=== PATIENT | male | born 1960 | race Caucasian/White ===

== ENCOUNTER 2019-06-17 11:02 | Emergency (ER) | payer SELFPAY ==
[2019-06-17 11:06] VITALS: BP 122/84; PULSE 84; RESP 18; TEMP 36.7; O2SAT 97; BMI 28.7
--- NOTE | 2019-06-17 11:25 | PC.PHAR ---
PT STATES HE STOP TAKING ALL HIS MEDICATIONS. AMLODIPINE 5MG 1 TAB ONCE A DAY WAS WRITTEN ON 02/11/19 FOR A 90D/S. PT ALSO HAD WARFARIN 5MG ONE TAB ONCE A DAY FILLED ON 11/10/18, PT STATES HE STOP TAKING BECAUSE HE CANT FIND A DR TO STAY WITH HIM.
--- NOTE | 2019-06-17 11:28 | ED_ITS ---
HPI - Extremity Problem General: Chief complaint: Extremity Problem,Nontraumatic Stated complaint: Right Foot Pain Time Seen by Provider: 06/17/19 11:28 Source: patient Mode of arrival: ambulatory Limitations: no limitations History of Present Illness: HPI Narrative: Patient is a 58-year-old male who presents to ED today with complaints of gangrene in his right foot; he appar ently has had this issue for several several months now and states he has seen several different providers all of which to keep referring me to someone else ; he states he needs another prescription for Bactrim but nobody will write him one; patient states he seen Dr. Dick previously but states he was told there was nothing to do MD Complaint: extremity pain Onset (ago): month(s) Location: right Relieving factors: nothing Exacerbating factors: nothing Associated symptoms: Reports no associated symptoms; Deny chest pain or fever(s) Review of Systems Const: Denies: fever or chills Card: Denies: chest pain Resp: Denies: shortness of breath Skin/Breast: Reports: other (discoloration to R foot) [facility] ED PFSH: Statuses (acute, chronic, etc) shown below reflect problem list status as previously entered and may not be historically accurate Social History Smoking and tobacco status: never smoked Physical Exam Const: COMMON NORMALS: no apparent distress, average body habitus, oriented x3, alert and well nourished Extremity: NARRATIVE EXTREMITY EXAM: pt has venous stasis changes to the medial aspect of his R foot; there is no redness/swelling to leg/foot; he has equal bilateral DP/PT pulses Neuro: COMMON NORMALS: oriented x3 SENSORIUM/ORIENTATION: Yes alert Skin: NARRATIVE SKIN EXAM: see extremity assessment Course Vital Signs: Vital signs: Vital Signs Temperature 98.0 F 06/17/19 11:06 Pulse Rate 84 06/17/19 11:06 Respiratory Rate 18 06/17/19 11:06 Blood Pressure 122/84 06/17/19 11:06 Pulse Oximetry 97 06/17/19 11:06 MDM - Extremity (Nontraumatic) MDM Narrative: Medical decision making narrative: Patient keeps telling me that he has gangrene in his foot and he is demanding that I treat him with antibiotics. I told him there is no evidence of active infection at this point and that the discoloration is most likely consistent with venous stasis changes. Patient becomes furious, angry, verbally abusive (telling me that the hospital should fire me and that I am worthless) and then stormed out of the room leaving AMA. Upon review of patient's visits he has had multiple work-ups of the foot and has seen Dr. Dick previously who agreed with venous stasis changes. He has had a DVT in that leg previously. Last arterial ultrasound in March was normal. He had an MRI of the foot in March as well which showed no osteomyelitis. Discharge Plan Discharge Patient Disposition: Left Against Medical Advice Clinical Impression: Venous stasis dermatitis Condition: Stable Prescriptions: No Action No Known Home Medications RF: 0 Referrals: Renita Mccabe FNP [Primary Care Provider] - Coding Level of Care Code ED See Supervisor for Dustin Ku
--- NOTE | 2019-06-17 11:46 | PC.NURSE ---
During patient assessment, patient with telling me that he was treated here for an infection with Bactrim DS by Dr Malcolm, went to follow up with a primary and that his foot wound had not fully healed but was improving with the bactrim. Randomly stated he does not like or trust anyone with the last name Jenny as they are too powerful around here. He stated Nandini Alvarado had put him on Eliquis last time which caused him to leak shit out of his ass. That it was messed up that she prescribed him that. Stated he needed an opioid pain medication for the pain in his foot. BRIDGETTE Jensen then entered room to assess and diagnose patient. He stated it was gangrene in his foot. Dl Alvarado stated it does not resemble gangrene in anyway. He then became angry and stated fine if you dont want to treat me, I will just leave and come back when you're not here. Dl Alvarado then said she could have another physician see him but if they too believed it was not gangrene they would not treat it as gangrene. He then got upset, put his shoes on, stated he just wanted a Rx for pain medication and antibiotics, that he was leaving and left out the front door.
== END 2019-06-17 11:49 | disposition left against medical advice (07) ==
PROVIDERS: Emergency Provider Physician Assistant; Family Provider Nurse Practitioner; PCP Nurse Practitioner
DX: I87.2 Venous insufficiency (chronic) (peripheral) (principal)
CPT/HCPCS: 99281

== ENCOUNTER 2019-07-08 14:44 | Emergency (ER) | payer SELFPAY ==
[2019-07-08 16:18] VITALS: BP 184/99; PULSE 80; RESP 18; TEMP 36.6; O2SAT 97; BMI 28.7
[2019-07-08 16:56] VITALS: BP 152/94; PULSE 80; RESP 12; TEMP 37.2
--- NOTE | 2019-07-08 17:09 | ED_ITS ---
Entered by Marietta Sosa, acting as scribe for Clay Malcolm DO Jul 08, 2019 14:44 HPI - General Adult General: Chief complaint: General Medical Stated complaint: LEFT FOOT PAIN Time Seen by Provider: 07/08/19 16:54 History of Present Illness: HPI narrative: 58 yo male presents with right foot pain. Pt states that he had antibiotics called in but he never picked them up. Pt states that he noticed his foot is more blue today. Pt believes that he has an infection in his foot. Pts right foot presents with chronic venous stasis. Pts foot doesn't presents with infections at this time. MD complaint: right foot pain. Onset (ago): month(s) Location: left (foot) Radiation: non-radiation Severity: moderate Quality: aching Pain Consistency: constant Relieving factors: none Exacerbating factors: none Associated symptoms: Reports no associated symptoms; Deny chest pain, dyspnea, malaise, nausea, rash or vomiting Review of Systems Const: Denies: fever, chills, body aches, change in appetite, fatigue or malaise ENMT: Denies: throat pain, ear pain, nasal discharge or nasal congestion Card: Denies: chest pain, edema, shortness of breath on exertion or shortness of breath when lying down Resp: Denies: shortness of breath, productive cough or non-productive cough GI: Denies: abdominal pain, nausea, vomiting, vomiting blood, coffee grounds in vomit, diarrhea, constipation, bloating, blood in stool or black tarry stool : Denies: flank pain, painful urination, urinary frequency or urinary urgency Skin/Breast: Denies: rash or itching PFSH ED PFSH: Statuses (acute, chronic, etc) shown below reflect problem list status as previously entered and may not be historically accurate Social History Smoking and tobacco status: never smoked Physical Exam Const: COMMON NORMALS: no apparent distress GENERAL APPEARANCE: cooperative and comfortable ORIENTATION/CONSCIOUSNESS: Yes awake, Yes oriented to person, Yes oriented to place and Yes oriented to time HENMT: COMMON NORMALS: normocephalic, head/scalp atraumatic, hearing grossly normal bilaterally, external ears normal, EAC's normal, TM's normal bilaterally, nasal mucous membranes and turbinates normal, moist oral mucous membranes and oropharynx normal HEAD & SCALP: normocephalic and atraumatic NOSE: nasal mucous membranes and turbinates normal EXTERNAL EAR: Yes external ears normal EXTERNAL AUDITORY CANAL: EAC's normal TYMPANIC MEMBRANE: TM's normal bilaterally Eye: COMMON NORMALS: PERRL, EOMs intact bilaterally, conjunctivae normal and no scleral icterus CONJUNCTIVA: Yes conjunctivae normal PUPIL: Yes PERRL Neck/C-Spine: COMMON NORMALS: full ROM, no lymphadenopathy, supple and no JVD Lymph: LYMPHATIC: no lymphadenopathy noted and no lymphedema noted Resp: COMMON NORMALS: normal respiratory effort, no retractions, no use of accessory muscles and clear to auscultation bilaterally AUSCULTATION: clear to auscultation bilaterally Cardio: COMMON NORMALS: no JVD, regular rate, regular rhythm and no murmurs RATE: regular rate RHYTHM: regular rhythm GI: COMMON NORMALS: soft to palpation and no hepatosplenomegaly AUSCU LTATION: Yes normoactive bowel sounds PALPATION: Yes soft, No tender, No guarding and Yes no hepatosplenomegaly Extremity: COMMON NORMALS: normal to inspection, normal capillary refill, no clubbing, cyanosis or edema, no calf tenderness and no pedal edema Neuro: SENSORIUM/ORIENTATION: Yes oriented to person, Yes oriented to place and Yes oriented to time Skin: COMMON NORMALS: no rashes or lesions noted GENERAL SKIN EXAM: no rashes or lesions noted Course ED course: Has been emergency room multiple times he has changes of chronic venous stasis edema and varicosities in the leg he is extremely angry when I pointed out to him there is no actual signs of infection no redness no drainage no swelling no erythema no sign of add abscess. He became begin to Elise mulligan at myself and other staff demanded to leave immediately advised him to follow-up with primary care podiatry as needed. Vital Signs: Vital signs: Vital Signs Temperature 98.9 F 07/08/19 16:56 Pulse Rate 80 07/08/19 16:56 Respiratory Rate 12 07/08/19 16:56 Blood Pressure 152/94 07/08/19 16:56 Pulse Oximetry 97 07/08/19 16:18 Discharge Plan Discharge Patient Disposition: Home, Self-Care Clinical Impression: Varicosities of leg Condition: Stable Prescriptions: No Action No Known Home Medications RF: 0 Referrals: Renita Mccabe FNP [Primary Care Provider] - Discharge Diet: Usual diet Discharge Activity: Resume usual activity Activity Restrictions/Additional Instructions: Case management will call with a referral to podiatry Discharge Date/Time: 07/08/19 17:28 Coding Level of Care Code ED Racing Mechanic for Chg Fwd Exam Problem Focused The documentation recorded by the Ian mercer Kialy, accurately reflects the service I personally performed and the decisions made by , Clay Malcolm, Jul 08, 2019 14:44
--- NOTE | 2019-07-09 09:54 | DCPLANNER ---
Addendum entered by Delma Miranda 07/31/19 10:21: Pat from ortho called informing casework manager that patient would need to see a foot and ankle specialist for his foot. Clinic attempted to contact patient and was unable to reach patient, casework manager tried to call patient, and was unable to reach patient to discuss with patient what clinic that he would like to use. Original Note: pst manager had a message to schedule a follow up appointment for patient with ortho. pst manager called the ortho clinic, spoke with Pat, gave clinic patients information. pst manager was told that patients information would be printed and reviewed. Clinic will call casework manager and patient with appointment information.
== END 2019-07-08 17:28 | disposition home or self-care (01) ==
PROVIDERS: Emergency Provider Family Medicine; Family Provider Nurse Practitioner; PCP Nurse Practitioner
DX: I83.92 Asymptomatic varicose veins of left lower extremity (principal)
CPT/HCPCS: 99281

== ENCOUNTER 2019-12-08 09:33 | Emergency (ER) | payer SELFPAY ==
[2019-12-08 09:49] VITALS: BP 168/88; PULSE 55; RESP 16; TEMP 36.8; O2SAT 95; BMI 31.5
--- NOTE | 2019-12-08 10:10 | W.ED.EXTPRO ---
HPI - Extremity Problem General: Chief complaint: Extremity Injury, Lower Stated complaint: RIGHT FOOT PAIN Time Seen by Provider: 12/08/19 10:01 History of Present Illness: HPI Narrative: Patient is a 59-year-old male who comes to the ED with acute on chronic right foot pain. Patient states he has had pain in his right foot for couple years. States pain has gotten worse. Patient says he has had multiple skin infections on right foot over the past couple years. Pain is located on the medial aspect of the right foot. He currently rates the pain a 5 out of 10. Pain gets worse when he is standing up and walking on it a lot. Patient stated he does not want any pain medications while here in the ED. He has some erythema and warmth of the skin on right medial aspect of his heel. He says he has had cellulitis there in the past and he usually gets it treated with Bactrim. Patient says when he takes Bactrim tends to break out and get cold sores around his mouth so given Valtrex in the past along with Bactrim. Associated symptoms: Deny chest pain, fever(s) or rash Review of Systems Const: Denies: fever(s), chills or fatigue Eyes: Denies: change in vision or eye discomfort ENMT: Denies: throat pain, odynophagia, nasal discharge or nasal congestion Card: Denies: chest pain, palpitations, edema, swelling of feet/ankles, dyspnea on exertion or orthopnea Resp: Denies: dyspnea, productive cough or non-productive cough GI: Denies: abdominal pain, nausea, vomiting, diarrhea, constipation or hematochezia : Denies: flank pain, difficulty urinating, dysuria or hematuria Musc: Reports: extremity pain (Right foot pain on medial side of heel.); Denies: neck pain, back pain or extremity swelling Skin/Breast: Reports: skin tenderness (Right foot) and new lesions (Erythema and warmth on right foot.); Denies: rash Neuro: Denies: headache(s), numbness in extremities or weakness in extremities PFS ED PFSH: Medical History DVT (deep venous thrombosis) Hypertension Venous stasis of lower extremity Social History Smoking and tobacco status: never smoked Alcohol intake: never History of recent travel: No Physical Exam Const: COMMON NORMALS: patient oriented x3 HENMT: COMMON NORMALS: normocephalic HEAD & SCALP: normocephalic MOUTH: Normal oral and palatal mucosa present THROAT: posterior oropharynx normal and uvula midline Neck/C-Spine: COMMON NORMALS: supple GENERAL: Yes normal visual inspection Resp: COMMON NORMALS: normal respiratory effort, No retractions, No use of accessory muscles and clear to auscultation bilaterally AUSCULTATION: clear to auscultation bilaterally Cardio: COMMON NORMALS: regular rate, regular rhythm, S1 normal heart sound present, S2 normal heart sound present, No gallops present (Cardio), No clicks present (Cardio), No murmurs present (Cardio) and Peripheral pulses 2+ throughout RATE: regular rate RHYTHM: regular rhythm HEART SOUNDS: S1 normal heart sound present and S2 normal heart sound present PERIPHERAL PULSES: Peripheral pulses 2+ throughout GI: COMMON NORMALS: Normal to inspection, nondistended, normoactive bowel sounds present, Soft to palpation, non-tender and no masses PALPATION: Yes Soft to palpation : COMMON NORMALS: Yes no CVA tenderness BLADDER/KIDNEY EXAM: Yes no CVA tenderness Back/Pelvis: COMMON NORMALS: no CVA tenderness Extremity: COMMON NORMALS: no pedal edema RIGHT LOWER EXTREMITY: Yes foot & digits Right foot and digits: Yes inspection (Patient has erythema and warmth of the skin over the medial side of the right foot and heel.), Yes palpation (Skin is tender to the touch where the erythema and warmth is.), Yes ROM (Full) and Yes neurovascular exam (Intact) Neuro: COMMON NORMALS: patient oriented x3 and moves all extremities Skin: LESIONS: lesion noted right foot Lesion size (cm): 8 Lesion location: medial aspect of right foot and heel Lesion distribution: Yes asymmetrical Lesion color: Yes erythematous and Yes red Lesion surface: Yes dry, Yes shiny and Yes warm Lesion border: Yes indistinct Lesion tenderness: Yes moderate Lesion finding consistent with: Yes cellulitis Course Vital Signs: Vital signs: Vital Signs Temperature 98.2 F 12/08/19 09:49 Pulse Rate 55 L 12/08/19 09:49 Respiratory Rate 16 12/08/19 09:49 Blood Pressure 168/88 12/08/19 09:49 Pulse Oximetry 95 12/08/19 09:49 MDM - Extremity (Nontraumatic) MDM Narrative: Medical decision making narrative: Patient is a 59-year-old male who comes to the ED with right foot pain. Upon examination patient has erythema, warmth and tenderness of skin on medial aspect of right foot. Patient diagnosed with cellulitis and given a dose of Bactrim here in the ED and sent home with a prescription for Bactrim. Patient also states that when he takes Bactrim he starts developing cold sores and in the past doctors have also prescribed him Valtrex along with Bactrim to help with cold sore symptoms. Patient was given a prescription for Valtrex to take as needed for developing cold sores as result of taking the Bactrim. He was told to follow-up with his PCP in 7 to 10 days and to take full course of antibiotics as prescribed. Take Tylenol or ibuprofen for pain or fevers. He can return to the ED if symptoms worsen. Patient understood and agreed with plan. Discharge Plan Discharge Patient Disposition: Home, Self-Care Clinical Impression: Cellulitis Qualifiers: Site of cellulitis: extremity Site of cellulitis of extremity: lower extremity Laterality: right Qualified Code(s): L03.115 - Cellulitis of right lower limb Condition: Stable Prescriptions: New Bactrim DS 800-160 mg tablet 1 tab PO BID 14 Days Qty: 28 RF: 0 Valtrex 1 gram tablet 1,000 mg PO BID PRN (Reason: cold sores) Qty: 10 RF: 0 No Action Norvasc 2.5 mg Tablet 2.5 mg PO DAILY RF: 0 Discharge Orders: Discharge Order (Routine); Ordered 12/08/19 Ordered By: Phill Park Referrals: Renita Mccabe FNP [Primary Care Provider] - Discharge Diet: Regular Discharge Activity: Resume usual activity Patient Instructions: Cellulitis (ED) Activity Restrictions/Additional Instructions: Call your PCP to schedule a follow-up appointment for reevaluation in the next 7 to 10 days. Take full course of antibiotic as prescribed. Also prescribing you Valtrex to help with cold sore symptoms caused by taking Bactrim. Take Tylenol or ibuprofen for fever or pain. Continue taking all home meds. Follow discharge plans as discussed. You can return to the ED if symptoms worsen. Coding Level of Care Code ED Live Truck Operator for Dustin Fwd Exam Comprehensive
[2019-12-08] MEDS: sulfamethoxazole-trimeth DS 160-800 mg Tablet 1 TAB PO (10:23)
[2019-12-08 10:41] VITALS: BP 146/68; PULSE 74; RESP 16; O2SAT 97
== END 2019-12-08 10:42 | disposition home or self-care (01) ==
PROVIDERS: Emergency Provider Physician Assistant; PCP Nurse Practitioner
DX: L03.115 Cellulitis of right lower limb (principal); I10 Essential (primary) hypertension
CPT/HCPCS: 12345; 99282

== ENCOUNTER 2019-12-22 11:13 | Emergency (ER) | payer SELFPAY ==
[2019-12-22 11:54] VITALS: BP 150/73; PULSE 71; RESP 16; TEMP 36.9; O2SAT 97; BMI 31.5
== END 2019-12-22 12:20 | disposition left against medical advice (07) ==
LOC: ER 13:21
PROVIDERS: Emergency Provider Physician Assistant; PCP Nurse Practitioner
DX: Z53.21 Procedure and treatment not carried out due to patient leaving prior to being seen by health care provider (principal)
CPT/HCPCS: 99281

== ENCOUNTER 2020-01-22 13:49 | Emergency (ER) | payer SELFPAY ==
[2020-01-22 13:54] VITALS: BP 186/79; PULSE 78; RESP 16; TEMP 37; O2SAT 97; BMI 31.5
[2020-01-22 14:21] VITALS: BP 163/97; PULSE 80; PULSE 83; RESP 18; O2SAT 95
[2020-01-22 14:26] VITALS: BP 163/97; PULSE 79; RESP 18; TEMP 36.4; O2SAT 96
--- NOTE | 2020-01-22 14:54 | W.ED.EXTPRO ---
HPI - Extremity Problem General: Chief complaint: Extremity Problem,Nontraumatic Stated complaint: right foot pain Time Seen by Provider: 01/22/20 14:02 History of Present Illness: HPI Narrative: Patient complains about right foot cellulitis says he needs antibiotics and then he also needs Valtrex when he takes antibiotics he gets cold sores around his mouth. MD Complaint: extremity pain Onset (ago): year(s) Pain Consistency: intermittent Location: right and lower extremity Severity scale (1-10): 2 Quality: aching Associated symptoms: Reports no associated symptoms; Deny chest pain, fever(s) or rash Review of Systems Narrative: Patient has a history of circulatory problems with his lower extremities and now he says that his right foot has a sore and he needs some antibiotics the only thing that helps take care of this and he is very adamant about this Const: Denies: fever(s), chills or body aches Eyes: Denies: change in vision or blurry vision ENMT: Denies: throat pain or nasal congestion Card: Denies: chest pain or dyspnea on exertion Resp: Denies: dyspnea, productive cough or non-productive cough GI: Denies: abdominal pain, nausea or vomiting : Denies: difficulty urinating Musc: Denies: extremity pain Skin/Breast: Reports: other (Patient has small sore right medial aspect below the ankle.); Denies: rash Neuro: Denies: headache(s) Psych: Denies: anxiety or depression Bubba/Lymph: Denies: easy bruising PFS ED PFSH: Medical History (Updated 01/22/20 @ 14:13 by JONI Otto) DVT (deep venous thrombosis) Hypertension Venous stasis of lower extremity Social History Smoking and tobacco status: never smoked Alcohol intake: never History of recent travel: No Physical Exam Const: COMMON NORMALS: no acute distress, average body habitus and patient oriented x3 HENMT: COMMON NORMALS: normocephalic HEAD & SCALP: normal to inspection and normocephalic FACE & SINUS: normal facial exam Eye: COMMON NORMALS: conjunctivae normal GENERAL EYE: appearance normal, both eyes and all related structures CONJUNCTIVA: Yes conjunctivae normal Neck/C-Spine: COMMON NORMALS: no JVD Chest: COMMONS NORMALS: normal inspection of the chest Resp: COMMON NORMALS: normal respiratory effort and clear to auscultation bilaterally AUSCULTATION: clear to auscultation bilaterally Cardio: COMMON NORMALS: no JVD, regular rate and regular rhythm RATE: regular rate RHYTHM: regular rhythm GI: COMMON NORMALS: Normal to inspection, nondistended, normoactive bowel sounds present Extremity: COMMON NORMALS: normal to inspection and full ROM RIGHT LOWER EXTREMITY: Yes foot & digits (Patient has small sore that and appear to be draining right now does not have erythema but he does have some venous stasis and blotchy discoloration of the lower extremity consistent with circulatory problems no erythema noted is tender to the touch) Neuro: COMMON NORMALS: patient oriented x3 Course Vital Signs: Vital signs: Vital Signs Temperature 97.6 F 01/22/20 14:26 Pulse Rate 79 01/22/20 14:26 Respiratory Rate 18 01/22/20 14:26 Blood Pressure 163/97 01/22/20 14:26 Pulse Oximetry 96 01/22/20 14:26 Discharge Plan Discharge Patient Disposition: Home Clinical Impression: Venous stasis of lower extremity Condition: Stable Prescriptions: New Bactrim 400-80 mg tablet 1 tab PO Q12H 28 Days Qty: 56 RF: 0 Valtrex 500 mg tablet 500 mg PO BID 5 Days Qty: 10 RF: 0 No Action tolnaftate [Lamisil AF] 1 % aerosol powder 1 spray TOPICAL DAILY 7 Days Qty: 133 RF: 0 Norvasc 2.5 mg Tablet 2.5 mg PO DAILY RF: 0 Valtrex 1 gram tablet 1,000 mg PO BID PRN (Reason: cold sores) Qty: 10 RF: 0 Discharge Orders: Discharge Order (Routine); Ordered 01/22/20 Ordered By: Chad Jacobo Referrals: Renita Mccabe FNP [Primary Care Provider] - Discharge Diet: As Directed Discharge Activity: Increase activity as tolerated Patient Instructions: Cellulitis (ED) Activity Restrictions/Additional Instructions: Follow-up with medical provider as directed. Take medications as prescribed. Return to the ER or your medical provider if condition worsens. Please read and understand discharge instructions. If any questions ask please. Follow-up Renita Mccabe as needed. Discharge Date/Time: 01/22/20 14:32 Coding Level of Care Code ED Parks And Recreation Worker for Dustin Ku
== END 2020-01-22 14:32 | disposition home or self-care (01) ==
PROVIDERS: Emergency Provider Nurse Practitioner Family; PCP Nurse Practitioner
DX: I87.8 Other specified disorders of veins (principal); I10 Essential (primary) hypertension
CPT/HCPCS: 12345; 99281

== ENCOUNTER 2020-06-25 05:47 | Emergency (ER) | payer SELFPAY ==
[2020-06-25 05:50] VITALS: BP 193/76; PULSE 66; RESP 15; TEMP 36.8; O2SAT 97; BMI 32.3
[2020-06-25 06:02] VITALS: BP 168/71; PULSE 59; RESP 16; O2SAT 96
--- NOTE | 2020-06-25 06:16 | ED_ITS ---
HPI - Skin/Abscess/Foreign Bdy General: Chief complaint: Skin/Abscess/Foreign Body Stated complaint: tick bite on groin Time Seen by Provider: 06/25/20 05:59 History of Present Illness: HPI narrative: 59 yo male present to the ER with a c omplaint of rash in the R groin crease. He relates he can feel a nodule in his scrotum on the right side inferiorly. He was concerned that there might be the head of the tick embedded there. He thinks it is from about 2 years ago. He is a rash in the groin creases mildly reddened he is try different topicals and even prescription medications and yet it persists. Has not had any difficulty with urination. Patient denies being diabetic. MD complaint: rash Onset (ago): year(s) Location: genitals (Right groin crease) Severity: mild Relieving factors: none Exacerbating factors: none Context: witnessed insect bite (Per patient this was a result of a tick bite 2 years ago) Associated symptoms: Deny chills or fever(s) Treatments prior to arrival: other (Prescription antifungals systemic) Review of Systems Const: Denies: fever(s), chills, body aches, change in appetite, fatigue or malaise : Denies: flank pain, dysuria, urinary frequency or urinary urgency PFSH ED PFSH: Medical History Acute eczema of hand Chronic wound of extremity DVT (deep venous thrombosis) Hypertension Obesity (BMI 30.0-34.9) Venous stasis of lower extremity Social History Smoking and tobacco status: never smoked Alcohol intake: never History of recent travel: No Physical Exam Const: COMMON NORMALS: no acute distress GENERAL APPEARANCE: cooperative and comfortable ORIENTATION/CONSCIOUSNESS: Yes awake, Yes oriented to person, Yes oriented to place and Yes oriented to time HENMT: COMMON NORMALS: normocephalic, atraumatic and hearing grossly normal bilaterally HEAD & SCALP: normocephalic and atraumatic Neck/C-Spine: COMMON NORMALS: no JVD Resp: COMMON NORMALS: normal respiratory effort, No retractions, No use of accessory muscles and clear to auscultation bilaterally AUSCULTATION: clear to auscultation bilaterally Cardio: COMMON NORMALS: no JVD, regular rate, regular rhythm and No murmurs present (Cardio) RATE: regular rate RHYTHM: regular rhythm GI: COMMON NORMALS: Soft to palpation and No hepatosplenomegaly present AUSCULTATION: Yes normoactive bowel sounds PALPATION: Yes Soft to palpation, No Tenderness to palpation present (GI), No Guarding due to palpation present (GI) and Yes No hepatosplenomegaly present Neuro: SENSORIUM/ORIENTATION: Yes oriented to person, Yes oriented to place and Yes oriented to time Skin: NARRATIVE SKIN EXAM: Mildly erythematous rash in the right groin crease no drainage. No skin ulceration no vesicles consistent with candidal rash Course Vital Signs: Vital signs: Vital Signs Temperature 98.2 F 06/25/20 05:50 Pulse Rate 61 06/25/20 06:24 Respiratory Rate 16 06/25/20 06:24 Blood Pressure 149/89 06/25/20 06:24 Pulse Oximetry 95 06/25/20 06:24 MDM - Skin/Abscess/Foreign Bdy MDM Narrative: Medical decision making narrative: Topical ketoconazole daily for a week follow-up with dermatology if not improve Discharge Plan Discharge Patient Disposition: Home Clinical Impression: [place] infection of genital region Condition: Stable Prescriptions: New ketoconazole 2 % cream 1 applic topical DAILY 14 Days Qty: 60 RF: 0 No Action Norvasc 2.5 mg tablet 2.5 mg PO DAILY Qty: 30 RF: 5 doxycycline hyclate 100 mg capsule 100 mg PO BID Qty: 60 RF: 2 Discharge Orders: Discharge ED (Routine); Ordered 06/25/20 Ordered By: Clay Malcolm Referrals: Yvan Cervantes MD [Primary Care Provider] - Activity Restrictions/Additional Instructions: Case management will call with an appointment to dermatology, Coding Level of Care Code ED Heart Specialist for Dustin Ku
[2020-06-25 06:24] VITALS: BP 149/89; PULSE 61; RESP 16; O2SAT 95
== END 2020-06-25 06:26 | disposition home or self-care (01) ==
PROVIDERS: Emergency Provider Family Medicine; PCP Family Medicine Adult Medicine
DX: B37.49 Other urogenital candidiasis (principal); I10 Essential (primary) hypertension
CPT/HCPCS: 12345; 99281

== ENCOUNTER 2020-07-28 22:28 | Emergency (ER) | payer SELFPAY ==
[2020-07-28 22:33] VITALS: BP 150/70; PULSE 85; RESP 16; TEMP 36.6; O2SAT 97; BMI 31.5
--- NOTE | 2020-07-29 01:36 | W.ED.EXTPRO ---
HPI - Extremity Problem General: Chief complaint: Extremity Problem,Nontraumatic Stated complaint: lacerations that won't heal on both hands Time Seen by Provider: 07/29/20 01:33 History of Present Illness: HPI Narrative: Patient comes in complain about dry cracking hands for the last few weeks. Complaint: other (Dry hands) Onset (ago): week(s) Pain Consistency: constant Location: left, right and upper extremity Severity scale (1-10): 1 Relieving factors: nothing Exacerbating factors: nothing Associated symptoms: Reports no associated symptoms; Deny fever(s) Review of Systems Const: Denies: fever(s) or chills Skin/Breast: Reports: other (Hands been dry and cracking the last few weeks) Psych: Denies: anxiety PFSH ED PFSH: Medical History (Updated 07/29/20 @ 01:36 by JONI Otto) Acute eczema of hand Chronic cellulitis Chronic wound of extremity DVT (deep venous thrombosis) Hypertension Obesity (BMI 30.0-34.9) Venous stasis of lower extremity Social History Smoking and tobacco status: never smoked Alcohol intake: never History of recent travel: No Physical Exam Const: COMMON NORMALS: no acute distress Resp: COMMON NORMALS: normal respiratory effort Cardio: COMMON NORMALS: regular rate RATE: regular rate Psych: COMMON NORMALS: mental status grossly normal Skin: OTHER: He has skin that is dry and cracking on his hands no erythema noted no swelling noted Course Vital Signs: Vital signs: Vital Signs Temperature 97.9 F 07/28/20 22:33 Pulse Rate 85 07/28/20 22:33 Respiratory Rate 16 07/28/20 22:33 Blood Pressure 150/70 07/28/20 22:33 Pulse Oximetry 97 07/28/20 22:33 Discharge Plan Discharge Patient Disposition: Home Clinical Impression: Dry skin Condition: Stable Prescriptions: No Action Norvasc 2.5 mg tablet 2.5 mg PO DAILY Qty: 30 RF: 5 doxycycline hyclate 100 mg capsule 100 mg PO BID Qty: 60 RF: 1 ketoconazole 2 % cream 1 applic topical BID Qty: 60 RF: 2 Discharge Orders: Discharge ED (Routine); Ordered 07/29/20 Ordered By: Chad Jacobo Referrals: Yvan Cervantes MD [Primary Care Provider] - Discharge Diet: Usual diet Discharge Activity: Resume usual activity Patient Instructions: Lanolin (On the skin) Activity Restrictions/Additional Instructions: You can buy [place] working hand cream to apply to your hands twice a day. Are you can take petroleum jelly or Vaseline applied to her hands nightly put a glove on and wear that all during the night and do this every night for next 2 to 3 months. Follow-up with press department manager if no significant provement. Coding Level of Care Code ED Operating Room Aide for Dustin Ku
[2020-07-29 02:00] VITALS: PULSE 73; O2SAT 97
== END 2020-07-29 02:00 | disposition home or self-care (01) ==
PROVIDERS: Emergency Provider Nurse Practitioner Family; PCP Family Medicine Adult Medicine
DX: R23.4 Changes in skin texture (principal); I10 Essential (primary) hypertension
CPT/HCPCS: 99281

== ENCOUNTER → 2020-09-30 10:37 | Outpatient (BNVA) | payer SELFPAY | PROVIDERS: PCP Family Medicine Adult Medicine; Visit Provider Family Medicine Adult Medicine | DX: I10 Essential (primary) hypertension (principal); R94.4 Abnormal results of kidney function studies; L03.90 Cellulitis, unspecified; E66.9 Obesity, unspecified | CPT/HCPCS: 80053 ==

== ENCOUNTER 2021-04-10 09:35 | Outpatient (CLI) | payer SELFPAY | END 2021-04-10 09:36 | disposition home or self-care (01) | LOC: WOUND 09:35 | PROVIDERS: PCP Family Medicine Adult Medicine; Visit Provider Emergency Medicine | DX: I87.2 Venous insufficiency (chronic) (peripheral) (principal); L97.311 Non-pressure chronic ulcer of right ankle limited to breakdown of skin | CPT/HCPCS: 97597; 99203; A6212; G0463 ==

== ENCOUNTER 2021-04-17 09:25 | Outpatient (CLI) | payer SELFPAY | END 2021-04-17 09:26 | disposition home or self-care (01) | LOC: WOUND 09:26 | PROVIDERS: PCP Family Medicine Adult Medicine; Visit Provider Nurse Practitioner Family | DX: L97.311 Non-pressure chronic ulcer of right ankle limited to breakdown of skin (principal) | CPT/HCPCS: G0463 ==

== ENCOUNTER 2021-04-24 09:24 | Outpatient (CLI) | payer SELFPAY | END 2021-04-24 09:25 | disposition home or self-care (01) | LOC: WOUND 09:25 | PROVIDERS: PCP Family Medicine Adult Medicine; Visit Provider Emergency Medicine | DX: Z09 Encounter for follow-up examination after completed treatment for conditions other than malignant neoplasm (principal) | CPT/HCPCS: 99212 ==

== ENCOUNTER 2021-05-29 15:02 | Outpatient (CLI) | payer MEDICAID, SELFPAY ==
--- NOTE | 2021-05-29 15:06 | USCV_ITS ---
EugenioGregorio Age: 60 Gender: M : 1960 Exam Date: 05/29/2021 15:17 Ordering Phys: Sis Hickey DO Technologist: Exam Location: [facility] [place]: HISTORY: PROCEDURES: Right duplex Venous Insufficiency study of the Deep and Superficial systems was carried out according to normal protocol with the patient in supine positon for deep system and dependent position for the superficial system. FINDINGS: THERE IS NON OCCLUDING DVT IN RT FEMORAL VEIN AND POPLETEAL VEIN. THERE IS SIGNIFICANT REFLUX IN THE DEEP SYSTEM IN THE RT DISTAL FEMORAL AND RT POP VEIN. THERE IS NO REFLUX IN THE GREAT SAPH Echogenic material was noted in the femoral and popliteal vein on the right side fits Doppler flow signals CONCLUSIONS 1. Features of DVT causing partial occlusion of the right femoral and popliteal vein. 2. Significant venous reflux was noted at the femoral vein. 3. No significant venous reflux was noted in the greater saphenous or small saphenous veins on the right 3. The superficial veins were found to be of normal caliber on the right side. Dr Grabiel Tejada MD [facility] (Electronically Signed) Final Date: 03 June 2021 16:09 S
== END 2021-05-29 15:03 | disposition home or self-care (01) ==
LOC: RAD 15:05
PROVIDERS: PCP Family Medicine Adult Medicine; Visit Provider Emergency Medicine
DX: I87.2 Venous insufficiency (chronic) (peripheral) (principal); L97.819 Non-pressure chronic ulcer of other part of right lower leg with unspecified severity
CPT/HCPCS: 93971

== ENCOUNTER 2021-06-01 12:46 | Emergency (ER) | payer MEDICAID, SELFPAY ==
[2021-06-01] VITALS (7 sets, daily range): BP systolic 131–159; BP diastolic 67–74; PULSE 53–104; RESP 16–18; TEMP 36.6; O2SAT 94–98
--- NOTE | 2021-06-01 14:35 | ED_ITS ---
HPI - Wound/Laceration General: Chief Complaint: Wound/Laceration Stated Complaint: R FOOT PAIN/NOT HEALING Time Seen by Provider: 06/01/21 14:35 History of Present Illness: HPI narrative: Ms. Becker is a 60-year-old gentleman without history of diabetes who presents to the emergency department due to worsening foot wound. He reports approximately 8 years ago he had an injury in the medial midfoot which took a long time to heal. He subsequently has developed recurrence which has intermittently occurred. He has a longstanding history of intermittent antibiotic use and has been on doxycycline for approximately 1 year. He follows with PCP and was started on Keflex on the seventh. He continues to have worsening including increased pain, drainage, and ecchymosis. He denies recurrent injury. Denies signs of systemic illness. Overall the course has been worsening. Intensity of pain is moderate. No other specific changes in health, exacerbating, relieving factors identified. Review of Systems General: Reports: 10 or more systems reviewed and unremarkable except in HPI and below PFSH ED PFSH: Medical History (Updated 06/09/21 @ 00:00 by ) Acute eczema of hand Callus of foot Chronic wound of extremity Rt ankle/foot DVT (deep venous thrombosis) Right lower leg 06/01/2021 Fistula dermatitis Hypertension Ingrown toenail of both feet Lice infested hair Obesity (BMI 30.0-34.9) Onychomycosis Psoriasis and similar disorder Social History Alcohol intake: never History of recent travel: No Physical Exam Narrative: EXAM NARRATIVE: GENERAL/CONSTITUTIONAL - well-appearing. Not toxic Eyes - PERRL, no conjunctival injection ENMT - Atraumatic external nose and ears. Moist mucous membranes NECK - supple. trachea midline CARDIOVASCULAR - regular rate and rhythm. Right foot DP and PT only very subtly palpable. RESPIRATORY -clear to auscultation bilaterally. ABDOMEN/GI - Nontender/Nondistended. MSK - Extremities without obvious deformity or tenderness to palpation. Medial aspect of right foot has area of bruising with central wound, no deep tracking appreciated. SKIN - Warm, Dry NEURO - alert and appropriately oriented. Moves all extremities equally. Course ED course: - Patient was seen and evaluated by me at bedside - Patient placed on cardiac monitors, IV access obtained - Initial evaluation notable for exam as above - Labs notable for no leukocytosis. Negative inflammatory markers. - Imaging notable for no acute fracture or evidence of significant bony erosion. Given exam findings and barely palpable pulses as well as nonhealing wound arterial ultrasound ordered. - Upon serial reexamination after treatment the patient was improved with analgesia - Based on patient history, evaluation, labs, and imaging as interpreted the most likely cause of the patient's condition is chronic wounds with concern for vascular insufficiency - The results of ED evaluation were discussed with the patient. I strongly see/recommended admission for further medical evaluation as I am concerned that there is a area of subtly necrotic tissue without evidence of superimposed infection. This may be secondary to the combination of vascular insufficiency and DVTs though no region of classic cerulea dolens was noted. The patient d eclined recommendation adamantly, he plans to follow-up with wound care and perhaps go to a animal doctor . I explained that this was a bad idea, unfortunately I cannot force this patient to make reasonable medical decisions. He has capacity to make medical decisions at this time. He can understand and explain risks and benefits as explained to him. I discussed prescriptions and/or symptomatic cares (if applicable) including appropriate and responsible use, followup plan, and return precautions. The patient verbalized understanding and felt safe for discharge. - Patient discharged in satisfactory condition. Vital Signs: Vital signs: Vital Signs Temperature 97.8 F 06/01/21 13:26 Pulse Rate 59 L 06/01/21 21:24 Respiratory Rate 18 06/01/21 21:24 Blood Pressure 159/68 06/01/21 21:24 Pulse Oximetry 95 06/01/21 21:24 MDM - Wound/Laceration Medical Records: Attestation: I reviewed the patient's medical records. Lab Data: Attestation: I reviewed the patient's lab results. Labs: Lab Results 06/01/21 06/01/21 06/01/21 15:23 15:23 15:23 WBC 5.1 10^3/uL 10^3/ uL (4.0-10.0) RBC 4.31 10^6/uL 10^6 /uL (4.1-5.3) Hgb 13.5 g/dL g/dL (11.7-16.6) Hct 41.2 % L % (42.0-52.0) MCV 95.6 fl H fl (80-94) MCH 31.3 pg pg (28.0-34.0) MCHC 32.8 g/dL g/dL (30.0-36.0) RDW 12.6 % % (12.1-15.1) Plt Count 118 10^3/cmm L 10 ^3/cmm (130-400) MPV 11.3 fL H fL (7.4-10.4) Neut % (Auto) 69.1 % % Lymph % (Auto) 20.0 % % [place] % (Auto) 8.0 % % Eos % (Auto) 2.3 % % Baso % (Auto) 0.4 % % Neut # (Auto) 3.53 10^3/uL 10^3 /uL (1.8-7.7) Lymph # (Auto) 1.0 10^3/uL 10^3/ uL (0.8-4.8) [place] # (Auto) 0.4 10^3/uL 10^3/ uL (0.2-0.9) Eos # (Auto) 0.1 10^3/uL 10^3/ uL (0.0-0.8) Baso # (Auto) 0.0 10^3/uL 10^3/ uL (0.0-0.1) Nucleated RBC % (a uto) 0 % % Nucleated RBCs # 0.0 /100WBC /100W BC ESR < 1 mm/hr mm/hr (0-10) Sodium 140 mmol/L mmol/L (136-145) Potassium 4.1 mmol/L mmol/L (3.5-5.1) Chloride 104 mmol/L mmol/L (98-107) Carbon Dioxide 25 mmol/L mmol/L (22-29) Anion Gap 15.1 (5-19) BUN 31 mg/dL H mg/dL (8-23) Creatinine 1.0 mg/dL mg/dL (0.7-1.2) GFR Calculation 76.0 mL/min L mL/ min (90-130) Glucose 77 mg/dL mg/dL (65-115) Calculated Osmolal ity 295 mOsm/kg mOsm/ kg (285-295) Calcium 8.7 mg/dL mg/dL (8.5-10.5) C-Reactive Protein 0.7 mg/L mg/L (0.0-4.9) Discharge Plan Discharge Patient Disposition: Home Clinical Impression: Chronic wound of extremity, DVT (deep venous thrombosis), Arterial insufficiency Condition: Stable Prescriptions: No Action Eliquis DVT-PE Treat 30D Start 5 mg (74 tabs) tablets,dose pack See Rx Instructions .ROUTE .COMPLEX Qty: 74 RF: 0 tramadol 50 mg tablet 50 mg PO Q12H PRN (Reason: foot pain) 30 Days Qty: 60 RF: 0 gabapentin 100 mg capsule 100 mg PO TID Qty: 90 RF: 3 cephalexin 750 mg capsule 750 mg PO BID Qty: 60 RF: 0 doxycycline hyclate 100 mg tablet 100 mg PO BID Qty: 60 RF: 2 naproxen 500 mg tablet 500 mg PO BID Qty: 60 RF: 1 clotrimazole-betamethasone 1-0.05 % cream 1 applic topical BID Qty: 45 RF: 1 amlodipine 5 mg tablet 5 mg PO DAILY Qty: 30 RF: 5 Discharge Orders: Discharge ED (Routine); Ordered 06/01/21 Ordered By: Jeremy Johnson Referrals: Yvan Cervantes MD [Primary Care Provider] - Discharge Diet: Usual diet Discharge Activity: Resume usual activity Patient Instructions: Deep Vein Thrombosis (ED), Peripheral Vascular Disease (ED), Chronic Wounds (ED), Opioid Safety Activity Restrictions/Additional Instructions: Thank you for visiting the emergency department. You were seen and evaluated for worsening of chronic wound. The exact cause your wound is unclear however you were found to have DVTs as well as peripheral arterial disease. I recommend staying in the hospital for further evaluation and intervention which you are declining at this time. You will be started on a medication called Eliquis, this can cause bleeding, watch out for signs of bleeding and be sure to return to the emergency department for any signs of bleeding or traumatic injury. Please follow-up with wound care and your primary care provider. Return to the emergency department for anything else that you are concerned about and feel needs emergency department evaluation. Coding Level of Care Code ED Flocculator Operator for Dustin Ku
--- NOTE | 2021-06-01 14:52 | XRR_ITS ---
PROCEDURE INFORMATION: Exam: XR Right Foot Exam date and time: 06/01/2021 2:52 PM Age: 60 years old Clinical indication: Swelling, leg or foot; Patient HX: --injured ankle 8 years prior. Has had residual pain since. The injury was a roll of the ankle internally. Currently has pain and bruising/swelling on the anterio part of ankle and foot (right). , ; Additional info: Wound, swelling TECHNIQUE: Imaging protocol: XR Right foot. Views: 3 or more views. COMPARISON: MRI Foot w/o RIGHT* [id number] 03/23/2019 7:43 AM FINDINGS: Bones/joints: Visualized osseous structures are intact. Negative for fracture. Joint spaces are preserved. Mild dorsal spurring along the mid foot. Soft tissues: Normal. XR/XR foot RT min 3V* [id number] IMPRESSION: No acute findings.
--- NOTE | 2021-06-01 14:52 | XRR_ITS ---
PROCEDURE INFORMATION: Exam: XR Right Ankle Exam date and time: 06/01/2021 2:52 PM Age: 60 years old Clinical indication: Swelling, leg or foot; Patient HX: --injured ankle 8 years prior. Has had residual pain since. The injury was a roll of the ankle internally. Currently has pain and bruising/swelling on the anterio part of ankle and foot (right). , ; Additional info: Wound, swelling TECHNIQUE: Imaging protocol: XR Right ankle. Views: 3 or more views. COMPARISON: CR Ankle 3 views, RIGHT* [id number] 09/19/2018 11:43 AM FINDINGS: Bones/joints: Visualized osseous structures are intact. Negative for fracture. Joint spaces are preserved. Soft tissues: Soft tissue swelling around the ankle. XR/XR ankle RT min 3V* [id number] IMPRESSION: No acute osseous abnormalities of the ankle.
[2021-06-01 15:40] LABS: Basophils % 0.4 %; Eosinophils # 0.1 10^3/uL (0.0-0.8); Eosinophils % 2.3 %; Hematocrit 41.2 % (42.0-52.0); Hemoglobin 13.5 g/dL (11.7-16.6); Mean Corpuscular HGB Conc 32.8 g/dL (30.0-36.0); Mean Corpuscular Hemoglobin 31.3 pg (28.0-34.0); Mean Corpuscular Volume 95.6 fl (80-94); Mean Platelet Volume 11.3 fL (7.4-10.4); Monocytes # 0.4 10^3/uL (0.2-0.9); Neutrophils # 3.53 10^3/uL (1.8-7.7); Neutrophils % 69.1 %; Nucleated Red Blood Cells % 0 %; Platelet Count 118 10^3/cmm (130-400); Red Blood Count 4.31 10^6/uL (4.1-5.3); Red Cell Distribution Width 12.6 % (12.1-15.1); White Blood Count 5.1 10^3/uL (4.0-10.0)
--- NOTE | 2021-06-01 15:46 | USR_ITS ---
PROCEDURE INFORMATION: Exam: US Duplex Right Lower Extremity Arteries Or Arterial Bypass Grafts Exam date and time: 06/01/2021 3:46 PM Age: 60 years old Clinical indication: Pain; Edema, localized; Lower extremity, right; Foot; Patient HX: Non-healing ulceration with erythema and edema of the right ankle and distal right calf; Additional info: Worsening wound, deminished pulses TECHNIQUE: Imaging protocol: Right Real-time duplex scan of the arteries or arterial bypass grafts of the right lower extremity with 2-D davis scale, color Doppler flow and spectral waveform analysis. Images documented and saved. COMPARISON: CTA AbdAorta Runoff Leg [id number] 10/22/2018 2:02 PM FINDINGS: Right common femoral artery: No occlusion or significant stenosis. Normal waveform. No pseudoaneurysm in the inguinal region. Right superficial femoral artery: No occlusion or significant stenosis. Normal waveform. Right popliteal artery: No occlusion or significant stenosis. Normal waveform. Right calf/foot arteries: No occlusion or significant stenosis in the visualized arteries. Monophasic waveforms of the tibioperoneal trunk, posterior tibial artery, and dorsalis pedis artery. Dorsalis pedis artery is patent. Soft tissues: No hematoma or [place]. US/[place] [id number] IMPRESSION: Abnormal monophasic waveforms of the calf arteries including the tibioperoneal trunk, posterior tibial artery, and dorsalis pedis artery, without stenosis or occlusion.
[2021-06-01 16:02] LABS: Anion Gap 15.1 (5-19); Blood Urea Nitrogen 31 mg/dL (8-23); C Reactive Protein 0.7 mg/L (0.0-4.9); Calcium 8.7 mg/dL (8.5-10.5); Carbon Dioxide 25 mmol/L (22-29); Chloride 104 mmol/L (98-107); Glucose 77 mg/dL (65-115); Osmolality Calculated 295 mOsm/kg (285-295); Potassium 4.1 mmol/L (3.5-5.1); Sodium 140 mmol/L (136-145)
[2021-06-01 16:23] LABS: Slide Review Slide Review Perform
[2021-06-01 16:28] LABS: Erythrocyte Sedimentation Rate < 1 mm/hr (0-10)
--- NOTE | 2021-06-01 16:56 | USR_ITS ---
PROCEDURE INFORMATION: Exam: US Duplex Right Lower Extremity Veins, Limited Exam date and time: 06/01/2021 4:56 PM Age: 60 years old Clinical indication: Edema, localized and other: Non-healing ulceration with erythema and edema of the right ankle and distal right calf; Lower extremity, right; Additional info: Eval dvt TECHNIQUE: Imaging protocol: Real-time Duplex ultrasound of the Right Lower Extremity with 2-D davis scale, color Doppler flow and spectral waveform analysis with image documentation. Limited exam was focused on the right lower extremity veins. COMPARISON: [place] [id number] 06/01/2021 4:09 PM FINDINGS: Right deep veins: Minimal compressibility with the appearance of nonocclusive chronic appearing thrombus throughout the superficial femoral vein, popliteal vein, and posterior tibial veins. Augmentation and color Doppler flow is still appreciated in these regions. The peroneal veins are not visualized on exam. Common femoral vein is patent with compressibility, augmentation, color Doppler flow, no evidence of thrombus in this region. Right superficial veins: Unremarkable. Saphenofemoral junction is patent without thrombus. Soft tissues: Unremarkable. US/[place] [id number] IMPRESSION: Chronic appearing nonocclusive DVT noted throughout the superficial femoral vein, popliteal vein, and posterior tibial calf veins. Peroneal calf veins are not visualized on exam.
--- NOTE | 2021-06-01 17:49 | PC.NURSE ---
PATIENT FOUND IN TABLE TOP TILE SETTER OFFICE. PATIENT TRYING TO LEAVE DUE TO BEING IN PAIN. PATIENT STATES THAT IF HE ISN'T GOING TO GET PAIN MEDS HERE, HE CAN JUST GO OUT TO HIS CAR AND GET SOME. PATIENT REMINDED THAT HE HAS AN IV AND CANNOT LEAVE THE HOSPITAL TO RETRIEVE THINGS OUT OF HIS VEHICLE. PATIENT BACK IN ROOM. PROVIDER NOTIFIED.
[2021-06-01] MEDS: morphine 4 mg/mL SDV 1 mL IVP (17:56)
== END 2021-06-01 21:00 | disposition home or self-care (01) ==
PROVIDERS: Emergency Provider Emergency Medicine; PCP Family Medicine Adult Medicine
DX: S91.301A Unspecified open wound, right foot, initial encounter (principal); X58.XXXA Exposure to other specified factors, initial encounter; I82.511 Chronic embolism and thrombosis of right femoral vein; I82.531 Chronic embolism and thrombosis of right popliteal vein; I82.541 Chronic embolism and thrombosis of right tibial vein; I77.1 Stricture of artery; I10 Essential (primary) hypertension; Z86.718 Personal history of other venous thrombosis and embolism
CPT/HCPCS: 73610; 73630; 80048; 85025; 85651; 86140; 93926; 93971; 96374; 99284; J2270

== ENCOUNTER 2021-06-10 12:12 | Emergency (ER) | payer MEDICAID, SELFPAY ==
[2021-06-10 12:33] VITALS: BP 168/69; PULSE 74; RESP 16; TEMP 37; O2SAT 98
--- NOTE | 2021-06-10 14:57 | XRR_ITS ---
PROCEDURE INFORMATION: Exam: XR Right Foot Exam date and time: 06/10/2021 2:57 PM Age: 60 years old Clinical indication: Other: Chronic ulcer; Additional info: Chronic draining ulcer to RT foot TECHNIQUE: Imaging protocol: XR Right foot. Views: 3 or more views. COMPARISON: CR XR foot RT min 3V* [id number] 06/01/2021 3:01 PM FINDINGS: Bones/joints: Normal. Soft tissues: Unremarkable. Negative for soft tissue foreign body XR/XR foot RT min 3V* [id number] IMPRESSION: No acute findings.
--- NOTE | 2021-06-10 14:57 | W.ED.WOUNDLC ---
HPI - Wound/Laceration General: Chief Complaint: Wound/Laceration Stated Complaint: R FOOT PAIN Time Seen by Provider: 06/10/21 14:54 History of Present Illness: HPI narrative: 60-year-old male has a chronic ulcer on the inner aspect of his right heel is been there for several months he seen podiatry and he has seen wound care clinic he states it is persisting he is currently on some antibiotics he is also on apixaban. has not been bleeding, has not been having any purulent drainage. Onset (ago): month(s) Place: home Associated symptoms: Denies chills, fever(s), foreign body sensation, inability to move, nausea, numbness, pain, syncope or vomiting Treatments prior to arrival: bandage Review of Systems Const: Denies: fever(s) or chills ENMT: Denies: throat pain, ear or mastoid pain, nasal discharge or nasal congestion Card: Denies: syncope Resp: Denies: dyspnea, productive cough or non-productive cough GI: Denies: nausea or vomiting : Denies: flank pain, dysuria, urinary frequency or urinary urgency Skin/Breast: Denies: rash or pruritus PFSH ED PFSH: Medical History Acute eczema of hand Callus of foot Chronic wound of extremity Rt ankle/foot DVT (deep venous thrombosis) Right lower leg 06/01/2021 Fistula dermatitis Hypertension Ingrown toenail of both feet Lice infested hair Obesity (BMI 30.0-34.9) Onychomycosis Psoriasis and similar disorder Social History Alcohol intake: never History of recent travel: No Physical Exam Const: COMMON NORMALS: no acute distress GENERAL APPEARANCE: cooperative and comfortable ORIENTATION/CONSCIOUSNESS: Yes awake, Yes oriented to person, Yes oriented to place and Yes oriented to time HENMT: COMMON NORMALS: normocephalic, atraumatic and hearing grossly normal bilaterally HEAD & SCALP: normocephalic and atraumatic Neck/C-Spine: COMMON NORMALS: no JVD Resp: COMMON NORMALS: normal respiratory effort, No retractions, No use of accessory muscles and clear to auscultation bilaterally AUSCULTATION: clear to auscultation bilaterally Cardio: COMMON NORMALS: no JVD, regular rate, regular rhythm and No murmurs present (Cardio) RATE: regular rate RHYTHM: regular rhythm GI: COMMON NORMALS: Soft to palpation and No hepatosplenomegaly present AUSCULTATION: Yes normoactive bowel sounds PALPATION: Yes Soft to palpation, No Tenderness to palpation present (GI), No Guarding due to palpation present (GI) and Yes No hepatosplenomegaly present Extremity: OTHER: Chronic wound to the inner aspect of the right foot inferior and posterior to the medial malleolus. There are some chronic erosion through the skin. There is no active bleeding the wound base is slightly moist but there is no sign of infection no purulent drainage. Trace nonpitting edema of the lower extremities. Neuro: SENSORIUM/ORIENTATION: Yes oriented to person, Yes oriented to place and Yes oriented to time Skin: COMMON NORMALS: no rashes or lesions noted GENERAL SKIN EXAM: no rashes or lesions noted Course Vital Signs: Vital signs: Vital Signs Temperature 98.6 F 06/10/21 12:33 Pulse Rate 74 06/10/21 12:33 Respiratory Rate 16 06/10/21 12:33 Blood Pressure 168/69 06/10/21 12:33 Pulse Oximetry 98 06/10/21 12:33 MDM - Wound/Laceration MDM Narrative: Medical decision making narrative: Chronic wound of the right foot. Initial evaluation begun patient decided he did not want to be seen advised him he could return at any time left AMA Discharge Plan Discharge Patient Disposition: Left Against Medical Advice Clinical Impression: Wound of foot Prescriptions: No Action Uri DVT-PE Treat 30D Start 5 mg (74 tabs) tablets,dose pack See Rx Instructions .ROUTE .COMPLEX Qty: 74 RF: 0 gabapentin 100 mg capsule 100 mg PO TID Qty: 90 RF: 3 cephalexin 750 mg capsule 750 mg PO BID Qty: 60 RF: 0 doxycycline hyclate 100 mg tablet 100 mg PO BID Qty: 60 RF: 2 clotrimazole-betamethasone 1-0.05 % cream 1 applic topical BID Qty: 45 RF: 1 amlodipine 5 mg tablet 5 mg PO DAILY Qty: 30 RF: 5 tramadol 50 mg tablet 50 mg PO BID 30 Days Qty: 60 RF: 3 naproxen 500 mg tablet See Rx Instructions .ROUTE .COMPLEX Qty: 60 RF: 1 Referrals: Yvan Cervantes MD [Primary Care Provider] - Coding Level of Care Code ED Project Management Advisor for Dustin Ku
--- NOTE | 2021-06-10 16:54 | PC.NURSE ---
Patient was seen leaving room, was unable to speak to patient prior to leaving. Dr Malcolm notified at time.
== END 2021-06-10 16:55 | disposition left against medical advice (07) ==
PROVIDERS: Emergency Provider Family Medicine; PCP Family Medicine Adult Medicine
DX: S91.301A Unspecified open wound, right foot, initial encounter (principal); X58.XXXA Exposure to other specified factors, initial encounter; Z79.01 Long term (current) use of anticoagulants; I10 Essential (primary) hypertension
CPT/HCPCS: 73630; 99281

== ENCOUNTER 2021-07-05 08:37 | Outpatient (CLI) | payer MEDICAID, SELFPAY | END 2021-07-05 08:38 | disposition home or self-care (01) | LOC: WOUND 08:38 | PROVIDERS: PCP Family Medicine Adult Medicine; Visit Provider Thoracic Surgery (Cardiothoracic Vascular Surgery) | DX: I96 Gangrene, not elsewhere classified (principal); I77.6 Arteritis, unspecified; L97.312 Non-pressure chronic ulcer of right ankle with fat layer exposed | CPT/HCPCS: 11042; 99213 ==

== ENCOUNTER 2021-07-12 09:18 | Outpatient (CLI) | payer MEDICAID, SELFPAY | END 2021-07-12 09:19 | disposition home or self-care (01) | LOC: WOUND 09:19 | PROVIDERS: PCP Family Medicine Adult Medicine; Visit Provider Thoracic Surgery (Cardiothoracic Vascular Surgery) | DX: I96 Gangrene, not elsewhere classified (principal); I87.2 Venous insufficiency (chronic) (peripheral); L97.312 Non-pressure chronic ulcer of right ankle with fat layer exposed | CPT/HCPCS: 11042 ==

== ENCOUNTER 2021-07-14 13:26 | Emergency (ER) | payer MEDICAID, SELFPAY ==
[2021-07-14 14:00] VITALS: BP 165/73; PULSE 59; RESP 18; TEMP 36.6; O2SAT 97; BMI 31.5
--- NOTE | 2021-07-14 14:47 | ED_ITS ---
HPI - Extremity Problem General: Chief complaint: Extremity Injury, Lower Stated complaint: R leg pain Time Seen by Provider: 07/14/21 14:45 History of Present Illness: Patient states he needs a refill on his naproxen. Patient says he went to the pharmacy and prescription was not there. He says her primary care is closed. Has leg pain chronic. 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 Rt ankle/foot DVT (deep venous thrombosis) Right lower leg 06/01/2021 Fistula dermatitis Hypertension Ingrown toenail of both feet Lice infested hair Obesity (BMI 30.0-34.9) Onychomycosis Psoriasis and similar disorder PVD (peripheral vascular disease) Social History Smoking and tobacco status: never smoked Alcohol intake: never History of recent travel: No Physical Exam Const: COMMON NORMALS: no acute distress Resp: COMMON NORMALS: normal respiratory effort Psych: COMMON NORMALS: mental status grossly normal Course Vital Signs: Vital signs: Vital Signs Temperature 98 F 07/14/21 14:00 Pulse Rate 59 L 07/14/21 14:00 Respiratory Rate 18 07/14/21 14:00 Blood Pressure 165/73 07/14/21 14:00 Pulse Oximetry 97 07/14/21 14:00 MDM - Extremity (Nontraumatic) Medical Decision Making Patient presents for naproxen refill because his primary care is closed and there was not the medicine to pharmacy pickup. Discharge Plan Discharge Patient Disposition: Home Clinical Impression: Medication refill Condition: Stable Prescriptions: New naproxen 500 mg tablet 250 mg PO TID PRN (Reason: pain) Qty: 20 0RF No Action gabapentin 300 mg capsule 300 mg PO TID Qty: 90 5RF Rx Instructions: 340B meds cephalexin 750 mg capsule 750 mg PO BID Qty: 60 1RF Rx Instructions: He has taken in the past without problems. 340 B Medication Xarelto 20 mg tablet 20 mg PO DAILY Qty: 30 5RF Rx Instructions: must administer with evening meal 340B medication doxycycline hyclate 100 mg tablet 100 mg PO BID Qty: 60 2RF Rx Instructions: 340 B Medication clotrimazole-betamethasone 1-0.05 % cream 1 applic topical BID Qty: 45 1RF Rx Instructions: 340 B Medication amlodipine 5 mg tablet 5 mg PO DAILY Qty: 30 5RF Rx Instructions: 340 B Medication indomethacin 25 mg capsule See Rx Instructions PO QID 30 Days Qty: 120 1RF Rx Instructions: 1 or 2 cap q6 hour As needed for pain PO four times daily; administer with food or milk. 340 b hydrocodone-acetaminophen 5-325 mg tablet 1 tab PO .q 6 hr PRN (Reason: pain) 30 Days Qty: 60 0RF Discharge Orders: Discharge ED (Routine); Ordered 07/14/21 Ordered By: Chad Jacobo Referrals: Yvan Cervantes MD [Primary Care Provider] - Discharge Diet: Usual diet Discharge Activity: Increase activity as tolerated Activity Restrictions/Additional Instructions: Get prescription filled and follow-up your primary care provider. Coding Level of Care Code ED Canvas Goods Maker for Chg Fwd Exam Expanded Problem Focused
== END 2021-07-14 15:09 | disposition home or self-care (01) ==
PROVIDERS: Emergency Provider Nurse Practitioner Family; PCP Family Medicine Adult Medicine
DX: Z76.0 Encounter for issue of repeat prescription (principal); I10 Essential (primary) hypertension
CPT/HCPCS: 99281

== ENCOUNTER 2021-07-15 12:34 | Emergency (ER) | payer MEDICAID, SELFPAY ==
[2021-07-15 13:01] VITALS: BP 148/62; PULSE 63; RESP 16; TEMP 36.7; O2SAT 98
--- NOTE | 2021-07-15 13:07 | ED_ITS ---
HPI - Wound/Laceration General: Chief Complaint: Wound/Laceration Stated Complaint: R foot injury/swelling/redness Time Seen by Provider: 07/15/21 13:00 History of Present Illness: chronic wound on the right medial aspect of foot, seeing wound care, increased drainage Review of Systems General: Reports: 10 or more systems reviewed and unremarkable except in HPI and below Skin/Breast: Reports: other (right foot chronic wound, medial aspect right malleolus ) PFSH ED PFSH: Medical History Acute eczema of hand Callus of foot Chronic ulcer of ankle Chronic wound of extremity Rt ankle/foot DVT (deep venous thrombosis) Right lower leg 06/01/2021 Fistula dermatitis Hypertension Ingrown toenail of both feet Lice infested hair Obesity (BMI 30.0-34.9) Onychomycosis Psoriasis and similar disorder PVD (peripheral vascular disease) Social History Smoking and tobacco status: never smoked Alcohol intake: never History of recent travel: No Physical Exam Skin: WOUNDS: Yes wounds noted (right medial malleolus- necrotic tissue present as well as exudate ) without odor Course Vital Signs: Vital signs: Vital Signs Temperature 98.1 F 07/15/21 13:01 Pulse Rate 63 07/15/21 13:01 Respiratory Rate 16 07/15/21 13:01 Blood Pressure 148/62 07/15/21 13:01 Pulse Oximetry 98 07/15/21 13:01 MDM - Wound/Laceration Medical Decision Making pt needs to keep his WC appt; begin antibx Discharge Plan Discharge Patient Disposition: Home Clinical Impression: Venous insufficiency of right lower extremity, Wound drainage Condition: Stable Prescriptions: New Zyvox 600 mg tablet 600 mg PO BID Qty: 6 0RF No Action gabapentin 300 mg capsule 300 mg PO TID Qty: 90 5RF Rx Instructions: 340B meds cephalexin 750 mg capsule 750 mg PO BID Qty: 60 1RF Rx Instructions: He has taken in the past without problems. 340 B Medication Xarelto 20 mg tablet 20 mg PO DAILY Qty: 30 5RF Rx Instructions: must administer with evening meal 340B medication doxycycline hyclate 100 mg tablet 100 mg PO BID Qty: 60 2RF Rx Instructions: 340 B Medication clotrimazole-betamethasone 1-0.05 % cream 1 applic topical BID Qty: 45 1RF Rx Instructions: 340 B Medication amlodipine 5 mg tablet 5 mg PO DAILY Qty: 30 5RF Rx Instructions: 340 B Medication hydrocodone-acetaminophen 5-325 mg tablet 1 tab PO .q 6 hr PRN (Reason: pain) 30 Days Qty: 60 0RF naproxen 500 mg tablet 250 mg PO TID PRN (Reason: pain) Qty: 20 0RF Discharge Orders: Discharge ED (Routine); Ordered 07/15/21 Ordered By: Carla Carvajal Referrals: Yvan Cervantes MD [Primary Care Provider] - Discharge Diet: Usual diet Discharge Activity: Resume usual activity Patient Instructions: Opioid Safety Activity Restrictions/Additional Instructions: Call Wound Clinic Saturday to let them know you have had increased drainage and swelling. Additional antibx were ordered in the ER to be started Continue medihoney dressings daily and compression wrap. It is important you keep foot up and elevated as much as possible until we are able to get the excess swelling down and the results to your US are reviewed. Consider that amlodipine can increase swelling in lower extremities. Discuss with Dr Sandoval at next visit. Coding Level of Care Code ED Regional Sales Trainer for Dustin Ku
== END 2021-07-15 14:27 | disposition home or self-care (01) ==
PROVIDERS: Emergency Provider Nurse Practitioner Family; PCP Family Medicine Adult Medicine
DX: I87.2 Venous insufficiency (chronic) (peripheral) (principal); I10 Essential (primary) hypertension
CPT/HCPCS: 99282

== ENCOUNTER 2021-07-19 09:25 | Outpatient (CLI) | payer MEDICAID, SELFPAY | END 2021-07-19 09:26 | disposition home or self-care (01) | LOC: WOUND 09:26 | PROVIDERS: PCP Family Medicine Adult Medicine; Visit Provider Thoracic Surgery (Cardiothoracic Vascular Surgery) | DX: I96 Gangrene, not elsewhere classified (principal); I87.2 Venous insufficiency (chronic) (peripheral); L97.312 Non-pressure chronic ulcer of right ankle with fat layer exposed | CPT/HCPCS: 11042 ==

== ENCOUNTER 2021-11-25 21:58 | Emergency (ER) | payer MEDICAID, SELFPAY ==
[2021-11-25 22:07] VITALS: BP 190/112; PULSE 93; RESP 18; TEMP 36.5; O2SAT 97
--- NOTE | 2021-11-25 22:40 | W.ED.PSYCHS ---
Documented by User: Good Fernandez MD 11/25/21 23:03 HPI - Psych General: Chief Complaint: Psychiatric Symptoms Stated Complaint: MHE Time Seen by Provider: 11/25/21 22:13 History of Present Illness: Patient comes in with concerns for hearing voices. States he is hearing voices under the floor of his house telling him that I want to hear him talk. States he also have a device that controls lights on him. States that they also have a device at the place in your rectum to connect people together. Patient then states he has an infection on his right ankle. He states has been there for 9 years. Associated symptoms: Reports auditory hallucinations and delusions Review of Systems Const: Denies: fever(s) or body aches Eyes: Denies: change in vision or blurry vision ENMT: Denies: throat pain or odynophagia Card: Denies: chest pain or palpitations Resp: Denies: dyspnea or productive cough GI: Denies: abdominal pain, nausea or vomiting : Denies: flank pain or dysuria Musc: Denies: neck pain or back pain Skin/Breast: Denies: rash or pruritus Neuro: Denies: headache(s) or numbness in extremities Psych: Reports: auditory hallucinations; Denies: anxiety or change in appetite Endo: Denies: polyuria or excessive sweating PFSH ED PFSH: Medical History Acute eczema of hand Anxiety about health Callus of foot Chronic pain of right lower extremity Chronic ulcer of ankle Chronic wound of extremity Rt ankle/foot DVT (deep venous thrombosis) Right lower leg 06/01/2021 Fistula dermatitis Hypertension Ingrown toenail of both feet Lice infested hair Obesity (BMI 30.0-34.9) Onychomycosis Psoriasis and similar disorder PVD (peripheral vascular disease) Social History Smoking and tobacco status: never smoked Alcohol intake: never History of recent travel: No Physical Exam Const: COMMON NORMALS: no acute distress, healthy appearing and alert HENMT: COMMON NORMALS: normocephalic and atraumatic HEAD & SCALP: normocephalic and atraumatic Eye: COMMON NORMALS: Equal, round and reactive pupils present and EOMs intact bilaterally PUPIL: Yes Equal, round and reactive pupils present Neck/C-Spine: COMMON NORMALS: full ROM and supple Resp: COMMON NORMALS: normal respiratory effort, No retractions and No use of accessory muscles Cardio: COMMON NORMALS: regular rate and regular rhythm RATE: regular rate RHYTHM: regular rhythm GI: COMMON NORMALS: Normal to inspection, nondistended, normoactive bowel sounds present, Soft to palpation and non-tender PALPATION: Yes Soft to palpation Back/Pelvis: COMMON NORMALS: thoracic and lumbar spine normal to inspection and no thoracic nor lumbar tenderness Extremity: COMMON NORMALS: full ROM OTHER: Ulcerating lesion to the medial aspect of the right ankle Neuro: SENSORIUM/ORIENTATION: Yes alert Psych: COMMON NORMALS: cooperative THOUGHT CONTENT: Yes delusions Skin: COMMON NORMALS: no rashes or lesions noted and no wounds GENERAL SKIN EXAM: no rashes or lesions noted Course Vital Signs: Vital signs: Vital Signs Temperature 97.7 F 11/25/21 22:07 Pulse Rate 93 11/25/21 22:07 Respiratory Rate 18 11/25/21 22:07 Blood Pressure 190/112 11/25/21 22:07 Pulse Oximetry 97 11/25/21 22:07 [facility] - Psych Medical Decision Making Patient comes in with concerns for hearing voices. States he is hearing voices under the floor of his house telling him that I want to hear him talk. States he also have a device that controls lights on him. States that they also have a device at the place in your rectum to connect people together. Patient then states he has an infection on his right ankle. He states has been there for 9 years. We will check labs, give IV Haldol, and reassess. On review of the patient's chart his right ankle wound is chronic. We will hold on antibiotics at this point. While awaiting test results we will sign out to the oncoming physician. Lab Data : 11/25/21 22:51 11/25/21 22:51 Laboratory Results WBC 5.7 10^3/uL (4.0-10.0) 11/25/21 22:51 RBC 5.01 10^6/uL (4.1-5.3) 11/25/21 22:51 Hgb 15.1 g/dL (11.7-16.6) 11/25/21 22:51 Hct 44.6 % (42.0-52.0) 11/25/21 22:51 MCV 89.0 fl (80-94) 11/25/21 22:51 MCH 30.1 pg (28.0-34.0) 11/25/21 22:51 MCHC 33.9 g/dL (30.0-36.0) 11/25/21 22:51 RDW 12.6 % (12.1-15.1) 11/25/21 22:51 Plt Count 155 10^3/cmm (130-400) 11/25/21 22:51 MPV 10.3 fL (7.4-10.4) 11/25/21 22:51 Neut % (Auto) 79.9 % 11/25/21 22:51 Lymph % (Auto) 9.5 % 11/25/21 22:51 [place] % (Auto) 8.2 % 11/25/21 22:51 Eos % (Auto) 1.8 % 11/25/21 22:51 Baso % (Auto) 0.4 % 11/25/21 22:51 Neut # (Auto) 4.57 10^3/uL (1.8-7.7) 11/25/21 22:51 Lymph # (Auto) 0.5 10^3/uL (0.8-4.8) L 11/25/21 22:51 [place] # (Auto) 0.5 10^3/uL (0.2-0.9) 11/25/21 22:51 Eos # (Auto) 0.1 10^3/uL (0.0-0.8) 11/25/21 22:51 Baso # (Auto) 0.0 10^3/uL (0.0-0.1) 11/25/21 22:51 Nucleated RBC % (auto) 0 % 11/25/21 22:51 Nucleated RBCs # 0.0 /100WBC 11/25/21 22:51 Sodium 136 mmol/L (136-145) 11/25/21 22:51 Potassium 3.3 mmol/L (3.5-5.1) L 11/25/21 22:51 Chloride 100 mmol/L (98-107) 11/25/21 22:51 Carbon Dioxide 23 mmol/L (22-29) 11/25/21 22:51 Anion Gap 16.3 (5-19) 11/25/21 22:51 BUN 24 mg/dL (8-23) H 11/25/21 22:51 Creatinine 1.2 mg/dL (0.7-1.2) 11/25/21 22:51 GFR Calculation 61.3 mL/min (90-130) L 11/25/21 22:51 Glucose 107 mg/dL (65-115) 11/25/21 22:51 Calculated Osmolality 287 mOsm/kg (285-295) 11/25/21 22:51 Calcium 8.8 mg/dL (8.5-10.5) 11/25/21 22:51 Total Bilirubin 0.5 mg/dL (0.15-1.2) 11/25/21 22:51 AST 18 U/L (0-40) 11/25/21 22:51 ALT 13 U/L (0-41) 11/25/21 22:51 Alkaline Phosphatase 66 IU/L (40-130) 11/25/21 22:51 Total Protein 7.5 g/dL (6.6-8.7) 11/25/21 22:51 Albumin 4.3 g/dL (3.5-5.2) 11/25/21 22:51 Globulin 3.2 g/dL (1.3-4.6) 11/25/21 22:51 Salicylates < 0.3 mg/dL (3-10) L 11/25/21 22:51 Acetaminophen < 5.0 ug/mL (10-30) L 11/25/21 22:51 Ethyl Alcohol < 10 mg/dL (0-10) 11/25/21 22:51 Discharge Plan Discharge Patient Disposition: Left Against Medical Advice Clinical Impression: Chronic ulcer of ankle, Acute psychosis Condition: Stable Prescriptions: No Action clotrimazole-betamethasone 1-0.05 % cream 1 applic topical BID Qty: 45 1RF Rx Instructions: 340 B Medication clonazepam 0.5 mg tablet 0.5 mg PO BID Qty: 60 2RF naproxen 500 mg tablet 500 mg PO BID PRN (Reason: pain) 30 Days Qty: 60 3RF doxycycline hyclate 100 mg tablet 100 mg PO BID Qty: 60 2RF Rx Instructions: 340 B Medication tramadol 50 mg tablet 50 mg PO TID PRN (Reason: pain) 30 Days Qty: 90 2RF Xarelto 20 mg tablet 20 mg PO DAILY Qty: 30 5RF Rx Instructions: must administer with evening meal 340B medication gabapentin 600 mg tablet 600 mg PO TID Qty: 90 1RF amlodipine 5 mg tablet 5 mg PO DAILY Qty: 30 5RF Rx Instructions: 340 B Medication Referrals: Yvan Cervantes MD [Primary Care Provider] - Coding Level of Care Code ED Cold Reduction Roller for Chg Fwd Exam Comprehensive Documented by User: Jurgen Pemberton DO 11/26/21 02:46 HPI - Psych General: Chief Complaint: Psychiatric Symptoms Stated Complaint: MHE Time Seen by Provider: 11/25/21 22:13 PFSH ED PFSH: Medical History Acute eczema of hand Anxiety about health Callus of foot Chronic pain of right lower extremity Chronic ulcer of ankle Chronic wound of extremity Rt ankle/foot DVT (deep venous thrombosis) Right lower leg 06/01/2021 Fistula dermatitis Hypertension Ingrown toenail of both feet Lice infested hair Obesity (BMI 30.0-34.9) Onychomycosis Psoriasis and similar disorder PVD (peripheral vascular disease) Social History Smoking and tobacco status: never smoked Alcohol intake: never History of recent travel: No Course Vital Signs: Vital signs: Vital Signs Temperature 97.7 F 11/25/21 22:07 Pulse Rate 93 11/25/21 22:07 Respiratory Rate 18 11/25/21 22:07 Blood Pressure 190/112 11/25/21 22:07 Pulse Oximetry 97 11/25/21 22:07 MDM - Psych Medical Decision Making Patient comes in with concerns for hearing voices. States he is hearing voices under the floor of his house telling him that I want to hear him talk. States he also have a device that controls lights on him. States that they also have a device at the place in your rectum to connect people together. Patient then states he has an infection on his right ankle. He states has been there for 9 years. We will check labs, give IV Haldol, and reassess. On review of the patient's chart his right ankle wound is chronic. We will hold on antibiotics at this point. While awaiting test results we will sign out to the oncoming physician. 61-year-old male checked out to me by the previous physician at shift change. This patient has been given IV Haldol due to some hallucinations he was having. IV Haldol seem to improve his hallucinations to some degree. He admits that he is still hearing voices. he wishes to leave. He does not appear overly intoxicated. He was able to answer month, location, year, and his name. He knows his situation. He is not suicidal or homicidal. He does have a place to stay and feels safe there. He was told he would have to sign out AGAINST MEDICAL ADVICE. He understands the risks. He left AMA Lab Data : 11/25/21 22:51 11/25/21 22:51 Laboratory Results WBC 5.7 10^3/uL (4.0-10.0) 11/25/21 22:51 RBC 5.01 10^6/uL (4.1-5.3) 11/25/21 22:51 Hgb 15.1 g/dL (11.7-16.6) 11/25/21 22:51 Hct 44.6 % (42.0-52.0) 11/25/21 22:51 MCV 89.0 fl (80-94) 11/25/21 22:51 MCH 30.1 pg (28.0-34.0) 11/25/21 22:51 MCHC 33.9 g/dL (30.0-36.0) 11/25/21 22:51 RDW 12.6 % (12.1-15.1) 11/25/21 22:51 Plt Count 155 10^3/cmm (130-400) 11/25/21 22:51 MPV 10.3 fL (7.4-10.4) 11/25/21 22:51 Neut % (Auto) 79.9 % 11/25/21 22:51 Lymph % (Auto) 9.5 % 11/25/21 22:51 [place] % (Auto) 8.2 % 11/25/21 22:51 Eos % (Auto) 1.8 % 11/25/21 22:51 Baso % (Auto) 0.4 % 11/25/21 22:51 Neut # (Auto) 4.57 10^3/uL (1.8-7.7) 11/25/21 22:51 Lymph # (Auto) 0.5 10^3/uL (0.8-4.8) L 11/25/21 22:51 [place] # (Auto) 0.5 10^3/uL (0.2-0.9) 11/25/21 22:51 Eos # (Auto) 0.1 10^3/uL (0.0-0.8) 11/25/21 22:51 Baso # (Auto) 0.0 10^3/uL (0.0-0.1) 11/25/21 22:51 Nucleated RBC % (auto) 0 % 11/25/21 22:51 Nucleated RBCs # 0.0 /100WBC 11/25/21 22:51 Sodium 136 mmol/L (136-145) 11/25/21 22:51 Potassium 3.3 mmol/L (3.5-5.1) L 11/25/21 22:51 Chloride 100 mmol/L (98-107) 11/25/21 22:51 Carbon Dioxide 23 mmol/L (22-29) 11/25/21 22:51 Anion Gap 16.3 (5-19) 11/25/21 22:51 BUN 24 mg/dL (8-23) H 11/25/21 22:51 Creatinine 1.2 mg/dL (0.7-1.2) 11/25/21 22:51 GFR Calculation 61.3 mL/min (90-130) L 11/25/21 22:51 Glucose 107 mg/dL (65-115) 11/25/21 22:51 Calculated Osmolality 287 mOsm/kg (285-295) 11/25/21 22:51 Calcium 8.8 mg/dL (8.5-10.5) 11/25/21 22:51 Total Bilirubin 0.5 mg/dL (0.15-1.2) 11/25/21 22:51 AST 18 U/L (0-40) 11/25/21 22:51 ALT 13 U/L (0-41) 11/25/21 22:51 Alkaline Phosphatase 66 IU/L (40-130) 11/25/21 22:51 Total Protein 7.5 g/dL (6.6-8.7) 11/25/21 22:51 Albumin 4.3 g/dL (3.5-5.2) 11/25/21 22:51 Globulin 3.2 g/dL (1.3-4.6) 11/25/21 22:51 Salicylates < 0.3 mg/dL (3-10) L 11/25/21 22:51 Acetaminophen < 5.0 ug/mL (10-30) L 11/25/21 22:51 Ethyl Alcohol < 10 mg/dL (0-10) 11/25/21 22:51 Discharge Plan Discharge Patient Disposition: Left Against Medical Advice Clinical Impression: Chronic ulcer of ankle, Acute psychosis Condition: Stable Prescriptions: No Action clotrimazole-betamethasone 1-0.05 % cream 1 applic topical BID Qty: 45 1RF Rx Instructions: 340 B Medication clonazepam 0.5 mg tablet 0.5 mg PO BID Qty: 60 2RF naproxen 500 mg tablet 500 mg PO BID PRN (Reason: pain) 30 Days Qty: 60 3RF doxycycline hyclate 100 mg tablet 100 mg PO BID Qty: 60 2RF Rx Instructions: 340 B Medication tramadol 50 mg tablet 50 mg PO TID PRN (Reason: pain) 30 Days Qty: 90 2RF Xarelto 20 mg tablet 20 mg PO DAILY Qty: 30 5RF Rx Instructions: must administer with evening meal 340B medication gabapentin 600 mg tablet 600 mg PO TID Qty: 90 1RF amlodipine 5 mg tablet 5 mg PO DAILY Qty: 30 5RF Rx Instructions: 340 B Medication Referrals: Yvan Cervantes MD [Primary Care Provider] - Coding Level of Care Code ED Cold Reduction Roller for Chg Fwd Exam Comprehensive
--- NOTE | 2021-11-25 22:50 | PC.NURSE ---
Pt. states that he takes the clean meth to help keep his wound clean and hit helps heal the wound.
[2021-11-25 22:57] LABS: Basophils % 0.4 %; Eosinophils # 0.1 10^3/uL (0.0-0.8); Eosinophils % 1.8 %; Hematocrit 44.6 % (42.0-52.0); Hemoglobin 15.1 g/dL (11.7-16.6); Lymphocytes # 0.5 10^3/uL (0.8-4.8); Lymphocytes % 9.5 %; Mean Corpuscular HGB Conc 33.9 g/dL (30.0-36.0); Mean Corpuscular Hemoglobin 30.1 pg (28.0-34.0); Mean Platelet Volume 10.3 fL (7.4-10.4); Monocytes # 0.5 10^3/uL (0.2-0.9); Monocytes % 8.2 %; Neutrophils # 4.57 10^3/uL (1.8-7.7); Neutrophils % 79.9 %; Nucleated Red Blood Cells % 0 %; Platelet Count 155 10^3/cmm (130-400); Red Blood Count 5.01 10^6/uL (4.1-5.3); Red Cell Distribution Width 12.6 % (12.1-15.1); White Blood Count 5.7 10^3/uL (4.0-10.0)
[2021-11-25] MEDS: haloperidol inj 5 mg/mL INJ 1 mL IVP (23:09)
[2021-11-25 23:14] LABS: Acetaminophen < 5.0 ug/mL (10-30); Alanine Aminotransferase 13 U/L (0-41); Albumin Level 4.3 g/dL (3.5-5.2); Alcohol Level < 10 mg/dL (0-10); Alkaline Phosphatase 66 IU/L (40-130); Anion Gap 16.3 (5-19); Aspartate Amino Transferase 18 U/L (0-40); Blood Urea Nitrogen 24 mg/dL (8-23); Calcium 8.8 mg/dL (8.5-10.5); Carbon Dioxide 23 mmol/L (22-29); Chloride 100 mmol/L (98-107); Globulin 3.2 g/dL (1.3-4.6); Glomerular Filtration Rate 61.3 mL/min (90-130); Glucose 107 mg/dL (65-115); Osmolality Calculated 287 mOsm/kg (285-295); Potassium 3.3 mmol/L (3.5-5.1); Salicylate < 0.3 mg/dL (3-10); Sodium 136 mmol/L (136-145); Total Bilirubin 0.5 mg/dL (0.15-1.2); Total Protein 7.5 g/dL (6.6-8.7)
--- NOTE | 2021-11-26 01:45 | PC.NURSE ---
Pt. states that he wants to leave. patient states that he is more than capable of getting home and that he brought himself here. Pt. continues to deny SI or HI ideation and states that sometimes someone turns the radio up too high in his head . Pt. is signing out of the ER AMA. Pt.'s son was called but did not answer.
== END 2021-11-26 01:59 | disposition left against medical advice (07) ==
PROVIDERS: Emergency Medicine; Emergency Provider Emergency Medicine; PCP Family Medicine Adult Medicine
DX: F23 Brief psychotic disorder (principal); L97.319 Non-pressure chronic ulcer of right ankle with unspecified severity
CPT/HCPCS: 80053; 80307; 85025; 96374; 99284; J1630

== ENCOUNTER → 2022-03-28 11:33 | Outpatient (BNVA) | payer MEDICAID, SELFPAY | PROVIDERS: PCP Family Medicine Adult Medicine; Visit Provider Family Medicine Adult Medicine | DX: R94.4 Abnormal results of kidney function studies (principal); I10 Essential (primary) hypertension; M79.604 Pain in right leg; G89.29 Other chronic pain; I73.9 Peripheral vascular disease, unspecified; I82.409 Acute embolism and thrombosis of unspecified deep veins of unspecified lower extremity; F41.8 Other specified anxiety disorders; L97.309 Non-pressure chronic ulcer of unspecified ankle with unspecified severity; E66.9 Obesity, unspecified | CPT/HCPCS: 80053; 84443 ==

== ENCOUNTER 2022-06-15 10:58 | Emergency (ER) | payer MEDICAID, SELFPAY ==
[2022-06-15 11:38] VITALS: BP 156/98; PULSE 71; RESP 16; TEMP 37.1; O2SAT 97; BMI 28.8
[2022-06-15 14:47] LABS: Basophils % 0.6 %; Eosinophils # 0.1 10^3/uL (0.0-0.8); Eosinophils % 2.2 %; Hematocrit 48.5 % (42.0-52.0); Hemoglobin 15.9 g/dL (11.7-16.6); Lymphocytes # 0.6 10^3/uL (0.8-4.8); Lymphocytes % 9.1 %; Mean Corpuscular HGB Conc 32.8 g/dL (30.0-36.0); Mean Corpuscular Hemoglobin 30.9 pg (28.0-34.0); Mean Corpuscular Volume 94.2 fl (80-94); Mean Platelet Volume 10.1 fL (7.4-10.4); Monocytes # 0.5 10^3/uL (0.2-0.9); Neutrophils # 5.19 10^3/uL (1.8-7.7); Neutrophils % 79.8 %; Nucleated Red Blood Cells % 0 %; Platelet Count 180 10^3/cmm (130-400); Red Blood Count 5.15 10^6/uL (4.1-5.3); Red Cell Distribution Width 12.3 % (12.1-15.1); White Blood Count 6.5 10^3/uL (4.0-10.0)
[2022-06-15 15:01] LABS: Alanine Aminotransferase 28 U/L (0-41); Albumin Level 4.5 g/dL (3.5-5.2); Alkaline Phosphatase 79 U/L (40-130); Anion Gap 14.3 (5-19); Aspartate Amino Transferase 24 U/L (0-40); Blood Urea Nitrogen 21 mg/dL (8-23); Calcium 9.3 mg/dL (8.5-10.5); Carbon Dioxide 26 mmol/L (22-29); Chloride 101 mmol/L (98-107); Globulin 3.5 g/dL (1.3-4.6); Glomerular Filtration Rate 85.5 mL/min (90-130); Glucose 113 mg/dL (65-115); Osmolality Calculated 288 mOsm/kg (285-295); Potassium 4.3 mmol/L (3.5-5.1); Sodium 137 mmol/L (136-145); Total Bilirubin 0.6 mg/dL (0.15-1.2)
[2022-06-15 16:01] VITALS: BP 163/96; PULSE 93; RESP 19; O2SAT 97
[2022-06-19 15:55] LABS: Erythrocyte Sedimentation Rate 2 mm/hr (0-10)
--- NOTE | 2022-07-24 07:08 | W.ED.SKABFB ---
Documented by User: JONI Alvarez-C 07/24/22 07:15 HPI - Skin/Abscess/Foreign Bdy General: Chief complaint: Skin/Abscess/Foreign Body Stated complaint: congestion, allergies Time Seen by Provider: 06/15/22 15:04 History of Present Illness: The patient is in reporting that he has chronic sores on bilateral lower extremities and he has had to take fish antibiotics for 17 years. He reports that he takes fish amoxicillin but that became too expensive so he went to a doctor and establish with a primary care. He reports that that doctor put him on penicillin and he has been on that for approximately 1 month but has developed an itching rash. He reports that he thinks he is allergic to the penicillin medication and would like to be prescribed a different antibiotic, specifically a little blue pill. He denies rash anywhere besides his lower extremities. He denies swelling of his throat, lips, tongue. He denies difficulty breathing. Associated symptoms: Deny chills, fever(s), nausea or vomiting Review of Systems Const: Denies: fever(s), chills or body aches Eyes: Denies: change in vision or blurry vision ENMT: Denies: throat pain Card: Denies: chest pain, palpitations, irregular heart rhythm, lightheadedness or syncope Resp: Denies: dyspnea, productive cough or non-productive cough GI: Denies: abdominal pain, nausea or vomiting : Denies: flank pain, dysuria, urinary frequency, urinary urgency or urinary hesitancy Musc: Denies: neck pain or back pain Skin/Breast: Reports: rash and pruritus Neuro: Denies: headache(s), numbness in extremities or weakness in extremities PFS ED PFSH: Medical History Acute eczema of hand Anxiety about health Callus of foot Chronic pain of right lower extremity Chronic ulcer of ankle Chronic wound of extremity Rt ankle/foot Decreased calculated GFR DVT (deep venous thrombosis) Right lower leg 06/01/2021 Fistula dermatitis Hypertension Ingrown toenail of both feet Lice infested hair Obesity (BMI 30.0-34.9) Onychomycosis Psoriasis and similar disorder PVD (peripheral vascular disease) Skin pruritus TSH elevation 04/07/2022 TSH 4.7 Social History (Reviewed 07/24/22 @ 07:10 by KATHRIN Alvarez Smoking and tobacco status: current every day smoker Smoking risk assessment/counseling performed?: No Alcohol intake: never Desire information about alcohol rehabilitation?: No Counseling given: No Desire information about substance/drug rehabilitation?: No Counseling given: No Current occupational status: disabled History of recent travel: No Current gender identity: Male Physical Exam Const: COMMON NORMALS: no acute distress, patient oriented x3 and alert GENERAL APPEARANCE: cooperative ORIENTATION/CONSCIOUSNESS: Yes awake, Yes oriented to person, Yes oriented to place and Yes oriented to time HENMT: MOUTH: Normal oral and palatal mucosa present THROAT: posterior oropharynx normal Eye: COMMON NORMALS: Equal, round and reactive pupils present, EOMs intact bilaterally and conjunctivae normal GENERAL EYE: appearance normal, both eyes and all related structures ALIGNMENT: Yes alignment normal CONJUNCTIVA: Yes conjunctivae normal SCLERA: sclerae normal PUPIL: Yes Equal, round and reactive pupils present Neck/C-Spine: COMMON NORMALS: full ROM Resp: COMMON NORMALS: normal respiratory effort, No retractions, No use of accessory muscles and clear to auscultation bilaterally EFFORT & INSPECTION: Yes symmetric chest movement AUSCULTATION: clear to auscultation bilaterally Cardio: COMMON NORMALS: regular rate, regular rhythm, S1 normal heart sound present and S2 normal heart sound present RATE: regular rate RHYTHM: regular rhythm HEART SOUNDS: S1 normal heart sound present and S2 normal heart sound present GI: COMMON NORMALS: Normal to inspection, nondistended, normoactive bowel sounds present, Soft to palpation, non-tender, No hepatosplenomegaly present, no masses and no bruits INSPECTION: Yes normal to inspection PALPATION: Yes Soft to palpation and Yes No hepatosplenomegaly present : COMMON NORMALS: Yes no CVA tenderness BLADDER/KIDNEY EXAM: Yes no CVA tenderness Back/Pelvis: COMMON NORMALS: no CVA tenderness Neuro: COMMON NORMALS: patient oriented x3 SENSORIUM/ORIENTATION: Yes alert, Yes oriented to person, Yes oriented to place and Yes oriented to time Skin: NARRATIVE SKIN EXAM: Ready skin discoloration bilateral lower extremities. No open lesions at this time. Pedal pulses intact bilateral. Course Vital Signs: Vital signs: Vital Signs Temperature 98.7 F 06/15/22 11:38 Pulse Rate 93 06/15/22 16:01 Respiratory Rate 19 H 06/15/22 16:01 Blood Pressure 163/96 06/15/22 16:01 Pulse Oximetry 97 06/15/22 16:01 Oxygen Delivery Me thod 06/15/22 11:38 MDM - Skin/Abscess/Foreign Bdy Medicial Decision Making Differentials include pruritus, DVT, allergic reaction, venous stasis dermatitis Patient refused work-up and demanded that he be given a blue pill antibiotic or just steroids to keep the itching at bay while he continues to take the penicillin that he believes he is allergic to. I advised patient that I would be willing to stop the penicillin and switch him to a short cycle of doxycycline for venous stasis dermatitis. I am not willing to continue penicillin and continue treating him with steroids if he is allergic to penicillin medication. Patient becomes very angry and began saying inappropriate things to this provider such as I know what you are. You were a fucking man until your deck fell off . I discussed this patient with Dr. Malcolm and he agrees with my plan of care. I advised patient that I am willing to prescribe doxycycline and stop the penicillin and that he should follow-up with his primary care provider. Return to the ER for new or worsening symptoms. I did explain to him the risk of continuing to take the medication which she believes he has an allergy to. I explained the risk of anaphylaxis and worsening allergic reaction with continued exposure to the allergen. Patient was angry and left the ER Lab Data 06/15/22 14:23 06/15/22 14:23 Laboratory Results WBC 6.5 10^3/uL (4.0-10.0) 06/15/22 14:23 RBC 5.15 10^6/uL (4.1-5.3) 06/15/22 14:23 Hgb 15.9 g/dL (11.7-16.6) 06/15/22 14:23 Hct 48.5 % (42.0-52.0) 06/15/22 14:23 MCV 94.2 fl (80-94) H 06/15/22 14:23 MCH 30.9 pg (28.0-34.0) 06/15/22 14:23 MCHC 32.8 g/dL (30.0-36.0) 06/15/22 14:23 RDW 12.3 % (12.1-15.1) 06/15/22 14:23 Plt Count 180 10^3/cmm (130-400) 06/15/22 14:23 MPV 10.1 fL (7.4-10.4) 06/15/22 14:23 Neut % (Auto) 79.8 % 06/15/22 14:23 Lymph % (Auto) 9.1 % 06/15/22 14:23 [place] % (Auto) 8.0 % 06/15/22 14:23 Eos % (Auto) 2.2 % 06/15/22 14:23 Baso % (Auto) 0.6 % 06/15/22 14:23 Neut # (Auto) 5.19 10^3/uL (1.8-7.7) 06/15/22 14:23 Lymph # (Auto) 0.6 10^3/uL (0.8-4.8) L 06/15/22 14:23 [place] # (Auto) 0.5 10^3/uL (0.2-0.9) 06/15/22 14:23 Eos # (Auto) 0.1 10^3/uL (0.0-0.8) 06/15/22 14:23 Baso # (Auto) 0.0 10^3/uL (0.0-0.1) 06/15/22 14:23 Nucleated RBC % (auto) 0 % 06/15/22 14: Nucleated RBCs # 0.0 /100WBC 06/15/22 14:23 ESR 2 mm/hr (0-10) 06/15/22 14:23 Sodium 137 mmol/L (136-145) 06/15/22 14:23 Potassium 4.3 mmol/L (3.5-5.1) 06/15/22 14:23 Chloride 101 mmol/L (98-107) 06/15/22 14:23 Carbon Dioxide 26 mmol/L (22-29) 06/15/22 14:23 Anion Gap 14.3 (5-19) 06/15/22 14:23 BUN 21 mg/dL (8-23) 06/15/22 14:23 Creatinine 0.9 mg/dL (0.7-1.2) 06/15/22 14:23 GFR Calculation 85.5 mL/min (90-130) L 06/15/22 14:23 Glucose 113 mg/dL (65-115) 06/15/22 14:23 Calculated Osmolality 288 mOsm/kg (285-295) 06/15/22 14:23 Calcium 9.3 mg/dL (8.5-10.5) 06/15/22 14:23 Total Bilirubin 0.6 mg/dL (0.15-1.2) 06/15/22 14:23 AST 24 U/L (0-40) 06/15/22 14:23 ALT 28 U/L (0-41) 06/15/22 14:23 Alkaline Phosphatase 79 U/L (40-130) 06/15/22 14:23 C-Reactive Protein 3.0 mg/L (0.0-4.9) 06/15/22 14:23 Total Protein 8.0 g/dL (6.6-8.7) 06/15/22 14: Albumin 4.5 g/dL (3.5-5.2) 06/15/22 14: Globulin 3.5 g/dL (1.3-4.6) 06/15/22 14:23 Misc Test Reference Cancelled 06/15/22 14:32 Discharge Plan Discharge Patient Disposition: Home Clinical Impression: Stasis dermatitis of both legs Condition: Stable Prescriptions: No Action penicillin V potassium 500 mg tablet 1,000 mg PO QID Qty: 240 5RF Xarelto 20 mg tablet 20 mg PO DAILY Qty: 30 5RF Rx Instructions: must administer with evening meal 340B medication diclofenac sodium [Arthritis Pain (diclofenac)] 1 % gel 2 g topical QID Qty: 100 0RF Rx Instructions: apply to single ankle or foot area. lidocaine 4 % gel 1 applic topical BID Qty: 113 0RF clotrimazole-betamethasone 1-0.05 % cream 1 applic topical BID Qty: 45 1RF Rx Instructions: 340 B Medication naproxen 500 mg tablet See Rx Instructions .ROUTE .COMPLEX Qty: 60 3RF Dose Instruction: TAKE ONE TABLET BY MOUTH TWO TIMES A DAY NEEDED FOR PAIN Rx Instructions: TAKE ONE TABLET BY MOUTH TWO TIMES A DAY NEEDED FOR PAIN clonazepam 0.5 mg tablet 0.5 mg PO BID 30 Days Qty: 60 3RF Rx Instructions: On or after 30 day intervals bupropion HCl 150 mg tablet sustained-release 12 hr 150 mg PO QAM Qty: 30 2RF gabapentin 600 mg tablet See Rx Instructions .ROUTE .COMPLEX Qty: 90 1RF Dose Instruction: TAKE ONE TABLET BY MOUTH THREE TIMES A DAY Rx Instructions: TAKE ONE TABLET BY MOUTH THREE TIMES A DAY amlodipine 10 mg tablet 10 mg PO DAILY Qty: 30 5RF hydroxyzine HCl 25 mg tablet 25 mg PO Q6H PRN (Reason: itching) Qty: 90 1RF triamterene-hydrochlorothiazid 37.5-25 mg tablet 1 tab PO QAM Qty: 30 5RF hydrocodone-acetaminophen 7.5-325 mg tablet 1 tab PO TID PRN (Reason: pain) 30 Days Qty: 90 0RF Rx Instructions: Refill on or after 30-day interval Discharge Orders: Discharge ED (Routine); Ordered 06/15/22 Ordered By: Cami Guzman Referrals: Yvan Cervantes MD [Primary Care Provider] - Discharge Diet: Usual diet Discharge Activity: Resume usual activity Patient Instructions: Stasis Dermatitis Activity Restrictions/Additional Instructions: Take antibiotic as directed. Be sure do not lay down for at least 30 minutes after taking the doxycycline medication as it can cause discomfort in your esophagus. You should be upright for at least 30 minutes after taking the medication. Follow-up with primary care provider as needed. Return to the ER for new or worsening symptoms Coding Level of Care Code ED Orthopedic Podiatrist for Chg Fwd Documented by User: Clay Malcolm DO 07/24/22 07:31 HPI - Skin/Abscess/Foreign Bdy General: Chief complaint: Skin/Abscess/Foreign Body Stated complaint: congestion, allergies Time Seen by Provider: 06/15/22 15:04 PFS ED PFSH: Medical History Acute eczema of hand Anxiety about health Callus of foot Chronic pain of right lower extremity Chronic ulcer of ankle Chronic wound of extremity Rt ankle/foot Decreased calculated GFR DVT (deep venous thrombosis) Right lower leg 06/01/2021 Fistula dermatitis Hypertension Ingrown toenail of both feet Lice infested hair Obesity (BMI 30.0-34.9) Onychomycosis Psoriasis and similar disorder PVD (peripheral vascular disease) Skin pruritus TSH elevation 04/07/2022 TSH 4.7 Social History Smoking and tobacco status: current every day smoker Smoking risk assessment/counseling performed?: No Alcohol intake: never Desire information about alcohol rehabilitation?: No Counseling given: No Desire information about substance/drug rehabilitation?: No Counseling given: No Current occupational status: disabled History of recent travel: No Current gender identity: Male Course Vital Signs: Vital signs: Vital Signs Temperature 98.7 F 06/15/22 11:38 Pulse Rate 93 06/15/22 16:01 Respiratory Rate 19 H 06/15/22 16:01 Blood Pressure 163/96 06/15/22 16:01 Pulse Oximetry 97 06/15/22 16:01 Oxygen Delivery Me thod 06/15/22 11:38 MDM - Skin/Abscess/Foreign Bdy Medicial Decision Making Differentials include pruritus, DVT, allergic reaction, venous stasis dermatitis Patient refused work-up and demanded that he be given a blue pill antibiotic or just steroids to keep the itching at bay while he continues to take the penicillin that he believes he is allergic to. I advised patient that I would be willing to stop the penicillin and switch him to a short cycle of doxycycline for venous stasis dermatitis. I am not willing to continue penicillin and continue treating him with steroids if he is allergic to penicillin medication. Patient becomes very angry and began saying inappropriate things to this provider such as I know what you are. You were a fucking man until your deck fell off . I discussed this patient with Dr. Malcolm and he agrees with my plan of care. I advised patient that I am willing to prescribe doxycycline and stop the penicillin and that he should follow-up with his primary care provider. Return to the ER for new or worsening symptoms. I did explain to him the risk of continuing to take the medication which she believes he has an allergy to. I explained the risk of anaphylaxis and worsening allergic reaction with continued exposure to the allergen. Patient was angry and left the ER Chart reviewed and patient discussed with midlevel. Agree with assessment and plan. Lab Data 06/15/22 14:23 06/15/22 14:23 Laboratory Results WBC 6.5 10^3/uL (4.0-10.0) 06/15/22 14:23 RBC 5.15 10^6/uL (4.1-5.3) 06/15/22 14:23 Hgb 15.9 g/dL (11.7-16.6) 06/15/22 14:23 Hct 48.5 % (42.0-52.0) 06/15/22 14:23 MCV 94.2 fl (80-94) H 06/15/22 14:23 MCH 30.9 pg (28.0-34.0) 06/15/22 14:23 MCHC 32.8 g/dL (30.0-36.0) 06/15/22 14:23 RDW 12.3 % (12.1-15.1) 06/15/22 14:23 Plt Count 180 10^3/cmm (130-400) 06/15/22 14:23 MPV 10.1 fL (7.4-10.4) 06/15/22 14:23 Neut % (Auto) 79.8 % 06/15/22 14:23 Lymph % (Auto) 9.1 % 06/15/22 14:23 [place] % (Auto) 8.0 % 06/15/22 14:23 Eos % (Auto) 2.2 % 06/15/22 14:23 Baso % (Auto) 0.6 % 06/15/22 14:23 Neut # (Auto) 5.19 10^3/uL (1.8-7.7) 06/15/22 14:23 Lymph # (Auto) 0.6 10^3/uL (0.8-4.8) L 06/15/22 14:23 [place] # (Auto) 0.5 10^3/uL (0.2-0.9) 06/15/22 14:23 Eos # (Auto) 0.1 10^3/uL (0.0-0.8) 06/15/22 14:23 Baso # (Auto) 0.0 10^3/uL (0.0-0.1) 06/15/22 14:23 Nucleated RBC % (auto) 0 % 06/15/22 14:23 Nucleated RBCs # 0.0 /100WBC 06/15/22 14:23 ESR 2 mm/hr (0-10) 06/15/22 14:23 Sodium 137 mmol/L (136-145) 06/15/22 14:23 Potassium 4.3 mmol/L (3.5-5.1) 06/15/22 14:23 Chloride 101 mmol/L (98-107) 06/15/22 14:23 Carbon Dioxide 26 mmol/L (22-29) 06/15/22 14:23 Anion Gap 14.3 (5-19) 06/15/22 14:23 BUN 21 mg/dL (8-23) 06/15/22 14:23 Creatinine 0.9 mg/dL (0.7-1.2) 06/15/22 14:23 GFR Calculation 85.5 mL/min (90-130) L 06/15/22 14:23 Glucose 113 mg/dL (65-115) 06/15/22 14:23 Calculated Osmolality 288 mOsm/kg (285-295) 06/15/22 14:23 Calcium 9.3 mg/dL (8.5-10.5) 06/15/22 14:23 Total Bilirubin 0.6 mg/dL (0.15-1.2) 06/15/22 14:23 AST 24 U/L (0-40) 06/15/22 14:23 ALT 28 U/L (0-41) 06/15/22 14:23 Alkaline Phosphatase 79 U/L (40-130) 06/15/22 14:23 C-Reactive Protein 3.0 mg/L (0.0-4.9) 06/15/22 14:23 Total Protein 8.0 g/dL (6.6-8.7) 06/15/22 14:23 Albumin 4.5 g/dL (3.5-5.2) 06/15/22 14:23 Globulin 3.5 g/dL (1.3-4.6) 06/15/22 14:23 Misc Test Reference Cancelled 06/15/22 14:32 Discharge Plan Discharge Patient Disposition: Home Clinical Impression: Stasis dermatitis of both legs Condition: Stable Prescriptions: No Action penicillin V potassium 500 mg tablet 1,000 mg PO QID Qty: 240 5RF Xarelto 20 mg tablet 20 mg PO DAILY Qty: 30 5RF Rx Instructions: must administer with evening meal 340B medication diclofenac sodium [Arthritis Pain (diclofenac)] 1 % gel 2 g topical QID Qty: 100 0RF Rx Instructions: apply to single ankle or foot area. lidocaine 4 % gel 1 applic topical BID Qty: 113 0RF clotrimazole-betamethasone 1-0.05 % cream 1 applic topical BID Qty: 45 1RF Rx Instructions: 340 B Medication naproxen 500 mg tablet See Rx Instructions .ROUTE .COMPLEX Qty: 60 3RF Dose Instruction: TAKE ONE TABLET BY MOUTH TWO TIMES A DAY NEEDED FOR PAIN Rx Instructions: TAKE ONE TABLET BY MOUTH TWO TIMES A DAY NEEDED FOR PAIN clonazepam 0.5 mg tablet 0.5 mg PO BID 30 Days Qty: 60 3RF Rx Instructions: On or after 30 day intervals bupropion HCl 150 mg tablet sustained-release 12 hr 150 mg PO QAM Qty: 30 2RF gabapentin 600 mg tablet See Rx Instructions .ROUTE .COMPLEX Qty: 90 1RF Dose Instruction: TAKE ONE TABLET BY MOUTH THREE TIMES A DAY Rx Instructions: TAKE ONE TABLET BY MOUTH THREE TIMES A DAY amlodipine 10 mg tablet 10 mg PO DAILY Qty: 30 5RF hydroxyzine HCl 25 mg tablet 25 mg PO Q6H PRN (Reason: itching) Qty: 90 1RF triamterene-hydrochlorothiazid 37.5-25 mg tablet 1 tab PO QAM Qty: 30 5RF hydrocodone-acetaminophen 7.5-325 mg tablet 1 tab PO TID PRN (Reason: pain) 30 Days Qty: 90 0RF Rx Instructions: Refill on or after 30-day interval Discharge Orders: Discharge ED (Routine); Ordered 06/15/22 Ordered By: Cami Guzman Referrals: Yvan Cervantes MD [Primary Care Provider] - Discharge Diet: Usual diet Discharge Activity: Resume usual activity Patient Instructions: Stasis Dermatitis Activity Restrictions/Additional Instructions: Take antibiotic as directed. Be sure do not lay down for at least 30 minutes after taking the doxycycline medication as it can cause discomfort in your esophagus. You should be upright for at least 30 minutes after taking the medication. Follow-up with primary care provider as needed. Return to the ER for new or worsening symptoms Coding Level of Care Code ED Orthopedic Podiatrist for Dustin Ku
== END 2022-06-15 16:02 | disposition home or self-care (01) ==
PROVIDERS: Emergency Provider Nurse Practitioner Family; PCP Family Medicine Adult Medicine
DX: I87.2 Venous insufficiency (chronic) (peripheral) (principal); F17.210 Nicotine dependence, cigarettes, uncomplicated; I10 Essential (primary) hypertension
CPT/HCPCS: 36415; 80053; 85025; 85651; 86140; 99283

== ENCOUNTER 2022-11-02 09:53 | Emergency (ER) | payer MEDICAID, SELFPAY ==
[2022-11-02] VITALS (7 sets, daily range): BP systolic 132–160; BP diastolic 66–85; PULSE 58–76; RESP 16–18; TEMP 36.4; O2SAT 91–95; BMI 27.2
[2022-11-02 12:45] LABS: Basophils % 0.5 %; Eosinophils # 0.1 10^3/uL (0.0-0.8); Eosinophils % 1.9 %; Hematocrit 40.9 % (42.0-52.0); Hemoglobin 13.7 g/dL (11.7-16.6); Lymphocytes # 0.5 10^3/uL (0.8-4.8); Lymphocytes % 8.4 %; Mean Corpuscular HGB Conc 33.5 g/dL (30.0-36.0); Mean Corpuscular Volume 89.5 fl (80-94); Mean Platelet Volume 10.3 fL (7.4-10.4); Monocytes # 0.4 10^3/uL (0.2-0.9); Monocytes % 7.2 %; Neutrophils # 4.67 10^3/uL (1.8-7.7); Neutrophils % 81.5 %; Nucleated Red Blood Cells % 0 %; Platelet Count 150 10^3/cmm (130-400); Red Blood Count 4.57 10^6/uL (4.1-5.3); Red Cell Distribution Width 12.1 % (12.1-15.1); White Blood Count 5.7 10^3/uL (4.0-10.0)
--- NOTE | 2022-11-02 12:45 | ECG_ITS ---
[facility] Test Date: 2022-11-02 Pat Name: Gregorio Becker Department: Room: Gender: Male Improvement Director: : 1960 Requested By: Liz Zuluaga Order Number: [id number] Paredes MD: Narciso Sinha M.D. Measurements Intervals [place] Rate: 64 P: 64 MA: 165 QRS: 7 QRSD: 104 T: 39 QT: 385 QTc: 399 Interpretive Statements SINUS RHYTHM NONSPECIFIC ST & T-WAVE ABNORMALITY No previous ECG available for comparison Electronically Signed On 11-03-2022 6:57:23 CDT by Narciso Sinha M.D. [id number]
--- NOTE | 2022-11-02 12:59 | XR_ITS ---
WS: [id number] Portable AP semiupright chest, 11/02/2022 Clinical Data: Generalized weakness Comparison: None. Findings: No nodules or masses are seen. The heart is normal. The pulmonary vascularity is not increa sed. No pneumonia or pneumothorax is seen. The right diaphragm is elevated. There may be a small left effusion. There is an electronic device in the left axilla. There are items overlying the right axil la which may be external to the body. XR/XR chest 1V portable [id number] Impression: Possible small left pleural effusion.
--- NOTE | 2022-11-02 12:59 | CT_ITS ---
WS: [id number] CT HEAD TECHNIQUE: Noncontrast CT of the head obtained from the skullbase to the vertex. CLINICAL INFORMATION: Generalized weakness COMPARISON: None. DLP: 1137.[address] scans at [facility] use at least one of these dose optimization techniques: automated e xposure control; mA and/or kV adjustment per patient size (includes targeted exams where dose is matc hed to clinical indication); or iterative reconstruction. FINDINGS: No evidence of intracranial hemorrhage or mass effect. Ventricular system and basal cisterns are boyle nt. Mild small vessel changes with mild parenchymal volume loss. No extra-axial fluid collections. No evidence of mass or mass effect. Intracranial vascular calcification. Paranasal sinuses and mastoid air cells are well aerated. .Normal visualized soft tissues. CT/CT head wo con* [id number] IMPRESSION: 1. No evidence of intracranial hemorrhage or mass effect. 2. Mild small vessel changes. Mild parenchymal volume loss worse in the fronta l lobes. 3. Intracranial vascular calcification. 4. No acute intracranial findings.
--- NOTE | 2022-11-02 13:03 | W.ED.WEAKNES ---
HPI - Weakness General: Chief complaint: Weakness Stated complaint: weakness Time Seen by Provider: 11/02/22 12:45 Source: patient and family (son) Limitations: no limitations History of Present Illness: This 61-year-old male with a history of hypertension, peripheral vascular disease, and anxiety was brought in for evaluation of progressively worsening weakness to the point that he has not been able to get out of bed for the last 3 days. Weakness has been going on for about 3 to 6 months now. He complains of intermittent pain in different muscles of the body. There is no reported fever, nausea or vomiting. Son stated that at the onset, patient was able to get out of bed and use a rolling stool to get around the house or use the bathroom. However, his weakness has progressed to the point that he is needing help to get around the house. Over the last 3 days, patient has been unable to get out of bed. This morning, son had to literally carry him out of the house into his truck. Patient is alert but appears weak. Associated symptoms: Denies chest pain, chills, dysuria, easy bruising or headache(s) Review of Systems General: Reports: Other Const: Denies: chills, body aches or change in appetite Eyes: Denies: change in vision or eye discharge ENMT: Denies: throat pain, dental pain or nasal discharge Card: Denies: chest pain or lightheadedness : Denies: dysuria Musc: Denies: neck pain or back pain Neuro: Reports: weakness in extremities and difficulty walking; Denies: headache(s) Psych: Denies: depression Bubba/Lymph: Denies: easy bruising All/Imm: Denies: urticaria, tongue swelling or facial swelling PFSH ED PFSH: Medical History (Updated 11/02/22 @ 16:15 by Sunita Castro MD) Abnormal weight loss Anxiety about health Chronic pain of right lower extremity Chronic ulcer of ankle Decreased calculated GFR DVT (deep venous thrombosis) Right lower leg 06/01/2021 Hypertension PVD (peripheral vascular disease) TSH elevation 04/07/2022 TSH 4.7 Weakness of both lower extremities Social History Smoking and tobacco status: current every day smoker Smoking risk assessment/counseling performed?: No Alcohol intake: never Desire information about alcohol rehabilitation?: No Counseling given: No Substance/Drug Use: never Desire information about substance/drug rehabilitation?: No Counseling given: No Current occupational status: disabled Current gender identity: Male Physical Exam Const: COMMON NORMALS: no acute distress, patient oriented x3, no limitations and alert HENMT: COMMON NORMALS: normocephalic HEAD & SCALP: normocephalic Eye: COMMON NORMALS: EOMs intact bilaterally Neck/C-Spine: COMMON NORMALS: full ROM and supple Chest: COMMONS NORMALS: normal inspection of the chest Resp: COMMON NORMALS: normal respiratory effort, No retractions, No use of accessory muscles and clear to auscultation bilaterally AUSCULTATION: clear to auscultation bilaterally Cardio: COMMON NORMALS: regular rate, regular rhythm and No murmurs present (Cardio) RATE: regular rate RHYTHM: regular rhythm GI: COMMON NORMALS: Normal to inspection, nondistended, normoactive bowel sounds present and non-tender : COMMON NORMALS: Yes no CVA tenderness BLADDER/KIDNEY EXAM: Yes no CVA tenderness Back/Pelvis: COMMON NORMALS: no CVA tenderness and no thoracic nor lumbar tenderness Extremity: GENERAL: Yes normal exam except as noted Neuro: COMMON NORMALS: patient oriented x3 SENSORIUM/ORIENTATION: Yes alert SENSORY EXAM: Yes extremities (Normal) MOTOR EXAM: Abnormal motor strength present, Abnormal muscle tone present and Other motor observations present (Strength is 1/5 in the LLE and 2/5 in the RLE) OTHER: Strength is 5/5 in both upper extremities. Psych: COMMON NORMALS: mental status grossly normal and cooperative Course Vital Signs: Vital signs: Vital Signs Temperature 97.6 F 11/02/22 10:20 Pulse Rate 70 11/02/22 16:00 Respiratory Rate 18 11/02/22 16:00 Blood Pressure 149/74 11/02/22 16:00 Pulse Oximetry 93 11/02/22 16:00 Oxygen Delivery Me thod Room Air 11/02/22 10:20 MDM - Weakness Medical Decision Making Medical decision making: History as above. Weakness has been progressive over the last couple of months and has worsened to the point that patient is unable to get out of bed or mobilize independently. CT brain is negative for any acute intracranial process and clinical exam reveals strength of 1/5 in the left lower extremity and 2/5 in the right lower extremity. He has hypokalemia. Potassium replacement given. Given that we have no neurology coverage today or for the rest of the weekend, neurology team at [facility] was consulted. Case discussed with Dr. Joleen Caicedo who accepted patient on behalf of Dr. Corry Linton. Lab Data 11/02/22 12:20 11/02/22 12:20 Radiology Impressions Chest X-Ray 11/02/22 12:59 Impression: Possible small left pleural effusion. Head CT 11/02/22 12:59 IMPRESSION: 1. No evidence of intracranial hemorrhage or mass effect. 2. Mild small vessel changes. Mild parenchymal volume loss worse in the frontal lobes. 3. Intracranial vascular calcification. 4. No acute intracranial findings. Laboratory Results WBC 5.7 10^3/uL (4.0-10.0) 11/02/22 12:20 RBC 4.57 10^6/uL (4.1-5.3) 11/02/22 12:20 Hgb 13.7 g/dL (11.7-16.6) 11/02/22 12:20 Hct 40.9 % (42.0-52.0) L 11/02/22 12:20 MCV 89.5 fl (80-94) 11/02/22 12:20 MCH 30.0 pg (28.0-34.0) 11/02/22 12:20 MCHC 33.5 g/dL (30.0-36.0) 11/02/22 12:20 RDW 12.1 % (12.1-15.1) 11/02/22 12:20 Plt Count 150 10^3/cmm (130-400) 11/02/22 12:20 MPV 10.3 fL (7.4-10.4) 11/02/22 12:20 Neut % (Auto) 81.5 % 11/02/22 12:20 Lymph % (Auto) 8.4 % 11/02/22 12:20 Carbon % (Auto) 7.2 % 11/02/22 12:20 Eos % (Auto) 1.9 % 11/02/22 12:20 Baso % (Auto) 0.5 % 11/02/22 12:20 Neut # (Auto) 4.67 10^3/uL (1.8-7.7) 11/02/22 12:20 Lymph # (Auto) 0.5 10^3/uL (0.8-4.8) L 11/02/22 12:20 Carbon # (Auto) 0.4 10^3/uL (0.2-0.9) 11/02/22 12:20 Eos # (Auto) 0.1 10^3/uL (0.0-0.8) 11/02/22 12:20 Baso # (Auto) 0.0 10^3/uL (0.0-0.1) 11/02/22 12:20 Nucleated RBC % (auto) 0 % 11/02/22 12:20 Nucleated RBCs # 0.0 /100WBC 11/02/22 12:20 Sodium 136 mmol/L (136-145) 11/02/22 12:20 Potassium 2.8 mmol/L (3.5-5.1) L* 11/02/22 12:20 Chloride 94 mmol/L (98-107) L 11/02/22 12:20 Carbon Dioxide 31 mmol/L (22-29) H 11/02/22 12:20 Anion Gap 13.8 (5-19) 11/02/22 12:20 BUN 25 mg/dL (8-23) H 11/02/22 12:20 Creatinine 0.8 mg/dL (0.7-1.2) 11/02/22 12:20 GFR Calculation 98.0 mL/min (90-130) 11/02/22 12:20 Glucose 122 mg/dL (65-115) H 11/02/22 12:20 Calculated Osmolality 288 mOsm/kg (285-295) 11/02/22 12:20 Lactic Acid 1.6 mmol/L (0.5-2.2) 11/02/22 12:20 Calcium 9.0 mg/dL (8.5-10.5) 11/02/22 12:20 Total Bilirubin 0.2 mg/dL (0.15-1.2) 11/02/22 12:20 AST 19 U/L (0-40) 11/02/22 12:20 ALT 18 U/L (0-41) 11/02/22 12:20 Alkaline Phosphatase 60 U/L (40-130) 11/02/22 12:20 Creatine Kinase 110 U/L (39-308) 11/02/22 12:20 Total Protein 7.0 g/dL (6.6-8.7) 11/02/22 12:20 Albumin 4.2 g/dL (3.5-5.2) 11/02/22 12:20 Globulin 2.8 g/dL (1.3-4.6) 11/02/22 12:20 Urine Color Yellow (Yellow) 11/02/22 16:15 Urine Appearance Clear (CLEAR) 11/02/22 16:15 Urine pH 5 (5-7) 11/02/22 16:15 Ur Specific [place] 1.020 (1.005-1.030) 11/02/22 16:15 Urine Protein Neg (Negative) 11/02/22 16:15 Urine Glucose (UA) Norm (Normal) 11/02/22 16:15 Urine Ketones Negative (Negative) 11/02/22 16:15 Urine Blood Neg (Negative) 11/02/22 16:15 Urine Nitrate Negative (Negative) 11/02/22 16:15 Urine Bilirubin Neg (Negative) 11/02/22 16:15 Urine Urobilinogen Norm mg/dL (Negative) 11/02/22 16:15 Ur Leukocyte Esterase Negative (Negative) 11/02/22 16:15 EKG Data EKG 1: Computer generated interpretation: 1246 hrs.: Normal sinus rhythm, rate of 64, normal axis, normal intervals, normal QRS, no STEMI. 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
[2022-11-02 13:06] LABS: Lactic Sepsis W/Reflex 1.6 mmol/L (0.5-2.2)
[2022-11-02 13:07] LABS: Alanine Aminotransferase 18 U/L (0-41); Albumin Level 4.2 g/dL (3.5-5.2); Alkaline Phosphatase 60 U/L (40-130); Anion Gap 13.8 (5-19); Aspartate Amino Transferase 19 U/L (0-40); Blood Urea Nitrogen 25 mg/dL (8-23); Carbon Dioxide 31 mmol/L (22-29); Chloride 94 mmol/L (98-107); Globulin 2.8 g/dL (1.3-4.6); Glucose 122 mg/dL (65-115); Osmolality Calculated 288 mOsm/kg (285-295); Sodium 136 mmol/L (136-145); Total Bilirubin 0.2 mg/dL (0.15-1.2)
[2022-11-02 13:20] LABS: Potassium 2.8 mmol/L (3.5-5.1)
[2022-11-02] MEDS: potassium chloride premix 100 ML 50 MEQ IV (14:22)
[2022-11-02] MEDS: sodium chloride 0.9% 250 ML IV (14:23)
[2022-11-02] MEDS: potassium chloride oral liq 20 mEq/15 mL UDC 40 MEQ PO (14:23)
--- NOTE | 2022-11-02 14:40 | PC.PHAR ---
pt states he takes care of his own medications-pt states he doesnt take any medications for blood clots ozh main filled xarelto 20 mg daily filled 08/23/22 30d/s states the rx has 5 refills-garnica cutter filled norco 7.5-325mg tid prn on 10/10/22 30d/s and 10/24/22 30d/s 1 tab po daily prn--pt states he takes clonazepam 0.5mg q12h prn filled 10/12/22 rx written 10/24/22 0.5mg po daily prn-notes are made in the pharmacy comments
[2022-11-02 16:13] LABS: Creatine Phosphokinase 110 U/L (39-308)
[2022-11-02 16:30] LABS: Add Urine Microscopic? NO; Charge for UA Resulting for Rev
[2022-11-02 16:52] LABS: Bilirubin Urine Neg (Negative); Blood Urine Neg (Negative); Glucose Urine UA Norm (Normal); Ketones Urine Negative (Negative); Leukocyte Esterase Urine Negative (Negative); Nitrate Urine Negative (Negative); Protein Urine Neg (Negative); Urine Appearance Clear (CLEAR); Urine Color Yellow (Yellow); Urobilinogen Urine Norm (Negative); pH Urine 5 (5-7)
== END 2022-11-02 17:00 | disposition short-term general hospital (02) ==
PROVIDERS: Physician Assistant; Emergency Provider Family Medicine; PCP Family Medicine Adult Medicine
DX: M62.81 Muscle weakness (generalized) (principal); E87.6 Hypokalemia; F17.210 Nicotine dependence, cigarettes, uncomplicated; I10 Essential (primary) hypertension
CPT/HCPCS: 36415; 70450; 71045; 80053; 81003; 82085; 82550; 83605; 85025; 93005; 96365; 96366; 99285; J3480; J7050

== ENCOUNTER 2022-11-18 15:04 | Inpatient (IN) | payer MEDICAID, SELFPAY ==
[2022-11-18] VITALS (35 sets, daily range): BP systolic 93–172; BP diastolic 61–113; PULSE 62–77; RESP 14–19; TEMP 36.4; O2SAT 88–100; BMI 21.5
--- NOTE | 2022-11-18 15:08 | ECG_ITS ---
[facility] Test Date: 2022-11-18 Pat Name: Gregorio Becker Department: Room: Gender: Male Junior Recruiter: : 1960 Requested By: Papo Lee Order Number: [id number] Paredes MD: Merry Blackwell M.D. Measurements Intervals [place] Rate: 85 P: 152 MA: 145 QRS: 62 QRSD: 131 T: 90 QT: 464 QTc: 552 Interpretive Statements SINUS RHYTHM INTRAVENTRICULAR CONDUCTION DELAY [130+ ms QRS DURATION] ST ELEVATION, CONSIDER INFERIOR INJURY Compared to ECG 11/02/2022 12:45:34 Intraventricular conduction delay now present ST (T wave) deviation now present Myocardial infarct finding now present T-wave abnormality no longer present Electronically Signed On 11-19-2022 11:09:19 CDT by Merry Blackwell M.D. [email or web address] 1%[id number] f
--- NOTE | 2022-11-18 15:15 | XRR_ITS ---
PROCEDURE INFORMATION: Exam: XR Chest Exam date and time: 11/18/2022 3:36 PM Age: 62 years old Clinical indication: Other: Resp failure TECHNIQUE: Imaging protocol: Radiologic exam of the chest. Views: 1 view. COMPARISON: CR XR chest 1V portable [id number] 11/02/2022 1:13 PM FINDINGS: Tubes, catheters and devices: Endotracheal tube terminates 8 cm above the joseph. Enteric tube noted within the stomach. Lungs: Unremarkable. No consolidation. Pleural spaces: Unremarkable. No pleural effusion. No pneumothorax. Heart/Mediastinum: Unremarkable. No cardiomegaly. Bones/joints: Unremarkable. XR/XR chest 1V portable [id number] IMPRESSION: 1. Proper positioning of support apparatus. 2. No acute cardiopulmonary findings.
--- NOTE | 2022-11-18 15:21 | W.ED.SOB ---
HPI - SOB/Dyspnea General: Chief Complaint: Shortness of Breath/Dyspnea Stated Complaint: RESP DISTRESS Time Seen by Provider: 11/18/22 15:15 Source: EMS Mode of arrival: EMS Limitations: altered mental status History of Present Illness: HPI Narrative: This patient was transported to our emergency department by EMS. The history from today's event was that he had progressive worsening difficulty breathing and was in route to the emergency department via private vehicle when he began having increasing difficulty breathing and EMS was notified. They found the patient in the vehicle with poor respiratory effort. They discussed status and whether the family wanted to proceed with aggressive care and they answered in the affirmative. The patient received the benefit of intubation in the field and was transported to the emergency department receiving assisted ventilation. Apparently recently he has been diagnosed at [facility] with having ALS. He had a progressive history of weakness over approximately 6 months prior to culminating in that recent diagnosis. Review of Systems General: Reports: ROS unobtainable due to endotracheal tube and ROS unobtainable due to medical condition PFS ED PFSH: Medical History Abnormal weight loss ALS (amyotrophic lateral sclerosis) Anxiety about health Chronic pain of right lower extremity Chronic ulcer of ankle Decreased calculated GFR DVT (deep venous thrombosis) Right lower leg 06/01/2021 Hypertension PVD (peripheral vascular disease) TSH elevation 04/07/2022 TSH 4.7 Weakness of both lower extremities Social History Smoking and tobacco status: current every day smoker Smoking risk assessment/counseling performed?: No Alcohol intake: never Desire information about alcohol rehabilitation?: No Counseling given: No Substance/Drug Use: never Desire information about substance/drug rehabilitation?: No Counseling given: No Current occupational status: disabled Current gender identity: Male Physical Exam Narrative: EXAM NARRATIVE: The patient's currently intubated and nonresponsive Const: COMMON NORMALS: average body habitus HENMT: COMMON NORMALS: normocephalic, Normal nasal mucous membranes and turbinates present and oropharynx normal (ET tube in situ) HEAD & SCALP: normocephalic FACE & SINUS: face symmetric NOSE: Normal nasal mucous membranes and turbinates present Eye: COMMON NORMALS: conjunctivae normal and no scleral icterus CONJUNCTIVA: Yes conjunctivae normal Neck/C-Spine: COMMON NORMALS: no JVD and No carotid bruits Chest: COMMONS NORMALS: normal inspection of the chest Resp: OTHER: Patient is receiving assisted ventilation. Initially breath sounds were noted to be more audible in the right chest. ET tube was withdrawn approximately 1 and half centimeters with more equalization of breath sounds Cardio: COMMON NORMALS: no JVD, regular rate, regular rhythm and Peripheral pulses 2+ throughout RATE: regular rate RHYTHM: regular rhythm PERIPHERAL PULSES: Peripheral pulses 2+ throughout GI: COMMON NORMALS: Normal to inspection, nondistended, normoactive bowel sounds present, Soft to palpation and no masses PALPATION: Yes Soft to palpation : PENIS: normal penis and circumcised Extremity: COMMON NORMALS: normal to inspection, capillary refill normal, no calf tenderness and no pedal edema Neuro: TAMARA COMA SCALE: document GCS findings (Patient currently intubated) Patterson coma scale eye opening: None Tamara coma scale verbal response: None Tamara coma scale motor response: None Patterson coma scale total score: 3 Skin: COMMON NORMALS: no rashes or lesions noted and turgor normal GENERAL SKIN EXAM: no rashes or lesions noted and turgor normal Course Reevaluation(s): Reevaluation #1: Arterial blood gas was noted. He is oxygenating quite well therefore will reduce his FiO2 back to approximately 40% and reassess. Appears to be ventilating appropriately. Time: 15:49 Reevaluation #2: Remains sedated on a minimal amount of propofol. We will go ahead and get a CTA to for PE etc. Time: 16:42 Reevaluation #3: Patient remains stable. Repeat ABG reveals very adequate oxygenation. Doubt that he has a VQ mismatch such as would be attributable to a PE etc. Discussed with hospitalist who will accept the patient for admission. Still no family members available to discuss his prognosis and long-term plan of care. Time: 17:33 Vital Signs: Vital signs: Vital Signs Pulse Rate 67 11/18/22 17:00 Respiratory Rate 17 11/18/22 17:00 Blood Pressure 103/75 11/18/22 17:00 Pulse Oximetry 92 11/18/22 17:00 Oxygen Delivery Me thod Mechanical Ventil ation 11/18/22 15:04 Fraction of Inspir ed Oxygen 40 11/18/22 15:37 MDM - SOB/Dyspnea Medical Decision Making Patient with a history of recent diagnosis of ALS after progressive weakness that is occurred over many months. This information is via EMS and the family. The patient had an episode of alleged respiratory failure in the field requiring intubation and presented to the emergency department and that condition. Additional measures were undertaken in the emergency department to work the patient up for any reversible causes. Unlikely to have ACS at this time. No evidence of pneumonia or pneumothorax. No evidence of other potential worrisome causes and most likely due to his primary diagnosis of ametropic lateral sclerosis. The patient's CODE STATUS is full resuscitation at this time and we need to engage the family regarding their long-term wishes. Short-term the patient will be admitted to the intensive care unit on mechanical ventilation under the hospitalist service. Clear they will try to wean him off the ventilator and see how he responds. No evidence of other interventions required at this time. CTA of chest is pending at the time of this dictation. Lab Data I reviewed the patient's lab results. 11/18/22 15:24 11/18/22 15:24 Labs/Radiology: Radiology Impressions Chest X-Ray 11/18/22 15:15 IMPRESSION: 1. Proper positioning of support apparatus. 2. No acute cardiopulmonary findings. Laboratory Results WBC 8.8 10^3/uL (4.0-10.0) 11/18/22 15:24 RBC 5.21 10^6/uL (4.1-5.3) 11/18/22 15:24 Hgb 15.7 g/dL (11.7-16.6) 11/18/22 15:24 Hct 46.0 % (42.0-52.0) 11/18/22 15:24 MCV 88.3 fl (80-94) 11/18/22 15:24 MCH 30.1 pg (28.0-34.0) 11/18/22 15:24 MCHC 34.1 g/dL (30.0-36.0) 11/18/22 15:24 RDW 12.2 % (12.1-15.1) 11/18/22 15:24 Plt Count 150 10^3/cmm (130-400) 11/18/22 15:24 MPV 10.8 fL (7.4-10.4) H 11/18/22 15:24 Neut % (Auto) 87.1 % 11/18/22 15:24 Lymph % (Auto) 5.8 % 11/18/22 15:24 [place] % (Auto) 6.2 % 11/18/22 15:24 Eos % (Auto) 0.0 % 11/18/22 15:24 Baso % (Auto) 0.1 % 11/18/22 15:24 Neut # (Auto) 7.65 10^3/uL (1.8-7.7) 11/18/22 15:24 Lymph # (Auto) 0.5 10^3/uL (0.8-4.8) L 11/18/22 15:24 [place] # (Auto) 0.5 10^3/uL (0.2-0.9) 11/18/22 15:24 Eos # (Auto) 0.0 10^3/uL (0.0-0.8) 11/18/22 15:24 Baso # (Auto) 0.0 10^3/uL (0.0-0.1) 11/18/22 15: Nucleated RBC % (auto) 0 % 11/18/22 15: Nucleated RBCs # 0.0 /100WBC 11/18/22 15:24 PT 14.20 SECONDS (12.1-14.9) 11/18/22 15:24 INR 1.07 (0.8-1.2) 11/18/22 15:24 APTT 22.0 SECONDS (23.9-36.7) L 11/18/22 15:24 Specimen Type Arterial 11/18/22 15:10 Sample Site Radial, right 11/18/22 15:10 ABG pH 7.38 (7.35-7.45) 11/18/22 15:10 ABG pCO2 50.2 mmHg (35-45) H 11/18/22 15:10 ABG pO2 537.0 mmHg (80.0-100.0) H 11/18/22 15:10 ABG HCO3 29.8 mmol/L (22-26) H 11/18/22 15:10 ABG O2 Saturation > 100.0 11/18/22 15:10 ABG Base Excess 3.5 mmol/L (-2.0-2.0) H 11/18/22 15:10 Vinod Test Pos 11/18/22 15:10 A-a O2 Gradient 12.3 mmHg (5-10) H 11/18/22 15:10 Hematocrit 47.2 % (42-52) 11/18/22 15:10 Hgb O2 Saturation 97.1 % (95-100) 11/18/22 15:10 Carboxyhemoglobin 2.9 %THgb (0.4-20.1) 11/18/22 15:10 Methemoglobin 0.7 % (0.4-1.5) 11/18/22 15:10 Total Hemoglobin 15.4 g/dL (14-18) 11/18/22 15:10 Sodium 140.0 mmol/L (131-143) 11/18/22 15:10 Potassium 3.2 mmol/L (3.5-5.0) L 11/18/22 15:10 Glucose 224.0 mg/dL (70-115) H 11/18/22 15:10 Ionized Calcium 1.2 mmol/L (1.1-1.4) 11/18/22 15:10 O2 Delivery Device Vent 11/18/22 15:10 FiO2 100.0 % 11/18/22 15:10 Tidal Volume 0.45 11/18/22 15:10 PEEP 5.0 cmH20 11/18/22 15:10 Metal Building Assembler ID Gd 11/18/22 15:10 Sodium 139 mmol/L (136-145) 11/18/22 15:24 Potassium 3.7 mmol/L (3.5-5.1) 11/18/22 15:24 Chloride 95 mmol/L (98-107) L 11/18/22 15:24 Carbon Dioxide 29 mmol/L (22-29) 11/18/22 15:24 Anion Gap 18.7 (5-19) 11/18/22 15:24 BUN 43 mg/dL (8-23) H 11/18/22 15:24 Creatinine 0.7 mg/dL (0.7-1.2) 11/18/22 15:24 GFR Calculation 113.9 mL/min (90-130) 11/18/22 15:24 Glucose 206 mg/dL (65-115) H 11/18/22 15:24 POC Glucose 150 mg/dL (70-110) H 11/18/22 15:42 Calculated Osmolality 305 mOsm/kg (285-295) H 11/18/22 15:24 Calcium 9.3 mg/dL (8.5-10.5) 11/18/22 15:24 Total Bilirubin 1.2 mg/dL (0.15-1.2) 11/18/22 15:24 AST 31 U/L (0-40) 11/18/22 15:24 ALT 50 U/L (0-41) H 11/18/22 15:24 Alkaline Phosphatase 83 U/L (40-130) 11/18/22 15:24 Troponin T Baseline 27 ng/L (0-15) H 11/18/22 15:24 NT-Pro-B Natriuret Pep 305 pg/mL (0-125) H 11/18/22 15:24 Total Protein 7.1 g/dL (6.6-8.7) 11/18/22 15:24 Albumin 4.4 g/dL (3.5-5.2) 11/18/22 15:24 Globulin 2.7 g/dL (1.3-4.6) 11/18/22 15:24 EKG Data EKG 1: I personally reviewed and interpreted this EKG as follows: Interpretation: Resting EKG reveals ventricular rate of 85 bpm. Normal OH interval, QRS duration, corrected QT interval. Normal axis. No acute changes compared with prior tracing within the system Critical Care Time Critical Care Time: Critical Care Time: Yes Total Critical Care Time: 30 Attestation: Critical care time based upon assessment of the patient, assessment of her ancillary studies, mechanical ventilation, talking to consultants. Discharge Plan Discharge Clinical Impression: Respiratory failure, ALS (amyotrophic lateral sclerosis) Condition: Stable Prescriptions: No Action clonazepam 0.5 mg tablet 0.25 mg PO Q12H PRN (Reason: Anxiety) Rx Instructions: On or after 30 day intervals triamterene-hydrochlorothiazid 37.5-25 mg tablet 1 tab PO QAM Qty: 30 5RF Xarelto 20 mg tablet 20 mg PO DAILY Qty: 30 5RF Rx Instructions: 340B medication (rx last filled 08/23/22 30d/s has 5 refills) hydrocodone-acetaminophen 7.5-325 mg tablet 1 tab PO DAILY PRN (Reason: pain) 30 Days Qty: 90 0RF Rx Instructions: Refill on or after 30-day interval (DME) bedside See Rx Instructions .Route .MEDSUPPLY Qty: 1 0RF Rx Instructions: As directed amlodipine 10 mg tablet 10 mg PO QAM clotrimazole-betamethasone 1-0.05 % cream 1 applic topical BID PRN (Reason: psoriasis) Rx Instructions: 340 B Medication naproxen 500 mg tablet 500 mg PO BID PRN (Reason: Pain) Emetrol Solution 15 - 30 ml PO Q15M PRN (Reason: stomach muscle contractions) hydrocodone-acetaminophen [[place]] 7.5-325 mg Tablet 1 tab PO TID PRN (Reason: Pain) Tylenol 325 mg Tablet 325 - 650 mg PO Q6H PRN (Reason: Pain) carvedilol 6.25 mg Tablet 6.25 mg PO BID Rx Instructions: must administer with a meal/food Vitamin B-1 100 mg Tablet 100 mg PO DAILY bisacodyl 5 mg Tablet 10 mg PO DAILY PRN (Reason: Constipation) Rx Instructions: use if miralax doesnt work after 24 hours Referrals: Yvan Cervantes MD [Primary Care Provider] - Coding Level of Care Code 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
[2022-11-18 15:26] LABS: ABG PCO2 50.2 mmHg (35-45); ABG PH Result 7.38 (7.35-7.45); Alveolar-Arterial Oxygen Gradi 12.3 mmHg (5-10); Arterial Blood Gas Hematocrit 47.2 % (42-52); Base Excess ABG 3.5 mmol/L (-2.0-2.0); Blood Gas Allen Test Pos; Blood Gas Operator Identificat GD; Blood Gas Sample Site Radial, right; Blood Gas Sample Type Arterial; Blood Gas Tidal Volume 0.45; Carboxyhemoglobin 2.9 %THgb (0.4-20.1); HCO3 ABG 29.8 mmol/L (22-26); HGB O2 Sat 97.1 % (95-100); Ionized Calcium Level - ABG 1.2 mmol/L (1.1-1.4); Methemoglobin 0.7 % (0.4-1.5); Oxygen Device VENT; Oxygen Saturation ABG > 100.0; Potassium Level - ABG 3.2 mmol/L (3.5-5.0); Total Hemoglobin 15.4 g/dL (14-18)
--- NOTE | 2022-11-18 15:26 | PC.NURSE ---
PT PLACED ON CONTINUOUS SPO2, NIBP, AND CM.
[2022-11-18] MEDS: sodium chloride 0.9% 1,000 ML 999 ML IV (15:31)
[2022-11-18] MEDS: propofol 1,000 MG/100 ML INJ 2.04 MG IV (15:31)
[2022-11-18 15:45] LABS: Glucose Point of Care 150 mg/dL (70-110)
[2022-11-18 15:45] LABS: Glucose Point of Care 198 mg/dL (70-110)
[2022-11-18] MEDS: enoxaparin 80 mg/0.8 mL Syringe 70 MG SUBCUT (15:49)
[2022-11-18 16:01] LABS: Basophils % 0.1 %; Hemoglobin 15.7 g/dL (11.7-16.6); Lymphocytes # 0.5 10^3/uL (0.8-4.8); Lymphocytes % 5.8 %; Mean Corpuscular HGB Conc 34.1 g/dL (30.0-36.0); Mean Corpuscular Hemoglobin 30.1 pg (28.0-34.0); Mean Corpuscular Volume 88.3 fl (80-94); Mean Platelet Volume 10.8 fL (7.4-10.4); Monocytes # 0.5 10^3/uL (0.2-0.9); Monocytes % 6.2 %; Neutrophils # 7.65 10^3/uL (1.8-7.7); Neutrophils % 87.1 %; Nucleated Red Blood Cells % 0 %; Platelet Count 150 10^3/cmm (130-400); Red Blood Count 5.21 10^6/uL (4.1-5.3); Red Cell Distribution Width 12.2 % (12.1-15.1); White Blood Count 8.8 10^3/uL (4.0-10.0)
--- NOTE | 2022-11-18 16:08 | PC.PHAR ---
pt intubated and unable to verify medications-med bottles were brought in with the pt-medications entered are meds that were brought in ,what was entered when pt was seen on 11/02/22 and what ext med history shows-[facility] not open on sundays to verify if more meds had been filled or picked up-notes are made in the pharmacy comments-penicillin v potassium 500mg take 1000mg po qid for chronic cellulitis was taken out rx written on 08/23/22 and no rx bottle was brought in
[2022-11-18 16:12] LABS: INR 1.07 (0.8-1.2)
[2022-11-18 16:30] LABS: Troponin(5th) Baseline 27 ng/L (0-15)
[2022-11-18 16:36] LABS: Alanine Aminotransferase 50 U/L (0-41); Albumin Level 4.4 g/dL (3.5-5.2); Alkaline Phosphatase 83 U/L (40-130); Aspartate Amino Transferase 31 U/L (0-40); Blood Urea Nitrogen 43 mg/dL (8-23); Calcium 9.3 mg/dL (8.5-10.5); Carbon Dioxide 29 mmol/L (22-29); Chloride 95 mmol/L (98-107); Creatinine Clr Calc Pharmacy 108.4961; Globulin 2.7 g/dL (1.3-4.6); Glomerular Filtration Rate 113.9 mL/min (90-130); Glucose 206 mg/dL (65-115); NT Pro B Type Natriuretic Pept 305 pg/mL (0-125); Osmolality Calculated 305 mOsm/kg (285-295); Sodium 139 mmol/L (136-145); Total Bilirubin 1.2 mg/dL (0.15-1.2); Total Protein 7.1 g/dL (6.6-8.7)
[2022-11-18 16:41] LABS: Anion Gap 18.7 (5-19); Potassium 3.7 mmol/L (3.5-5.1)
--- NOTE | 2022-11-18 16:42 | CTR_ITS ---
PROCEDURE INFORMATION: Exam: CTA Chest With Contrast Exam date and time: 11/18/2022 5:47 PM Age: 62 years old Clinical indication: Shortness of breath; Patient HX: On vent; Additional info: Respiratory failure and history of dvt TECHNIQUE: Imaging protocol: Computed tomographic angiography of the chest with contrast. Exam focused on the arteries. 3D rendering (Not supervised by radiologist): MIP and/or 3D reconstructed images were created by the technologist. Radiation optimization: All CT scans at this facility use at least one of these dose optimization techniques: automated exposure control; mA and/or kV adjustment per patient size (includes targeted exams where dose is matched to clinical indication); or iterative reconstruction. Contrast material: OMNI 350; Contrast volume: 91 ml; Contrast route: INTRAVENOUS (IV); REPORTING DATA: Count of CT and Cardiac NM exams in prior 12 months: This patient has received [address] and 0 known cardiac nuclear medicine studies in the 12 months prior to the current study. COMPARISON: CR (CHEST, ) 11/18/2022 3:36 PM RADIATION DOSE METRICS: Total DLP (mGy-cm): 379.61 FINDINGS: Tubes, catheters and devices: Enteric tube terminates in the stomach. Endotracheal tube in proper position above the joseph. Pulmonary arteries: Normal. No pulmonary emboli. Aorta: No aortic aneurysm. No aortic dissection. Lungs: Calcified granulomas noted in the left upper and right middle lobes. No consolidation. No masses. Pleural spaces: Unremarkable. No pneumothorax. No pleural effusion. Heart: Unremarkable. No cardiomegaly. No pericardial effusion. Lymph nodes: Unremarkable. No enlarged lymph nodes. Bones/joints: No acute fracture. Soft tissues: Unremarkable. CT/CT angio chest PE protcl [id number] IMPRESSION: No acute findings.
--- NOTE | 2022-11-18 17:21 | ECG_ITS ---
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 Measurements Intervals [place] Rate: 64 P: -29 MS: 138 QRS: 37 QRSD: 93 T: 101 QT: 425 QTc: 439 Interpretive Statements SINUS RHYTHM NONSPECIFIC T-WAVE ABNORMALITY Compared to ECG 11/18/2022 15:08:32 T-wave abnormality now present Intraventricular conduction delay no longer present ST (T wave) deviation no longer present Myocardial infarct finding no longer present Electronically Signed On 11-19-2022 11:10:57 CDT by Merry Blackwell M.D. [id number]
[2022-11-18] MEDS: iohexol 350 mg/mL 500 mL Btl (per mL) IV (17:55)
[2022-11-18 18:08] LABS: Troponin 5 2HR 22.74 ng/L (0-15)
[2022-11-18 18:13] LABS: Troponin 5 2HR Delta -4.26 ABS# (0-10)
--- NOTE | 2022-11-18 18:21 | PC.NURSE ---
Admit Note Patient admitted to ICU from ER via stretcher no family noted at bedside. Patient presented to ED with worsening breathing on route to ED in POV. Mr. Becker was noted to have recently been diagnosed with ALS with complains of increasing weakness over the last 6 months. Patient arrived to ICU on the ventilator, settings listed below. See arrival vital signs as documented. Patient receiving propofol on arrival at 25mcg/kg/min. Dr. Duffy noted to be at beside at time of patient arrival to ICU. Dr. Duffy gave verbal orders for a chest x-ray stat and orders to stop current propofol infusion. No family noted at bedside at this time. This nurse is unable to complete admission assessment due to patient being intubation and no family at bedside. Orders reviewed & will continue to monitor. 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 Ventilator Settings: Mode: VC-AC Tidal Volume: 450 RR: 16 PEEP: 5 FI02: 40%
--- NOTE | 2022-11-18 18:22 | XRR_ITS ---
PROCEDURE INFORMATION: Exam: XR Chest Exam date and time: 11/18/2022 7:06 PM Age: 62 years old Clinical indication: Device placement; Ett placement (vent status); Additional info: Tube placement TECHNIQUE: Imaging protocol: Radiologic exam of the chest. Views: 1 view. COMPARISON: CR (CHEST, ) 11/18/2022 3:36 PM FINDINGS: Tubes, catheters and devices: Endotracheal tube terminates 4.5 cm above the joseph. Enteric tube noted in the stomach. Delete the Lungs: Unremarkable. No consolidation. Pleural spaces: Unremarkable. No pleural effusion. No pneumothorax. Heart/Mediastinum: Unremarkable. No cardiomegaly. Bones/joints: Unremarkable. XR/XR chest 1V portable [id number] IMPRESSION: 1. Proper positioning of support apparatus. 2. No acute cardiopulmonary findings.
--- NOTE | 2022-11-18 18:41 | PM.HP ---
Providers/Chief Complaint Admitting Physician: Howie Duffy MD Primary Care Provider: Yvan Cervantes MD Chief Complaint: RESP DISTRESS History of Present Illness Gregorio Becker is a 62 year old male with past medical history of right lower extremity DVT on Xarelto at home, recently diagnosed ALS at [facility], was brought in with chief complaint of progressively worsening shortness of breath, he was in route to the ER by private vehicle, when his shortness of breath became severely bad, for which EMS was called, and he had to be intubated in route.History has been taken mainly by ER chart review, as the patient is currently intubated sedated on mechanical ventilation. CTA chest done: Has shown no pulmonary embolism, no infiltrates no effusion no pneumothorax. Pertinent Labs: WBC 8.8, H&H:15/46 , PLT : 150 , serum sodium 139, serum potassium 3.7, BUN 43, serum creatinine 0.7 Patient was given 1 dose of therapeutic Lovenox in ER. Review of Systems General: Reports: ROS unobtainable due to endotracheal tube Medications/Allergies Home Medications Medication Instructions Recorded Confirmed Last Taken Type rivaroxaban 20 mg tablet (Xarelto) 20 mg PO DAILY ankle blood clot 08/23/22 11/18/22 Unknown Rx #30 tabs triamterene 37.5 1 tab PO QAM blood pressure and 08/23/22 11/18/22 11/02/22 07:00 Rx mg-hydrochlorothiazide 25 mg tablet edema #30 tabs hydrocodone 7.5 mg-acetaminophen 1 tab PO DAILY PRN pain 30 days 10/24/22 11/18/22 Unknown Rx 325 mg tablet #90 tabs amlodipine 10 mg tablet 10 mg PO QAM high blood pressure 11/02/22 11/18/22 11/02/22 07:00 History clotrimazole-betamethasone 1 1 applic topical BID PRN psoriasis 11/02/22 11/18/22 Unknown History %-0.05 % topical cream hydrocodone 7.5 mg-acetaminophen 1 tab PO TID PRN Pain 11/02/22 11/18/22 Unknown History 325 mg tablet naproxen 500 mg tablet 500 mg PO BID PRN Pain 11/02/22 11/18/22 Unknown History phosphorated carbohydrate oral 15 - 30 ml PO Q15M PRN stomach 11/02/22 11/18/22 11/01/22 History solution (Emetrol oral solution) muscle contractions bedside #1 ea 11/08/22 11/18/22 Unknown Rx clonazepam 0.5 mg tablet 0.25 mg PO Q12H PRN Anxiety 11/14/22 11/18/22 Unknown History acetaminophen 325 mg tablet 325 - 650 mg PO Q6H PRN Pain 11/18/22 11/18/22 Unknown History (Tylenol) bisacodyl 5 mg tablet 10 mg PO DAILY PRN Constipation 11/18/22 11/18/22 Unknown History carvedilol 6.25 mg tablet 6.25 mg PO BID 11/18/22 11/18/22 Unknown History thiamine HCl (vitamin B1) 100 mg 100 mg PO DAILY 11/18/22 11/18/22 Unknown History tablet (Vitamin B-1) Allergies Allergy/AdvReac Type Severity Reaction Status Date / Time sulfamethoxazole Allergy Severe ALGY-Swell Verified 11/18/22 15:08 [From Bactrim] Lip/Tongue/Throat trimethoprim [From Bactrim] Allergy Severe ALGY-Swell Verified 11/18/22 15:08 Lip/Tongue/Throat gabapentin Allergy Unknown Verified 11/18/22 15:08 PFSH Acute PFSH: Medical History Abnormal weight loss ALS (amyotrophic lateral sclerosis) Anxiety about health Chronic pain of right lower extremity Chronic ulcer of ankle Decreased calculated GFR DVT (deep venous thrombosis) Right lower leg 06/01/2021 Hypertension PVD (peripheral vascular disease) TSH elevation 04/07/2022 TSH 4.7 Weakness of both lower extremities Social History Smoking and tobacco status: current every day smoker Smoking risk assessment/counseling performed?: No Alcohol intake: never Desire information about alcohol rehabilitation?: No Counseling given: No Substance/Drug Use: never Desire information about substance/drug rehabilitation?: No Counseling given: No Current occupational status: disabled Current gender identity: Male Vitals/I&O/Wt Last Vital Signs Pulse 64 11/18/22 17:30 Resp 16 11/18/22 18:21 BP 109/75 11/18/22 17:45 Pulse Ox 99 11/18/22 18:21 O2 Del Method Mechanical Ventilation 11/18/22 17:55 FiO2 40 11/18/22 18:21 11/18/22 11/18/22 11/18/22 06:59 14:59 22:59 Intake Total 1013.498 / 1013.498 Balance 1013.498 / 1013.498 Weight last 48 hrs Weight 68.039 kg Physical Exam HENMT: COMMON NORMALS: normocephalic and atraumatic HEAD & SCALP: normocephalic and atraumatic Resp: COMMON NORMALS: clear to auscultation bilaterally AUSCULTATION: clear to auscultation bilaterally Cardio: COMMON NORMALS: regular rate, regular rhythm, S1 normal heart sound present, S2 normal heart sound present, No gallops present (Cardio), No murmurs present (Cardio), No rub (Cardio) and Peripheral pulses 2+ throughout RATE: regular rate RHYTHM: regular rhythm HEART SOUNDS: S1 normal heart sound present and S2 normal heart sound present PERIPHERAL PULSES: Peripheral pulses 2+ throughout GI: COMMON NORMALS: Normal to inspection, nondistended, normoactive bowel sounds present, Soft to palpation, non-tender, No hepatosplenomegaly present and no masses AUSCULTATION: Yes normoactive bowel sounds PALPATION: Yes Soft to palpation and Yes No hepatosplenomegaly present RECTAL EXAM: Yes deferred Extremity: COMMON NORMALS: no clubbing, cyanosis or edema and no pedal edema Urinary Catheter Management: Grier: Cath Placed During This Visit: yes Reason for Continuing Indwelling Catheter: Accurate Measurement of Urinary Output in Critically Ill Patients Urinary Catheter Date of Insertion: 11/18/22 Urinary Catheter Time of Insertion: 15:25 Data 11/18/22 15:24 11/18/22 15:24 A&P Assessment and plan (1) Respiratory failure: (2) ALS (amyotrophic lateral sclerosis): (3) DVT (deep venous thrombosis): Plan 62 year old male with past medical history of right lower extremity DVT on Xarelto at home, recently diagnosed ALS at [facility], was brought in with chief complaint of progressively worsening shortness of breath. Currently he is being managed for. Assessment: Acute hypoxic respiratory failure : likely progressive worsening of respiratory status slowly progressing towards respiratory failure: In the setting of ALS CTA chest done: Has shown no pulmonary embolism, no infiltrates no effusion no pneumothorax. Follow blood culture Sputum Gram stain and culture Monitor NIF once appropriate to be done For now continue mechanical ventilation, vent settings have been reviewed, ABG has been reviewed, adequate changes to vent setting has been made. Currently has been empirically covered with Zosyn For now we will try to keep the sedation off, and check the patient mentation. Blood pressure is slightly soft, will continue with IV hydration History of DVT: Continue Xarelto CODE STATUS full code DVT prophylaxis: Xarelto is good enough. Attestations Medical Necessity Statement*: In hospital for management of respiratory failure. Anticipated length of stay greater than 2 midnights Coding Level of Care Code Acute Code for Chg Fwd Diagnoses Respiratory failure J96.90 ALS (amyotrophic lateral sclerosis) G12.21 DVT (deep venous thrombosis) I82.409
[2022-11-18] MEDS: piperacillin-tazobactam 3.375 GM in sodium chloride 0.9% (plus) 50 ML IV (19:28)
[2022-11-18] MEDS: sodium chlor 0.9% + KCl 20 mEq 20 MEQ/1,000 ML BAG 75 MEQ IV (19:28)
--- NOTE | 2022-11-18 19:54 | CTR_ITS ---
PROCEDURE INFORMATION: Exam: CT Head Without Contrast Exam date and time: 11/18/2022 8:26 PM Age: 62 years old Clinical indication: Weakness, extremity; Left; Additional info: One sided weakness TECHNIQUE: Imaging protocol: Computed tomography of the head without contrast. Radiation optimization: All CT scans at this facility use at least one of these dose optimization techniques: automated exposure control; mA and/or kV adjustment per patient size (includes targeted exams where dose is matched to clinical indication); or iterative reconstruction. REPORTING DATA: Count of CT and Cardiac NM exams in prior 12 months: This patient has received [address] and 0 known cardiac nuclear medicine studies in the 12 months prior to the current study. COMPARISON: CT head wo con* [id number] 11/02/2022 1:06 PM RADIATION DOSE METRICS: Total DLP (mGy-cm): 1321.65 FINDINGS: Brain: No hemorrhage. No edema. Mild diffuse cerebral atrophy. No significant white matter disease. No mass effect. Cerebral ventricles: No ventriculomegaly. Paranasal sinuses: Visualized sinuses are unremarkable. No fluid levels. Mastoid air cells: Visualized mastoid air cells are well aerated. Bones/joints: Unremarkable. No acute fracture. Soft tissues: Unremarkable. CT/CT head wo con* [id number] IMPRESSION: No acute intracranial abnormality.
--- NOTE | 2022-11-18 20:00 | PC.NURSE ---
Physician Communication Upon patient assessment, patient alert, opening eyes spontaneously, and following commands. When patient squeezed his hands and moved legs, weakness noted unilaterally on the left. Additionally, patient's blood pressures maintaining soft with a MAP around the 60s. Dr. Petersen contacted; order received for a head CT without contrast, as well as a levophed titratable drip.
[2022-11-18 20:12] LABS: ABG PCO2 41.6 mmHg (35-45); Arterial Blood Gas Hematocrit 45.7 % (42-52); Base Excess ABG 8.1 mmol/L (-2.0-2.0); Blood Gas Allen Test Pos; Blood Gas Sample Site Radial, right; Blood Gas Sample Type Arterial; Blood Gas Tidal Volume 0.45; HCO3 ABG 32.2 mmol/L (22-26); Oxygen Device VENT; PO2 ABG 44.4 mmHg (80.0-100.0)
[2022-11-18 20:59] LABS: Bilirubin Urine Neg (Negative); Blood Urine 2+ (Negative); Glucose Urine UA Norm (Normal); Ketones Urine Negative (Negative); Leukocyte Esterase Urine Negative (Negative); Nitrate Urine Negative (Negative); Protein Urine Trace (Negative); Specific Gravity, Urine 1.005 (1.005-1.030); Urine Appearance Clear (CLEAR); Urine Color Yellow (Yellow); Urobilinogen Urine Norm (Negative); pH Urine 7 (5-7)
[2022-11-18 21:00] LABS: Add Urine Microscopic? YES
[2022-11-18 21:04] LABS: Bacteria Urine TRACE /hpf; RBC Urine 0-4 /hpf (0-2); Squamous Epithelial Cell Urine 0-4 /hpf (0-5); WBC Urine 0-4 /hpf (0-5)
--- NOTE | 2022-11-18 21:21 | ECG_ITS ---
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 Measurements Intervals [place] Rate: 61 P: 65 [place]: 141 QRS: 15 QRSD: 101 T: 104 QT: 442 QTc: 446 Interpretive Statements SINUS RHYTHM MODERATE T-WAVE ABNORMALITY, CONSIDER LATERAL ISCHEMIA [-0.1+ mV T-WAVE IN I/aVL/V5/V6] Compared to ECG 11/18/2022 17:26:09 Possible ischemia now present T-wave abnormality still present Electronically Signed On 11-19-2022 11:10:33 CDT by Merry Blackwell M.D. [id number]
--- NOTE | 2022-11-18 22:00 | XRR_ITS ---
PROCEDURE INFORMATION: Exam: XR Chest Exam date and time: 11/18/2022 10:11 PM Age: 62 years old Clinical indication: Other: Increased o2 demand TECHNIQUE: Imaging protocol: Radiologic exam of the chest. Views: 1 view. COMPARISON: CR (CHEST, ) 11/18/2022 7:06 PM FINDINGS: Tubes, catheters and devices: Stable positioning of support apparatus. Lungs: Unremarkable. No consolidation. Pleural spaces: Unremarkable. No pleural effusion. No pneumothorax. Heart/Mediastinum: Unremarkable. No cardiomegaly. Bones/joints: Unremarkable. XR/XR chest 1V portable [id number] IMPRESSION: No significant interval change.
[2022-11-18 22:05] LABS: Troponin 5 6HR 26.61 ng/L (0-15)
--- NOTE | 2022-11-18 22:05 | PC.NURSE ---
Addendum entered by Linda Avila RN 11/19/22 06:51: Increased oxygen demand, decreasing oxygen saturation Original Note: Increased oxygen saturation Patient's oxygen saturation decreased into the mid to high 80s, left lung sounds remain diminished compared to the right side. Respiratory therapist at bedside; FIO2 increased from 40 to 55%while peep increased from 5-8. With increased settings, oxygen saturation still periodically decreasing into the 80s. Dr. Petersen contacted; order received for a stat chest xray and for respiratory therapist to check a NIF. RT notified of desired NIF.
[2022-11-18 22:06] LABS: Troponin 5 6HR Delta -0.39 ng/L (0-12)
[2022-11-19] VITALS (82 sets, daily range): BP systolic 93–147; BP diastolic 57–84; PULSE 54–75; RESP 18–19; TEMP 36.6–37.2; O2SAT 87–100; BMI 22.6
--- NOTE | 2022-11-19 01:22 | CTR_ITS ---
PROCEDURE INFORMATION: Exam: CTA Chest With Contrast Exam date and time: 11/19/2022 2:02 AM Age: 62 years old Clinical indication: Shortness of breath; Additional info: Increased oxygen demand, contrast and noncontrast images TECHNIQUE: Imaging protocol: Computed tomographic angiography of the chest with contrast. Exam focused on the arteries. 3D rendering (Not supervised by radiologist): MIP and/or 3D reconstructed images were created by the technologist. Radiation optimization: All CT scans at this facility use at least one of these dose optimization techniques: automated exposure control; mA and/or kV adjustment per patient size (includes targeted exams where dose is matched to clinical indication); or iterative reconstruction. Contrast material: OMNI 350; Contrast volume: 70 ml; Contrast route: INTRAVENOUS (IV); REPORTING DATA: Count of CT and Cardiac NM exams in prior 12 months: This patient has received 3 known CTs and 0 known cardiac nuclear medicine studies in the 12 months prior to the current study. COMPARISON: CT angio chest PE protcl [id number] 11/18/2022 5:47 PM RADIATION DOSE METRICS: Total DLP (mGy-cm): 391.71 FINDINGS: Tubes, catheters and devices: An endotracheal tube is placed with its tip approximately 2.5 cm from the joseph. Nasogastric tube is placed with its tip in the proximal stomach. Pulmonary arteries: See Lungs finding. Aorta: Unremarkable. No aortic aneurysm. No aortic dissection. Lungs: There is a mildly irregular mucosal surface of the primary bronchi bilaterally and within secondary bronchi of the upper and lower lobe on the left. There is attenuation of the left upper and lower lobar bronchi. Low-attenuation material is seen intraluminally within left lower lobe bronchi compatible with inspissated bronchi. Pleural spaces: Unremarkable. No pneumothorax. No pleural effusion. Heart: Unremarkable. No cardiomegaly. No pericardial effusion. Coronary arteries: Mild coronary artery calcifications are seen. Lymph nodes: Unremarkable. No enlarged lymph nodes. Bones/joints: Unremarkable. No acute fracture. Soft tissues: Unremarkable. CT/CT angio chest PE protcl [id number] IMPRESSION: 1. There is no evidence for pulmonary emboli. 2. Mucosal irregularities are seen in the right and left primary bronchi with irregular narrowing of the left upper and lower lobar bronchi and inspissation of left lower lobe bronchi, findings that may represent bronchitis.
--- NOTE | 2022-11-19 01:24 | PC.NURSE ---
Increasing Oxygen Demand Patient's oxygen saturation maintaining in the mid to high 80s. Respiratory at bedside; FIO2 increased from 70 to 100%. Dr. Petersen contacted and order received to do an ABG in 30 minutes as well as obtain a chest CTA with and without contrast. Chest CTA completed yesterday, confirmation received to repeat test.
--- NOTE | 2022-11-19 01:27 | USCV_ITS ---
Gregorio Becker Age: 62 Gender: M : 1960 Exam Date: 11/19/2022 09:21 Ordering Phys: Amy Petersen MD Technologist: Carlos Giles [place] [facility] [place]: ? shunt BP: / HR: 58 Rhythm: Sinus Technical Quality: Suboptimal MEASUREMENTS (Male / Female) Normal Values 2D ECHO LV Diastolic Diameter PLAX 4.1 cm 4.2 - 5.9 / 3.9 - 5.3 cm LV Systolic Diameter PLAX 2.8 cm IVS Diastolic Thickness 1.2 cm 0.6 - 1.0 / 0.6 - 0.9 cm IVS Systolic Thickness 1.6 cm LVPW Diastolic Thickness 1.2 cm 0.6 - 1.0 / 0.6 - 0.9 cm LVPW Systolic Thickness 1.5 cm LVOT Diameter 2.1 cm LV Ejection Fraction 2D Teich 61.2 % LV Ejection Fraction MOD 2C 65.2 % LV Ejection Fraction 2C AL 65.2 % LA Diameter 3.8 cm M-MODE Aortic Annulus Diameter 3.9 cm LA Ao Ratio MM 1.1 MV E Point Septal Separation 1.0 cm DOPPLER AV Peak Velocity 156.0 cm/s LVOT Peak Velocity 95.0 cm/s AV Area Cont Eq vti 2.7 cm squared AV Area Cont Eq pk 2.0 cm squared MV Area PHT 2.5 cm squared Mitral E to A Ratio 1.0 MV E' Velocity 41.0 cm/s Mitral E to MV E' Ratio 12.9 Mitral E to LV E' Lateral Ratio 12.6 Mitral E to LV E' Septal Ratio 13.1 TR Peak Velocity 173.0 cm/s TR Peak Gradient 12.0 mmHg TV Peak E Velocity 69.0 cm/s Right Atrial Pressure 3.0 mmHg Pulmonary Artery Systolic Pressu 15.0 mmHg RV Acceleration Time 0.1 s FINDINGS Left Ventricle Normal left ventricular size, systolic function and wall thickness, with no regional wall motion abnormalities. Grade I/IV diastolic dysfunction (abnormal relaxation filling pattern), normal to mildly elevated filling pressures. Left ventricular ejection fraction is estimated at 55 %. Right Ventricle Moderately increased right ventricular size. Normal right ventricular systolic function. Normal right ventricular systolic pressure. Right Atrium Mildly increased right atrial size. Left Atrium Mildly increased left atrial size. Mitral Valve Structurally normal mitral valve without significant stenosis or prolapse. There is no mitral regurgitation. Aortic Valve Structurally normal aortic valve without significant sclerosis or stenosis. There is no aortic regurgitation. Tricuspid Valve Structurally normal tricuspid valve. Trace tricuspid valve regurgitation. Pulmonic Valve Pulmonic valve not well visualized. [id number] pulmonary valve regurgitation. Pericardium Normal pericardium without effusion. Aorta Normal ascending aorta dimension. IVC The inferior vena cava appears normal. CONCLUSIONS Normal left ventricular size, systolic function and wall thickness, with no regional wall motion abnormalities. Grade I/IV diastolic dysfunction (abnormal relaxation filling pattern), normal to mildly elevated filling pressures. Left ventricular ejection fraction is estimated at 55 %. Moderately increased right ventricular size. Normal right ventricular systolic function. Normal right ventricular systolic pressure. Mildly increased right atrial size. Mildly increased left atrial size. Negative bubble study There are no prior echocardiogram studies to compare. Dr. Julio Cesar Manning MD (Electronically Signed) Final Date: 19 November 2022 15:10 S
--- NOTE | 2022-11-19 01:31 | CTR_ITS ---
PROCEDURE INFORMATION: Exam: CT Chest Without Contrast; Diagnostic Exam date and time: 11/19/2022 1:59 AM Age: 62 years old Clinical indication: Shortness of breath; Additional info: Increasing o2 demand TECHNIQUE: Imaging protocol: Diagnostic computed tomography of the chest without contrast. Radiation optimization: All CT scans at this facility use at least one of these dose optimization techniques: automated exposure control; mA and/or kV adjustment per patient size (includes targeted exams where dose is matched to clinical indication); or iterative reconstruction. REPORTING DATA: Count of CT and Cardiac NM exams in prior 12 months: This patient has received 3 known CTs and 0 known cardiac nuclear medicine studies in the 12 months prior to the current study. COMPARISON: CT angio chest PE protcl [id number] 11/18/2022 5:47 PM RADIATION DOSE METRICS: Total DLP (mGy-cm): 432.02 FINDINGS: Tubes, catheters and devices: An endotracheal tube is placed with its tip approximately 2.5 cm from the joseph. A nasogastric tube is present with its tip in the proximal stomach. Lungs: There is a calcified granuloma seen in the left lung base. There is an irregular contour the left mainstem bronchus and upper and lower lobar bronchi with bronchial wall thickening seen. There are inspissated bronchi within the left lower lobe. These findings are compatible with acute left bronchitis. Strandy opacities and some consolidation seen in the left posterior costophrenic recess likely representing atelectasis. Pleural spaces: See Lungs finding. Heart: Unremarkable. No cardiomegaly. No pericardial effusion. Coronary arteries: There are mild coronary artery calcifications. Lymph nodes: Partially calcified precarinal lymph node is seen compatible with prior granulomatous exposure. Vasculature: See Lungs finding. Bones/joints: Unremarkable. No acute fracture. Soft tissues: Unremarkable. CT/CT chest wo con [id number] IMPRESSION: 1. Findings compatible with acute left bronchitis with bronchial wall thickening seen within the left mainstem and s lobar bronchi and inspissation of the segmental bronchi of the left lower lobe. 2. Strandy and patchy opacities in the left posterior costophrenic recess likely represents atelectasis.
[2022-11-19 02:11] LABS: Blood Urea Nitrogen 38 mg/dL (8-23); Calcium 9.1 mg/dL (8.5-10.5); Carbon Dioxide 28 mmol/L (22-29); Chloride 99 mmol/L (98-107); Creatinine Clr Calc Pharmacy 108.4961; Glomerular Filtration Rate 113.9 mL/min (90-130); Glucose 75 mg/dL (65-115); Osmolality Calculated 298 mOsm/kg (285-295); Phosphorus 1.7 mg/dL (2.5-4.5); Sodium 140 mmol/L (136-145)
[2022-11-19 02:13] LABS: Anion Gap 16.1 (5-19); Potassium 3.1 mmol/L (3.5-5.1)
[2022-11-19 02:17] LABS: Procalcitonin 0.17 ng/mL (0-0.5)
[2022-11-19] MEDS: ipratropium-albuterol 3 mL Neb INHALATION ×4 (02:30→19:36)
--- NOTE | 2022-11-19 02:30 | P.PNCC_ITS ---
Critical Care Event Note Paged by RN around 8 PM the patient's FiO2 requirement has gone from 45 to 55%. He does tend to desaturate here and there to 88% but then saturation comes back up right after. Ventilator settings were reviewed with RT. Imaging studies from the day were checked. Decision made to monitor for now. Between 8 PM to 1 AM FiO2 requirement went up to 100% and patient started desaturating on the ventilator. Suspicion of Xarelto failure and question of PE. There was a CTA done earlier today around 4 PM which ruled out PE at that time. However with the acute change in status I ordered a repeat CTA to rule out PE at this time due to persistent hypoxia. Procalcitonin was ordered. Antibiotic coverage broadened to add vancomycin. Respiratory viral panel was ordered. Lungs did sound clear to auscultation. Patient's PEEP was 10 at the time. Patient was discussed with on the ventilator and bagged. Upon bagging saturation came up to 99%. Vent circuit was checked and it was clear. Ventilator was also checked by RT which was functioning okay. Plateau pressure was checked, peak pressures were checked. All within normal limits. Solu-Medrol 60 IV x1 was ordered for suspicion of bronchospasm. DuoNeb x1 was ordered. Phosphorus level was checked, BMP was checked. Phosphorus is low at 1.7. Potassium 3.1. Potassium phosphate 40 IV x1 has been ordered. We have also noticed that every time patient is delivered to higher PEEP he tends to worsen and gets hypoxic. There could be a possibility of intracardiac shunt. PEEP lowered down to 4 and patient is doing a lot better. We have been able to wean down FiO2 to 70% and respiratory therapy is working to wean off further. I have ordered an echo with bubble study to rule out intracardiac shunt at this time. All of the above was discussed with Respiratory, RN in a lot of detail. Multiple phone calls were made to speak to RT for troubleshooting. I also ended up calling the director of extension work at [facility] to discuss all of the above to see if there were any other ideas and she agreed with the plan. She did suggest however that we keep the patient sedated at this time. We will check a repeat ABG and reassess patient again. Lastly I have placed patient on therapeutic Lovenox twice daily at this time and discontinued the Xarelto through OG tube. Patient is currently not on tube feeds and I worry about absorption of Xarelto if taken without food. I have also requested records from [facility]. The high probability of a clinically significant, sudden or life threatening deterioration of the patient's [resp] system(s) required my full and direct attention, intervention and personal management. The critical care time is as s hown. This time is in addition to time spent performing any reported procedures but includes the following: [x] Data and vital sign review and interpretation [x] Patient assessment, examination and intervention [x] Documentation [x] Medication orders and management Critical Care Time Code activated: No Critical Care Time (min): 60 Coding Level of Care Code Acute Code for Chg Fwd
[2022-11-19] MEDS: sodium chloride 0.9% 1,000 ML 125 ML IV ×2 (02:58→10:14)
[2022-11-19 02:59] LABS: ABG PCO2 43.3 mmHg (35-45); ABG PH Result 7.45 (7.35-7.45); Alveolar-Arterial Oxygen Gradi 54.2 mmHg (5-10); Arterial Blood Gas Hematocrit 42.1 % (42-52); Base Excess ABG 5.1 mmol/L (-2.0-2.0); Blood Gas Allen Test Pos; Blood Gas Sample Site Radial, right; Blood Gas Sample Type Arterial; Blood Gas Tidal Volume 0.42; Carboxyhemoglobin 1.1 %THgb (0.4-20.1); HCO3 ABG 29.8 mmol/L (22-26); HGB O2 Sat 92.4 % (95-100); Ionized Calcium Level - ABG 1.2 mmol/L (1.1-1.4); Methemoglobin 0.7 % (0.4-1.5); Oxygen Device VENT; Oxygen Saturation ABG 94.2; PO2 ABG 62.3 mmHg (80.0-100.0); Total Hemoglobin 13.7 g/dL (14-18)
[2022-11-19] MEDS: vancomycin 1,250 MG/250 ML PIGGYBACK 250 MG IV ×2 (03:00→14:13)
[2022-11-19] MEDS: enoxaparin 100 mg/mL Syringe 70 MG SUBCUT ×2 (03:06→14:13)
[2022-11-19] MEDS: potassium phosphate (mEq K) 40 MEQ in sodium chloride 0.9% (100 ml) 100 ML 27.25 MEQ IV (03:28)
[2022-11-19] MEDS: piperacillin-tazobactam 3.375 GM in sodium chloride 0.9% (plus) 50 ML IV ×3 (03:28→18:34)
[2022-11-19 03:46] LABS: Basophils % 0.2 %; Eosinophils % 0.1 %; Hematocrit 37.2 % (42.0-52.0); Hemoglobin 12.4 g/dL (11.7-16.6); Lymphocytes % 8.4 %; Mean Corpuscular HGB Conc 33.3 g/dL (30.0-36.0); Mean Corpuscular Hemoglobin 30.1 pg (28.0-34.0); Mean Corpuscular Volume 90.3 fl (80-94); Mean Platelet Volume 11.1 fL (7.4-10.4); Monocytes % 8.3 %; Neutrophils # 9.91 10^3/uL (1.8-7.7); Neutrophils % 82.6 %; Nucleated Red Blood Cells % 0 %; Platelet Count 148 10^3/cmm (130-400); Red Blood Count 4.12 10^6/uL (4.1-5.3); Red Cell Distribution Width 12.7 % (12.1-15.1)
[2022-11-19 04:05] LABS: Alanine Aminotransferase 34 U/L (0-41); Albumin Level 3.2 g/dL (3.5-5.2); Alkaline Phosphatase 58 U/L (40-130); Aspartate Amino Transferase 20 U/L (0-40); Blood Urea Nitrogen 35 mg/dL (8-23); Calcium 8.2 mg/dL (8.5-10.5); Carbon Dioxide 26 mmol/L (22-29); Chloride 102 mmol/L (98-107); Creatinine Clr Calc Pharmacy 108.4961; Globulin 2.2 g/dL (1.3-4.6); Glomerular Filtration Rate 113.9 mL/min (90-130); Glucose 74 mg/dL (65-115); Magnesium 1.9 mg/dL (1.7-2.3); Osmolality Calculated 299 mOsm/kg (285-295); Sodium 141 mmol/L (136-145); Total Bilirubin 1.1 mg/dL (0.15-1.2); Total Protein 5.4 g/dL (6.6-8.7)
[2022-11-19 04:09] LABS: Procalcitonin 0.16 ng/mL (0-0.5)
[2022-11-19] MEDS: propofol 1,000 MG/100 ML INJ 24.49 MG IV (04:28)
[2022-11-19] MEDS: propofol 1,000 MG/100 ML INJ 22.45 MG IV (07:38)
[2022-11-19] MEDS: dexamethasone 10 mg/mL INJ 6 MG IVP (07:38)
[2022-11-19 07:49] LABS: Adenovirus Not Detected (NOT DETECT); Chlamydia Pneumoniae Not Detected (NOT DETECT); Coronavirus 229E,HKU1,NL63,OC4 Not Detected (NOT DETECT); Human Metapneumovirus Not Detected (NOT DETECT); Human Rhinovirus/Enterovirus Not Detected (NOT DETECT); Influenza A Not Detected (NOT DETECT); Influenza A H1 Not Detected (NOT DETECT); Influenza A H1-2009 Not Detected (NOT DETECT); Influenza A H3 Not Detected (NOT DETECT); Influenza B Not Detected (NOT DETECT); Mycoplasma Pneumoniae Not Detected (NOT DETECT); Parainfluenza Virus Type 1 Not Detected (NOT DETECT); Parainfluenza Virus Type 2 Not Detected (NOT DETECT); Parainfluenza Virus Type 3 Not Detected (NOT DETECT); Parainfluenza Virus Type 4 Not Detected (NOT DETECT); Respiratory Syncytial Virus A Not Detected (NOT DETECT); Respiratory Syncytial Virus B Not Detected (NOT DETECT); SARS-COV-2 Not Detected (NOT DETECT)
--- NOTE | 2022-11-19 09:43 | XR_ITS ---
WS: [id number] XR chest 1V portable [id number] REASON FOR EXAM: ETT Placement FINDINGS: Endotracheal tube at the T4 level approximately 2.5 cm above the joseph. Nasogastric tube remains in place with the tip folded in the region of the fundus of the stomach. Coarse reticular interstitial lung opacities in the left lung. There is a more focal opacity in the left lower chest which may represent lung parenchymal consolidat ion and or pleural fluid. There may be decreased volume of the left hemithorax compared to 11/18/2022. XR/XR chest 1V portable [id number] IMPRESSION: ET tube placement as above. Abnormal left hemithorax as above.
--- NOTE | 2022-11-19 09:59 | P.PN_ITS ---
Subjective Subjective: Hospital course, labs appreciated. On examination patient lying comfortably in bed on mechanical ventilation. Current ventilator settings with FiO2 75%, PEEP of 8, tidal volume of 420 saturating around 92%. Patient is waking up to command. During examination patient's PEEP was decreased to 6 and multiple recruitment maneuvers were done after which saturations maintained at over 90%?FiO2 during the day was turned down to 30%. Patient was put on complete sedation with propofol and fentanyl. Was on Levophed for a short while but now has been discontinued. Blood work done today shows an leukocytosis of 12,000, hemoglobin of 12.4, ABG appreciated for patient having ARDS, potassium of 3, creatinine 0.7, phosphorus of 1.7, TSH 7.6. Documented urine output in last 24 hours of around 700 cc. Vitals appreciated. Vitals/I&O/Wt Last Vital Signs Temp 97.8 F 11/19/22 08:00 Pulse 59 L 11/19/22 08:11 Resp 18 11/19/22 09:41 BP 119/68 11/19/22 08:00 Pulse Ox 96 11/19/22 09:41 O2 Del Method Mechanical Ventilation 11/19/22 08:00 O2 Flow Rate 70 11/18/22 22:30 FiO2 75 11/19/22 09:41 11/18/22 11/19/22 11/19/22 22:59 06:59 14:59 Intake Total 1034.072 / 9037.981 9592.635 / 2064.160 135.9824 / 192.0179 Output Total 700 / 710 Balance 1024.072 / 1024.072 330.635 / 1354.617 738.1304 / 192.0179 Weight last 48 hrs Weight 71.668 kg Weight 68.039 kg Physical Exam Narrative: General: Intubated, sedated, waking up to verbal command HEENT: PERRLA, pupils bilaterally equal and reactive Chest: Normal vesicular breath sounds, decreased air entry in left lower zone, no added sounds CVS: S1-S2 regular, no murmurs, no tachycardia, no gallops, no rubs Abdomen: Soft, nontender, no organomegaly, bowel sounds present Neuro: Intubated, sedated Urinary Catheter Management: Grier: Cath Placed During This Visit: yes Reason for Continuing Indwelling Catheter: Accurate Measurement of Urinary Output in Critically Ill Patients Urinary Catheter Date of Insertion: 11/18/22 Urinary Catheter Time of Insertion: 15:25 Data 11/19/22 03:25 11/19/22 03:25 Micro: Microbiology 11/18/22 15:15 Gram Stain - Final Sputum - Endotracheal Tube Aspirate 11/18/22 19:54 Blood Culture - Preliminary Blood SPECIMEN COLLECTED 11/18/22 19:51 Blood Culture - Preliminary Blood SPECIMEN COLLECTED A&P Assessment and plan (1) Respiratory failure: (2) DVT (deep venous thrombosis): (3) Amyotrophic lateral sclerosis: (4) Hypokalemia: (5) Hypertension: Plan 62 year old male with past medical history of right lower extremity DVT on Xarelto at home, recently diagnosed ALS at [facility], was brought in with chief complaint of progressively worsening shortness of breath. Currently he is being managed for. Assessment: Acute hypoxic respiratory failure : ARDS: Likely progressive worsening of respiratory status slowly progressing towards respiratory failure: In the setting of ALS CT chest results appreciated for mild bronchitis. Blood culture, sputum cultures so far negative. Check MRSA swab. Check respiratory viral panel. Continue sedation with propofol. Add fentanyl. Plan for sedation vacation in a.m. Change ventilator settings keeping saturation over 90%. Continue with multiple recruitment maneuvers. Keep PEEP at around 6. Appreciate documents from [facility]. For now empirically cover with vancomycin and Zosyn. If MRSA negative will discontinue vancomycin. Daily ABGs, chest x-ray. Change ET tube placement as per chest x-ray. Decrease fluids to 75 cc/h. For concerns of exacerbation of ALS will start on high-dose steroids of 1 mg/kg body weight daily. Solu-Medrol not available in hospital. Increase dexamethasone to equal of 15 mg daily. Insulin sliding scale. Watch for thrush. We will consult neurology for further recommendations. Replete potassium and phosphate. Repeat BMP in evening. Given possibility of exacerbation of ALS will treat hypokalemia aggressively. History of DVT: CTA negative for PE on admission but given failure of respiratory failure worsening overnight switched over to full dose Lovenox. For now we will continue. Hypertension: Goal blood pressure less than 140/90 mmHg with mean over 65. Hold off on Coreg and amlodipine for now. Keep NPO. Protonix for PUD prophylaxis. Full dose Lovenox will suffice as DVT prophylaxis. Daily ABGs and chest x-ray given ambulatory status. Attestations Medical Necessity Statement*: Requires further hospitalization for management of ARDS in setting of respiratory failure possibly secondary to ALS exacerbation Coding Level of Care Code Critical Care >/= 30 minutes Critical care time (in minutes): 80 The high probability of a clinically significant, sudden or life threatening deterioration, as referenced in this documentation, required my full and direct attention, intervention and personal management. The critical care time shown is in addition to time spent performing any reported separately billable procedures and includes the following: [x] Data and vital sign review and interpretation [x ] Patient assessment, examination and intervention [x] Medication orders and management [x] Patient/Family updates as able [x] Care Coordination and Documentation. Diagnoses Respiratory failure J96.90 DVT (deep venous thrombosis) I82.409 Amyotrophic lateral sclerosis G12.21 Hypokalemia E87.6 Hypertension I10
[2022-11-19] MEDS: pantoprazole 40 mg SDV IVP (10:16)
[2022-11-19] MEDS: dexamethasone 10 mg/mL INJ 15 MG IVP (10:16)
[2022-11-19 10:20] LABS: Iron 79 ug/dL (59-158); Percent Saturation 44.6 % (20-50); Total Iron Binding Capacity 177 mcg/dl; Unsaturated Iron Binding 98 ug/dL (112-347)
[2022-11-19 10:29] LABS: Free T4 Free Thyroxine 1.24 ng/dL (0.82-1.77); T3 Free 1.7 PG/ML (2.0-4.4)
[2022-11-19 10:36] LABS: Vitamin B12 639 pg/mL (232-1245)
[2022-11-19 11:11] LABS: Glucose Point of Care 155 mg/dL (70-110)
--- NOTE | 2022-11-19 11:49 | PC.NUTR ---
Recommend consideration of tube feeding as Pt has lost 42 lbs since June of this year. If medically appropriate, begin Jevity 1.2 @ 10 mls/hr, increasing 10 mls Q8H as tolerated until goal rate of 60 mls/hr is reached; with fresh water flushes of 120 mls Q4H or per MD discretion. Details in RD assessment.
[2022-11-19] MEDS: insulin lispro 100 unit/1 mL SUBCUT ×2 (12:32→21:02)
[2022-11-19] MEDS: propofol 1,000 MG/100 ML INJ 20.41 MG IV ×2 (12:32→18:33)
--- NOTE | 2022-11-19 16:30 | P.CONIM_ITS ---
Providers/Reason For Consult Consulting Physician/Specialty*: Jesse Rios MD neurology and epilepsy Reason for Consult*: 62-year-old male with amyotrophic lateral sclerosis with respiratory failure Attending Physician: Allen Schwab MD Primary Care Provider: Yvan Cervantes MD History of Present Illness History of Present Illness Gregorio Becker is a 62 year old male with a history of amyotrophic lateral sclerosis. The patient was admitted to [facility] and was discharged approximately 2 days prior to admission to [facility]. The patient was reported to leave the hospital and stop by the pharmacy to picker/puller his prescriptions. According to the nurse caring for the patient the patient went home and was reported to experience acute respiratory failure requiring intubation. The patient was admitted and started on broad-spectrum antibiotics after cultures were obtained to treat for possible infection. Currently the patient is experiencing difficulty weaning from the ventilator and therefore a neurology consult was obtained to assist in the patient's care to evaluate for possible worsening of the patient's amyotrophic lateral sclerosis. According to the nurse who is caring for the patient prior to the patient being starting on propofol and fentanyl IV, he was following commands but has chronic weakness on the left side. Currently the patient is sedated on IV propofol and fentanyl and is intubated. Neurological examination at this time reveals pupils 3 mm and reactive. There is no obvious spasticity and I do not observe any muscle fasciculations. Plantar response is flexor bilaterally with no clonus. Head CT scan performed on 11/18/2022 revealed no acute findings. CT scan of the chest performed on 11/19/2022 revealed some left lung atelectasis. Drug allergies: Bactrim which resulted in lip and tongue and throat swelling Gabapentin type of reaction unknown Current inpatient medications: IV propofol for sedation IV fentanyl for sedation IV vancomycin IV Zosyn Home medications: Klonopin 0.5 mg p.o. daily Norvasc 10 mg p.o. daily Triamterene/hydrochlorothiazide 37.5/25 mg p.o. daily Stool softener Coreg 6.25 mg p.o. twice daily Naproxen 500 mg p.o. twice daily Tylenol 325 mg tablet Habits: Unknown Family history: Unknown Review of Systems General: Reports: ROS unobtainable due to endotracheal tube Medications/Allergies Home Medications Medication Instructions Recorded Confirmed Last Taken Type rivaroxaban 20 mg tablet (Xarelto) 20 mg PO DAILY ankle blood clot 08/23/22 11/18/22 Unknown Rx #30 tabs triamterene 37.5 1 tab PO QAM blood pressure and 08/23/22 11/18/22 11/02/22 07:00 Rx mg-hydrochlorothiazide 25 mg tablet edema #30 tabs hydrocodone 7.5 mg-acetaminophen 1 tab PO DAILY PRN pain 30 days 10/24/22 11/18/22 Unknown Rx 325 mg tablet #90 tabs amlodipine 10 mg tablet 10 mg PO QAM high blood pressure 11/02/22 11/18/22 11/02/22 07:00 History clotrimazole-betamethasone 1 1 applic topical BID PRN psoriasis 11/02/22 11/18/22 Unknown History %-0.05 % topical cream hydrocodone 7.5 mg-acetaminophen 1 tab PO TID PRN Pain 11/02/22 11/18/22 Unknown History 325 mg tablet naproxen 500 mg tablet 500 mg PO BID PRN Pain 11/02/22 11/18/22 Unknown History phosphorated carbohydrate oral 15 - 30 ml PO Q15M PRN stomach 11/02/22 11/18/22 11/01/22 History solution (Emetrol oral solution) muscle contractions bedside #1 ea 11/08/22 11/18/22 Unknown Rx clonazepam 0.5 mg tablet 0.25 mg PO Q12H PRN Anxiety 11/14/22 11/18/22 Unknown History acetaminophen 325 mg tablet 325 - 650 mg PO Q6H PRN Pain 11/18/22 11/18/22 Unknown History (Tylenol) bisacodyl 5 mg tablet 10 mg PO DAILY PRN Constipation 11/18/22 11/18/22 Unknown History carvedilol 6.25 mg tablet 6.25 mg PO BID 11/18/22 11/18/22 Unknown History thiamine HCl (vitamin B1) 100 mg 100 mg PO DAILY 11/18/22 11/18/22 Unknown Hi story tablet (Vitamin B-1) Allergies Allergy/AdvReac Type Severity Reaction Status Date / Time sulfamethoxazole Allergy Severe ALGY-Swell Verified 11/18/22 15:08 [From Bactrim] Lip/Tongue/Throat trimethoprim [From Bactrim] Allergy Severe ALGY-Swell Verified 11/18/22 15:08 Lip/Tongue/Throat gabapentin Allergy Unknown Verified 11/18/22 15:08 Current Medications Generic Name Dose Route Start Last Admin Trade Name Tim PRN Reason Stop Dose Admin Albuterol/Ipratropium 3 ml 11/19/22 08:00 11/19/22 14:17 Ipratropium-Albuterol 3 Ml Neb INHALATION 3 ml Q6H.RESP WAYNE Administration Dexamethasone 15 mg 11/19/22 09:45 11/19/22 10:16 Dexamethasone 10 Mg/Ml Inj IVP 15 mg Q24H WAYNE Administration Enoxaparin Sodium 70 mg 11/19/22 03:30 11/19/22 14:13 Enoxaparin 100 Mg/Ml Syringe 1 mg/kg (70 mg) 70 mg SUBCUT Administration Q12H WAYNE Propofol 1,000 mg in 100 mls @ 0 mls/hr 11/18/22 15:15 11/19/22 12:32 Diprivan IV 50 mcg/kg/min .Q0M WAYNE 20.41 mls/hr Administration Protocol Per Protocol Piperacillin Sod/Tazobactam 50 mls @ 12.5 mls/hr 11/18/22 18:45 11/19/22 14:25 Sod 3.375 gm/ Sodium Chloride IV Infused Q8H WAYNE Infusion Protocol Norepinephrine Bitartrate 4 mg 254 mls @ 0 mls/hr 11/18/22 20:00 11/18/22 22:47 / Dextrose IV 0 mcg/min .Q0M WAYNE 0 mls/hr Titration Protocol Per Protocol Vancomycin/PEG/NADA/Lysine/Water 1,250 mg in 250 mls @ 250 mls/hr 11/19/22 02:00 11/19/22 15:41 Vancocin IV Infused Q12H WAYNE Infusion Sodium Chloride 1,000 mls @ 125 mls/hr 11/19/22 02:15 11/19/22 10:14 Sodium Chloride 0.9% IV 125 mls/hr .Q8H WAYNE Administration Fentanyl 1,000 mcg/ Sodium 100 mls @ 0 mls/hr 11/19/22 10:00 11/19/22 10:28 Chloride IV 25 mcg/hr .Q0M WAYNE 2.5 mls/hr Administration Protocol Per Protocol Insulin Human Lispro 0 unit 11/19/22 12:00 11/19/22 12:32 Insulin Lispro 100 Unit/1 Ml SUBCUT 2 unit WM&BEDTIME WAYNE Administration Protocol Pantoprazole Sodium 40 mg 11/19/22 09:40 11/19/22 10:16 Pantoprazole 40 Mg Sdv IVP 40 mg DAILY WAYNE Administration PFSH Acute PFSH: Medical History Abnormal weight loss ALS (amyotrophic lateral sclerosis) Anxiety about health Chronic pain of right lower extremity Chronic ulcer of ankle Decreased calculated GFR DVT (deep venous thrombosis) Right lower leg 06/01/2021 Hypertension PVD (peripheral vascular disease) TSH elevation 04/07/2022 TSH 4.7 Weakness of both lower extremities Social History Smoking and tobacco status: current every day smoker Smoking risk assessment/counseling performed?: No Alcohol intake: never Desire information about alcohol rehabilitation?: No Counseling given: No Substance/Drug Use: never Desire information about substance/drug rehabilitation?: No Counseling given: No Current occupational status: disabled Current gender identity: Male Vitals/I&O/Wt Last Vital Signs Temp 98.5 F 11/19/22 14:30 Pulse 58 L 11/19/22 14:30 Resp 18 11/19/22 15:18 BP 127/65 11/19/22 14:30 Pulse Ox 91 11/19/22 15:18 O2 Del Method Mechanical Ventilation 11/19/22 14:30 O2 Flow Rate 70 11/18/22 22:30 FiO2 30 11/19/22 15:18 11/19/22 11/19/22 11/19/22 06:59 14:59 22:59 Intake Total 1030.635 / 2064.707 1250.3509 / 1250.3509 250 / 1500.3509 Output Total 700 / 710 Balance 330.635 / 9493.320 1837.3509 / 1250.3509 250 / 1500.3509 Weight last 48 hrs Weight 158 lb Weight 150 lb Physical Exam Narrative: The patient is currently sedated on IV propofol and fentanyl and is intubated. Patient is lying in a supine position there is no response to tactile stimuli or to painful stimuli. Pupils 3 mm and reactive to light and accommodation. I do not observe any obvious facial weakness. Cranial nerves II through XII grossly intact although throat cannot be assessed secondary to intubation. Motor testing difficult to assess secondary to sedation. Deep tendon reflexes 1-2+ bilaterally. Plantar responses flexor bilaterally. There is no clonus. Sensory examination revealed no movement to painful stimuli secondary to sedation. Throat could not be assessed secondary to intubation. Lungs were reported to reveal decreased breath sounds on the left. Heart regular rhythm and rate abdomen soft bowel sounds positive. Extremities were negative for clubbing, cyanosis or spasticity Urinary Catheter Management: Grier: Cath Placed During This Visit: yes Reason for Continuing Indwelling Catheter: Accurate Measurement of Urinary Output in Critically Ill Patients Urinary Catheter Date of Insertion: 11/18/22 Urinary Catheter Time of Insertion: 15:25 Data 11/19/22 03:25 11/19/22 03:25 Micro: Microbiology 11/18/22 15:15 Gram Stain - Final Sputum - Endotracheal Tube Aspirate Sputum Culture - Preliminary 11/19/22 02:49 MRSA Culture - Final Nose 11/18/22 19:54 Blood Culture - Preliminary Blood SPECIMEN COLLECTED 11/18/22 19:51 Blood Culture - Preliminary Blood SPECIMEN COLLECTED A&P Assessment and plan (1) Amyotrophic lateral sclerosis: (2) Respiratory failure: Plan Assessment: 1. 62-year-old male with history of Amyotrophic lateral sclerosis (ALS) admitted after being discharged from [facility] secondary to acute respiratory failure shortly after discharge Plan: 1. Agree with current treatment 2. We will have the nurse decrease sedation and reassess patient in a.m. Consult Attestations Medical Necessity Statement: The patient was evaluated by neurology for history of ALS and respiratory failu re Coding Level of Care Code 66885 Diagnoses Amyotrophic lateral sclerosis G12.21 Respiratory failure J96.90 Time Spent (min) 30
[2022-11-19 17:39] LABS: Glucose Point of Care 134 mg/dL (70-110)
[2022-11-19] MEDS: sodium chloride 0.9% 1,000 ML 75 ML IV (18:34)
[2022-11-19] MEDS: budesonide 0.5 mg/2 mL Neb INHALATION (19:36)
[2022-11-19 20:21] LABS: Anion Gap 16.2 (5-19); Blood Urea Nitrogen 29 mg/dL (8-23); Calcium 8.2 mg/dL (8.5-10.5); Carbon Dioxide 21 mmol/L (22-29); Chloride 107 mmol/L (98-107); Glomerular Filtration Rate 113.9 mL/min (90-130); Glucose 137 mg/dL (65-115); Osmolality Calculated 300 mOsm/kg (285-295); Potassium 3.2 mmol/L (3.5-5.1); Sodium 141 mmol/L (136-145)
[2022-11-19 20:57] LABS: Glucose Point of Care 145 mg/dL (70-110)
[2022-11-20] VITALS (94 sets, daily range): BP systolic 85–179; BP diastolic 60–109; PULSE 47–118; RESP 18–33; TEMP 36.5–36.8; O2SAT 86–100; BMI 23.4
[2022-11-20] MEDS: propofol 1,000 MG/100 ML INJ 24.49 MG IV (00:02)
[2022-11-20] MEDS: chlorhexidine gluconate 4% Btl 118 mL 1 APPLIC TOPICAL (00:04)
[2022-11-20] MEDS: ipratropium-albuterol 3 mL Neb INHALATION ×4 (01:07→19:34)
[2022-11-20] MEDS: piperacillin-tazobactam 3.375 GM in sodium chloride 0.9% (plus) 50 ML IV ×3 (03:08→17:49)
[2022-11-20] MEDS: vancomycin 1,250 MG/250 ML PIGGYBACK 250 MG IV ×2 (03:09→14:26)
[2022-11-20] MEDS: enoxaparin 100 mg/mL Syringe 70 MG SUBCUT ×2 (03:10→14:26)
[2022-11-20 04:06] LABS: Basophils % 0.1 %; Hematocrit 35.9 % (42.0-52.0); Hemoglobin 12.1 g/dL (11.7-16.6); Lymphocytes # 0.6 10^3/uL (0.8-4.8); Lymphocytes % 6.7 %; Mean Corpuscular HGB Conc 33.7 g/dL (30.0-36.0); Mean Corpuscular Hemoglobin 30.9 pg (28.0-34.0); Mean Corpuscular Volume 91.6 fl (80-94); Mean Platelet Volume 11.7 fL (7.4-10.4); Monocytes # 0.7 10^3/uL (0.2-0.9); Monocytes % 8.1 %; Neutrophils # 7.66 10^3/uL (1.8-7.7); Neutrophils % 84.8 %; Nucleated Red Blood Cells % 0 %; Platelet Count 116 10^3/cmm (130-400); Red Blood Count 3.92 10^6/uL (4.1-5.3); Red Cell Distribution Width 13.4 % (12.1-15.1)
[2022-11-20 04:29] LABS: Estmated Average Glucose 117; Hemoglobin A1C 5.7 % (4.0-6.0)
[2022-11-20 04:41] LABS: Alanine Aminotransferase 28 U/L (0-41); Albumin Level 3.3 g/dL (3.5-5.2); Alkaline Phosphatase 49 U/L (40-130); Anion Gap 14.8 (5-19); Aspartate Amino Transferase 15 U/L (0-40); Blood Urea Nitrogen 28 mg/dL (8-23); Carbon Dioxide 24 mmol/L (22-29); Chloride 107 mmol/L (98-107); Glomerular Filtration Rate 97.6 mL/min (90-130); Glucose 123 mg/dL (65-115); Osmolality Calculated 303 mOsm/kg (285-295); Total Bilirubin 0.6 mg/dL (0.15-1.2); Total Protein 5.3 g/dL (6.6-8.7)
[2022-11-20 04:43] LABS: Sodium 143 mmol/L (136-145)
[2022-11-20 04:45] LABS: Potassium 2.8 mmol/L (3.5-5.1)
[2022-11-20 04:59] LABS: Folate Level 4.1 ng/mL (4.5-32.2)
[2022-11-20] MEDS: lidocaine 1% 5 ML in potassium chloride premix 100 ML 26.25 ML IV (05:14)
[2022-11-20 05:41] LABS: ABG PCO2 39.8 mmHg (35-45); ABG PH Result 7.44 (7.35-7.45); Alveolar-Arterial Oxygen Gradi 12.1 mmHg (5-10); Arterial Blood Gas Hematocrit 35.8 % (42-52); Blood Gas Allen Test Pos; Blood Gas Sample Site Radial, right; Blood Gas Sample Type Arterial; HCO3 ABG 27.3 mmol/L (22-26); HGB O2 Sat 94.4 % (95-100); Ionized Calcium Level - ABG 1.2 mmol/L (1.1-1.4); Methemoglobin 0.8 % (0.4-1.5); Oxygen Device VENT; Oxygen Saturation ABG 96.2; PO2 ABG 70.6 mmHg (80.0-100.0); Potassium Level - ABG 2.8 mmol/L (3.5-5.0); Total Hemoglobin 11.7 g/dL (14-18)
--- NOTE | 2022-11-20 06:00 | XR_ITS ---
WS: [id number] XR chest 1V portable [id number] REASON FOR EXAM: intubated FINDINGS: Compared to previous examination of 11/19/2022, no change in the endotracheal tube and nasogastric tub e positions which appear appropriate. Decreasing opacification in the left lower chest with increasing expanded left lung volume. XR/XR chest 1V portable [id number] IMPRESSION: Improving abnormal chest.
[2022-11-20] MEDS: propofol 1,000 MG/100 ML INJ 16.33 MG IV (06:14)
[2022-11-20] MEDS: budesonide 0.5 mg/2 mL Neb INHALATION ×3 (07:12→19:34)
[2022-11-20 07:15] LABS: Glucose Point of Care 117 mg/dL (70-110)
[2022-11-20] MEDS: sodium chloride 0.9% 1,000 ML 75 ML IV (07:30)
--- NOTE | 2022-11-20 07:40 | P.PN_ITS ---
Subjective Subjective: History of Present Illness Gregorio Becker is a 62 year old male with a history of amyotrophic lateral sclerosis.? The patient was admitted to [facility] and was disch arged approximately 2 days prior to admission to [facility].? The patient was reported to leave the hospital and stop by the pharmacy to pickle solution maker his prescriptions.? According to the nurse caring for the patient the patient went home and was reported to experience acute respiratory failure requiring intubation.? The patient was admitted and started on broad-spectrum antibiotics after cultures were obtained to treat for possible infection. Currently the patient is experiencing difficulty weaning from the ventilator and therefore a neurology consult was obtained to assist in the patient's care to evaluate for possible worsening of the patient's amyotrophic lateral sclerosis.? According to the nurse who is caring for the patient prior to the patient being starting on propofol and fentanyl IV, he was following commands but has chronic weakness on the left side. Head CT scan performed on 11/18/2022 revealed no acute findings.? CT scan of the chest performed on 11/19/2022 revealed some left lung atelectasis. This morning the patient is weaned off sedation of IV propofol and fentanyl for neurological assessment. The patient is still intubated.? Neurological examination at this time the patient is alert and is following commands. Pupils 3 mm and reactive to light.? There is no obvious spasticity and I do not observe any muscle fasciculations.? Plantar response is flexor bilaterally with no clonus.? Motor testing revealed patient able to use his upper extremities with some residual weakness on the left which is chronic and patient able to lift the right leg off the bed against gravity. He has weakness in the left leg with little or no movement which is chronic. Drug allergies: Bactrim which resulted in lip and tongue and throat swelling Gabapentin type of reaction unknown Current inpatient medications: IV propofol for sedation IV fentanyl for sedation IV vancomycin IV Zosyn Home medications: Klonopin 0.5 mg p.o. daily Norvasc 10 mg p.o. daily Triamterene/hydrochlorothiazide 37.5/25 mg p.o. daily Stool softener Coreg 6.25 mg p.o. twice daily Naproxen 500 mg p.o. twice daily Tylenol 325 mg tablet Habits: Unknown Family history: Unknown Review of systems: Patient indicates chronic left-sided weakness by pointing his fingers and nodding regarding the left side. He shakes his head no when asked if he is experiencing any headaches, chest pain, abdominal pain or extreme pain. Other review of systems difficult to obtain secondary to patient's intubation. Vitals/I&O/Wt Last Vital Signs Temp 98.2 F 11/20/22 04:00 Pulse 62 11/20/22 07:12 Resp 18 11/20/22 07:29 BP 126/68 11/20/22 06:30 Pulse Ox 96 11/20/22 07:29 O2 Del Method Mechanical Ventilation 11/20/22 07:12 O2 Flow Rate 30 11/19/22 19:37 FiO2 30 11/20/22 07:29 11/19/22 11/20/22 11/20/22 22:59 06:59 14:59 Intake Total 1476.333 / 2726.6839 462.875 / 3189.5589 1039.052 / 1039.052 Output Total 850 / 850 700 / 1550 Balance 626.333 / 1876.6839 -237.125 / 1639.5589 1039.052 / 1039.052 Weight last 48 hrs Weight 163 lb 9.6 oz Weight 158 lb Weight 150 lb Physical Exam Narrative: The patient is intubated. Vital signs stable. He is alert. Patient follows commands. Head atraumatic. Cranial nerves II through XII revealed no obvious facial asymmetry. Cranial nerves IX, X and XII difficult to assess secondary to intubation. Extraocular movements intact motor testing patient appears to have good strength in the right arm and right leg and chronic left-sided weakness patient is able to squeeze with the left hand his arms are in soft restraints. Patient has difficulty moving the left leg which is chronic. Deep tendon reflexes approximately 1-2+ plantar responses flexor bilaterally there is no clonus. I did not observe any obvious fasciculations this morning. Sensory exam intact to touch. Throat intubated. I do not observe any obvious signs of infection. Lungs reveal no obvious wheezes. Heart regular rhythm and rate abdomen soft bowel sounds positive. Extremities were negative for clubbing or cyanosis Urinary Catheter Management: Grier: Cath Placed During This Visit: yes Reason for Continuing Indwelling Catheter: Accurate Measurement of Urinary Output in Critically Ill Patients Urinary Catheter Date of Insertion: 11/18/22 Urinary Catheter Time of Insertion: 15:25 Data 11/20/22 02:32 11/20/22 02:32 Micro: Microbiology 11/18/22 19:54 Blood Culture - Preliminary Blood NEGATIVE TO DATE 11/18/22 19:51 Blood Culture - Preliminary Blood NEGATIVE TO DATE 11/18/22 15:15 Gram Stain - Final Sputum - Endotracheal Tube Aspirate Sputum Culture - Preliminary 11/19/22 02:49 MRSA Culture - Final Nose A&P Assessment and plan (1) Amyotrophic lateral sclerosis: (2) Respiratory failure: Plan Assessment: 1.? 62-year-old male with history of Amyotrophic lateral sclerosis (ALS) admitted after being discharged from [facility] secondary to acute respiratory failure shortly after discharge, markedly improved Plan: 1.? Agree with current treatment 2. Agree with attempting extubation Attestations Medical Necessity Statement*: Patient seen by neurology for amyotrophic lateral sclerosis history and difficulty extubating patient from the ventilator Coding Level of Care Code 73663 Diagnoses Amyotrophic lateral sclerosis G12.21 Respiratory failure J96.90
[2022-11-20] MEDS: pantoprazole 40 mg SDV IVP (07:55)
[2022-11-20] MEDS: dexamethasone 10 mg/mL INJ 15 MG IVP (07:55)
[2022-11-20] MEDS: dexmedetomidine 400 MCG in sodium chloride 0.9% (100 ml) 100 ML IV (09:35)
[2022-11-20] MEDS: potassium chloride ER 20 mEq Tablet 80 MEQ PO (09:46)
[2022-11-20] MEDS: HYDROcodone-acetaminophen 7.5-325 mg Tablet 1 TAB PO (09:46)
[2022-11-20] MEDS: CLONazepam 0.5 mg Tablet PO (10:14)
[2022-11-20 12:21] LABS: Glucose Point of Care 148 mg/dL (70-110)
[2022-11-20] MEDS: insulin lispro 100 unit/1 mL SUBCUT ×2 (12:27→21:35)
--- NOTE | 2022-11-20 12:34 | XRR_ITS ---
PROCEDURE INFORMATION: Exam: XR Chest Exam date and time: 11/20/2022 11:40 AM Age: 62 years old Clinical indication: Shortness of breath; Additional info: Right side diminished lunch sounds TECHNIQUE: Imaging protocol: Radiologic exam of the chest. Views: 1 view. COMPARISON: CR XR chest 1V portable [id number] 11/20/2022 2:30 AM FINDINGS: Tubes, catheters and devices: The endotracheal tube and feeding tubes have been removed. Lungs: No focal lung infiltrates. Pleural spaces: Chronic blunting of the left costophrenic angle. Heart/Mediastinum: Unremarkable. No cardiomegaly. Diaphragm: Mid inspiration film with an elevated right hemidiaphragm. Bones/joints: Unremarkable. XR/XR chest 1V portable [id number] IMPRESSION: No acute findings.
[2022-11-20] MEDS: vecuronium 10 mg SDV IVP (12:56)
[2022-11-20] MEDS: etomidate 2 mg/mL INJ SDV 10 mL 30 MG IVP (12:57)
--- NOTE | 2022-11-20 13:05 | XRR_ITS ---
PROCEDURE INFORMATION: Exam: XR Chest Exam date and time: 11/20/2022 12:59 PM Age: 62 years old Clinical indication: Device placement; Other: Et og; Additional info: Et and og placement TECHNIQUE: Imaging protocol: Radiologic exam of the chest. Views: 1 view. COMPARISON: CR XR chest 1V portable [id number] 11/20/2022 11:40 AM FINDINGS: Tubes, catheters and devices: There is a new endotracheal tube 46 mm above the joseph. There is a feeding tube noted with its tip questionably the GE junction. Lungs: Unremarkable. No consolidation. Pleural spaces: Unremarkable. No pleural effusion. No pneumothorax. Heart/Mediastinum: Unremarkable. No cardiomegaly. Bones/joints: Unremarkable. XR/XR chest 1V portable [id number] IMPRESSION: 1. New feeding tube and endotracheal tube is above. 2. The lungs are clear.
--- NOTE | 2022-11-20 13:24 | PC.NURSE ---
Patient extubated 1228 and progressively went into respiratory distress (patient initially placed on nasal canula, then up to NRB, and ultimately Bipap before being re-intubated) that required re-intubation at [address] Schwab at bedside. Patient agreeable to reintubation. No complications.
[2022-11-20 13:46] LABS: Vancomycin Trough 16.6 ug/mL (10-15)
[2022-11-20 14:47] LABS: ABG PCO2 41.8 mmHg (35-45); Alveolar-Arterial Oxygen Gradi 42.8 mmHg (5-10); Base Excess ABG 0.8 mmol/L (-2.0-2.0); Blood Gas Allen Test Pos; Blood Gas Operator Identificat MONRO; Blood Gas Sample Site Radial, left; Blood Gas Sample Type Arterial; Carboxyhemoglobin 0.9 %THgb (0.4-20.1); HCO3 ABG 25.8 mmol/L (22-26); HGB O2 Sat 98.1 % (95-100); Ionized Calcium Level - ABG 1.2 mmol/L (1.1-1.4); Methemoglobin 0.9 % (0.4-1.5); Oxygen Device VENT; Potassium Level - ABG 3.7 mmol/L (3.5-5.0); Total Hemoglobin 12.4 g/dL (14-18)
--- NOTE | 2022-11-20 15:50 | PC.NURSE ---
Handoff patient care to PREM Goodwin.
--- NOTE | 2022-11-20 16:08 | PM.PN ---
Subjective Subjective: Patient seen multiple times during the day today. Today morning patient was on sedation vacation. Patient was doing fine. He was turned down to pressure support of 8 with PEEP of 5 and maintain saturations well for 45 minutes with R SBI ranging from 60-80. Patient was awake and alert saturations maintained above 94%. He was extubated. 20 minutes postextubation he started having desaturations with difficulty in breathing. On examination he had decreased airway entry bilaterally but more so in bilateral lower zone and right middle zone. Stat chest x-ray was done which was negative for any mucous plugging or acute abnormality. Patient was put on a BiPAP and given a nebulization treatment though continued to have respiratory distress with saturations ranging from low 80s to low 90s. Given significant respiratory distress in setting to prevent and protect the airway decision was made to reintubate. Patient was reintubated and postintubation was found to have multiple collections through the ET tube. Overall vitals appreciated. Has remained hemodynamically stable and afebrile. Documented urine output 24 hours of 1550 cc. Blood work appreciated for stable CBC, ABG appreciated, CMP notable for a potassium of 2.8 which was repleted, stable liver function tests. Vitals/I&O/Wt Last Vital Signs Temp 98.2 F 11/20/22 04:00 Pulse 55 L 11/20/22 15:00 Resp 18 11/20/22 15:00 BP 94/68 11/20/22 15:00 Pulse Ox 100 11/20/22 15:00 O2 Del Method Mechanical Ventilation 11/20/22 15:00 O2 Flow Rate 30 11/19/22 19:37 FiO2 50 11/20/22 15:11 11/20/22 11/20/22 11/20/22 06:59 14:59 22:59 Intake Total 462.875 / 3189.5589 1516.315 / 1516.315 250 / 1766.315 Output Total 700 / 1550 Balance -237.125 / 1639.5589 1516.315 / 1516.315 250 / 1766.315 Weight last 48 hrs Weight 74.208 kg Weight 71.668 kg Physical Exam Narrative: General: Intubated, sedated, waking up to verbal command HEENT: PERRLA, pupils bilaterally equal and reactive Chest: Normal vesicular breath sounds, decreased air entry in left lower zone, no added sounds CVS: S1-S2 regular, no murmurs, no tachycardia, no gallops, no rubs Abdomen: Soft, nontender, no organomegaly, bowel sounds present Neuro: Intubated, sedated Urinary Catheter Management: Grier: Cath Placed During This Visit: yes Reason for Continuing Indwelling Catheter: Accurate Measurement of Urinary Output in Critically Ill Patients Urinary Catheter Date of Insertion: 11/18/22 Urinary Catheter Time of Insertion: 15:25 Data 11/20/22 02:32 11/20/22 02:32 Micro: Microbiology 11/18/22 15:15 Gram Stain - Final Sputum - Endotracheal Tube Aspirate Sputum Culture - Final 11/18/22 20:00 Urine Culture - Final Urine Catheterized 11/18/22 19:54 Blood Culture - Preliminary Blood NEGATIVE TO DATE 11/18/22 19:51 Blood Culture - Preliminary Blood NEGATIVE TO DATE 11/19/22 02:49 MRSA Culture - Final Nose A&P Assessment and plan (1) Respiratory failure: (2) DVT (deep venous thrombosis): (3) Amyotrophic lateral sclerosis: (4) Hypokalemia: (5) Hypertension: Plan 62 year old male with past medical history of right lower extremity DVT on Xarelto at home, recently diagnosed ALS at [facility], was brought in with chief complaint of progressively worsening shortness of breath. Currently he is being managed for. Assessment: Acute hypoxic respiratory failure : ARDS: Likely progressive worsening of respiratory status slowly progressing towards respiratory failure: In the setting of ALS Failed extubation 11/20. CT chest results appreciated for mild bronchitis. Blood culture, sputum cultures so far negative. Respiratory viral panel, MRSA swab negative. Repeat sputum culture post reintubation. Continue sedation with propofol and fentanyl. We will plan on sedation vacation every a.m. Change ventilator settings keeping saturation over 90%. Continue with multiple recruitment maneuvers. Keep PEEP at around 6. Appreciate documents from [facility]. For now empirically cover with Zosyn for overall 5 days. MRSA negative so will discontinue vancomycin. Daily ABGs, chest x-ray. Change ET tube placement as per chest x-ray. Stop IV fluids. Starting on tube feeds. For concerns of exacerbation of ALS will start on high-dose steroids of 1 mg/kg body weight daily. Solu-Medrol not available in hospital. Continue with dexamethasone to equal of 15 mg daily. Insulin sliding scale. Watch for thrush. Appreciate neurology recommendations. Replete potassium and phosphate. Repeat BMP in evening. Given possibility of exacerbation of ALS will treat hypokalemia aggressively. History of DVT: CTA negative for PE on admission but given failure of respiratory failure worsening overnight switched over to full dose Lovenox. For now we will continue. Hypertension: Goal blood pressure less than 140/90 mmHg with mean over 65. Hold off on Coreg and amlodipine for now. Start tube feeds. Appreciate dietitian recommendations. Start Jevity at 10 cc/h, increasing every 4 hours with a goal of 60 cc/h. Free water flush at 120 cc every 4 hours. Protonix for PUD prophylaxis. Full dose Lovenox will suffice as DVT prophylaxis. Tried contacting patient's son Mr. Perkins over the phone. Unable to contact as he did not orange picking supervisor. Unable to leave a voicemail as has not been set up. We will continue to try again. We will discuss about possible transfer to [facility] where his primary neurology team is for more aggressive treatment of possible like plasmapheresis. Attestations Medical Necessity Statement*: Requires further hospitalization for management of acute respiratory failure in setting of ALS exacerbation requiring mechanical intubation Coding Level of Care Code Critical Care >/= 30 minutes Critical care time (in minutes): 90 The high probability of a clinically significant, sudden or life threatening deterioration, as referenced in this documentation, required my full and direct attention, intervention and personal management. The critical care time shown is in addition to time spent performing any reported separately billable procedures and includes the following: [x] Data and vital sign review and interpretation [x] Patient assessment, examination and intervention [x] Medication orders and management [x] Patient/Family updates as able [x] Care Coordination and Documentation. Diagnoses Respiratory failure J96.90 DVT (deep venous thrombosis) I82.409 Amyotrophic lateral sclerosis G12.21 Hypokalemia E87.6 Hypertension I10
[2022-11-20] MEDS: folic acid 1 mg Tablet PO (17:49)
[2022-11-20] MEDS: lidocaine 1% 5 ML in potassium chloride premix 100 ML 25 ML IV (17:50)
[2022-11-20 21:10] LABS: Glucose Point of Care 152 mg/dL (70-110)
--- NOTE | 2022-11-20 21:12 | PC.NUTR ---
MD consult received for TF recommmendations. Recommendations per nutrition assessment: initiate Jevity 1.2 @ 10 mls/hr, increasing 10 mls Q8H as tolerated until goal rate of 60 mls/hr is reached; with fresh water flushes of 120 mls Q4H or per MD discretion.
--- NOTE | 2022-11-20 21:43 | PC.NURSE ---
Propofol running @30mcg/kg/min at start of shift. Titrated accordingly in the AUG. Patient was extubated and intubated during dayshift.
[2022-11-20] MEDS: propofol 1,000 MG/100 ML INJ 14.29 MG IV (23:35)
[2022-11-21] VITALS (71 sets, daily range): BP systolic 86–157; BP diastolic 58–92; PULSE 43–100; RESP 14–23; TEMP 36.4–37.1; O2SAT 91–100
[2022-11-21] MEDS: chlorhexidine gluconate 4% Btl 118 mL 1 APPLIC TOPICAL (00:04)
--- NOTE | 2022-11-21 00:59 | PC.NURSE ---
Addendum entered by Amanda Bess RN 11/21/22 05:27: Verified klonopin count (42) with Bruce AMARO. Original Note: Patient meds counted and tamper proof tape applied. 42 Klonopin counted with Elbert AMARO,
[2022-11-21] MEDS: ipratropium-albuterol 3 mL Neb INHALATION ×4 (01:50→19:52)
[2022-11-21] MEDS: enoxaparin 100 mg/mL Syringe 70 MG SUBCUT ×2 (03:07→16:07)
[2022-11-21] MEDS: piperacillin-tazobactam 3.375 GM in sodium chloride 0.9% (plus) 50 ML IV ×3 (03:07→18:29)
[2022-11-21 03:34] LABS: Basophils % 0.1 %; Hematocrit 36.1 % (42.0-52.0); Hemoglobin 11.8 g/dL (11.7-16.6); Lymphocytes # 0.7 10^3/uL (0.8-4.8); Lymphocytes % 7.6 %; Mean Corpuscular HGB Conc 32.7 g/dL (30.0-36.0); Mean Corpuscular Hemoglobin 30.4 pg (28.0-34.0); Mean Platelet Volume 11.9 fL (7.4-10.4); Monocytes # 0.7 10^3/uL (0.2-0.9); Monocytes % 7.7 %; Neutrophils # 7.32 10^3/uL (1.8-7.7); Neutrophils % 83.8 %; Nucleated Red Blood Cells % 0 %; Platelet Count 111 10^3/cmm (130-400); Red Blood Count 3.88 10^6/uL (4.1-5.3); Red Cell Distribution Width 14.1 % (12.1-15.1); White Blood Count 8.7 10^3/uL (4.0-10.0)
[2022-11-21 03:51] LABS: Alanine Aminotransferase 73 U/L (0-41); Albumin Level 3.2 g/dL (3.5-5.2); Alkaline Phosphatase 50 U/L (40-130); Aspartate Amino Transferase 46 U/L (0-40); Blood Urea Nitrogen 33 mg/dL (8-23); Calcium 8.8 mg/dL (8.5-10.5); Carbon Dioxide 25 mmol/L (22-29); Chloride 114 mmol/L (98-107); Globulin 2.3 g/dL (1.3-4.6); Glomerular Filtration Rate 113.9 mL/min (90-130); Glucose 129 mg/dL (65-115); Osmolality Calculated 313 mOsm/kg (285-295); Sodium 147 mmol/L (136-145); Total Bilirubin 0.9 mg/dL (0.15-1.2); Total Protein 5.5 g/dL (6.6-8.7)
--- NOTE | 2022-11-21 05:05 | PC.NURSE ---
Patient rested comfortably throughout shift. Propofol titrated up accordingly to maintain RASS goal. Patient able to follow commands. Vitals remained within normal limits. Frequent care and comfort rounds provided.
[2022-11-21 05:55] LABS: ABG PCO2 45.2 mmHg (35-45); ABG PH Result 7.39 (7.35-7.45); Alveolar-Arterial Oxygen Gradi 10.8 mmHg (5-10); Arterial Blood Gas Hematocrit 37.9 % (42-52); Base Excess ABG 2.1 mmol/L (-2.0-2.0); Blood Gas Allen Test Pos; Blood Gas Operator Identificat JB; Blood Gas Sample Site Radial, right; Blood Gas Sample Type Arterial; Carboxyhemoglobin 0.9 %THgb (0.4-20.1); HCO3 ABG 27.5 mmol/L (22-26); HGB O2 Sat 97.2 % (95-100); Ionized Calcium Level - ABG 1.2 mmol/L (1.1-1.4); Oxygen Device VENT; Oxygen Saturation ABG 99.1; Potassium Level - ABG 3.9 mmol/L (3.5-5.0); Total Hemoglobin 12.4 g/dL (14-18)
--- NOTE | 2022-11-21 06:00 | XRR_ITS ---
PROCEDURE INFORMATION: Exam: XR Chest Exam date and time: 11/21/2022 4:01 AM Age: 62 years old Clinical indication: Condition or disease; Lung condition and disease; Respiratory failure; Status not specified; Additional info: Intubated TECHNIQUE: Imaging protocol: Radiologic exam of the chest. Views: 1 view. Total images: 381 COMPARISON: CR XR chest 1V portable [id number] 11/20/2022 12:59 PM FINDINGS: Tubes, catheters and devices: Endotracheal tube overlies the trachea with the tip 4.0 cm above the joseph in satisfactory position. Nasogastric tube has its proximal port in the lower esophagus, recommend advancement by 7-10 cm. Lungs: Benign granulomatous disease of the lung is noted. Pleural spaces: Unremarkable. No pleural effusion. No pneumothorax. Heart/Mediastinum: Unremarkable. No cardiomegaly. Bones/joints: Unremarkable. XR/XR chest 1V portable [id number] IMPRESSION: 1. Endotracheal tube overlies the trachea with the tip 4.0 cm above the joseph in satisfactory position. 2. Nasogastric tube has its proximal port in the lower esophagus, recommend advancement by 7-10 cm. 3. No acute cardiopulmonary process.
[2022-11-21 07:22] LABS: Glucose Point of Care 161 mg/dL (70-110)
[2022-11-21] MEDS: budesonide 0.5 mg/2 mL Neb INHALATION ×2 (08:21→19:52)
[2022-11-21] MEDS: folic acid 1 mg Tablet PO ×2 (08:23→18:29)
[2022-11-21] MEDS: pantoprazole 40 mg SDV IVP (08:23)
[2022-11-21] MEDS: insulin lispro 100 unit/1 mL SUBCUT ×4 (08:23→20:00)
[2022-11-21] MEDS: dexamethasone 10 mg/mL INJ 15 MG IVP (08:52)
--- NOTE | 2022-11-21 09:35 | PM.CCN ---
Critical Care Event Note Dr. Schwab is attending for this patient in ICU for. He had been intubated he had favorable response to pressure support and was extubated shortly after being extubated began to deteriorate. Dr. Schwab asked me to intubate the patient in ICU. Critical Care Time Code activated: No Critical Care Time (min): 0 Procedures Intubation Time out performed: Yes Sedative: etomidate Mg given: 20 Paralytic: vecuronium Mg given: 10 Laryngoscope: Ramez Assist device used: fiber optic device ET tube size: 8 ET tube uncuffed: No Tube secured depth (cm): 24 Tube secured location: teeth Tube placement confirmation: visualized tube passing through cords, equal breath sounds bilaterally, no breath sounds over epigastrium, confirmation by capnometry and color change noted Patient tolerated procedure: well Intubation complications: none Coding Level of Care Code Acute Code for Chg Fwmagnolia
[2022-11-21] MEDS: propofol 1,000 MG/100 ML INJ 20.41 MG IV (09:41)
[2022-11-21 11:44] LABS: Glucose Point of Care 205 mg/dL (70-110)
[2022-11-21] MEDS: dexmedetomidine 400 MCG in sodium chloride 0.9% (100 ml) 100 ML 11.58 MCG IV (13:41)
--- NOTE | 2022-11-21 16:14 | PM.PN ---
Subjective Subjective: No acute events overnight. Today morning patient is awake and alert, propofol has been stopped with minimal fentanyl of 25. Patient is following commands. Able to have complete conversation to nodding of his head. During examination NIF study is done which is ranging from -9 to -10. Patient complaining of dryness of the mouth. Otherwise has remained hemodynamically stable and afebrile. Ventilator settings appreciated to be FiO2 35%, tidal volume of 400 with PEEP of 8. Blood work appreciated for a white count of 8.7, hemoglobin of 11.8, sodium 147, creatinine 0.7. Documented urine output of 1300 cc in last 24 hours. Vitals/I&O/Wt Last Vital Signs Temp 98.7 F 11/21/22 02:15 Pulse 66 11/21/22 16:00 Resp 14 11/21/22 13:29 BP 119/70 11/21/22 16:00 Pulse Ox 99 11/21/22 16:00 O2 Del Method Mechanical Ventilation 11/21/22 13:27 O2 Flow Rate 30 11/19/22 19:37 FiO2 30 11/21/22 13:29 11/21/22 11/21/22 11/21/22 06:59 14:59 22:59 Intake Total 582.702 / 2600.584 141.875 / 141.875 Output Total 950 / 1350 400 / 400 Balance -367.298 / 1250.584 -258.125 / -258.125 Weight last 48 hrs Weight 72.575 kg Weight 74.208 kg Physical Exam Narrative: General: Intubated, awake on minimal sedation, able to have complete conversation to nodding of his head. Following commands. HEENT: PERRLA, pupils bilaterally equal and reactive Chest: Normal vesicular breath sounds, decreased air entry in left lower zone, no added sounds CVS: S1-S2 regular, no murmurs, no tachycardia, no gallops, no rubs Abdomen: Soft, nontender, no organomegaly, bowel sounds present Neuro: Intubated, moving all limbs Urinary Catheter Management: Grier: Cath Placed During This Visit: yes Reason for Continuing Indwelling Catheter: Accurate Measurement of Urinary Output in Critically Ill Patients Urinary Catheter Date of Insertion: 11/18/22 Urinary Catheter Time of Insertion: 15:25 Data 11/21/22 03:07 11/21/22 03:07 Micro: Microbiology 11/20/22 14:45 Gram Stain - Final Sputum - Endotracheal Tube Aspirate A&P Assessment and plan (1) Respiratory failure: (2) DVT (deep venous thrombosis): (3) Amyotrophic lateral sclerosis: (4) Hypokalemia: (5) Hypertension: (6) Hypernatremia: Plan 62 year old male with past medical history of right lower extremity DVT on Xarelto at home, recently diagnosed ALS at [facility], was brought in with chief complaint of progressively worsening shortness of breath. Currently he is being managed for. Assessment: Acute hypoxic respiratory failure : ARDS: Likely progressive worsening of respiratory status slowly progressing towards respiratory failure: In the setting of ALS Failed extubation 11/20. CT chest results appreciated for mild bronchitis. Blood culture, sputum cultures so far negative. Respiratory viral panel, MRSA swab negative. Repeat sputum culture post reintubation. Continue with fentanyl. We will try to switch from propofol to Versed. Sedation vacation again in AM. We will try to keep patient on pressure support for as long as possible during the day and switch over early evening and rest overnight. Continue to repeat NIF study. Change ventilator settings keeping saturation over 90%. Continue with multiple recruitment maneuvers. Keep PEEP at around 6. Appreciate documents from [facility]. For now empirically cover with Zosyn for overall 5 days till 10/23. Daily ABGs, chest x-ray. For concerns of exacerbation of ALS will start on high-dose steroids of 1 mg/kg body weight daily. Solu-Medrol not available in hospital. Continue with dexamethasone to equal of 15 mg daily. Insulin sliding scale. Watch for thrush. Appreciate neurology recommendations. Discussed in detail for possible need of plasmapheresis versus IVIG. Unfortunately given ALS IVIG and plasmapheresis do not help the patient as per neurology recommendations. Monitor potassium and phosphate. Hypernatremia: Most likely is in setting of dehydration. Will increase free water flushes to 250 cc every 4 hour. Repeat sodium level in evening. History of DVT: CTA negative for PE on admission but given failure of respiratory failure worsening overnight switched over to full dose Lovenox. For now we will continue. Hypertension: Goal blood pressure less than 140/90 mmHg with mean over 65. Hold off on Coreg and amlodipine for now. Continue with tube feeds. Appreciate dietitian recommendations. Start Jevity at 10 cc/h, increasing every 4 hours with a goal of 60 cc/h. Free water flush at 120 cc every 4 hours. Protonix for PUD prophylaxis. Full dose Lovenox will suffice as DVT prophylaxis. Discussed the care in detail with patient over the vent. Patient is awake and alert. We discussed that unfortunately it seems that his reason for respiratory failure and failing extubation is because of ALS. Most likely because of decreased compliance of the diaphragm leading for accessory muscle use on extubation leading to increased secretions in the airway. We discussed that we will try to extubate again in next 24 to 48 hours and unfortunately if he fails he will most likely need a tracheostomy. We discussed with the tracheostomy on ventilator he would need to go to [facility] versus SNF which can take care of patients on tracheostomy and ventilator. Patient verbalized understanding and is agreeable with tracheostomy if and when needed. Discharge planning: Given multiple extubation trials and possible need of tracheostomy with ventilator patient would need prolonged slow weaning of the ventilator. Patient is agreeable for [facility] if needed. Case management alerted. Attestations Medical Necessity Statement*: Requires further hospitalization for management of acute hypoxic respiratory failure in setting of ALS exacerbation failing extubation Coding Level of Care Code Critical Care >/= 30 minutes Critical care time (in minutes): 60 The high probability of a clinically significant, sudden or life threatening deterioration, as referenced in this documentation, required my full and direct attention, intervention and personal management. The critical care time shown is in addition to time spent performing any reported separately billable procedures and includes the following: [x] Data and vital sign review and interpretation [x] Patient assessment, examination and intervention [x] Medication orders and management [x] Patient/Family updates as able [x] Care Coordination and Documentation. Diagnoses Respiratory failure J96.90 DVT (deep venous thrombosis) I82.409 Amyotrophic lateral sclerosis G12.21 Hypokalemia E87.6 Hypertension I10 Hypernatremia E87.0
--- NOTE | 2022-11-21 16:41 | PM.PN ---
Subjective Subjective: History of Present Illness Gregorio Becker is a [age] year old male wi th a history of am yotrophic lateral sclerosis.? The pa josue was admitted to [facility] and was d ischarged approxim ately 2 days prior to admission to [facility].? The patie nt was reported to leave the hospita l and stop by the pharmacy to pick u p his prescription s.? According to t he nurse caring fo r the patient the patient went home and was reported t o experience acute respiratory failu re requiring intub ation.? The patien t was admitted and started on broad- spectrum antibioti cs after cultures were obtained to t elizabeth for possible infection. Yester day I spoke with t he attending physi rashard who informing the patient was tiera draper weaned from the ventilator. There was also discussi on about what coul d be done to help the patient. I in formed the admitti physician that neither IVIG nor p lasma exchange is used as a treatmen t in patients with ALS. Head CT scan performed on 11/18 revealed no acute findings.? C T [facility] t performed on 11/08 revealed so me left lung atele ctasis. This morni ng the patient is back on IV propofo l and fentanyl for sedation.? The nisa salas is still int ubated.? Neurologi mel examination at this time the pat ient is alert and is following comma nds. Pupils 3 mm a nd reactive to lig ht.? There is no o bvious spasticity and I do not obser ve any muscle fasc iculations.? Plant ar response is fle xor bilaterally wi th no clonus.? Mot or testing reveale d patient able to use his upper extr emities with some residual weakness on the left which is chronic and pat ient able to lift the right leg off the bed against gr avity.? He has wea kness in the left leg with little or no movement which is chronic.? Supa draper allergies: Bactr im which resulted in lip and tongue and throat swellin g Gabapentin type of reaction unknow n Current inpatie nt medications: IV propofol for beto tion IV fentanyl f or sedation IV van comycin IV Zosyn Home medications: Klonopin 0.5 mg p .o. daily Norvasc 10 mg p.o. daily T riamterene/hydroch lorothiazide 37.5/ 25 mg p.o. daily S tool softener Core g 6.25 mg p.o. twi ce daily Naproxen 500 mg p.o. twice daily Tylenol 325 mg tablet Habits: Unknown Family h istory: Unknown R eview of systems: Patient indicates chronic left-sided weakness by point ing his fingers an d nodding regardin g the left side.? He shakes his head no when asked if he is experiencing any headaches, ch est pain, abdomina l pain or extreme pain.? Other revie w of systems diffi cult to obtain sec ondary to patient' s intubation. Vitals/I&O/Wt Last Vital Signs Temp 98.7 F 11/21/22 02:15 Pulse 66 11/21/22 16:00 Resp 23 H 11/21/22 16:23 BP 119/70 11/21/22 16:00 Pulse Ox 99 11/21/22 16:23 O2 Del Method Mechanical Ventilation 11/21/22 13:27 O2 Flow Rate 30 11/19/22 19:37 FiO2 30 11/21/22 16:23 11/21/22 11/21/22 11/21/22 06:59 14:59 22:59 Intake Total 582.702 / 2600.584 141.875 / 141.875 Output Total 950 / 1350 400 / 400 Balance -367.298 / 1250.584 -258.125 / -258.125 Weight last 48 hrs Weight 160 lb Weight 163 lb 9.6 oz Physical Exam Narrative: The patient is intubated.? Vital signs stable.? He is alert.? Patient follows commands.? Head atraumatic.? Cranial nerves II through XII revealed no obvious facial asymmetry.? Cranial nerves IX, X and XII difficult to assess secondary to intubation.? Extraocular movements intact motor testing patient appears to have good strength in the right arm and right leg and chronic left-sided weakness patient is able to squeeze with the left hand his arms are in soft restraints.? Patient has difficulty moving the left leg which is chronic.? Deep tendon reflexes approximately 1-2+ plantar responses flexor bilaterally there is no clonus.? I did not observe any obvious fasciculations this morning.? Sensory exam intact to touch.? Throat intubated.? I do not observe any obvious signs of infection.? Lungs reveal no obvious wheezes.? Heart regular rhythm and rate abdomen soft bowel sounds positive.? Extremities were negative for clubbing or cyanosis Urinary Catheter Management: Grier: Cath Placed During This Visit: yes Reason for Continuing Indwelling Catheter: Accurate Measurement of Urinary Output in Critically Ill Patients Urinary Catheter Date of Insertion: 11/18/22 Urinary Catheter Time of Insertion: 15:25 Data 11/21/22 03:07 11/21/22 03:07 Micro: Microbiology 11/20/22 14:45 Gram Stain - Final Sputum - Endotracheal Tube Aspirate A&P Assessment and plan (1) Amyotrophic lateral sclerosis: Assessment: 1.? 62-year-old male with history of Amyotrophic lateral sclerosis (ALS) admitted after being discharged from [facility] secondary to acute respiratory failure shortly after discharge, markedly improved Plan: 1.? Agree with current treatment 2.? Agree with reattempting extubation on 11/22/2022 3. Will Review records from [facility] 4. Consider Rilutek (Riluzole), Qalsody (Tofersen), Relyvrio ([id number]), Radicava (Edaravone) Exservan (Riluzole oral film) 5. Consider Nuedexta (dextromethorphan Hbr and quinidine sulfate) for pseudobulbar affect (PBA) if needed (2) Respiratory failure: (3) Weakness: Attestations Medical Necessity Statement*: The patient was evaluated by neurology for ALS and increasing respiratory distress secondary to respiratory muscle weakness Coding Level of Care Code 38902 Diagnoses Amyotrophic lateral sclerosis G12.21 Respiratory failure J96.90 Weakness R53.1
[2022-11-21 18:20] LABS: Glucose Point of Care 161 mg/dL (70-110)
[2022-11-21 18:44] LABS: Sodium 148 mmol/L (136-145)
[2022-11-21 19:53] LABS: Glucose Point of Care 174 mg/dL (70-110)
--- NOTE | 2022-11-21 21:18 | PC.NURSE ---
Addendum entered by Joyce Simpson RN 11/21/22 22:49: Strip placed in paper chart. Original Note: Low HR: HR dropped into the 40's. Precedex titrated off.
[2022-11-22] VITALS (44 sets, daily range): BP systolic 96–151; BP diastolic 55–100; PULSE 50–98; RESP 10–24; TEMP 36.5–37.1; O2SAT 90–100
[2022-11-22] MEDS: propofol 1,000 MG/100 ML INJ 22.45 MG IV (01:53)
[2022-11-22] MEDS: chlorhexidine gluconate 4% Btl 118 mL 1 APPLIC TOPICAL (01:58)
[2022-11-22] MEDS: ipratropium-albuterol 3 mL Neb INHALATION ×4 (02:07→20:18)
[2022-11-22] MEDS: piperacillin-tazobactam 3.375 GM in sodium chloride 0.9% (plus) 50 ML IV ×3 (03:11→17:52)
[2022-11-22] MEDS: enoxaparin 100 mg/mL Syringe 70 MG SUBCUT ×2 (03:12→15:16)
[2022-11-22 03:41] LABS: Hematocrit 36.8 % (42.0-52.0); Hemoglobin 11.4 g/dL (11.7-16.6); Lymphocytes # 0.9 10^3/uL (0.8-4.8); Lymphocytes % 14.2 %; Mean Corpuscular Hemoglobin 30.9 pg (28.0-34.0); Mean Corpuscular Volume 99.7 fl (80-94); Mean Platelet Volume 12.7 fL (7.4-10.4); Monocytes # 0.5 10^3/uL (0.2-0.9); Monocytes % 7.5 %; Neutrophils # 4.64 10^3/uL (1.8-7.7); Neutrophils % 76.8 %; Nucleated Red Blood Cells % 0 %; Platelet Count 90 10^3/cmm (130-400); Red Blood Count 3.69 10^6/uL (4.1-5.3); Red Cell Distribution Width 14.4 % (12.1-15.1)
[2022-11-22 04:02] LABS: Alanine Aminotransferase 138 U/L (0-41); Albumin Level 3.2 g/dL (3.5-5.2); Alkaline Phosphatase 55 U/L (40-130); Anion Gap 9.7 (5-19); Aspartate Amino Transferase 88 U/L (0-40); Blood Urea Nitrogen 29 mg/dL (8-23); Calcium 8.4 mg/dL (8.5-10.5); Carbon Dioxide 30 mmol/L (22-29); Chloride 115 mmol/L (98-107); Globulin 2.4 g/dL (1.3-4.6); Glomerular Filtration Rate 167.9 mL/min (90-130); Glucose 112 mg/dL (65-115); Magnesium 2.4 mg/dL (1.7-2.3); Osmolality Calculated 319 mOsm/kg (285-295); Phosphorus 1.9 mg/dL (2.5-4.5); Potassium 3.7 mmol/L (3.5-5.1); Sodium 151 mmol/L (136-145); Total Protein 5.6 g/dL (6.6-8.7)
[2022-11-22 05:53] LABS: ABG PCO2 42.8 mmHg (35-45); ABG PH Result 7.44 (7.35-7.45); Alveolar-Arterial Oxygen Gradi 13.4 mmHg (5-10); Arterial Blood Gas Hematocrit 37.7 % (42-52); Base Excess ABG 4.1 mmol/L (-2.0-2.0); Blood Gas Allen Test Pos; Blood Gas Operator Identificat JB; Blood Gas Sample Site Brachial, right; Blood Gas Sample Type Arterial; Carboxyhemoglobin 1.2 %THgb (0.4-20.1); HCO3 ABG 28.8 mmol/L (22-26); HGB O2 Sat 89.6 % (95-100); Ionized Calcium Level - ABG 1.2 mmol/L (1.1-1.4); Methemoglobin 0.8 % (0.4-1.5); Oxygen Device VENT; Oxygen Saturation ABG 91.6; PO2 ABG 55.8 mmHg (80.0-100.0); Potassium Level - ABG 3.6 mmol/L (3.5-5.0); Total Hemoglobin 12.3 g/dL (14-18)
--- NOTE | 2022-11-22 06:00 | XR_ITS ---
WS: [id number] XR chest 1V portable [id number] REASON FOR EXAM: intubated FINDINGS: Endotracheal tube and nasogastric tube are in proper position and unchanged compared to 11/21/2022. Lung michelle are relatively clear and unchanged compared to 11/21/2022. No new findings. XR/XR chest 1V portable [id number] IMPRESSION: Stable chest.
[2022-11-22] MEDS: propofol 1,000 MG/100 ML INJ 14.29 MG IV (06:06)
[2022-11-22] MEDS: dexmedetomidine 400 MCG in sodium chloride 0.9% (100 ml) 100 ML 5.79 MCG IV (07:25)
[2022-11-22] MEDS: dextrose 5%-sod chloride 0.45% 1,000 ML 75 ML IV ×2 (07:51→21:54)
[2022-11-22] MEDS: budesonide 0.5 mg/2 mL Neb INHALATION ×2 (08:06→20:18)
[2022-11-22 08:13] LABS: Glucose Point of Care 154 mg/dL (70-110)
[2022-11-22] MEDS: pantoprazole 40 mg SDV IVP (09:53)
[2022-11-22] MEDS: folic acid 1 mg Tablet PO ×2 (09:53→17:52)
[2022-11-22] MEDS: dexamethasone 10 mg/mL INJ 15 MG IVP (09:53)
[2022-11-22] MEDS: insulin lispro 100 unit/1 mL SUBCUT ×4 (09:53→20:19)
--- NOTE | 2022-11-22 10:00 | ECG_ITS ---
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 Measurements Intervals [place] Rate: 79 P: 60 AL: 160 QRS: 6 QRSD: 91 T: 193 QT: 406 QTc: 466 Interpretive Statements SINUS RHYTHM WITH OCCASIONAL VENTRICULAR PREMATURE COMPLEXES ST DEVIATION AND MODERATE T-WAVE ABNORMALITY, CONSIDER ANTEROLATERAL ISCHEMIA [-0.1+ mV T-WAVE IN V3-V6] ST DEVIATION AND MODERATE T-WAVE ABNORMALITY, CONSIDER INFERIOR ISCHEMIA [-0.1+ mV T-WAVE IN II/aVF] Compared to ECG 11/18/2022 23:04:02 Ventricular premature complex(es) now present T-wave abnormality still present Possible ischemia still present Electronically Signed On 11-22-2022 13:00:54 CDT by Merry Blackwell M.D. [email or web address]
[2022-11-22] MEDS: magnesium hydroxide 30 mL UDC PO ×2 (10:29→20:28)
[2022-11-22 12:50] LABS: Sodium 146 mmol/L (136-145)
[2022-11-22 13:01] LABS: Glucose Point of Care 176 mg/dL (70-110)
--- NOTE | 2022-11-22 14:02 | XRR_ITS ---
PROCEDURE INFORMATION: Exam: XR Chest Exam date and time: 11/22/2022 1:14 PM Age: 62 years old Clinical indication: Device placement; Ng tube; Additional info: Ng tube placement TECHNIQUE: Imaging protocol: Radiologic exam of the chest. Views: 1 view. COMPARISON: CR XR chest 1V portable [id number] 11/22/2022 4:24 AM FINDINGS: Tubes, catheters and devices: The tip of the NG tube lies 6 cm above the diaphragmatic hiatus. The endotracheal tube is appropriately positioned in the distal thoracic trachea with the tip above the joseph. Lungs: Lung volumes are low. There is subsegmental atelectasis in lung bases. There is no consolidation. Pleural spaces: There is no pleural effusion or pneumothorax. Heart/Mediastinum: Cardiomediastinal contours are unremarkable. Bones/joints: Bones are unremarkable. XR/XR chest 1V portable [id number] IMPRESSION: 1. NG tube tip is 6 cm beyond the diaphragmatic hiatus. The tube should be advanced another 5-10 cm for ideal position. 2. Satisfactory endotracheal tube position.
[2022-11-22] MEDS: propofol 1,000 MG/100 ML INJ 12.25 MG IV (14:07)
--- NOTE | 2022-11-22 15:01 | XRR_ITS ---
PROCEDURE INFORMATION: Exam: XR Chest Exam date and time: 11/22/2022 2:13 PM Age: 62 years old Clinical indication: Device placement; Ng tube; Additional info: Ng tube placement after advancement TECHNIQUE: Imaging protocol: Radiologic exam of the chest. Views: 1 view. COMPARISON: CR (CHEST, ) 11/22/2022 1:14 PM FINDINGS: Tubes, catheters and devices: The nasogastric tube is appropriately positioned with the tip in the stomach, well beyond the diaphragmatic hiatus. The endotracheal tube is appropriately positioned in the distal thoracic trachea with the tip above the joseph. Lungs: There is no consolidation. Pleural spaces: There is no pleural effusion or pneumothorax. Heart/Mediastinum: Cardiomediastinal contours are unremarkable. Bones/joints: Bones are unremarkable. XR/XR chest 1V portable [id number] IMPRESSION: Satisfactory NG tube position.
[2022-11-22 15:09] LABS: Troponin T (5th) Once 56 ng/L (0-15)
[2022-11-22] MEDS: CLONazepam 0.5 mg Tablet PO ×2 (15:28→20:28)
--- NOTE | 2022-11-22 16:41 | XRR_ITS ---
PROCEDURE INFORMATION: Exam: XR Chest Exam date and time: 11/22/2022 3:48 PM Age: 62 years old Clinical indication: Device placement; Ett placement (vent status); Additional info: Post et tube swap TECHNIQUE: Imaging protocol: Radiologic exam of the chest. Views: 1 view. COMPARISON: CR (CHEST, ) 11/22/2022 2:13 PM FINDINGS: Tubes, catheters and devices: Endotracheal catheter tip appears just above the level of the joseph by approximally 1.5 cm, with tip slightly directed to the right. Nasogastric tube remains in good position. Overlying monitor leads are seen. Lungs: No focal infiltrate or consolidation. Pleural spaces: No significant pleural effusion. No significant pneumothorax. Heart/Mediastinum: Unremarkable. No cardiomegaly. Bones/joints: Visualized osseous structures show no acute abnormality. XR/XR chest 1V portable [id number] IMPRESSION: 1. Endotracheal catheter tip appears just above the joseph by approximately 1.5 cm, with tip slightly directed to the right. 2. Nasogastric tube remains in good position. 3. No acute findings otherwise.
--- NOTE | 2022-11-22 16:42 | PM.CCN ---
Critical Care Event Note Prior ETT reported by hospitalist service to have leak. I was requested to replace ETT. Patient given adequate sedation and subsequently paralytic to facilitate exchange. ETT replaced over bougie without complication. Confirmed with lung sounds, cxr, EtCO2. Jeremy Johnson MD Emergency Medicine Critical Care Time Code activated: No Critical Care Time (min): 0 Coding Level of Care Code Acute Code for Chg Fwd
--- NOTE | 2022-11-22 16:59 | PM.PN ---
Subjective Subjective: Seen multiple times in the day. No acute events overnight. Patient has remained hemodynamically stable and afebrile. Today morning again seen during sedation vacation. Patient is awake, anxious but able to maintain saturation on pressure support of 10 with PEEP of 6. During the day patient did have episode of desaturation which was thought to be secondary to mucous plugging. There was concern for spillage of tube feeds from his mouth for which it was noticed that ET tube cuff pressures were not being maintained and ETT was finally replaced. Patient did maintain saturation on pressure support for around 3 to 4 hours. Patient continues to have poor NIF of -9 to -8. Ventilator settings found to be at FiO2 30%, tidal volume 400 with PEEP 6. Blood work showing stable CBC, CMP showing resolving hyponatremia, stable creatinine but continues to remain hyperosmolar. Hypophosphatemia. Documented urine output in last 24 hours of 1700 cc. Vitals/I&O/Wt Last Vital Signs Temp 98.8 F 11/22/22 08:00 Pulse 67 11/22/22 16:00 Resp 14 11/22/22 16:44 BP 128/72 11/22/22 16:00 Pulse Ox 99 11/22/22 16:44 O2 Del Method Mechanical Ventilation 11/22/22 16:00 O2 Flow Rate 30 11/19/22 19:37 FiO2 30 11/22/22 16:44 11/22/22 11/22/22 11/22/22 06:59 14:59 22:59 Intake Total 1423.362 / 1918.784 300.753 / 300.753 Output Total 450 / 1700 450 / 450 Balance 973.362 / 218.784 300.753 / 300.753 -450 / -149.247 Weight last 48 hrs Weight 68.538 kg Weight 72.575 kg Physical Exam Narrative: General: Intubated, awake on minimal sedation, able to have complete conversation to nodding of his head. Following commands. HEENT: PERRLA, pupils bilaterally equal and reactive Chest: Normal vesicular breath sounds, decreased air entry in left lower zone, no added sounds CVS: S1-S2 regular, no murmurs, no tachycardia, no gallops, no rubs Abdomen: Soft, nontender, no organomegaly, bowel sounds present Neuro: Intubated, moving all limbs Urinary Catheter Management: Grier: Cath Placed During This Visit: yes Reason for Continuing Indwelling Catheter: Accurate Measurement of Urinary Output in Critically Ill Patients Urinary Catheter Date of Insertion: 11/18/22 Urinary Catheter Time of Insertion: 15:25 Data 11/22/22 02:30 11/22/22 12:20 Micro: Microbiology 11/20/22 14:45 Gram Stain - Final Sputum - Endotracheal Tube Aspirate Sputum Culture - Preliminary Coag positive Staphylococcus A&P Assessment and plan (1) Respiratory failure: (2) DVT (deep venous thrombosis): (3) Amyotrophic lateral sclerosis: (4) Hypokalemia: (5) Hypertension: (6) Hypernatremia: Plan 62 year old male with past medical history of right lower extremity DVT on Xarelto at home, recently diagnosed ALS at [facility], was brought in with chief complaint of progressively worsening shortness of breath. Currently he is being managed for. Assessment: Acute hypoxic respiratory failure : ARDS: Likely progressive worsening of respiratory status slowly progressing towards respiratory failure: In the setting of ALS Failed extubation 11/20. CT chest results appreciated for mild bronchitis. Blood culture, sputum cultures so far negative. Respiratory viral panel, MRSA swab negative. Repeat sputum culture post reintubation. Continue with fentanyl. We will try to switch from propofol to Versed. Sedation vacation again in AM. We will try to keep patient on pressure support for as long as possible during the day and switch over early evening and rest overnight. Continue to repeat NIF study. Change ventilator settings keeping saturation over 90%. Continue with multiple recruitment maneuvers. Keep PEEP at around 6. Appreciate documents from [facility]. For now empirically cover with Zosyn for overall 5 days till 10/23. Daily ABGs, chest x-ray. For concerns of exacerbation of ALS will start on high-dose steroids of 1 mg/kg body weight daily. Solu-Medrol not available in hospital. Continue with dexamethasone to equal of 15 mg daily. Insulin sliding scale. Watch for thrush. Appreciate neurology recommendations. Discussed in detail for possible need of plasmapheresis versus IVIG. Unfortunately given ALS IVIG and plasmapheresis do not help the patient as per neurology recommendations. Monitor potassium and phosphate. Hypernatremia: Most likely is in setting of dehydration. Will increase free water flushes to 250 cc every 4 hour. Repeat sodium level in evening. History of DVT: CTA negative for PE on admission but given failure of respiratory failure worsening overnight switched over to full dose Lovenox. For now we will continue. Hypertension: Goal blood pressure less than 140/90 mmHg with mean over 65. Hold off on Coreg and amlodipine for now. Continue with tube feeds. Appreciate dietitian recommendations. Start Jevity at 10 cc/h, increasing every 4 hours with a goal of 60 cc/h. Free water flush at 120 cc every 4 hours. Protonix for PUD prophylaxis. Full dose Lovenox will suffice as DVT prophylaxis. Plan for the day: ET tube replaced. Patient's NIF study continues to remain poor. Continue with dexamethasone. Start on D5 half NS at 75 cc/h. Continue with insulin sliding scale. Monitor sodium levels every 6 hourly. Continue with tube feeds at current rate and free water flushes at 250 cc every 4 hourly. Follow-up sputum culture. Continue with Zosyn for now. Appreciate multiple x-rays done today morning. Continue with Klonopin 0.5 mg 3 times daily as needed especially when patient is awake. ENT consulted for tracheostomy given persistent NIF failure and extubation failure. Possible plan for tracheostomy early next week. Patient continues to remain agreeable for port tracheostomy and PEG tube feeds. Patient's son agreeable as well. Continue with daily sedation medication. Discussed the care in detail with patient over the vent. Patient is awake and alert. We discussed that unfortunately it seems that his reason for respiratory failure and failing extubation is because of ALS. Most likely because of decreased compliance of the diaphragm leading for accessory muscle use on extubation leading to increased secretions in the airway. We discussed that we will try to continue to repeat NIF study daily to see any improvement but if none plan will be to go ahead for tracheostomy and PEG tube placement. We discussed with the tracheostomy on ventilator he would need to go to [facility] versus SNF which can take care of patients on tracheostomy and ventilator. Patient verbalized understanding and is agreeable with tracheostomy if and when needed. Discharge planning: Given multiple extubation trials and possible need of tracheostomy with ventilator patient would need prolonged slow weaning of the ventilator. [facility] is [facility] for [facility] if [facility]. Case management alerted. Attestations Medical Necessity Statement*: Requires further hospitalization for management of respiratory failure in setting of ALS, possible need of tracheostomy and PEG tube placement. Coding Level of Care Code Critical Care >/= 30 minutes Critical care time (in minutes): 90 The high probability of a clinically significant, sudden or life threatening deterioration, as referenced in this documentation, required my full and direct attention, intervention and personal management. The critical care time shown is in addition to time spent performing any reported separately billable procedures and includes the following: [x] Data and vital sign review and interpretation [x] Patient assessment, examination and intervention [x] Medication orders and management [x] Patient/Family updates as able [x] Care Coordination and Documentation. Diagnoses Respiratory failure J96.90 DVT (deep venous thrombosis) I82.409 Amyotrophic lateral sclerosis G12.21 Hypokalemia E87.6 Hypertension I10 Hypernatremia E87.0
[2022-11-22] MEDS: rocuronium 10 mg/mL INJ 5mL 70 MG IVP (17:00)
[2022-11-22 17:49] LABS: Glucose Point of Care 214 mg/dL (70-110)
--- NOTE | 2022-11-22 18:05 | PC.NURSE ---
Shift Note At 1016 RT placed patient on pressure support, Dr. Schwab asked for patient to remain on this setting till 1400. At approximately 1045, Patient monitor alarmed low O2, reading in the mid 70's. Patient immediately assessed and found to be diaphoretic, thrashing head back and forth , O2 reading appearing accurate in mid 50's RR in 30-40's. 100% O2 function applied, patient suctioned, RT contacted, Increased sedation medications per protocol, see MAR, RT placed vent back to MMV mode, Dr. Schwab contacted and orders received to keep patient calm with verbal intervention. See charting for vent settings and changes throughout shift. Patient found to have tube feed in mouth, tube feed stopped, NG aspirated with 0 residual auscultated with appropriate sounds, notified and chest xray obtained. Tube advanced and second xray to confirm placement. Upon auscultation of tube, ET tube found to be deflated, RT notified and confirmed cuff was blown. ER doctor César to bedside for tube placement, patient re-intubated at approximately 1640. See MAR for medications. 26 @lip, size8 tube. uneventful intubation. Dr. Schwab verbal order to restart tube feeding at 50ml/hr with FWF at previous rate of 250ml/Q4hr. 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 Precedex off at [address] Schwab verbal order. [facility] spoke with patient about options and patient agreeable to their services at this time.
[2022-11-22 18:58] LABS: Sodium 146 mmol/L (136-145)
[2022-11-22 20:14] LABS: Glucose Point of Care 183 mg/dL (70-110)
[2022-11-22] MEDS: propofol 1,000 MG/100 ML INJ 20.41 MG IV (21:30)
[2022-11-23] VITALS (39 sets, daily range): BP systolic 107–175; BP diastolic 59–98; PULSE 57–97; RESP 12–22; TEMP 36.6–37.3; O2SAT 86–100; BMI 21.7
[2022-11-23] MEDS: chlorhexidine gluconate 4% Btl 118 mL 1 APPLIC TOPICAL (01:04)
[2022-11-23] MEDS: propofol 1,000 MG/100 ML INJ 20.41 MG IV ×2 (01:15→05:49)
[2022-11-23] MEDS: ipratropium-albuterol 3 mL Neb INHALATION ×4 (02:10→20:18)
[2022-11-23 03:25] LABS: Basophils % 0.2 %; Hematocrit 33.2 % (42.0-52.0); Hemoglobin 10.3 g/dL (11.7-16.6); Lymphocytes # 0.6 10^3/uL (0.8-4.8); Lymphocytes % 10.5 %; Mean Corpuscular Hemoglobin 30.1 pg (28.0-34.0); Mean Corpuscular Volume 97.1 fl (80-94); Mean Platelet Volume 12.7 fL (7.4-10.4); Monocytes # 0.4 10^3/uL (0.2-0.9); Monocytes % 6.6 %; Neutrophils # 4.77 10^3/uL (1.8-7.7); Neutrophils % 80.8 %; Nucleated Red Blood Cells % 0 %; Platelet Count 92 10^3/cmm (130-400); Red Blood Count 3.42 10^6/uL (4.1-5.3); Red Cell Distribution Width 14.5 % (12.1-15.1); White Blood Count 5.9 10^3/uL (4.0-10.0)
[2022-11-23] MEDS: piperacillin-tazobactam 3.375 GM in sodium chloride 0.9% (plus) 50 ML IV ×2 (03:28→10:58)
[2022-11-23] MEDS: enoxaparin 100 mg/mL Syringe 70 MG SUBCUT ×2 (03:28→16:13)
[2022-11-23 03:43] LABS: Alanine Aminotransferase 168 U/L (0-41); Albumin Level 2.7 g/dL (3.5-5.2); Alkaline Phosphatase 51 U/L (40-130); Anion Gap 10.2 (5-19); Aspartate Amino Transferase 71 U/L (0-40); Blood Urea Nitrogen 20 mg/dL (8-23); Calcium 7.9 mg/dL (8.5-10.5); Carbon Dioxide 28 mmol/L (22-29); Chloride 111 mmol/L (98-107); Globulin 2.2 g/dL (1.3-4.6); Glomerular Filtration Rate 217.3 mL/min (90-130); Glucose 136 mg/dL (65-115); Magnesium 2.2 mg/dL (1.7-2.3); Osmolality Calculated 305 mOsm/kg (285-295); Potassium 4.2 mmol/L (3.5-5.1); Sodium 145 mmol/L (136-145); Total Bilirubin 0.7 mg/dL (0.15-1.2); Total Protein 4.9 g/dL (6.6-8.7)
[2022-11-23 05:12] LABS: ABG PCO2 50.1 mmHg (35-45); ABG PH Result 7.39 (7.35-7.45); Alveolar-Arterial Oxygen Gradi 9.2 mmHg (5-10); Arterial Blood Gas Hematocrit 33.3 % (42-52); Base Excess ABG 4.5 mmol/L (-2.0-2.0); Blood Gas Sample Site Brachial, right; Blood Gas Sample Type Arterial; Carboxyhemoglobin 1.3 %THgb (0.4-20.1); HCO3 ABG 30.4 mmol/L (22-26); HGB O2 Sat 95.2 % (95-100); Ionized Calcium Level - ABG 1.1 mmol/L (1.1-1.4); Methemoglobin 0.7 % (0.4-1.5); Oxygen Device VENT; Oxygen Saturation ABG 97.2; PO2 ABG 80.1 mmHg (80.0-100.0); Potassium Level - ABG 3.9 mmol/L (3.5-5.0); Total Hemoglobin 10.9 g/dL (14-18)
--- NOTE | 2022-11-23 06:00 | XRR_ITS ---
PROCEDURE INFORMATION: Exam: XR Chest Exam date and time: 11/23/2022 4:49 AM Age: 62 years old Clinical indication: Condition or disease; Lung condition and disease; Respiratory failure; Status not specified; Additional info: Intubated TECHNIQUE: Imaging protocol: Radiologic exam of the chest. Views: 1 view. COMPARISON: CR (CHEST, ) 11/22/2022 3:48 PM FINDINGS: Tubes, catheters and devices: Endotracheal tube terminates approximately 1.7 cm above the joseph. Enteric tube passes into the stomach. Lungs: Mild bibasilar airspace opacities. Pleural spaces: Unremarkable. No pleural effusion. No pneumothorax. Heart/Mediastinum: Unremarkable. No cardiomegaly. Bones/joints: Unremarkable. XR/XR chest 1V portable [id number] IMPRESSION: 1. Mild bibasilar airspace opacities may reflect atelectasis versus aspiration or pneumonia. 2. Endotracheal tube terminates approximately 1.7 cm above the joseph.
--- NOTE | 2022-11-23 07:27 | PM.CONSULT ---
Providers/Reason For Consult Consulting Physician/Specialty*: Tree Stockton MD/otolaryngology Reason for Consult*: Need for tracheotomy Requesting Physician: Allen Davenport MD Attending Physician: Allen Schwab MD Primary Care Provider: Yvan Cervantes MD History of Present Illness History of Present Illness Gregorio Becker is a 62 year old male with ALS and respiratory failure. He is intubated and attempts to take him off the ventilator were unsuccessful. I have been requested to see the patient in regards to placing a tracheotomy tube. Review of Systems General: Reports: ROS unobtainable due to endotracheal tube Medications/Allergies Home Medications Medication Instructions Recorded Confirmed Last Taken Type rivaroxaban 20 mg tablet (Xarelto) 20 mg PO DAILY ankle blood clot 08/23/22 11/18/22 Unknown Rx #30 tabs triamterene 37.5 1 tab PO QAM blood pressure and 08/23/22 11/18/22 11/02/22 07:00 Rx mg-hydrochlorothiazide 25 mg tablet edema #30 tabs hydrocodone 7.5 mg-acetaminophen 1 tab PO DAILY PRN pain 30 days 10/24/22 11/18/22 Unknown Rx 325 mg tablet #90 tabs amlodipine 10 mg tablet 10 mg PO QAM high blood pressure 11/02/22 11/18/22 11/02/22 07:00 History clotrimazole-betamethasone 1 1 applic topical BID PRN psoriasis 11/02/22 11/18/22 Unknown History %-0.05 % topical cream hydrocodone 7.5 mg-acetaminophen 1 tab PO TID PRN Pain 11/02/22 11/18/22 Unknown History 325 mg tablet naproxen 500 mg tablet 500 mg PO BID PRN Pain 11/02/22 11/18/22 Unknown History phosphorated carbohydrate oral 15 - 30 ml PO Q15M PRN stomach 11/02/22 11/18/22 11/01/22 History solution (Emetrol oral solution) muscle contractions bedside #1 ea 11/08/22 11/18/22 Unknown Rx clonazepam 0.5 mg tablet 0.25 mg PO Q12H PRN Anxiety 11/14/22 11/18/22 Unknown History acetaminophen 325 mg tablet 325 - 650 mg PO Q6H PRN Pain 11/18/22 11/18/22 Unknown History (Tylenol) bisacodyl 5 mg tablet 10 mg PO DAILY PRN Constipation 11/18/22 11/18/22 Unknown History carvedilol 6.25 mg tablet 6.25 mg PO BID 11/18/22 11/18/22 Unknown History thiamine HCl (vitamin B1) 100 mg 100 mg PO DAILY 11/18/22 11/18/22 Unknown History tablet (Vitamin B-1) Allergies Allergy/AdvReac Type Severity Reaction Status Date / Time sulfamethoxazole Allergy Severe ALGY-Swell Verified 11/18/22 15:08 [From Bactrim] Lip/Tongue/Throat trimethoprim [From Bactrim] Allergy Severe ALGY-Swell Verified 11/18/22 15:08 Lip/Tongue/Throat gabapentin Allergy Unknown Verified 11/18/22 15:08 Current Medications Generic Name Dose Route Start Last Admin Trade Name Freq PRN Reason Stop Dose Admin Albuterol/Ipratropium 3 ml 11/19/22 08:00 11/23/22 02:10 Ipratropium-Albuterol 3 Ml Neb INHALATION 3 ml Q6H.RESP WAYNE Administration Budesonide 0.5 mg 11/19/22 18:00 11/22/22 20:18 Budesonide 0.5 Mg/2 Ml Neb INHALATION 0.5 mg BID WAYNE Administration Chlorhexidine Gluconate 1 applic 11/20/22 00:00 11/23/22 01:04 Chlorhexidine Gluconate 4% Btl 118 Ml TOPICAL 1 applic Q24H WAYNE Administration Clonazepam 0.5 mg 11/22/22 14:01 11/22/22 20:28 Clonazepam 0.5 Mg Tablet PO 0.5 mg TID PRN Administration ANXIETY Dexamethasone 15 mg 11/19/22 09:45 11/22/22 09:53 Dexamethasone 10 Mg/Ml Inj IVP 15 mg Q24H WAYNE Administration Enoxaparin Sodium 70 mg 11/19/22 03:30 11/23/22 03:28 Enoxaparin 100 Mg/Ml Syringe 1 mg/kg (70 mg) 70 mg SUBCUT Administration Q12H WAYNE Folic Acid 1 mg 11/20/22 18:00 11/22/22 17:52 Folic Acid 1 Mg Tablet PO 1 mg BID WAYNE Administration Propofol 1,000 mg in 100 mls @ 0 mls/hr 11/18/22 15:15 11/23/22 05:49 Diprivan IV 50 mcg/kg/min .Q0M WAYNE 20.41 mls/hr Administration Protocol Per Protocol Piperacillin Sod/Tazobactam 50 mls @ 12.5 mls/hr 11/18/22 18:45 11/23/22 03:28 Sod 3.375 gm/ Sodium Chloride IV 11/23/22 18:44 12.5 mls/hr Q8H WAYNE Administration Protocol Norepinephrine Bitartrate 4 mg 254 mls @ 0 mls/hr 11/18/22 20:00 11/21/22 19:00 / Dextrose IV Infused .Q0M WAYNE Titration Protocol Per Protocol Dexmedetomidine HCl 400 mcg/ 104 mls @ 0 mls/hr 11/20/22 09:30 11/22/22 17:33 Sodium Chloride IV 0 mcg/kg/hr .Q0M WAYNE 0 mls/hr Titration Protocol Per Protocol Fentanyl 2,500 mcg/ Sodium 250 mls @ 0 mls/hr 11/21/22 22:00 11/23/22 03:47 Chloride IV 125 mcg/hr .Q0M WAYNE 12.5 mls/hr Administration Protocol Per Protocol Dextrose/Sodium Chloride 1,000 mls @ 75 mls/hr 11/22/22 07:30 11/22/22 21:54 Dextrose 5%-Sod Chloride 0.45% IV 75 mls/hr .[id number] WAYNE Administration Insulin Human Lispro 0 unit 11/19/22 12:00 11/22/22 20:19 Insulin Lispro 100 Unit/1 Ml SUBCUT 4 unit WM&BEDTIME WAYNE Administration Protocol Magnesium Hydroxide 30 ml 11/22/22 21:00 11/22/22 20:28 Magnesium Hydroxide 30 Ml Udc PO 30 ml BEDTIME WAYNE Administration Pantoprazole Sodium 40 mg 11/19/22 09:40 11/22/22 09:53 Pantoprazole 40 Mg Sdv IVP 40 mg DAILY WAYNE Administration Rocuronium [place] 70 mg 11/22/22 16:27 11/22/22 17:00 Rocuronium 10 Mg/Ml Inj 5ml IVP 70 mg Q1H PRN Administration ANESTHESIA Saliva Substitute 1 spray 11/22/22 14:48 11/22/22 14:55 Saliva Stimulant [place] 44.3 Ml Btl MUCOUS MEM 1 spray PRN PRN Administration DRY MOUTH PFSH Acute PFSH: Medical History Abnormal weight loss ALS (amyotrophic lateral sclerosis) Anxiety about health Chronic pain of right lower extremity Chronic ulcer of ankle Decreased calculated GFR DVT (deep venous thrombosis) Right lower leg 06/01/2021 Hypertension PVD (peripheral vascular disease) TSH elevation 04/07/2022 TSH 4.7 Weakness of both lower extremities Social History Smoking and tobacco status: current every day smoker Smoking risk assessment/counseling performed?: No Alcohol intake: never Desire information about alcohol rehabilitation?: No Counseling given: No Substance/Drug Use: never Desire information about substance/drug rehabilitation?: No Counseling given: No Current occupational status: disabled Current gender identity: Male Vitals/I&O/Wt Last Vital Signs Temp 98.3 F 11/23/22 03:00 Pulse 71 11/23/22 06:00 Resp 14 11/23/22 04:59 BP 124/65 11/23/22 06:00 Pulse Ox 96 11/23/22 06:00 O2 Del Method Mechanical Ventilation 11/23/22 02:12 O2 Flow Rate 30 11/19/22 19:37 FiO2 30 11/23/22 04:59 11/22/22 11/23/22 11/23/22 22:59 06:59 14:59 Intake Total 3030.297 / 3331.050 882.577 / 4213.627 Output Total 975 / 975 350 / 1325 Balance 2055.297 / 2356.050 532.577 / 2888.627 Weight last 48 hrs Weight 151 lb 4.8 oz Weight 151 lb 1.6 oz Physical Exam Narrative: Patient is intubated and sedated but is slightly arousable. Does seem to understand my questions. Patient wishes to proceed with tracheotomy for consideration of long-term ventilation associated with his ALS and respiratory failure. Patient's neck gives adequate space between the sternal notch and the cricoid cartilage. No sign of swelling or erythema or infection or excessive edema. Urinary Catheter Management: Grier: Cath Placed During This Visit: yes Reason for Continuing Indwelling Catheter: Accurate Measurement of Urinary Output in Critically Ill Patients Urinary Catheter Date of Insertion: 11/18/22 Urinary Catheter Time of Insertion: 15:25 Data 11/23/22 02:34 11/23/22 02:34 Micro: Microbiology 11/20/22 14:45 Gram Stain - Final Sputum - Endotracheal Tube Aspirate Sputum Culture - Preliminary Coag positive Staphylococcus A&P Assessment and plan (1) Amyotrophic lateral sclerosis: Assessment: Amyotrophic lateral sclerosis complicating his respiratory distress and causing respiratory failure. Needs a tracheotomy for long-term ventilatory support. (2) Respiratory failure: Plan Plan: Will expect to proceed with tracheotomy on either Saturday or Saturday of next week the or 27 November. Have consent formed filled out and signed. I will let ICU know as soon as I know when the procedure will be accomplished. Coding Level of Care Code 98740 Diagnoses Amyotrophic lateral sclerosis G12.21 Respiratory failure J96.90
[2022-11-23 07:38] LABS: Glucose Point of Care 156 mg/dL (70-110)
[2022-11-23] MEDS: pantoprazole 40 mg SDV IVP (08:30)
[2022-11-23] MEDS: folic acid 1 mg Tablet PO ×2 (08:30→17:57)
[2022-11-23] MEDS: dexamethasone 10 mg/mL INJ 15 MG IVP (08:31)
[2022-11-23] MEDS: insulin lispro 100 unit/1 mL SUBCUT ×4 (08:31→20:57)
[2022-11-23] MEDS: CLONazepam 0.5 mg Tablet PO (08:31)
[2022-11-23] MEDS: budesonide 0.5 mg/2 mL Neb INHALATION ×2 (08:59→20:18)
[2022-11-23] MEDS: dextrose 5%-sod chloride 0.45% 1,000 ML 75 ML IV (10:30)
--- NOTE | 2022-11-23 10:40 | ECG_ITS ---
[facility] Test Date: 2022-11-23 Pat Name: Gregorio Becker Department: Room: ICU04 Gender: Male Director Of Clinical Services: : 1960 Requested By: Allen Schwab Order Number: [id number] Lena MD: Narciso Sinha M.D. Measurements Intervals [place] Rate: 68 P: 39 [place]: 151 QRS: 19 QRSD: 94 T: 183 QT: 414 QTc: 443 Interpretive Statements SINUS RHYTHM [address] DEVIATION AND MODERATE T-WAVE ABNORMALITY, CONSIDER ANTEROLATERAL ISCHEMIA [-0.1+ mV T-WAVE IN V3-V6] ST DEVIATION AND MODERATE T-WAVE ABNORMALITY, CONSIDER INFERIOR ISCHEMIA [-0.1+ mV T-WAVE IN II/aVF] Compared to ECG 11/22/2022 10:13:53 Ventricular premature complex(es) no longer present T-wave abnormality still present Possible ischemia still present Electronically Signed On 11-23-2022 11:19:51 CDT by Narciso Sinha M.D. [email or web address]
[2022-11-23 11:57] LABS: Glucose Point of Care 168 mg/dL (70-110)
[2022-11-23] MEDS: HYDROcodone-acetaminophen 7.5-325 mg Tablet 1 TAB PO (12:24)
[2022-11-23] MEDS: propofol 1,000 MG/100 ML INJ 8.17 MG IV (13:10)
[2022-11-23 17:28] LABS: Glucose Point of Care 227 mg/dL (70-110)
--- NOTE | 2022-11-23 18:02 | P.PN_ITS ---
Subjective Subjective: Seen multiple times in the day. No acute events overnight. Patient today morning switched over back to pressure support and has been doing well. Continues to remain mildly anxious. No acute events overnight. Has remained hemodynamically stable and afebrile. Today morning on precedex of 0.3, fentanyl of 25. Overnight remained on fentanyl 125 and propofol of 30. NIF study of -11 today. Ventilator settings appreciated of 5 to 30%, PEEP of 5 tidal volume of 400. ABG appreciated. Blood work appreciated for a stable CBC, improving sodium level of 145 with improving LFTs. Today morning seen with son at bedside as well. Document urine output in last 24 hours of around 1300 cc. Vitals/I&O/Wt Last Vital Signs Temp 97.9 F 11/23/22 13:00 Pulse 68 11/23/22 16:00 Resp 16 11/23/22 17:30 BP 134/71 11/23/22 16:00 Pulse Ox 93 11/23/22 17:30 O2 Del Method Mechanical Ventilation 11/23/22 16:00 O2 Flow Rate 30 11/19/22 19:37 FiO2 30 11/23/22 17:30 11/23/22 11/23/22 11/23/22 06:59 14:59 22:59 Intake Total 882.577 / 4213.627 1199.491 / 1199.491 50 / 1249.491 Output Total 350 / 1325 150 / 150 1200 / 1350 Balance 532.577 / 2888.627 1049.491 / 1049.491 -1150 / -100.509 Weight last 48 hrs Weight 68.629 kg Weight 68.538 kg Physical Exam Narrative: General: Intubated, awake on minimal sedation, able to have complete conversati on to nodding of his head. Following commands. HEENT: PERRLA, pupils bilaterally equal and reactive Chest: Normal vesicular breath sounds, decreased air entry in left lower zone, no added sounds CVS: S1-S2 regular, no murmurs, no tachycardia, no gallops, no rubs Abdomen: Soft, nontender, no organomegaly, bowel sounds present Neuro: Intubated, moving all limbs Urinary Catheter Management: Grier: Cath Placed During This Visit: yes Reason for Continuing Indwelling Catheter: Accurate Measurement of Urinary Output in Critically Ill Patients Urinary Catheter Date of Insertion: 11/18/22 Urinary Catheter Time of Insertion: 15:25 Data 11/23/22 02:34 11/23/22 02:34 Micro: Microbiology 11/20/22 14:45 Gram Stain - Final Sputum - Endotracheal Tube Aspirate Sputum Culture - Preliminary Coag positive Staphylococcus A&P Assessment and plan (1) Respiratory failure: (2) DVT (deep venous thrombosis): (3) Amyotrophic lateral sclerosis: (4) Hypokalemia: (5) Hypertension: (6) Hypernatremia: Plan 62 year old male with past medical history of right lower extremity DVT on Xarelto at home, recently diagnosed ALS at [facility], was brought in with chief complaint of progressively worsening shortness of breath. Currently he is being managed for. Assessment: Acute hypoxic respiratory failure : ARDS: Likely progressive worsening of respiratory status slowly progressing towards respiratory failure: In the setting of ALS Failed extubation 11/20. CT chest results appreciated for mild bronchitis. Blood culture, sputum cultures so far negative. Respiratory viral panel, MRSA swab negative. Repeat sputum culture post reintubation. Continue with fentanyl. We will try to switch from propofol to Versed. Sedation vacation again in AM. We will try to keep patient on pressure support for as long as possible during the day and switch over early evening and rest overnight. Continue to repeat NIF study. Change ventilator settings keeping saturation over 90%. Continue with multiple recruitment maneuvers. Keep PEEP at around 6. Appreciate documents from [facility]. For now empirically cover with Zosyn for overall 5 days till 10/23. Daily ABGs, chest x-ray. For concerns of exacerbation of ALS will start on high-dose steroids of 1 mg/kg body weight daily. Solu-Medrol not available in hospital. Continue with dexamethasone to equal of 15 mg daily. Insulin sliding scale. Watch for thrush. Appreciate neurology recommendations. Discussed in detail for possible need of plasmapheresis versus IVIG. Unfortunately given ALS IVIG and plasmapheresis do not help the patient as per neurology recommendations. Monitor potassium and phosphate. Hypernatremia: Most likely is in setting of dehydration. Will increase free water flushes to 250 cc every 4 hour. Repeat sodium level in evening. History of DVT: CTA negative for PE on admission but given failure of respir atory failure worsening overnight switched over to full dose Lovenox. For now we will continue. Hypertension: Goal blood pressure less than 140/90 mmHg with mean over 65. Hold off on Coreg and amlodipine for now. Continue with tube feeds. Appreciate dietitian recommendations. Start Jevity at 10 cc/h, increasing every 4 hours with a goal of 60 cc/h. Free water flush at 120 cc every 4 hours. Protonix for PUD prophylaxis. Full dose Lovenox will suffice as DVT prophylaxis. Plan for the day: Follow-up sputum culture. Continue with Zosyn for now. Continue with daily NIF studies. Repeat BMP in afternoon. For now continue with IV fluids and free water flushes. Patient doing well with tube feeds. Daily sedation vacation and pressure support for as long as possible. We will switch over from Precedex to propofol overnight to let him rest. ENT consulted for tracheostomy. We will plan for PEG tube along with the same. [facility] has been reached out to. Patient's son agreeable to the above plan. Goals of care discussed in detail with patient and patient's son again today. Patient wants to continue to go ahead with tracheostomy and PEG tube. He understands that going forward he might be ventilator dependent for the rest of his life. Discussed the care in detail with patient over the vent. Patient is awake and alert. We discussed that unfortunately it seems that his reason for respiratory failure and failing extubation is because of ALS. Most likely because of decreased compliance of the diaphragm leading for accessory muscle use on extubation leading to increased secretions in the airway. We discussed that we will try to continue to repeat NIF study daily to see any improvement but if none plan will be to go ahead for tracheostomy and PEG tube placement. We discussed with the tracheostomy on ventilator he would need to go [facility] which can take care of patients on tracheostomy and ventilator. Patient verbalized understanding and is agreeable with tracheostomy if and when needed. Discharge planning: Given multiple extubation trials and possible need of tracheostomy with ventilator patient would need prolonged slow weaning of the ventilator. Patient is agreeable for [facility] hospital[facility] if needed. Case management alerted. Attestations Medical Necessity Statement*: Requires further hospitalization for management of respiratory failure in setting of ALS as patient remains ventilator dependent Coding Level of Care Code Critical Care >/= 30 minutes Critical care time (in minutes): 60 The high probability of a clinically significant, sudden or life threatening deterioration, as referenced in this documentation, required my full and direct attention, intervention and personal management. The critical care time shown is in addition to time spent performing any reported separately billable procedures and includes the following: [x] Data and vital sign review and interpretation [x ] Patient assessment, examination and intervention [x] Medication orders and ma nagement [x] Patient/Family updates as able [x] Care Coordination and Documentation. Diagnoses Respiratory failure J96.90 DVT (deep venous thrombosis) I82.409 Amyotrophic lateral sclerosis G12.21 Hypokalemia E87.6 Hypertension I10 Hypernatremia E87.0
[2022-11-23 20:52] LABS: Glucose Point of Care 185 mg/dL (70-110)
[2022-11-23] MEDS: magnesium hydroxide 30 mL UDC PO (20:57)
[2022-11-23] MEDS: propofol 1,000 MG/100 ML INJ 28.58 MG IV (20:58)
[2022-11-23] MEDS: dexmedetomidine 400 MCG in sodium chloride 0.9% (100 ml) 100 ML 5.79 MCG IV (22:01)
[2022-11-24] VITALS (37 sets, daily range): BP systolic 102–152; BP diastolic 59–87; PULSE 48–97; RESP 13–24; TEMP 36.4–37; O2SAT 89–100; BMI 21.7
[2022-11-24] MEDS: dextrose 5%-sod chloride 0.45% 1,000 ML 75 ML IV (00:24)
[2022-11-24] MEDS: propofol 1,000 MG/100 ML INJ 20.41 MG IV ×2 (00:34→05:18)
[2022-11-24] MEDS: chlorhexidine gluconate 4% Btl 118 mL 1 APPLIC TOPICAL (01:10)
[2022-11-24] MEDS: ipratropium-albuterol 3 mL Neb INHALATION ×4 (01:48→19:04)
[2022-11-24 04:35] LABS: Basophils % 0.2 %; Eosinophils # 0.1 10^3/uL (0.0-0.8); Eosinophils % 0.8 %; Hematocrit 34.4 % (42.0-52.0); Hemoglobin 10.5 g/dL (11.7-16.6); Lymphocytes % 15.8 %; Mean Corpuscular HGB Conc 30.5 g/dL (30.0-36.0); Mean Corpuscular Hemoglobin 30.3 pg (28.0-34.0); Mean Corpuscular Volume 99.4 fl (80-94); Mean Platelet Volume 12.5 fL (7.4-10.4); Monocytes # 0.6 10^3/uL (0.2-0.9); Monocytes % 9.3 %; Neutrophils # 4.49 10^3/uL (1.8-7.7); Neutrophils % 71.5 %; Nucleated Red Blood Cells % 0 %; Platelet Count 99 10^3/cmm (130-400); Red Blood Count 3.46 10^6/uL (4.1-5.3); Red Cell Distribution Width 14.5 % (12.1-15.1); White Blood Count 6.3 10^3/uL (4.0-10.0)
[2022-11-24] MEDS: enoxaparin 100 mg/mL Syringe 70 MG SUBCUT ×2 (04:41→15:42)
[2022-11-24 05:00] LABS: Alanine Aminotransferase 210 U/L (0-41); Albumin Level 2.6 g/dL (3.5-5.2); Alkaline Phosphatase 50 U/L (40-130); Anion Gap 11.2 (5-19); Aspartate Amino Transferase 72 U/L (0-40); Blood Urea Nitrogen 16 mg/dL (8-23); Calcium 7.7 mg/dL (8.5-10.5); Carbon Dioxide 27 mmol/L (22-29); Chloride 105 mmol/L (98-107); Globulin 2.3 g/dL (1.3-4.6); Glomerular Filtration Rate 302.8 mL/min (90-130); Glucose 102 mg/dL (65-115); Osmolality Calculated 289 mOsm/kg (285-295); Potassium 4.2 mmol/L (3.5-5.1); Sodium 139 mmol/L (136-145); Total Bilirubin 0.4 mg/dL (0.15-1.2); Total Protein 4.9 g/dL (6.6-8.7)
[2022-11-24 05:01] LABS: Magnesium 2.2 mg/dL (1.7-2.3)
[2022-11-24 05:30] LABS: ABG PCO2 51.3 mmHg (35-45); ABG PH Result 7.38 (7.35-7.45); Alveolar-Arterial Oxygen Gradi 7.4 mmHg (5-10); Arterial Blood Gas Hematocrit 34.5 % (42-52); Base Excess ABG 4.6 mmol/L (-2.0-2.0); Blood Gas Sample Site Brachial, right; Blood Gas Sample Type Arterial; Carboxyhemoglobin 1.2 %THgb (0.4-20.1); HCO3 ABG 30.6 mmol/L (22-26); HGB O2 Sat 96.4 % (95-100); Ionized Calcium Level - ABG 1.1 mmol/L (1.1-1.4); Methemoglobin 0.8 % (0.4-1.5); Oxygen Device VENT; Oxygen Saturation ABG 98.3; PO2 ABG 93.2 mmHg (80.0-100.0); Potassium Level - ABG 4.1 mmol/L (3.5-5.0); Total Hemoglobin 11.2 g/dL (14-18)
[2022-11-24 07:20] LABS: Glucose Point of Care 104 mg/dL (70-110)
[2022-11-24] MEDS: CLONazepam 0.5 mg Tablet PO ×2 (08:28→15:42)
[2022-11-24] MEDS: HYDROcodone-acetaminophen 7.5-325 mg Tablet 1 TAB PO ×2 (08:28→15:42)
[2022-11-24] MEDS: folic acid 1 mg Tablet PO ×2 (08:28→17:46)
[2022-11-24] MEDS: pantoprazole 40 mg SDV IVP (08:30)
[2022-11-24] MEDS: budesonide 0.5 mg/2 mL Neb INHALATION ×2 (08:41→19:04)
[2022-11-24] MEDS: dexamethasone 10 mg/mL INJ 15 MG IVP (09:14)
[2022-11-24] MEDS: vancomycin 1,000 MG in sodium chloride 0.9% 250 ML 250 MG IV ×2 (10:41→17:45)
[2022-11-24 10:57] LABS: Glucose Point of Care 199 mg/dL (70-110)
[2022-11-24] MEDS: insulin lispro 100 unit/1 mL SUBCUT ×2 (11:17→17:46)
--- NOTE | 2022-11-24 17:17 | PM.PN ---
Subjective Subjective: No acute events overnight. Patient has remained hemodynamically stable and afebrile. Today morning again turned over to pressure support. Doing well. Has continued to remain on fentanyl and Precedex drip. At night was on fentanyl and propofol. Documented urine output of around 2100 cc. Vitals/I&O/Wt Last Vital Signs Temp 97.6 F 11/24/22 14:00 Pulse 78 11/24/22 14:00 Resp 22 H 11/24/22 16:59 BP 122/68 11/24/22 14:00 Pulse Ox 95 11/24/22 16:59 O2 Del Method Mechanical Ventilation 11/24/22 14:00 O2 Flow Rate 30 11/19/22 19:37 FiO2 24 11/24/22 16:59 11/24/22 11/24/22 11/24/22 06:59 14:59 22:59 Intake Total 1637.016 / 6355.809 1989.584 / 1989.584 Output Total 250 / 2100 1150 / 1150 Balance 1387.016 / 4255.809 839.584 / 839.584 Weight last 48 hrs Weight 68.629 kg Weight 68.629 kg Physical Exam Narrative: General: Intubated, awake on minimal sedation, able to have complete conversation to nodding of his head. Following commands. HEENT: PERRLA, pupils bilaterally equal and reactive Chest: Normal vesicular breath sounds, decreased air entry in left lower zone, no added sounds CVS: S1-S2 regular, no murmurs, no tachycardia, no gallops, no rubs Abdomen: Soft, nontender, no organomegaly, bowel sounds present Neuro: Intubated, moving all limbs Urinary Catheter Management: Grier: Cath Placed During This Visit: yes Reason for Continuing Indwelling Catheter: Accurate Measurement of Urinary Output in Critically Ill Patients Urinary Catheter Date of Insertion: 11/18/22 Urinary Catheter Time of Insertion: 15:25 Data 11/24/22 04:02 11/24/22 04:02 Micro: Microbiology 11/20/22 14:45 Gram Stain - Final Sputum - Endotracheal Tube Aspirate Sputum Culture - Final Methicillin Resis Staph Aureus 11/18/22 19:54 Blood Culture - Final Blood NO GROWTH AFTER 5 DAYS 11/18/22 19:51 Blood Culture - Final Blood NO GROWTH AFTER 5 DAYS A&P Assessment and plan (1) Respiratory failure: (2) DVT (deep venous thrombosis): (3) Amyotrophic lateral sclerosis: (4) Hypokalemia: (5) Hypertension: (6) Hypernatremia: Plan 62 year old male with past medical history of right lower extremity DVT on Xarelto at home, recently diagnosed ALS at [facility], was brought in with chief complaint of progressively worsening shortness of breath. Currently he is being managed for. Assessment: Acute hypoxic respiratory failure : ARDS: Likely progressive worsening of respiratory status slowly progressing towards respiratory failure: In the setting of ALS Failed extubation 11/20. CT chest results appreciated for mild bronchitis. Blood culture, sputum cultures so far negative. Respiratory viral panel, MRSA swab negative. Repeat sputum culture post reintubation. Continue with fentanyl. We will try to switch from propofol to Versed. Sedation vacation again in AM. We will try to keep patient on pressure support for as long as possible during the day and switch over early evening and rest overnight. Continue to repeat NIF study. Change ventilator settings keeping saturation over 90%. Continue with multiple recruitment maneuvers. Keep PEEP at around 6. Appreciate documents from [facility]. For now empirically cover with Zosyn for overall 5 days till 10/23. Daily ABGs, chest x-ray. For concerns of exacerbation of ALS will start on high-dose steroids of 1 mg/kg body weight daily. Solu-Medrol not available in hospital. Continue with dexamethasone to equal of 15 mg daily. Insulin sliding scale. Watch for thrush. Appreciate neurology recommendations. Discussed in detail for possible need of plasmapheresis versus IVIG. Unfortunately given ALS IVIG and plasmapheresis do not help the patient as per neurology recommendations. Monitor potassium and phosphate. Hypernatremia: Most likely is in setting of dehydration. Will increase free water flushes to 250 cc every 4 hour. Repeat sodium level in evening. History of DVT: CTA negative for PE on admission but given failure of respiratory failure worsening overnight switched over to full dose Lovenox. For now we will continue. Hypertension: Goal blood pressure less than 140/90 mmHg with mean over 65. Hold off on Coreg and amlodipine for now. Continue with tube feeds. Appreciate dietitian recommendations. Start Jevity at 10 cc/h, increasing every 4 hours with a goal of 60 cc/h. Free water flush at 120 cc every 4 hours. Protonix for PUD prophylaxis. Full dose Lovenox will suffice as DVT prophylaxis. Plan for the day: Sputum culture growing MRSA. Will add vancomycin to do a 5-day course. Pneumonia less likely currently. Chest rest. Continue with daily sedation vacation, NIF study. ENT consulted for tracheostomy and PEG tube. Stop IV fluids. Monitor BMP daily. Hypernatremia has resolved. Decrease dose of dexamethasone to 6 mg IV daily. Plan to taper off within next 48 to 72 hours. Patient's son agreeable to the above plan. Goals of care discussed in detail with patient and patient's son again today. Patient wants to continue to go ahead with tracheostomy and PEG tube. He understands that going forward he might be ventilator dependent for the rest of his life. Discussed the care in detail with patient over the vent. Patient is awake and alert. We discussed that unfortunately it seems that his reason for respiratory failure and failing extubation is because of ALS. Most likely because of decreased compliance of the diaphragm leading for accessory muscle use on extubation leading to increased secretions in the airway. We discussed that we will try to continue to repeat NIF study daily to see any improvement but if none plan will be to go ahead for tracheostomy and PEG tube placement. We discussed with the tracheostomy on ventilator he would need to go to [facility] SNF which can take care of patients on tracheostomy and ventilator. Patient verbalized understanding and is agreeable with tracheostomy if and when needed. Discharge planning: Given multiple extubation trials and possible need of tracheostomy with ventilator patient would need prolonged slow weaning of the ventilator. Patient is agreeable for [facility] hospital/[facility] if needed. Case management alerted. Attestations Medical Necessity Statement*: Requires further hospitalization for management of respiratory failure in setting of ALS as patient is awaiting tracheostomy and PEG tube placement. Coding Level of Care Code Critical Care >/= 30 minutes Critical care time (in minutes): 60 The high probability of a clinically significant, sudden or life threatening deterioration, as referenced in this documentation, required my full and direct attention, intervention and personal management. The critical care time shown is in addition to time spent performing any reported separately billable procedures and includes the following: [x] Data and vital sign review and interpretation [x] Patient assessment, examination and intervention [x] Medication orders and management [x] Patient/Family updates as able [x] Care Coordination and Documentation. Diagnoses Respiratory failure J96.90 DVT (deep venous thrombosis) I82.409 Amyotrophic lateral sclerosis G12.21 Hypokalemia E87.6 Hypertension I10 Hypernatremia E87.0
[2022-11-24 17:29] LABS: Glucose Point of Care 176 mg/dL (70-110)
--- NOTE | 2022-11-24 18:08 | PC.NURSE ---
Addendum entered by Azalea Vera RN 11/24/22 18:29: Patient transitioned back to propofol and fentanyl for evening per physicians verbal orders. Original Note: Patient resting in bed throughout shift with frequent turns and is calm and cooperative. Patient remains in soft restraints d/t continued intubation for patients safety. Patient has tolerated fentyl and precedex through out shift with prn NGT meds please see MAR. Patient anxious about getting trach, he is able to write on his board and pain is controlled with prn pain medications. No new wounds or abrasions. TF per physician notes and clarified with physician, running at 60ml/hr with FWF at 250 Q4 hours. No new events or needs, room clean and clutter free, no BM during shift.
[2022-11-24] MEDS: propofol 1,000 MG/100 ML INJ 8.17 MG IV (18:18)
[2022-11-24] MEDS: magnesium hydroxide 30 mL UDC PO (20:52)
[2022-11-24 20:58] LABS: Glucose Point of Care 131 mg/dL (70-110)
[2022-11-25] VITALS (40 sets, daily range): BP systolic 85–173; BP diastolic 45–94; PULSE 50–93; RESP 12–26; TEMP 36.2–37.1; O2SAT 91–96
[2022-11-25] MEDS: propofol 1,000 MG/100 ML INJ 18.37 MG IV (01:16)
[2022-11-25] MEDS: ipratropium-albuterol 3 mL Neb INHALATION ×4 (01:34→19:44)
[2022-11-25] MEDS: vancomycin 1,000 MG in sodium chloride 0.9% 250 ML 250 MG IV ×3 (01:51→17:43)
[2022-11-25] MEDS: enoxaparin 100 mg/mL Syringe 70 MG SUBCUT ×2 (03:18→15:45)
[2022-11-25 03:53] LABS: Basophils % 0.2 %; Eosinophils % 0.3 %; Hematocrit 34.7 % (42.0-52.0); Hemoglobin 10.8 g/dL (11.7-16.6); Lymphocytes # 0.8 10^3/uL (0.8-4.8); Mean Corpuscular HGB Conc 31.1 g/dL (30.0-36.0); Mean Corpuscular Volume 99.7 fl (80-94); Mean Platelet Volume 12.2 fL (7.4-10.4); Monocytes # 0.6 10^3/uL (0.2-0.9); Monocytes % 8.6 %; Neutrophils # 4.86 10^3/uL (1.8-7.7); Neutrophils % 74.7 %; Nucleated Red Blood Cells % 0 %; Platelet Count 88 10^3/cmm (130-400); Red Blood Count 3.48 10^6/uL (4.1-5.3); Red Cell Distribution Width 14.5 % (12.1-15.1); White Blood Count 6.5 10^3/uL (4.0-10.0)
[2022-11-25 04:07] LABS: Alanine Aminotransferase 199 U/L (0-41); Albumin Level 2.8 g/dL (3.5-5.2); Alkaline Phosphatase 51 U/L (40-130); Anion Gap 10.2 (5-19); Aspartate Amino Transferase 63 U/L (0-40); Blood Urea Nitrogen 16 mg/dL (8-23); Calcium 7.9 mg/dL (8.5-10.5); Carbon Dioxide 31 mmol/L (22-29); Chloride 105 mmol/L (98-107); Globulin 2.2 g/dL (1.3-4.6); Glomerular Filtration Rate 217.3 mL/min (90-130); Glucose 118 mg/dL (65-115); Osmolality Calculated 296 mOsm/kg (285-295); Potassium 4.2 mmol/L (3.5-5.1); Sodium 142 mmol/L (136-145); Total Bilirubin 0.4 mg/dL (0.15-1.2)
--- NOTE | 2022-11-25 04:10 | PC.PHAR ---
Vancomycin Trough scheduled for 11/25/22 @0900, please hold 1000 dose until drawn will continue to follow. Thank you, Bethany Yi h
--- NOTE | 2022-11-25 06:00 | XRR_ITS ---
PROCEDURE INFORMATION: Exam: XR Chest Exam date and time: 11/25/2022 4:13 AM Age: 62 years old Clinical indication: Other: Daily port for intubated PT TECHNIQUE: Imaging protocol: Radiologic exam of the chest. Views: 1 view. COMPARISON: CR XR chest 1V portable [id number] 11/23/2022 4:49 AM FINDINGS: Tubes, catheters and devices: ET tube in place in expected position within the trachea. NG or OG tube in place within the stomach. Monitor leads project over the chest. Lungs: Low lung volumes with mild bibasilar atelectasis versus pneumonia. Pleural spaces: No significant costophrenic angle blunting. No pneumothorax. Heart/Mediastinum: Heart size within normal limits given the portable AP technique. Diaphragm: Right hemidiaphragm elevation. Bones/joints: No acute osseous abnormality. XR/XR chest 1V portable [id number] IMPRESSION: Low lung volumes with mild bibasilar atelectasis versus pneumonia.
[2022-11-25 07:54] LABS: Glucose Point of Care 156 mg/dL (70-110)
[2022-11-25] MEDS: budesonide 0.5 mg/2 mL Neb INHALATION ×2 (08:10→19:44)
[2022-11-25] MEDS: pantoprazole 40 mg SDV IVP (08:20)
[2022-11-25] MEDS: CLONazepam 0.5 mg Tablet PO (08:20)
[2022-11-25] MEDS: dexamethasone 10 mg/mL INJ 6 MG IVP (08:20)
[2022-11-25] MEDS: folic acid 1 mg Tablet PO ×2 (08:20→17:43)
[2022-11-25] MEDS: insulin lispro 100 unit/1 mL SUBCUT ×3 (08:20→21:44)
--- NOTE | 2022-11-25 09:14 | PC.NUTR ---
Recommend consideration of Jevity 1.2 goal rate of 60 mls/hr, with fresh water flushes of 120 mls Q4H or per MD discretion. Details in RD assessment.
[2022-11-25] MEDS: dexmedetomidine 400 MCG in sodium chloride 0.9% (100 ml) 100 ML 5.79 MCG IV (09:36)
[2022-11-25] MEDS: citalopram 20 mg Tablet PO (10:07)
[2022-11-25 10:13] LABS: Vancomycin Trough 15.7 ug/mL (10-15)
[2022-11-25 10:17] LABS: Magnesium 2.2 mg/dL (1.7-2.3); Phosphorus 2.2 mg/dL (2.5-4.5)
[2022-11-25 12:10] LABS: Glucose Point of Care 183 mg/dL (70-110)
--- NOTE | 2022-11-25 12:26 | P.PN_ITS ---
Subjective Subjective: Seen multiple times today. Today morning patient again seen on pressure support. Early in the morning while being reported working with physical therapy patient had episode of anxiety after which he started having tachycardia, hypoxia and he was going back to full support ventilation. An hour afterwards patient was turned back to pressure support on Precedex and fentanyl. Overnight patient has remained on fentanyl and propofol. Patient having frequent VPCs and bigeminy on the monitor today. Documented urine output of around 4.2 L/yesterday. Overall patient was net euvolemic yesterday. Fluids stopped yesterday. Blood work appreciated for a stable CBC, sodium level stable at 142, stable creatinine of 0.4, bicarb slightly elevated to 31. Vitals/I&O/Wt Last Vital Signs Temp 97.8 F 11/25/22 08:00 Pulse 85 11/25/22 10:00 Resp 14 11/25/22 11:35 BP 131/89 11/25/22 10:00 Pulse Ox 94 11/25/22 11:35 O2 Del Method Mechanical Ventilation 11/25/22 10:00 O2 Flow Rate 30 11/19/22 19:37 FiO2 30 11/25/22 11:35 11/24/22 11/25/22 11/25/22 22:59 06:59 14:59 Intake Total 1036.449 / 3026.033 1925.458 / 4951.491 277.942 / 277.942 Output Total 1999 / 3150 1075 / 4225 300 / 300 Balance -963.551 / -123.967 850.458 / 726.491 -22.058 / -22.058 Weight last 48 hrs Weight 78.562 kg Weight 68.629 kg Physical Exam Narrative: General: Intubated, awake on minimal sedation, able to have complete conversation to nodding of his head. Following commands. HEENT: PERRLA, pupils bilaterally equal and reactive Chest: Normal vesicular breath sounds, decreased air entry in left lower zone, no added sounds CVS: S1-S2 regular, no murmurs, no tachycardia, no gallops, no rubs Abdomen: Soft, nontender, no organomegaly, bowel sounds present Neuro: Intubated, moving all limbs Urinary Catheter Management: Grier: Cath Placed During This Visit: yes Reason for Continuing Indwelling Catheter: Accurate Measurement of Urinary Output in Critically Ill Patients Urinary Catheter Date of Insertion: 11/18/22 Urinary Catheter Time of Insertion: 15:25 Data 11/25/22 03:18 11/25/22 03:18 Micro: Microbiology 11/20/22 14:45 Gram Stain - Final Sputum - Endotracheal Tube Aspirate Sputum Culture - Final Methicillin Resis Staph Aureus A&P Assessment and plan (1) Respiratory failure: (2) DVT (deep venous thrombosis): (3) Amyotrophic lateral sclerosis: (4) Hypokalemia: (5) Hypertension: (6) Hypernatremia: Plan 62 year old male with past medical history of right lower extremity DVT on Xarelto at home, recently diagnosed ALS at [facility], was brought in with chief complaint of progressively worsening shortness of breath. Currently he is being managed for. Assessment: Acute hypoxic respiratory failure : ARDS: Likely progressive worsening of respiratory status slowly progressing towards respiratory failure: In the setting of ALS Failed extubation 11/20. CT chest results appreciated for mild bronchitis. Blood culture, sputum cultures so far negative. Respiratory viral panel, MRSA swab negative. Repeat sputum culture post reintubation showing MRSA. Continue with fentanyl. While patient is on complete ventilator support will start on propofol otherwise while working with physical therapy and pressure support we will switch from propofol to Precedex. Continue to repeat NIF study. Change ventilator settings keeping saturation over 90%. Continue with multiple recruitment maneuvers. Keep PEEP at around 6. Appreciate documents from [facility]. Given MRSA in sputum culture even though patient does not have any pneumonic patch for now continue with vancomycin to finish a 5-day course to give patient complete support for possible extubation if possible. For concerns of exacerbation of ALS will start on high-dose steroids of 1 mg/kg body weight daily for around 5 days without much improvement. We will turn down dexamethasone to 6 mg IV daily. Insulin sliding scale. Watch for thrush. Appreciate neurology recommendations. Discussed in detail for possible need of plasmapheresis versus IVIG. Unfortunately given ALS IVIG and plasmapheresis do not help the patient as per neurology recommendations. Monitor potassium and phosphate. Hypernatremia: Resolved. Continue with free water flushes at 250 every 4 hours. Patient overall 12 L positive since admission. IV Lasix 20 mg one-time. Repeat BMP in evening. If patient develops contraction alkalosis will give a dose of Diamox. History of DVT: CTA negative for PE on admission but given failure of respiratory failure worsening overnight switched over to full dose Lovenox. For now we will continue. Hypertension: Goal blood pressure less than 140/90 mmHg with mean over 65. Hold off on Coreg and amlodipine for now. Continue with tube feeds. Tolerating tube feeds at goal. Free water flush at 120 cc every 4 hours. Protonix for PUD prophylaxis. Full dose Lovenox will suffice as DVT prophylaxis. Patient's son agreeable to the above plan. Goals of care discussed in detail with patient and patient's son again today. Patient wants to continue to go ahead with tracheostomy and PEG tube. He understands that going forward he might be ventilator dependent for the rest of his life. Discussed the care in detail with patient over the vent. Patient is awake and alert. We discussed that unfortunately it seems that his reason for respiratory failure and failing extubation is because of ALS. Most likely because of decreased compliance of the diaphragm leading for accessory muscle use on extubation leading to increased secretions in the airway. We discussed that we will try to continue to repeat NIF study daily to see any improvement but if none plan will be to go ahead for tracheostomy and PEG tube placement. We discussed with the tracheostomy on ventilator he would need to go to select versus SNF which can take care of patients on tracheostomy and ventilator. Patient verbalized understanding and is agreeable with tracheostomy if and when needed. Discharge planning: Given multiple extubation trials and possible need of tracheostomy with ventilator patient would need prolonged slow weaning of the ventilator. Patient is agreeable for select hospital/LTAC if needed. Case management alerted. Attestations Medical Necessity Statement*: Patient requires further hospitalization for management of respiratory failure in setting of ALS, while he awaits trach and PEG tube placement. Coding Level of Care Code Critical Care >/= 30 minutes Critical care time (in minutes): 60 The high probability of a clinically significant, sudden or life threatening deterioration, as referenced in this documentation, required my full and direct attention, intervention and personal management. The critical care time shown is in addition to time spent performing any reported separately billable procedures and includes the following: [x] Data and vital sign review and interpretation [x ] Patient assessment, examination and intervention [x] Medication orders and management [x] Patient/Family updates as able [x] Care Coordination and Documentation. Diagnoses Respiratory failure J96.90 DVT (deep venous thrombosis) I82.409 Amyotrophic lateral sclerosis G12.21 Hypokalemia E87.6 Hypertension I10 Hypernatremia E87.0
[2022-11-25] MEDS: FUROsemide 10 mg/mL SDV 2mL 20 MG IVP (13:00)
[2022-11-25 17:37] LABS: Glucose Point of Care 137 mg/dL (70-110)
[2022-11-25 19:09] LABS: Anion Gap 13.4 (5-19); Blood Urea Nitrogen 17 mg/dL (8-23); Carbon Dioxide 28 mmol/L (22-29); Chloride 102 mmol/L (98-107); Glomerular Filtration Rate 302.8 mL/min (90-130); Glucose 122 mg/dL (65-115); Osmolality Calculated 291 mOsm/kg (285-295); Potassium 4.4 mmol/L (3.5-5.1); Sodium 139 mmol/L (136-145)
[2022-11-25] MEDS: propofol 1,000 MG/100 ML INJ 8.17 MG IV (19:19)
[2022-11-25] MEDS: donepezil 5 MG Tablet 10 MG PO (21:13)
[2022-11-25] MEDS: magnesium hydroxide 30 mL UDC PO (21:13)
[2022-11-25 21:24] LABS: Glucose Point of Care 144 mg/dL (70-110)
[2022-11-26] VITALS (39 sets, daily range): BP systolic 87–136; BP diastolic 55–79; PULSE 52–79; RESP 14–40; TEMP 37.3–37.6; O2SAT 89–99
[2022-11-26] MEDS: vancomycin 1,000 MG in sodium chloride 0.9% 250 ML 250 MG IV ×3 (01:51→17:51)
[2022-11-26] MEDS: ipratropium-albuterol 3 mL Neb INHALATION ×4 (01:56→19:27)
[2022-11-26] MEDS: enoxaparin 100 mg/mL Syringe 70 MG SUBCUT (03:39)
[2022-11-26] MEDS: chlorhexidine gluconate 4% Btl 118 mL 1 APPLIC TOPICAL (03:40)
[2022-11-26 04:02] LABS: Basophils % 0.3 %; Eosinophils # 0.1 10^3/uL (0.0-0.8); Eosinophils % 1.1 %; Hematocrit 34.9 % (42.0-52.0); Lymphocytes # 0.8 10^3/uL (0.8-4.8); Lymphocytes % 11.8 %; Mean Corpuscular HGB Conc 31.5 g/dL (30.0-36.0); Mean Corpuscular Hemoglobin 30.8 pg (28.0-34.0); Mean Corpuscular Volume 97.8 fl (80-94); Mean Platelet Volume 12.7 fL (7.4-10.4); Monocytes # 0.6 10^3/uL (0.2-0.9); Neutrophils # 4.92 10^3/uL (1.8-7.7); Neutrophils % 76.4 %; Nucleated Red Blood Cells % 0 %; Platelet Count 104 10^3/cmm (130-400); Red Blood Count 3.57 10^6/uL (4.1-5.3); Red Cell Distribution Width 14.4 % (12.1-15.1); White Blood Count 6.4 10^3/uL (4.0-10.0)
[2022-11-26 04:29] LABS: Alanine Aminotransferase 193 U/L (0-41); Albumin Level 2.6 g/dL (3.5-5.2); Alkaline Phosphatase 56 U/L (40-130); Aspartate Amino Transferase 65 U/L (0-40); Blood Urea Nitrogen 21 mg/dL (8-23); Carbon Dioxide 27 mmol/L (22-29); Chloride 101 mmol/L (98-107); Globulin 2.4 g/dL (1.3-4.6); Glomerular Filtration Rate 217.3 mL/min (90-130); Glucose 163 mg/dL (65-115); Osmolality Calculated 291 mOsm/kg (285-295); Sodium 137 mmol/L (136-145); Total Bilirubin 0.4 mg/dL (0.15-1.2)
[2022-11-26 04:44] LABS: Anion Gap 12.9 (5-19); Potassium 3.9 mmol/L (3.5-5.1)
[2022-11-26 05:40] LABS: ABG PCO2 43.8 mmHg (35-45); ABG PH Result 7.49 (7.35-7.45); Alveolar-Arterial Oxygen Gradi 10.3 mmHg (5-10); Arterial Blood Gas Hematocrit 34.4 % (42-52); Base Excess ABG 9.2 mmol/L (-2.0-2.0); Blood Gas Allen Test Pos; Blood Gas Operator Identificat JB; Blood Gas Sample Site Radial, right; Blood Gas Sample Type Arterial; Blood Gas Tidal Volume 0.45; Carboxyhemoglobin 1.4 %THgb (0.4-20.1); HCO3 ABG 33.6 mmol/L (22-26); HGB O2 Sat 95.5 % (95-100); Ionized Calcium Level - ABG 1.1 mmol/L (1.1-1.4); Methemoglobin 0.7 % (0.4-1.5); Oxygen Device VENT; Oxygen Saturation ABG 97.6; PO2 ABG 78.2 mmHg (80.0-100.0); Potassium Level - ABG 3.9 mmol/L (3.5-5.0); Total Hemoglobin 11.2 g/dL (14-18)
[2022-11-26] MEDS: propofol 1,000 MG/100 ML INJ 12.25 MG IV (05:50)
[2022-11-26 07:08] LABS: Glucose Point of Care 115 mg/dL (70-110)
[2022-11-26] MEDS: dexmedetomidine 400 MCG in sodium chloride 0.9% (100 ml) 100 ML 5.79 MCG IV (07:39)
[2022-11-26] MEDS: budesonide 0.5 mg/2 mL Neb INHALATION ×2 (08:12→19:27)
[2022-11-26] MEDS: citalopram 20 mg Tablet PO (08:15)
[2022-11-26] MEDS: dexamethasone 10 mg/mL INJ 6 MG IVP (08:15)
[2022-11-26] MEDS: folic acid 1 mg Tablet PO ×2 (08:15→17:57)
[2022-11-26] MEDS: pantoprazole 40 mg SDV IVP (08:16)
[2022-11-26 09:12] LABS: Troponin T (5th) Once 60 ng/L (0-15)
[2022-11-26 11:11] LABS: Glucose Point of Care 181 mg/dL (70-110)
[2022-11-26] MEDS: insulin lispro 100 unit/1 mL SUBCUT (11:51)
--- NOTE | 2022-11-26 13:19 | P.PN_ITS ---
Subjective Subjective: He is awake and nods answers with his head. This morning was a bit more dyspneic, saturation was down, was found have some mucous plugging which was cleared by bedside suctioning. At that time also had some sharper left upper chest pain. About 2/10. Currently improved /. Reproduced on palpation of the left upper mid clavicular chest. Vitals/I&O/Wt Last Vital Signs Temp 99.1 F 11/26/22 11:20 Pulse 56 L 11/26/22 12:00 Resp 15 11/26/22 11:50 BP 109/65 11/26/22 12:00 Pulse Ox 95 11/26/22 12:00 O2 Del Method Mechanical Ventilation 11/26/22 11:20 O2 Flow Rate 30 11/19/22 19:37 FiO2 30 11/26/22 11:50 11/25/22 11/26/22 11/26/22 22:59 06:59 14:59 Intake Total 1759.027 / 2036.969 1213.723 / 3250.692 250 / 250 Output Total 1000 / 3450 335 / 335 Balance 1759.027 / -413.031 213.723 / -199.308 -85 / -85 Weight last 48 hrs Weight 74.843 kg Weight 78.562 kg Physical Exam Const: COMMON NORMALS: alert GENERAL APPEARANCE: cooperative and patient mechanically ventilated ORIENTATION/CONSCIOUSNESS: Yes awake HENMT: COMMON NORMALS: oropharynx normal Neck/C-Spine: COMMON NORMALS: no JVD Chest: OTHER: Min tender L upper mid-clav chest wall Resp: COMMON NORMALS: normal respiratory effort and clear to auscultation bilaterally AUSCULTATION: clear to auscultation bilaterally OTHER: Min crackle Cardio: COMMON NORMALS: no JVD, regular rhythm, S1 normal heart sound present, S2 normal heart sound present and No murmurs present (Cardio) RHYTHM: regular rhythm HEART SOUNDS: S1 normal heart sound present and S2 normal heart sound present GI: COMMON NORMALS: Normal to inspection, nondistended, normoactive bowel sounds present, Soft to palpation and non-tender PALPATION: Yes Soft to palpation Extremity: COMMON NORMALS: no joint enlargement and no pedal edema Neuro: COMMON NORMALS: moves all extremities SENSORIUM/ORIENTATION: Yes alert Skin: COMMON NORMALS: no rashes or lesions noted GENERAL SKIN EXAM: no rashes or lesions noted Urinary Catheter Management: Grier: Cath Placed During This Visit: yes Reason for Continuing Indwelling Catheter: Accurate Measurement of Urinary Output in Critically Ill Patients Urinary Catheter Date of Insertion: 11/18/22 Urinary Catheter Time of Insertion: 15:25 Data 11/26/22 03:00 11/26/22 03:00 A&P Assessment and plan (1) Respiratory failure: (2) DVT (deep venous thrombosis): (3) Amyotrophic lateral sclerosis: (4) Hypokalemia: (5) Hypertension: (6) Hypernatremia: Plan 62 year old male with past medical history of right lower extremity DVT on Xarelto at home, recently diagnosed ALS at [facility], was brought in with chief complaint of progressively worsening shortness of breath. Currently he is being managed for. Assessment: Acute hypoxic respiratory failure : ARDS: Likely progressive worsening of respiratory status slowly progressing towards respiratory failure: In the setting of ALS Failed extubation 11/20. Continue mechanical ventilatory support. Noted to on FiO2 30%. ABG noted. Tracheostomy has been discussed with him with consideration of tracheostomy here versus at LTAC. Discussed with case management, they will find out regarding status on LTAC. Discussed with ENT, potentially could have tracheostomy tomorrow, but depending on whether able to proceed to LTAC afterward. Reaching out to case management again to confirm. Chest pain: Repeat troponin noted without might change from prior. Moderate abnormality. Improved. Reproducible palpation, suspect musculoskeletal, with some mucous plugging. Discussed with him to let us know in case of changes, he will. CT chest results appreciated for mild bronchitis. Blood culture, sputum cultures so far negative. Respiratory viral panel, MRSA swab negative. Repeat sputum culture post reintubation showing MRSA. Continue vancomycin. Fentanyl as needed. Precedex has been on since 11/20 will need to be weaned slowly. Continue to repeat NIF study. Stop Decadron. Insulin sliding scale. Watch for thrush. Appreciate neurology recommendations. Monitor potassium and phosphate. Hypernatremia: Resolved. Continue with free water flushes at 250 every 4 hours. History of DVT: On therapeutic Lovenox. Assess lower extremity duplex. CTA negative for PE on admission Hypertension: Goal blood pressure less than 140/90 mmHg with mean over 65. Hold off on Coreg and amlodipine for now. Continue with tube feeds. Tolerating tube feeds at goal. Free water flush at 120 cc every 4 hours. Protonix for PUD prophylaxis. Full dose Lovenox will suffice as DVT prophylaxis. Attestations Medical Necessity Statement*: Continue admission for assessment management of recurrent respiratory failure with ALS, requiring mechanical ventilatory support, post discharge planning and arrangements for tracheostomy, PEG. Coding Level of Care Code Critical Care >/= 30 minutes Critical care time (in minutes): 35 The high probability of a clinically significant, sudden or life threatening deterioration, as referenced in this documentation, required my full and direct attention, intervention and personal management. The critical care time shown is in addition to time spent performing any reported separately billable procedures and includes the following: [x] Data and vital sign review and interpretation [x ] Patient assessment, examination and intervention [x] Medication orders and management [x] Patient/Family updates as able [x] Care Coordination and Documentation. Diagnoses Respiratory failure J96.90 DVT (deep venous thrombosis) I82.409 Amyotrophic lateral sclerosis G12.21 Hypokalemia E87.6 Hypertension I10 Hypernatremia E87.0
--- NOTE | 2022-11-26 13:56 | USCV_ITS ---
Gregorio Becker Age: 62 Gender: M : 1960 Exam Date: 11/26/2022 15:44 Ordering Phys: Nestor Reina MD Technologist: Carlos Giles [place] [facility] [place]: ? DVT PROCEDURES: The venous duplex Doppler examination of both lower extremities was performed in the standard fashion. The following venous structures were evaluated: common femoral vein, profunda vein, proximal portion of the greater saphenous vein, superficial femoral vein, and the popliteal vein. In addition, the posterior tibial and peroneal trunk were evaluated. FINDINGS: THERE IS OCCLUDING DVT IN THE RT FEMORAL VEIN AND NON OCCLUDING DVT IN RT POP. THE LT LEG IS NORMAL CONCLUSIONS Acute appearing occluding DVT Right femoral vein Non occlusive DVT Right popliteal vein. No evidence of left lower extremity DVT. Message left for Dr. Stevens at 1643, 11/26/22 Familia Whittington MD (Electronically Signed) Final Date: 26 November 2022 16:46 S
[2022-11-26] MEDS: ondansetron 2 mg/ML SDV 2 mL 4 MG IVP (15:10)
[2022-11-26] MEDS: heparin drip 25,000 UNIT/500 ML PREMIX 20.96 UNIT IV (16:54)
[2022-11-26] MEDS: dexmedetomidine 400 MCG in sodium chloride 0.9% (100 ml) 100 ML 11.58 MCG IV (17:06)
[2022-11-26 17:08] LABS: Glucose Point of Care 141 mg/dL (70-110)
--- NOTE | 2022-11-26 18:22 | PC.NURSE ---
SHift SUmmary: Uneventful shift. Patient rested in bed throughout the day. frequently turned. Sedation turned off throughout the of day. Has been on 25mcg and 0.6 of precedex. Patient has remained calm and cooperative despite being fully aware of breathing tube and awake. Presence of endotrcheal tube is a little irritating to him but tolerable and he has not attempted to remove the tube. Unable to talk due to the vent but he will communicate through writing. He is alert, oriented to person, place, time, and situation. DVT to right leg, femoral to popliteal, has been identified on ultrasound today, unsure if this is a new or old one, started on a heparin drip with no boluses. Waiting on Dr mcneil to round for possible tracheostomy, tube feeds have been turned off for over 12 hours as of now.
[2022-11-26 20:16] LABS: Glucose Point of Care 106 mg/dL (70-110)
[2022-11-26] MEDS: donepezil 5 MG Tablet 10 MG PO (20:36)
[2022-11-26] MEDS: magnesium hydroxide 30 mL UDC PO (20:36)
[2022-11-26] MEDS: propofol 1,000 MG/100 ML INJ 8.17 MG IV (20:38)
[2022-11-27] VITALS (62 sets, daily range): BP systolic 93–153; BP diastolic 52–78; PULSE 53–97; RESP 14–19; TEMP 37–37.3; O2SAT 89–100
[2022-11-27 00:42] LABS: Basophils % 0.1 %; Eosinophils # 0.1 10^3/uL (0.0-0.8); Eosinophils % 0.8 %; Lymphocytes # 0.7 10^3/uL (0.8-4.8); Lymphocytes % 9.7 %; Mean Corpuscular HGB Conc 32.4 g/dL (30.0-36.0); Mean Corpuscular Hemoglobin 31.3 pg (28.0-34.0); Mean Corpuscular Volume 96.6 fl (80-94); Mean Platelet Volume 12.2 fL (7.4-10.4); Monocytes # 0.7 10^3/uL (0.2-0.9); Monocytes % 9.1 %; Neutrophils # 5.89 10^3/uL (1.8-7.7); Nucleated Red Blood Cells % 0 %; Platelet Count 105 10^3/cmm (130-400); Red Blood Count 3.52 10^6/uL (4.1-5.3); Red Cell Distribution Width 14.5 % (12.1-15.1); White Blood Count 7.5 10^3/uL (4.0-10.0)
[2022-11-27 00:57] LABS: Partial Thromboplastin Time 40.3 SECONDS (23.9-36.7)
[2022-11-27] MEDS: ipratropium-albuterol 3 mL Neb INHALATION ×4 (01:14→20:01)
[2022-11-27 01:17] LABS: Alanine Aminotransferase 184 U/L (0-41); Albumin Level 2.7 g/dL (3.5-5.2); Alkaline Phosphatase 55 U/L (40-130); Anion Gap 13.2 (5-19); Aspartate Amino Transferase 59 U/L (0-40); Blood Urea Nitrogen 18 mg/dL (8-23); Calcium 8.2 mg/dL (8.5-10.5); Carbon Dioxide 29 mmol/L (22-29); Chloride 102 mmol/L (98-107); Globulin 2.4 g/dL (1.3-4.6); Glomerular Filtration Rate 217.3 mL/min (90-130); Glucose 75 mg/dL (65-115); Osmolality Calculated 291 mOsm/kg (285-295); Potassium 4.2 mmol/L (3.5-5.1); Sodium 140 mmol/L (136-145); Total Bilirubin 0.6 mg/dL (0.15-1.2); Total Protein 5.1 g/dL (6.6-8.7)
[2022-11-27] MEDS: vancomycin 1,000 MG in sodium chloride 0.9% 250 ML 250 MG IV ×3 (02:11→23:08)
[2022-11-27] MEDS: propofol 1,000 MG/100 ML INJ 20.41 MG IV ×2 (03:18→07:46)
--- NOTE | 2022-11-27 06:00 | XR_ITS ---
WS: [id number] EXAMINATION: XR chest 1V portable [id number] REASON FOR EXAM: Intubated COMPARISON: None available. ORDER DATE: 11/27/2022 5:05 AM TECHNIQUE: A single, portable frontal chest x-ray was obtained. X-RAY FINDINGS: ET tube in place in expected position within the trachea. NG or OG tube in place within the stomach. Monitor leads project over the chest. Lungs: Low lung volumes with increasing bibasilar atelectasis/infiltrate and possible effusion on the left. No pneumothorax. Heart/Mediastinum: Heart size within normal limits given the portable AP technique. Diaphragm: Right hemidiaphragm elevation. Bones/joints: No acute osseous abnormality. XR/XR chest 1V portable [id number] IMPRESSION: increasing basilar changes since previous study.
[2022-11-27 06:47] LABS: Partial Thromboplastin Time 48.5 SECONDS (23.9-36.7)
[2022-11-27 07:39] LABS: Glucose Point of Care 96 mg/dL (70-110)
[2022-11-27] MEDS: budesonide 0.5 mg/2 mL Neb INHALATION ×2 (08:25→20:01)
[2022-11-27 09:26] LABS: Vancomycin Trough 18.7 ug/mL (10-15)
[2022-11-27] MEDS: folic acid 1 mg Tablet PO ×2 (09:48→18:11)
[2022-11-27] MEDS: pantoprazole 40 mg SDV IVP (09:48)
[2022-11-27] MEDS: citalopram 20 mg Tablet PO (09:48)
[2022-11-27 12:14] LABS: Partial Thromboplastin Time 23.9 SECONDS (23.9-36.7)
[2022-11-27 12:37] LABS: Glucose Point of Care 129 mg/dL (70-110)
--- NOTE | 2022-11-27 13:30 | PC.NURSE ---
Delay administering Vancymoycin due to no IV access. waiting on midline placement. Vancomycin not compatible with sedative medications required for ventilation.
--- NOTE | 2022-11-27 14:10 | ANES.PREANE2 ---
Pre-Anesthetic Assessment Height/Weight: Height 1.78 m Weight 74.389 kg Temp Pulse Resp BP Pulse Ox O2 Del Method O2 Flow Rate 98.6 F 68 17 126/68 97 Mechanical Ventilation 30 11/27/22 08:00 11/27/22 13:49 11/27/22 13:47 11/27/22 10:00 11/27/22 13:47 11/27/22 13:35 11/27/22 13:35 FiO2 30 11/27/22 13:47 Operation Date: 11/27/22 14:20 Proposed Procedures p Tracheostomy(Not Applicable) - Tree Stockton MD Familial anesthetic complications: none Was Beta Sam taken within 24 hours: Yes Was Clonidine taken within 24 hours: N/A Social No alcohol and No tobacco Exam alert, oriented x 3 and regular rate & rhythm Intubated/sedated (lightly) Airway Comments: Comments: ETT Pulmonary ARF CV/HEM Deep Vein Thrombosis, Hypertension and Peripheral Vascular Disease Neuropsych ALS Anesthetic Plan ASA status: 4 Anesthesia: General Medications/Allergies Home Medications Medication Instructions Recorded Confirmed Last Taken Type rivaroxaban 20 mg tablet (Xarelto) 20 mg PO DAILY ankle blood clot 08/23/22 11/18/22 Unknown Rx #30 tabs triamterene 37.5 1 tab PO QAM blood pressure and 08/23/22 11/18/22 11/02/22 07:00 Rx mg-hydrochlorothiazide 25 mg tablet edema #30 tabs hydrocodone 7.5 mg-acetaminophen 1 tab PO DAILY PRN pain 30 days 10/24/22 11/18/22 Unknown Rx 325 mg tablet #90 tabs amlodipine 10 mg tablet 10 mg PO QAM high blood pressure 11/02/22 11/18/22 11/02/22 07:00 History clotrimazole-betamethasone 1 1 applic topical BID PRN psoriasis 11/02/22 11/18/22 Unknown History %-0.05 % topical cream hydrocodone 7.5 mg-acetaminophen 1 tab PO TID PRN Pain 11/02/22 11/18/22 Unknown History 325 mg tablet naproxen 500 mg tablet 500 mg PO BID PRN Pain 11/02/22 11/18/22 Unknown History phosphorated carbohydrate oral 15 - 30 ml PO Q15M PRN stomach 11/02/22 11/18/22 11/01/22 History solution (Emetrol oral solution) muscle contractions bedside #1 ea 11/08/22 11/18/22 Unknown Rx clonazepam 0.5 mg tablet 0.25 mg PO Q12H PRN Anxiety 11/14/22 11/18/22 Unknown History acetaminophen 325 mg tablet 325 - 650 mg PO Q6H PRN Pain 11/18/22 11/18/22 Unknown History (Tylenol) bisacodyl 5 mg tablet 10 mg PO DAILY PRN Constipation 11/18/22 11/18/22 Unknown History carvedilol 6.25 mg tablet 6.25 mg PO BID 11/18/22 11/18/22 Unknown History thiamine HCl (vitamin B1) 100 mg 100 mg PO DAILY 11/18/22 11/18/22 Unknown History tablet (Vitamin B-1) Allergies Allergy/AdvReac Type Severity Reaction Status Date / Time sulfamethoxazole Allergy Severe ALGY-Swell Verified 11/18/22 15:08 [From Bactrim] Lip/Tongue/Throat trimethoprim [From Bactrim] Allergy Severe ALGY-Swell Verified 11/18/22 15:08 Lip/Tongue/Throat gabapentin Allergy Unknown Verified 11/18/22 15:08 Current Medications Generic Name Dose Route Start Last Admin Trade Name Freq PRN Reason Stop Dose Admin Hydrocodone Bitart/Acetaminophen 1 tab 11/20/22 15:00 11/24/22 15:42 Hydrocodone-Acetaminophen 7.5-325 Mg Tablet PO 1 tab TID PRN Administration MODERATE Pain Albuterol/Ipratropium 3 ml 11/19/22 08:00 11/27/22 13:43 Ipratropium-Albuterol 3 Ml Neb INHALATION 3 ml Q6H.RESP WAYNE Administration Budesonide 0.5 mg 11/19/22 18:00 11/27/22 08:25 Budesonide 0.5 Mg/2 Ml Neb INHALATION 0.5 mg BID WAYNE Administration Chlorhexidine Gluconate 1 applic 11/20/22 00:00 11/27/22 00:41 Chlorhexidine Gluconate 4% Btl 118 Ml TOPICAL Not Given Q24H WAYNE Citalopram Hydrobromide 20 mg 11/25/22 10:00 11/27/22 09:48 Citalopram 20 Mg Tablet PO 20 mg DAILY WAYNE Administration Clonazepam 0.5 mg 11/22/22 14:01 11/25/22 08:20 Clonazepam 0.5 Mg Tablet PO 0.5 mg TID PRN Administration ANXIETY Donepezil HCl 10 mg 11/25/22 21:00 11/26/22 20:36 Donepezil 5 Mg Tablet PO 10 mg BEDTIME WAYNE Administration Enoxaparin Sodium 70 mg 11/19/22 03:30 11/26/22 15:21 Enoxaparin 100 Mg/Ml Syringe 1 mg/kg (70 mg) Not Given SUBCUT Q12H WAYNE Folic Acid 1 mg 11/20/22 18:00 11/27/22 09:48 Folic Acid 1 Mg Tablet PO 1 mg BID WAYNE Administration Propofol 1,000 mg in 100 mls @ 0 mls/hr 11/18/22 15:15 11/27/22 12:38 Diprivan IV 40 mcg/kg/min .Q0M WAYNE 16.33 mls/hr Titration Protocol Per Protocol Norepinephrine Bitartrate 4 mg 254 mls @ 0 mls/hr 11/18/22 20:00 11/21/22 19:00 / Dextrose IV Infused .Q0M WAYNE Titration Protocol Per Protocol Dexmedetomidine HCl 400 mcg/ 104 mls @ 0 mls/hr 11/20/22 09:30 11/27/22 09:35 Sodium Chloride IV 0.4 mcg/kg/hr .Q0M WAYNE 7.72 mls/hr Titration Protocol Per Protocol Fentanyl 2,500 mcg/ Sodium 250 mls @ 0 mls/hr 11/21/22 22:00 11/27/22 03:38 Chloride IV 50 mcg/hr .Q0M WAYNE 5 mls/hr Titration Protocol Per Protocol Vancomycin HCl 1,000 mg/ 250 mls @ 250 mls/hr 11/24/22 10:00 11/27/22 03:18 Sodium Chloride IV Infused Q8H WAYNE Infusion Protocol Heparin Sodium/Sodium Chloride 25,000 unit in 500 mls @ 0 mls/hr 11/26/22 16:00 11/27/22 08:35 Heparin Drip IV 0 unit/kg/hr .Q0M WAYNE 0 mls/hr Titration Protocol Per Protocol Insulin Human Lispro 0 unit 11/19/22 12:00 11/27/22 12:37 Insulin Lispro 100 Unit/1 Ml SUBCUT Not Given WM&BEDTIME WAYNE Protocol Magnesium Hydroxide 30 ml 11/22/22 21:00 11/26/22 20:36 Magnesium Hydroxide 30 Ml Udc PO 30 ml BEDTIME WAYNE Administration Ondansetron HCl 4 mg 11/18/22 18:35 11/26/22 15:10 Ondansetron 2 Mg/Ml Sdv 2 Ml IVP 4 mg Q8H PRN Administration vomiting, or N/V if npo Pantoprazole Sodium 40 mg 11/19/22 09:40 11/27/22 09:48 Pantoprazole 40 Mg Sdv IVP 40 mg DAILY WAYNE Administration Saliva Substitute 1 spray 11/22/22 14:48 11/24/22 20:52 Saliva Stimulant [place] 44.3 Ml Btl MUCOUS MEM 1 spray PRN PRN Administration DRY MOUTH PFSH Anesthesia Medical History Abnormal weight loss ALS (amyotrophic lateral sclerosis) Anxiety about health Chronic pain of right lower extremity Chronic ulcer of ankle Decreased calculated GFR DVT (deep venous thrombosis) Right lower leg 06/01/2021 Hypertension PVD (peripheral vascular disease) TSH elevation 04/07/2022 TSH 4.7 Weakness of both lower extremities Social History Smoking and tobacco status: current every day smoker Smoking risk assessment/counseling performed?: No Alcohol intake: never Desire information about alcohol rehabilitation?: No Counseling given: No Substance/Drug Use: never Desire information about substance/drug rehabilitation?: No Counseling given: No Current occupational status: disabled Current gender identity: Male Data Anesthesia 11/27/22 00:27 11/27/22 00:27 Short CBC 11/26/22 11/27/22 Range/Units 03:00 00:27 WBC 6.4 7.5 (4.0-10.0) 10^3/uL Hgb 11.0 L 11.0 L (11.7-16.6) g/dL Hct 34.9 L 34.0 L (42.0-52.0) % MCV 97.8 H 96.6 H (80-94) fl Plt Count 104 L 105 L (130-400) 10^3/cmm Neut % (Auto) 76.4 79.0 % Neut # (Auto) 4.92 5.89 (1.8-7.7) 10^3/uL BMP 11/25/22 11/26/22 11/27/22 18:27 03:00 00:27 Sodium 139 137 140 Potassium 4.4 3.9 4.2 Chloride 102 101 102 Carbon Dioxide 28 27 29 BUN 17 21 18 Creatinine 0.3 L 0.4 L 0.4 L Glucose 122 H 163 H 75 Calcium 8.0 L 8.0 L 8.2 L Cardiac Enzymes 11/26/22 Range/Units 03:00 Troponin T Gen 5 ng/L 60 H (0-15) ng/L Liver Function 11/26/22 11/27/22 Range/Units 03:00 00:27 Total Bilirubin 0.4 0.6 (0.15-1.2) mg/dL AST 65 H 59 H (0-40) U/L ALT 193 H 184 H (0-41) U/L Alkaline Phosphatase 56 55 (40-130) U/L Albumin 2.6 L 2.7 L (3.5-5.2) g/dL Coags 11/27/22 11/27/22 11/27/22 00:27 06:25 11:55 APTT 40.3 H 48.5 H 23.9 D ABG 11/26/22 03:26 Specimen Type Arterial Sample Site Radial, right ABG pH 7.49 H ABG pCO2 43.8 ABG pO2 78.2 L ABG HCO3 33.6 H ABG O2 Saturation 97.6 ABG Base Excess 9.2 H A-a O2 Gradient 10.3 H O2 Delivery Device Vent FiO2 30.0 Tidal Volume 0.45 PEEP 5.0 Cardiac Studies: Echocardiogram 11/19/22
--- NOTE | 2022-11-27 14:47 | W.PM.OPSUD ---
Surgery/Procedure H&P Update DATE OF PROCEDURE: November 27, 2022 DATE H&P PERFORMED: 11/23/22 H&P UPDATE INFORMATION: I have reviewed H&P completed within last 30 days, I have examined patient prior to procedure and No changes to prior documentation CHANGES TO PREVIOUS DOCUMENTATION: No changes PRIMARY INDICATION FOR PROCEDURE: Respiratory failure with ALS and need for long-term tracheotomy support PLANNED PROCEDURE: Operation Date: 11/27/22 14:20 Proposed Procedures p Tracheostomy(Not Applicable) - Tree Stockton MD
[2022-11-27] MEDS: lidocaine-epi 2% 1.7mL Cartridge (OR Only) 3.4 ML XX (15:00)
--- NOTE | 2022-11-27 15:29 | PM.OP ---
Operative Report Date of procedure: November 27, 2022 Pre-op diagnosis: Respiratory failure with ALS and need for long-term tracheotomy. Post-op diagnosis: Same Post-op findings: Same Procedure done: Tracheotomy with placement of 8 Shiley single cannula trach tube Implants: 8 Shiley single cannula trach tube Specimens removed/disposition: No specimen removed Pathology: Nothing for pathology Surgeon: Tree Stockton MD Anesthesia: General and Local Estimated blood loss: 5 mL Complications: No complications encountered Findings: Patient with need of long-term ventilatory support with respiratory failure and ALS. Brief History: 62-year-old male patient who has been in ICU with intubation and failure to try and wean off ventilation. As result it was requested that a tracheotomy be placed. He is being brought to the operating room at this time to undergo tracheotomy under combined general and local anesthesia. Procedure risks and complications explained and understood and informed consent granted and witnessed. Procedure: Description of procedure: The patient was placed on the operating table in the supine position. Adequate general endotracheal tube anesthesia was obtained. The patient's neck was extended to expose the supra sternal notch and trachea and larynx appropriately. The area was cleansed with alcohol. The area overlying the second and third tracheal rings were infiltrated with local utilizing a total of 3.4 mL of 2% Xylocaine with 1-100,000 epinephrine. The patient was then prepped and draped in usual fashion. A timeout was accomplished identifying the patient date of plan procedure allergies fire risk and medications given. With all in agreement the procedure continued. A marking pen was then used to outline the anatomy including the sternal notch the laryngeal notch and and the midline. Then in the line that was previously infiltrated with local the cut mode of the Bovie was used to incise through the skin down to the subcutaneous fat. This was done in a horizontal direction. Then some of the fat in that location was excised to give better access and not have redundancy of soft tissue around the trach. Approximately 1-1/2 cm? of fat was excised. Hemostasis was attained with cautery. Dissection was carried down in the midline through the trachea. The trachea was spared except for the perichondrium. The cricoid was identified palpated and then the palpation was carried down to the second and third tracheal ring. It is in this space that the incision was planned to be made. A trach hook was placed in the gap between the first and second rings. Then an 11 blade was used to incise through the trachea and the lateral aspect of the tracheal rings. No flap was created. The endotracheal tube was withdrawn the area was suctioned and the new Shiley 8 Setswana cuffed single cannula tube was inserted. The obturator was removed and the cuff was inflated with 8 mL of air. Then the faceplate of the trach tube was sutured to the neck in for positions each 2 on each side. Then the [place] was placed and tightened to the appropriate level with 1 finger breath between the neck and the [place]. There was no active bleeding. Estimated blood loss was 5 mL or less. Patient was returned to anesthesia for wake-up and transport back to ICU.
--- NOTE | 2022-11-27 16:36 | PC.NURSE ---
Patient was taken of funit by surgery staff at approximately 1445. Nurse called patient's son to advise he left for surgery.
--- NOTE | 2022-11-27 16:37 | PC.NURSE ---
Patient returned from surgery at 1541. Awake, alert, difficult to communicate due to condition but it appears as through he is oriented to situation. SHakes head and mouth no when asked if he is in pain. Nurse restarted precedex and patient is resting comfortably. Vitals within normal limits (HR: 69, Temp: 99.1, RR: 16, BP: 122/69). Dr mcneil not at bedside at this time. Patient's trach does not come with an inner cannula, patient was educated on the need for nursing staff to frequently suction to keep clear of secretions because of this. Dr mcneil not at bedside at this time. NUrse attempted to call patient's son to update him but there was no answer.
--- NOTE | 2022-11-27 16:46 | PC.NURSE ---
REstraints removed from patient. Now that endotracheal tube has been removed post tracheotomy, he is no longer requiring fentanyl, or propofol, and is is less confused and more alert. Patient is calm and cooperative on low dose precedex. Not attempting to pull at lines. Restraints not indicated at this time. Nurse will continue to monitor and reassess need for restraints or starting sedation if patient becomes anxious/agitated and is at risk of compromising airway.
[2022-11-27] MEDS: ondansetron 2 mg/ML SDV 2 mL 4 MG IVP (17:12)
[2022-11-27 17:14] LABS: Glucose Point of Care 136 mg/dL (70-110)
--- NOTE | 2022-11-27 17:15 | ANE.PACU2 ---
Inpatient post-anesthesia follow up: Airway intact: Yes Vital signs: Temperature 99.1 F Pulse Rate 65 Respiratory Rate 16 Blood Pressure 122/69 Pulse Oximetry 97 Oxygen Delivery Me thod Mechanical Ventila tion Oxygen Flow Rate 30 Fraction of Inspir ed Oxygen 30 Hydration adequate: Yes Nausea and vomiting: No Pain level: 2 Mental status: Baseline Additional Comments: Transported back to ICU with trach/sedated
--- NOTE | 2022-11-27 17:42 | P.CONIM_ITS ---
Providers/Reason For Consult Consulting Physician/Specialty*: Dr. Zheng Dunn, DO/General surgery Reason for Consult*: Request PEG tube insertion Attending Physician: Nestor Reina Primary Care Provider: Yvan Cervantes MD History of Present Illness History of Present Illness Gregorio Becker is a 62 year old male with ALS and recent DVT currently in the hospital with respiratory failure. He just got a tracheostomy tube. Medicine has requested PEG tube insertion. Patient is unable to speak secondary to fresh trach and ALS. HPI and review of systems are limited secondary to this Review of Systems General: Reports: ROS unobtainable due to medical condition Medications/Allergies Home Medications Medication Instructions Recorded Confirmed Last Taken Type rivaroxaban 20 mg tablet (Xarelto) 20 mg PO DAILY ankle blood clot 08/23/22 11/18/22 Unknown Rx #30 tabs triamterene 37.5 1 tab PO QAM blood pressure and 08/23/22 11/18/22 11/02/22 07:00 Rx mg-hydrochlorothiazide 25 mg tablet edema #30 tabs hydrocodone 7.5 mg-acetaminophen 1 tab PO DAILY PRN pain 30 days 10/24/22 11/18/22 Unknown Rx 325 mg tablet #90 tabs amlodipine 10 mg tablet 10 mg PO QAM high blood pressure 11/02/22 11/18/22 11/02/22 07:00 History clotrimazole-betamethasone 1 1 applic topical BID PRN psoriasis 11/02/22 11/18/22 Unknown History %-0.05 % topical cream hydrocodone 7.5 mg-acetaminophen 1 tab PO TID PRN Pain 11/02/22 11/18/22 Unknown History 325 mg tablet naproxen 500 mg tablet 500 mg PO BID PRN Pain 11/02/22 11/18/22 Unknown History phosphorated carbohydrate oral 15 - 30 ml PO Q15M PRN stomach 11/02/22 11/18/22 11/01/22 History solution (Emetrol oral solution) muscle contractions bedside #1 ea 11/08/22 11/18/22 Unknown Rx clonazepam 0.5 mg tablet 0.25 mg PO Q12H PRN Anxiety 11/14/22 11/18/22 Unknown History acetaminophen 325 mg tablet 325 - 650 mg PO Q6H PRN Pain 11/18/22 11/18/22 Unknown History (Tylenol) bisacodyl 5 mg tablet 10 mg PO DAILY PRN Constipation 11/18/22 11/18/22 Unknown History carvedilol 6.25 mg tablet 6.25 mg PO BID 11/18/22 11/18/22 Unknown History thiamine HCl (vitamin B1) 100 mg 100 mg PO DAILY 11/18/22 11/18/22 Unknown His tory tablet (Vitamin B-1) Allergies Allergy/AdvReac Type Severity Reaction Status Date / Time sulfamethoxazole Allergy Severe ALGY-Swell Verified 11/18/22 15:08 [From Bactrim] Lip/Tongue/Throat trimethoprim [From Bactrim] Allergy Severe ALGY-Swell Verified 11/18/22 15:08 Lip/Tongue/Throat gabapentin Allergy Unknown Verified 11/18/22 15:08 Current Medications Generic Name Dose Route Start Last Admin Trade Name Freq PRN Reason Stop Dose Admin Hydrocodone Bitart/Acetaminophen 1 tab 11/20/22 15:00 11/24/22 15:42 Hydrocodone-Acetaminophen 7.5-325 Mg Tablet PO 1 tab TID PRN Administration MODERATE Pain Albuterol/Ipratropium 3 ml 11/19/22 08:00 11/27/22 13:43 Ipratropium-Albuterol 3 Ml Neb INHALATION 3 ml Q6H.RESP WAYNE Administration Budesonide 0.5 mg 11/19/22 18:00 11/27/22 08:25 Budesonide 0.5 Mg/2 Ml Neb INHALATION 0.5 mg BID WAYNE Administration Chlorhexidine Gluconate 1 applic 11/20/22 00:00 11/27/22 00:41 Chlorhexidine Gluconate 4% Btl 118 Ml TOPICAL Not Given Q24H WAYNE Citalopram Hydrobromide 20 mg 11/25/22 10:00 11/27/22 09:48 Citalopram 20 Mg Tablet PO 20 mg DAILY WAYNE Administration Clonazepam 0.5 mg 11/22/22 14:01 11/25/22 08:20 Clonazepam 0.5 Mg Tablet PO 0.5 mg TID PRN Administration ANXIETY Donepezil HCl 10 mg 11/25/22 21:00 11/26/22 20:36 Donepezil 5 Mg Tablet PO 10 mg BEDTIME WAYNE Administration Enoxaparin Sodium 70 mg 11/19/22 03:30 11/26/22 15:21 Enoxaparin 100 Mg/Ml Syringe 1 mg/kg (70 mg) Not Given SUBCUT Q12H WAYNE Folic Acid 1 mg 11/20/22 18:00 11/27/22 09:48 Folic Acid 1 Mg Tablet PO 1 mg BID WAYNE Administration Propofol 1,000 mg in 100 mls @ 0 mls/hr 11/18/22 15:15 11/27/22 14:45 Diprivan IV Infused .Q0M WAYNE Titration Protocol Per Protocol Norepinephrine Bitartrate 4 mg 254 mls @ 0 mls/hr 11/18/22 20:00 11/21/22 19:00 / Dextrose IV Infused .Q0M WAYNE Titration Protocol Per Protocol Dexmedetomidine HCl 400 mcg/ 104 mls @ 0 mls/hr 11/20/22 09:30 11/27/22 15:41 Sodium Chloride IV 0.4 mcg/kg/hr .Q0M WAYNE 7.72 mls/hr Titration Protocol Per Protocol Fentanyl 2,500 mcg/ Sodium 250 mls @ 0 mls/hr 11/21/22 22:00 11/27/22 16:06 Chloride IV 0 mcg/hr .Q0M WAYNE 0 mls/hr Titration Protocol Per Protocol Vancomycin HCl 1,000 mg/ 250 mls @ 250 mls/hr 11/24/22 10:00 11/27/22 16:08 Sodium Chloride IV 250 mls/hr Q8H WAYNE Administration Protocol Heparin Sodium/Sodium Chloride 25,000 unit in 500 mls @ 0 mls/hr 11/26/22 16:00 11/27/22 08:35 Heparin Drip IV 0 unit/kg/hr .Q0M WAYNE 0 mls/hr Titration Protocol Per Protocol Insulin Human Lispro 0 unit 11/19/22 12:00 11/27/22 12:37 Insulin Lispro 100 Unit/1 Ml SUBCUT Not Given WM&BEDTIME WAYNE Protocol Magnesium Hydroxide 30 ml 11/22/22 21:00 11/26/22 20:36 Magnesium Hydroxide 30 Ml Udc PO 30 ml BEDTIME WAYNE Administration Ondansetron HCl 4 mg 11/18/22 18:35 11/27/22 17:12 Ondansetron 2 Mg/Ml Sdv 2 Ml IVP 4 mg Q8H PRN Administration vomiting, or N/V if npo Pantoprazole Sodium 40 mg 11/19/22 09:40 11/27/22 09:48 Pantoprazole 40 Mg Sdv IVP 40 mg DAILY WAYNE Administration Saliva Substitute 1 spray 11/22/22 14:48 11/24/22 20:52 Saliva Stimulant [place] 44.3 Ml Btl MUCOUS MEM 1 spray PRN PRN Administration DRY MOUTH PFSH Acute PFSH: Medical History Abnormal weight loss ALS (amyotrophic lateral sclerosis) Anxiety about health Chronic pain of right lower extremity Chronic ulcer of ankle Decreased calculated GFR DVT (deep venous thrombosis) Right lower leg 06/01/2021 Hypertension PVD (peripheral vascular disease) TSH elevation 04/07/2022 TSH 4.7 Weakness of both lower extremities Social History Smoking and tobacco status: current every day smoker Smoking risk assessment/counseling performed?: No Alcohol intake: never Desire information about alcohol rehabilitation?: No Counseling given: No Substance/Drug Use: never Desire information about substance/drug rehabilitation?: No Counseling given: No Current occupational status: disabled Current gender identity: Male Vitals/I&O/Wt Last Vital Signs Temp 99.1 F 11/27/22 16:45 Pulse 65 11/27/22 16:45 Resp 16 11/27/22 17:07 BP 122/69 11/27/22 16:45 Pulse Ox 97 11/27/22 17:07 O2 Del Method Mechanical Ventilation 11/27/22 16:45 O2 Flow Rate 30 11/27/22 13:35 FiO2 30 11/27/22 17:07 11/27/22 11/27/22 11/27/22 06:59 14:59 22:59 Intake Total 559.966 / 1525.670 405.570 / 405.570 62.333 / 467.903 Output Total 275 / 1660 350 / 350 Balance 284.966 / -134.330 55.570 / 55.570 62.333 / 117.903 Weight last 48 hrs Weight 164 lb Weight 165 lb Physical Exam Narrative: General : Patient is well developed , no acute distress, Head : Normal cephalic, a-traumatic. Ears : Pinnae and external canal are normal. Hearing is normal. Eyes : PERRLA, Sclera and injection are normal. No conjunctival discharge. Nose : Mucous membranes are without erythema. Throat : buccal mucosa is normal, gums are without significant recession or hypertrophy. Lungs : Equal chest rise bilaterally, no use of accessory muscles, trachea is midline. Cor : Rate and rhythm are normal. Abdomen : Soft, ND, NT, no g/r/m Extremities : No edema, no cyanosis or clubbing, dorsalis pedis pulses are prese nt bilaterally, non-tender to palpation of calves. Upper extremities are normal bilaterally. Back : non-tender to palpation, no CVA tenderness. Urinary Catheter Management: Grier: Cath Placed During This Visit: yes Reason for Continuing Indwelling Catheter: Accurate Measurement of Urinary Output in Critically Ill Patients Urinary Catheter Date of Insertion: 11/18/22 Urinary Catheter Time of Insertion: 15:25 Data 11/28/22 00:55 11/28/22 00:55 A&P Assessment and plan (1) Amyotrophic lateral sclerosis: Plan PEG tube insertion The risks and benefits of the procedure, including bleeding, infection, intestinal perforation requiring surgery, missed lesion, scar, numbness, pain were explained to the patient's power of city attorney. They are understanding of the risks and wishes to proceed. Coding Level of Care Code Acute Code for Chg Fwd Diagnoses Amyotrophic lateral sclerosis G12.21
[2022-11-27] MEDS: HYDROmorphone 1 mg/mL INJ 1 mL 0.5 MG IVP (17:52)
[2022-11-27] MEDS: dexmedetomidine 400 MCG in sodium chloride 0.9% (100 ml) 100 ML 7.72 MCG IV (17:54)
[2022-11-27] MEDS: HYDROcodone-acetaminophen 7.5-325 mg Tablet 1 TAB PO (18:39)
--- NOTE | 2022-11-27 19:19 | PC.NURSE ---
Shift SUmmary: Uneventful shift. 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 Patient had tracheotomy today, procedure was also uneventful. Patient has had a minimal amount of external drainage, minimal amount secretions. Patient has been calm and cooperative on precedex. Staff and patient have had some difficulty communicating due to lack of speech, but use of a letter board has helped. Tube Feeds restarted at 1800 at previous goal rate of 60mLhr, to be turned off at midnight due to upcomoing peg tube placement. shift supervisor nurse notified. Heparin drip restarted. To be turned off at 0500 on 11/28/2022 due to upcoming peg tube placement. shift supervisor nurse notified.
[2022-11-27] MEDS: blistex lip oint 7 gm Tube 1 APPLIC TOPICAL (19:32)
--- NOTE | 2022-11-27 20:08 | P.PN_ITS ---
Subjective Subjective: Overnight/early this morning Lost IV access for continued sedation, became anxious, with desaturation, IV access reestablished, with improvement in saturation, he was able to get some rest this morning. Vitals/I&O/Wt Last Vital Signs Temp 99.1 F 11/27/22 16:45 Pulse 72 11/27/22 20:01 Resp 15 11/27/22 20:01 BP 121/66 11/27/22 19:15 Pulse Ox 97 11/27/22 20:01 O2 Del Method Mechanical Ventilation 11/27/22 20:01 O2 Flow Rate 30 11/27/22 13:35 FiO2 30 11/27/22 20:01 11/27/22 11/27/22 11/27/22 06:59 14:59 22:59 Intake Total 559.966 / 1525.670 405.570 / 405.570 326.041 / 731.611 Output Total 275 / 1660 350 / 350 200 / 550 Balance 284.966 / -134.330 55.570 / 55.570 126.041 / 181.611 Weight last 48 hrs Weight 74.389 kg Weight 74.843 kg Physical Exam Const: GENERAL APPEARANCE: cooperative and patient mechanically ventilated ORIENTATION/CONSCIOUSNESS: not awake HENMT: COMMON NORMALS: oropharynx normal Neck/C-Spine: COMMON NORMALS: no JVD Resp: COMMON NORMALS: normal respiratory effort and clear to auscultation bilaterally AUSCULTATION: clear to auscultation bilaterally Cardio: COMMON NORMALS: no JVD, regular rhythm, S1 normal heart sound present, S2 normal heart sound present and No murmurs present (Cardio) RHYTHM: regular rhythm HEART SOUNDS: S1 normal heart sound present and S2 normal heart sound present GI: COMMON NORMALS: Normal to inspection, nondistended, normoactive bowel sounds present, Soft to palpation and non-tender PALPATION: Yes Soft to palpation Extremity: COMMON NORMALS: no joint enlargement and no pedal edema Skin: COMMON NORMALS: no rashes or lesions noted GENERAL SKIN EXAM: no rashes or lesions noted Urinary Catheter Management: Grier: Cath Placed During This Visit: yes Reason for Continuing Indwelling Catheter: Accurate Measurement of Urinary Output in Critically Ill Patients Urinary Catheter Date of Insertion: 11/18/22 Urinary Catheter Time of Insertion: 15:25 Data 11/27/22 00:27 11/27/22 00:27 A&P Assessment and plan (1) Respiratory failure: (2) DVT (deep venous thrombosis): (3) Amyotrophic lateral sclerosis: (4) Hypokalemia: (5) Hypertension: (6) Hypernatremia: Plan 62 year old male with past medical history of right lower extremity DVT on Xarelto at home, recently diagnosed ALS at [facility], was brought in with chief co mplaint of progressively worsening shortness of breath. Currently he is being managed for. Assessment: Acute hypoxic respiratory failure : ARDS: Likely progressive worsening of respiratory status slowly progressing towards respiratory failure: In the setting of ALS Failed extubation 11/20. Underwent tracheostomy today. Heparin drip was held for surgery. Resume once safe per ENT or resume phylactic dose alternatively. Anticoagulation requested to be held by 5 AM tomorrow morning for PEG tube. Following tracheostomy and PEG tube subsequently if approved would be able to transition for further care or at LTAC. Chest pain: Repeat troponin noted without might change from prior. Moderate abnormality. Improved. Reproducible palpation, suspect musculoskeletal, with some mucous plugging. Discussed with him to let us know in case of changes, he will. CT chest results appreciated for mild bronchitis. Blood culture, sputum cultures so far negative. Respiratory viral panel, MRSA swab negative. Repeat sputum culture post reintubation showing MRSA. Continue vancomycin. Fentanyl as needed. Precedex has been on since 11/20 will need to be weaned slowly. Continue to repeat NIF study. Insulin sliding scale. Watch for thrush. Appreciate neurology recommendations. Reached out to touch base with neurology to confirm recommendations. Monitor potassium and phosphate. Hypernatremia: Resolved. Continue with free water flushes at 250 every 4 hours. History of DVT: DVT RLE on duplex. Resume anticoagulation tonight with heparin drip at a regular rate as per ENT. 2 be held at 5 AM for PEG tube. Hypertension: Goal blood pressure less than 140/90 mmHg with mean over 65. Hold off on Coreg and amlodipine for now. Continue with tube feeds. Tolerating tube feeds at goal. Free water flush at 120 cc every 4 hours. Protonix for PUD prophylaxis. Full dose Lovenox will suffice as DVT prophylaxis. Attestations Medical Necessity Statement*: Continue admission for assessment management of respiratory failure in the setting of ALS, DVT requiring anticoagulation, arrangements of tracheostomy, PEG tube. Coding Level of Care Code Critical Care >/= 30 minutes Critical care time (in minutes): 45 The high probability of a clinically significant, sudden or life threatening deterioration, as referenced in this documentation, required my full and direct attention, intervention and personal management. The critical care time shown is in addition to time spent performing any reported separately billable procedures and includes the following: [x] Data and vital sign review and interpretation [x ] Patient assessment, examination and intervention [x] Medication orders and management [x] Patient/Family updates as able [x] Care Coordination and Documentation. Diagnoses Respiratory failure J96.90 DVT (deep venous thrombosis) I82.409 Amyotrophic lateral sclerosis G12.21 Hypokalemia E87.6 Hypertension I10 Hypernatremia E87.0
[2022-11-27 20:23] LABS: Glucose Point of Care 134 mg/dL (70-110)
[2022-11-27] MEDS: donepezil 5 MG Tablet 10 MG PO (20:31)
[2022-11-27] MEDS: CLONazepam 0.5 mg Tablet PO (20:32)
[2022-11-27] MEDS: magnesium hydroxide 30 mL UDC PO (20:32)
[2022-11-28] VITALS (62 sets, daily range): BP systolic 79–160; BP diastolic 52–86; PULSE 54–76; RESP 7–26; TEMP 36.4–37.5; O2SAT 93–100
[2022-11-28] MEDS: chlorhexidine gluconate 4% Btl 118 mL 1 APPLIC TOPICAL (00:05)
--- NOTE | 2022-11-28 00:11 | PC.NURSE ---
tube feed turned off at 0000
[2022-11-28 01:03] LABS: Basophils % 0.2 %; Eosinophils # 0.1 10^3/uL (0.0-0.8); Eosinophils % 1.5 %; Hematocrit 31.1 % (42.0-52.0); Hemoglobin 9.9 g/dL (11.7-16.6); Lymphocytes # 0.5 10^3/uL (0.8-4.8); Lymphocytes % 7.7 %; Mean Corpuscular HGB Conc 31.8 g/dL (30.0-36.0); Mean Corpuscular Hemoglobin 31.1 pg (28.0-34.0); Mean Corpuscular Volume 97.8 fl (80-94); Monocytes # 0.4 10^3/uL (0.2-0.9); Monocytes % 6.1 %; Neutrophils # 5.18 10^3/uL (1.8-7.7); Neutrophils % 83.5 %; Nucleated Red Blood Cells % 0 %; Platelet Count 98 10^3/cmm (130-400); Red Blood Count 3.18 10^6/uL (4.1-5.3); Red Cell Distribution Width 14.5 % (12.1-15.1); White Blood Count 6.2 10^3/uL (4.0-10.0)
[2022-11-28 01:21] LABS: Partial Thromboplastin Time 43.5 SECONDS (23.9-36.7)
[2022-11-28 01:28] LABS: Alanine Aminotransferase 135 U/L (0-41); Albumin Level 2.4 g/dL (3.5-5.2); Alkaline Phosphatase 54 U/L (40-130); Anion Gap 8.9 (5-19); Aspartate Amino Transferase 46 U/L (0-40); Blood Urea Nitrogen 18 mg/dL (8-23); Calcium 7.9 mg/dL (8.5-10.5); Carbon Dioxide 31 mmol/L (22-29); Chloride 103 mmol/L (98-107); Globulin 2.3 g/dL (1.3-4.6); Glomerular Filtration Rate 217.3 mL/min (90-130); Glucose 122 mg/dL (65-115); Osmolality Calculated 291 mOsm/kg (285-295); Potassium 3.9 mmol/L (3.5-5.1); Sodium 139 mmol/L (136-145); Total Bilirubin 0.6 mg/dL (0.15-1.2); Total Protein 4.7 g/dL (6.6-8.7)
[2022-11-28] MEDS: ipratropium-albuterol 3 mL Neb INHALATION ×4 (03:09→20:04)
[2022-11-28] MEDS: HYDROmorphone 1 mg/mL INJ 1 mL 0.5 MG IVP ×4 (03:12→17:57)
[2022-11-28 07:11] LABS: Glucose Point of Care 105 mg/dL (70-110)
[2022-11-28] MEDS: vancomycin 1,000 MG in sodium chloride 0.9% 250 ML 250 MG IV ×3 (07:18→22:32)
[2022-11-28] MEDS: budesonide 0.5 mg/2 mL Neb INHALATION ×2 (08:05→20:04)
[2022-11-28] MEDS: pantoprazole 40 mg SDV IVP (09:20)
--- NOTE | 2022-11-28 11:02 | PC.NUTR ---
TF consult received. Recommend consideration of Jevity 1.2 goal rate of 65 mls/hr, with fresh water flushes of 120 mls Q4H or per MD discretion. Details in RD assessment.
[2022-11-28 11:14] LABS: Glucose Point of Care 149 mg/dL (70-110)
--- NOTE | 2022-11-28 12:47 | PM.PN ---
Vitals/I&O/Wt Last Vital Signs Temp 99.5 F 11/28/22 08:00 Pulse 60 11/28/22 10:30 Resp 26 H 11/28/22 11:22 BP 131/75 11/28/22 10:30 Pulse Ox 99 11/28/22 11:22 O2 Del Method Mechanical Ventilation 11/28/22 08:00 O2 Flow Rate 30 11/27/22 13:35 FiO2 30 11/28/22 11:22 11/27/22 11/28/22 11/28/22 22:59 06:59 14:59 Intake Total 474.533 / 880.103 356.382 / 1236.485 369.258 / 369.258 Output Total 450 / 800 350 / 1150 0 / 0 Balance 24.533 / 80.103 6.382 / 86.485 369.258 / 369.258 Weight last 48 hrs Weight 171 lb Weight 164 lb Physical Exam Urinary Catheter Management: Grier: Cath Placed During This Visit: yes Reason for Continuing Indwelling Catheter: Accurate Measurement of Urinary Output in Critically Ill Patients Urinary Catheter Date of Insertion: 11/18/22 Urinary Catheter Time of Insertion: 15:25 Data 11/28/22 00:55 11/28/22 00:55 A&P Assessment and plan (1) Amyotrophic lateral sclerosis: Plan PEG tube insertion The risks and benefits of the procedure, including bleeding, infection, intestinal perforation requiring surgery, missed lesion, scar, numbness, pain were explained to the patient's power of trust and estates attorney. They are understanding of the risks and wishes to proceed. Attestations Medical Necessity Statement*: Per primary Coding Level of Care Code Acute Code for g Fwd Diagnoses Amyotrophic lateral sclerosis G12.21
[2022-11-28] MEDS: dexmedetomidine 400 MCG in sodium chloride 0.9% (100 ml) 100 ML IV (13:03)
--- NOTE | 2022-11-28 13:47 | PC.OT ---
OT TREATMENT SESSION HELD TODAY DUE TO PT IN PROCEDURE.
--- NOTE | 2022-11-28 13:56 | ANES.PAUD2 ---
Pre-Anesthetic Update Pre-Anesthetic Assessment: Date of Surgery/Procedure: 11/28/22 Proposed Procedure: Operation Date: 11/27/22 14:20 Proposed Procedures p Tracheostomy(Not Applicable) - Tree Stockton MD Operation Date: 11/28/22 11:00 Proposed Procedures p PEG Tube Insertion(Not Applicable) - Zheng Dunn, DO Any changes to Pre-Anesthetic Assessment?: No Last Intake: Intake Last Liquid Date 11/28/22 Last Liquid Time 00:00 Labs Last 48hrs: Short CBC 11/27/22 11/28/22 Range/Units 00:27 00:55 WBC 7.5 6.2 (4.0-10.0) 10^3/ uL Hgb 11.0 L 9.9 L (11.7-16.6) g/dL Hct 34.0 L 31.1 L (42.0-52.0) % MCV 96.6 H 97.8 H (80-94) fl Plt Count 105 L 98 L (130-400) 10^3/c mm Neut % (Auto) 79.0 83.5 % Neut # (Auto) 5.89 5.18 (1.8-7.7) 10^3/u L BMP 11/27/22 11/28/22 00:27 00:55 Sodium 140 139 Potassium 4.2 3.9 Chloride 102 103 Carbon Dioxide 29 31 H BUN 18 18 Creatinine 0.4 L 0.4 L Glucose 75 122 H Calcium 8.2 L 7.9 L Liver Function 11/27/22 11/28/22 Range/Units 00:27 00:55 Total Bilirubin 0.6 0.6 (0.15-1.2) mg/dL AST 59 H 46 H (0-40) U/L ALT 184 H 135 H (0-41) U/L Alkaline Phosphata se 55 54 (40-130) U/L Albumin 2.7 L 2.4 L (3.5-5.2) g/dL Coags 11/27/22 11/27/22 11/27/22 00:27 06:25 11:55 APTT 40.3 H 48.5 H 23.9 D 11/28/22 00:55 APTT 43.5 H D Vitals: Temperature 99.3 F 11/28/22 12:00 Temperature Source Axillary 11/28/22 12:00 Pulse Rate 60 11/28/22 10:30 Pulse Rhythm Regular 11/28/22 12:00 Pulse Strength 3+ Normal 11/28/22 12:00 Respiratory Rate 26 H 11/28/22 11:22 Respiratory Effort Spontaneous, Mech anically Ventilate d 11/28/22 12:00 Respiratory Depth Normal 11/28/22 12:00 Respiratory Patter n Normal 11/28/22 09:21 Blood Pressure 131/75 11/28/22 10:30 Blood Pressure Gabrielle n 93 11/28/22 10:30 Blood Pressure Pos ition Semi Fowlers 11/28/22 08:00 Pulse Oximetry 99 11/28/22 11:22 Oxygen Delivery Me thod Mechanical Ventil ation 11/28/22 08:00 Oxygen Flow Rate 30 11/27/22 13:35 Fraction of Inspir ed Oxygen 30 11/28/22 12:00 Exam: Pre-Anes Outpt Exam: alert and regular rate & rhythm Additional Exam Findings (including area of procedure): S/P trach, now for PEG tube Cardiac Studies: Echocardiogram 11/19/22
--- NOTE | 2022-11-28 13:56 | ANE.PACU2 ---
Inpatient post-anesthesia follow up: Airway intact: Yes Vital signs: Temperature 99.3 F Pulse Rate 60 Respiratory Rate 26 Blood Pressure 131/75 Pulse Oximetry 99 Oxygen Delivery Me thod Mechanical Ventila tion Oxygen Flow Rate 30 Fraction of Inspir ed Oxygen 30 Hydration adequate: Yes Nausea and vomiting: No Pain level: 2 Mental status: Altered (sedated)
--- NOTE | 2022-11-28 14:37 | PC.NURSE ---
NUrse updated Sy Herring with [facility], patient now has trach and peg tube placed.
[2022-11-28 16:31] LABS: Glucose Point of Care 128 mg/dL (70-110)
--- NOTE | 2022-11-28 17:40 | PC.NURSE ---
Shift SUmmary: Uneventful shift. Peg tube insertion was performed at bedside with no complications, no bleeding, no swelling, no excessive pain associated with peg tube. Trach has remained secure. No swelling observed. Minimal secretions present, secretions are mostly clear with small bloody streaks and streaking is decreasing in volume. Frequent inline suction required with clear/white secretions, but no issues with plugging of trach. Dr Dunn has instructed nurse not to use peg tube for 24 hours from insertion (inserted at 1400 on 11/28/2022), and to wait 24 hours before restarting heparin. Nurse alerted Dr Reina to this. Sy Herring with [facility] has been updated on patient status.
[2022-11-28 20:17] LABS: Glucose Point of Care 98 mg/dL (70-110)
--- NOTE | 2022-11-28 20:20 | PM.PN ---
Subjective Subjective: He is doing okay. Today still having a bit of pain around tracheostomy but improved compared to yesterday. We discussed with him regarding anticoagulation and DVT, holding anticoagulation for PEG tube. Vitals/I&O/Wt Last Vital Signs Temp 98.7 F 11/28/22 17:30 Pulse 76 11/28/22 20:04 Resp 11 L 11/28/22 20:04 BP 139/73 11/28/22 18:30 Pulse Ox 97 11/28/22 20:04 O2 Del Method Mechanical Ventilation 11/28/22 20:04 O2 Flow Rate 30 11/27/22 13:35 FiO2 30 11/28/22 20:04 11/28/22 11/28/22 11/28/22 06:59 14:59 22:59 Intake Total 356.382 / 1236.485 377.530 / 377.530 250 / 627.530 Output Total 350 / 1150 175 / 175 450 / 625 Balance 6.382 / 86.485 202.530 / 202.530 -200 / 2.530 Weight last 48 hrs Weight 77.564 kg Weight 74.389 kg Physical Exam Const: COMMON NORMALS: alert GENERAL APPEARANCE: cooperative and patient mechanically ventilated ORIENTATION/CONSCIOUSNESS: not awake HENMT: COMMON NORMALS: oropharynx normal Neck/C-Spine: COMMON NORMALS: no JVD OTHER: Tracheostomy in place. No swelling bleeding or drainage. Resp: COMMON NORMALS: normal respiratory effort and clear to auscultation bilaterally AUSCULTATION: clear to auscultation bilaterally Cardio: COMMON NORMALS: no JVD, regular rhythm, S1 normal heart sound present, S2 normal heart sound present and No murmurs present (Cardio) RHYTHM: regular rhythm HEART SOUNDS: S1 normal heart sound present and S2 normal heart sound present GI: COMMON NORMALS: Normal to inspection, nondistended, normoactive bowel sounds present, Soft to palpation and non-tender PALPATION: Yes Soft to palpation Extremity: COMMON NORMALS: no joint enlargement and no pedal edema Neuro: COMMON NORMALS: moves all extremities SENSORIUM/ORIENTATION: Yes alert Skin: COMMON NORMALS: no rashes or lesions noted GENERAL SKIN EXAM: no rashes or lesions noted Urinary Catheter Management: Grier: Cath Placed During This Visit: yes Reason for Continuing Indwelling Catheter: Accurate Measurement of Urinary Output in Critically Ill Patients Urinary Catheter Date of Insertion: 11/18/22 Urinary Catheter Time of Insertion: 15:25 Data 11/28/22 00:55 11/28/22 00:55 A&P Assessment and plan (1) Respiratory failure: (2) DVT (deep venous thrombosis): (3) Amyotrophic lateral sclerosis: (4) Hypokalemia: (5) Hypertension: (6) Hypernatremia: Plan 62 year old male with past medical history of right lower extremity DVT on Xarelto at home, recently diagnosed ALS at [facility], was brought in with chief complaint of progressively worsening shortness of breath. Currently he is being managed for. Assessment: Acute hypoxic respiratory failure : ARDS: Likely progressive worsening of respiratory status slowly progressing towards respiratory failure: In the setting of ALS Failed extubation 11/20. Underwent tracheostomy 11/27. Noted oxygenation, 30% FiO2. PEG tube placed 11/28. No use of PEG tube for now. Heparin drip on hold for now postprocedure for risk of bleeding. Hemoglobin noted 9.9. Platelets 98,000. Follow-up blood counts. NG tube had been removed, for now oral medication held until he can start using the PEG tube. Discussed with patient case manager. Continued review for approval for LTAC. Chest pain: Resolved. Repeat troponin noted without might change from prior. Moderate abnormality. Improved. Reproducible palpation, suspect musculoskeletal, with some mucous plugging. Discussed with him to let us know in case of changes, he will. CT chest results appreciated for mild bronchitis. Blood culture, sputum cultures so far negative. Respiratory viral panel, MRSA swab negative. Repeat sputum culture post reintubation showing MRSA. Continue vancomycin. Fentanyl as needed. Precedex has been on since 11/20 will need to be weaned slowly. Continue to repeat NIF study. Insulin sliding scale. Watch for thrush. Appreciate neurology recommendations. Reached out to touch base with neurology to confirm recommendations. Hypernatremia: Resolved. Free water flushes at 250 every 4 hours once resumed History of DVT: DVT RLE on duplex. Resume anticoagulation tonight with heparin drip at a regular rate as per ENT. 2 be held at 5 AM for PEG tube. Hypertension: Goal blood pressure less than 140/90 mmHg with mean over 65. Hold off on Coreg and amlodipine for now. Protonix for PUD prophylaxis. Attestations Medical Necessity Statement*: Continue admission for assessment management following tracheostomy, PEG tube placement, arrangements for continued care at [facility] Diagnoses Respiratory failure J96.90 DVT (deep venous thrombosis) I82.409 Amyotrophic lateral sclerosis G12.21 Hypokalemia E87.6 Hypertension I10 Hypernatremia E87.0
[2022-11-28] MEDS: dextrose 5%-sod chloride 0.9% 1,000 ML 75 ML IV (20:46)
[2022-11-28] MEDS: blistex lip oint 7 gm Tube 1 APPLIC TOPICAL (22:10)
[2022-11-29] VITALS (56 sets, daily range): BP systolic 144–173; BP diastolic 72–103; PULSE 61–90; RESP 11–22; TEMP 36.9; O2SAT 93–100
[2022-11-29] MEDS: HYDROmorphone 1 mg/mL INJ 1 mL 0.5 MG IVP (00:33)
[2022-11-29] MEDS: ipratropium-albuterol 3 mL Neb INHALATION ×4 (02:18→19:57)
[2022-11-29 03:11] LABS: Basophils % 0.1 %; Eosinophils # 0.1 10^3/uL (0.0-0.8); Hematocrit 32.7 % (42.0-52.0); Hemoglobin 10.1 g/dL (11.7-16.6); Lymphocytes # 0.3 10^3/uL (0.8-4.8); Lymphocytes % 4.2 %; Mean Corpuscular HGB Conc 30.9 g/dL (30.0-36.0); Mean Corpuscular Hemoglobin 30.1 pg (28.0-34.0); Mean Corpuscular Volume 97.6 fl (80-94); Mean Platelet Volume 12.3 fL (7.4-10.4); Monocytes # 0.4 10^3/uL (0.2-0.9); Monocytes % 6.1 %; Neutrophils # 5.91 10^3/uL (1.8-7.7); Nucleated Red Blood Cells % 0 %; Platelet Count 114 10^3/cmm (130-400); Red Blood Count 3.35 10^6/uL (4.1-5.3); Red Cell Distribution Width 14.3 % (12.1-15.1); White Blood Count 6.7 10^3/uL (4.0-10.0)
[2022-11-29 03:35] LABS: Alanine Aminotransferase 99 U/L (0-41); Albumin Level 2.5 g/dL (3.5-5.2); Alkaline Phosphatase 55 U/L (40-130); Anion Gap 10.8 (5-19); Aspartate Amino Transferase 30 U/L (0-40); Blood Urea Nitrogen 15 mg/dL (8-23); Calcium 7.9 mg/dL (8.5-10.5); Carbon Dioxide 29 mmol/L (22-29); Chloride 105 mmol/L (98-107); Globulin 2.5 g/dL (1.3-4.6); Glomerular Filtration Rate 217.3 mL/min (90-130); Glucose 110 mg/dL (65-115); Osmolality Calculated 293 mOsm/kg (285-295); Potassium 3.8 mmol/L (3.5-5.1); Sodium 141 mmol/L (136-145); Total Bilirubin 0.6 mg/dL (0.15-1.2)
[2022-11-29] MEDS: blistex lip oint 7 gm Tube 1 APPLIC TOPICAL (05:39)
[2022-11-29] MEDS: budesonide 0.5 mg/2 mL Neb INHALATION ×2 (08:02→19:57)
[2022-11-29 08:29] LABS: Glucose Point of Care 142 mg/dL (70-110)
[2022-11-29] MEDS: pantoprazole 40 mg SDV IVP (08:35)
[2022-11-29] MEDS: vancomycin 1,000 MG in sodium chloride 0.9% 250 ML 250 MG IV ×3 (08:36→23:21)
[2022-11-29] MEDS: insulin lispro 100 unit/1 mL SUBCUT (08:36)
[2022-11-29] MEDS: ondansetron 2 mg/ML SDV 2 mL 4 MG IVP (10:00)
--- NOTE | 2022-11-29 14:15 | P.PN_ITS ---
Subjective Subjective: He states he is doing all right. Having some tenderness in his abdomen, not bothered by his tracheostomy. Vitals/I&O/Wt Last Vital Signs Temp 98.5 F 11/29/22 09:30 Pulse 90 11/29/22 10:00 Resp 16 11/29/22 12:51 BP 162/79 11/29/22 10:00 Pulse Ox 98 11/29/22 12:51 O2 Del Method Mechanical Ventilation 11/29/22 07:43 O2 Flow Rate 30 11/27/22 13:35 FiO2 30 11/29/22 12:51 11/28/22 11/29/22 11/29/22 22:59 06:59 14:59 Intake Total 277.792 / 655.322 250 / 905.322 Output Total 1050 / 1225 300 / 1525 Balance -772.208 / -569.678 -50 / -619.678 Weight last 48 hrs Weight 77.564 kg Physical Exam Const: COMMON NORMALS: alert GENERAL APPEARANCE: cooperative and patient mechanically ventilated ORIENTATION/CONSCIOUSNESS: not awake HENMT: COMMON NORMALS: oropharynx normal Neck/C-Spine: COMMON NORMALS: no JVD OTHER: Tracheostomy in place. No swelling bleeding or drainage. Resp: COMMON NORMALS: normal respiratory effort and clear to auscultation bilaterally AUSCULTATION: clear to auscultation bilaterally Cardio: COMMON NORMALS: no JVD, regular rhythm, S1 normal heart sound present, S2 normal heart sound present and No murmurs present (Cardio) RHYTHM: regular rhythm HEART SOUNDS: S1 normal heart sound present and S2 normal heart sound present GI: COMMON NORMALS: Normal to inspection, nondistended, normoactive bowel sounds present and Soft to palpation PALPATION: Yes Soft to palpation Extremity: COMMON NORMALS: no joint enlargement and no pedal edema Neuro: COMMON NORMALS: moves all extremities SENSORIUM/ORIENTATION: Yes cem rt Skin: COMMON NORMALS: no rashes or lesions noted GENERAL SKIN EXAM: no rashes or lesions noted Urinary Catheter Management: Grier: Cath Placed During This Visit: yes Reason for Continuing Indwelling Catheter: Accurate Measurement of Urinary Output in Critically Ill Patients Urinary Catheter Date of Insertion: 11/18/22 Urinary Catheter Time of Insertion: 15:25 Data 11/29/22 02:13 11/29/22 02:13 A&P Assessment and plan (1) Respiratory failure: (2) DVT (deep venous thrombosis): (3) Amyotrophic lateral sclerosis: (4) Hypokalemia: (5) Hypertension: (6) Hypernatremia: Plan 62 year old male with past medical history of right lower extremity DVT on Xarelto at home, recently diagnosed ALS at [facility], was brought in with chief complaint of progressively worsening shortness of breath. Currently he is being managed for. Assessment: Acute hypoxic respiratory failure : ARDS: Likely progressive worsening of respiratory status slowly progressing towards respiratory failure: In the s etting of ALS Failed extubation 11/20. Underwent tracheostomy 11/27. Noted oxygenation, 30% FiO2. Coming down on pressure support per discussion with RT. PEG tube placed 11/28. Reassessed by surgery today, found okay to be resumed on heparin drip. This is restarted. Recheck blood counts. Hemoglobin noted 10.1. Platelets 114. Discussed with him, discussed with pillowcase folder. If continues to do well, possible transition to [facility] tomorrow. Chest pain: Resolved. Repeat troponin noted without might change from prior. Moderate abnormality. Improved. Reproducible palpation, suspect musculoske letal, with some mucous plugging. Discussed with him to let us know in case of changes, he will. CT chest results appreciated for mild bronchitis. Blood culture, sputum cultures so far negative. Respiratory viral panel, MRSA swab negative. Repeat sputum culture post reintubation showing MRSA. Continue vancomycin. Fentanyl as needed. Precedex has been on since 11/20 will need to be weaned slowly. Continue to repeat NIF study. Insulin sliding scale. Watch for thrush. Appreciate neurology recommendations. Reached out to touch base with neurology to confirm recommendations. Hypernatremia: Resolved. Free water flushes at 250 every 4 hours once resumed History of DVT: DVT RLE on duplex. Resume anticoagulation tonight with heparin drip at a regular rate as per ENT. 2 be held at 5 AM for PEG tube. Hypertension: Goal blood pressure less than 140/90 mmHg with mean over 65. Hold off on Coreg and amlodipine for now. Protonix for PUD prophylaxis. Attestations Medical Necessity Statement*: Continue admission for assessment management following tracheostomy, weaning ventilatory support, resumption of anticoagulation, preparation for transition for continued care at [facility] Coding Level of Care Code Critical Care >/= 30 minutes Critical care time (in minutes): 35 The high probability of a clinically significant, sudden or life threatening deterioration, as referenced in this documentation, required my full and direct attention, intervention and personal management. The critical care time shown is in addition to time spent performing any reported separately billable procedures and includes the following: [x] Data and vital sign review and interpretation [x ] Patient assessment, examination and intervention [x] Medication orders and management [x] Patient/Family updates as able [x] Care Coordination and Documentation. Diagnoses Respiratory failure J96.90 DVT (deep venous thrombosis) I82.409 Amyotrophic lateral sclerosis G12.21 Hypokalemia E87.6 Hypertension I10 Hypernatremia E87.0
[2022-11-29] MEDS: dextrose 5%-sod chloride 0.9% 1,000 ML 75 ML IV (15:31)
[2022-11-29] MEDS: heparin drip 25,000 UNIT/500 ML PREMIX 21 UNIT IV (15:33)
[2022-11-29] MEDS: folic acid 1 mg Tablet PO (17:17)
[2022-11-29 17:18] LABS: Glucose Point of Care 117 mg/dL (70-110)
[2022-11-29] MEDS: dexmedetomidine 400 MCG in sodium chloride 0.9% (100 ml) 100 ML IV (18:51)
[2022-11-29 20:55] LABS: Glucose Point of Care 152 mg/dL (70-110)
[2022-11-29] MEDS: donepezil 5 MG Tablet 10 MG PO (20:58)
[2022-11-30] VITALS (31 sets, daily range): BP systolic 155–188; BP diastolic 82–99; PULSE 63–88; RESP 14–28; TEMP 36.3; O2SAT 91–99; BMI 24.5
[2022-11-30 00:17] LABS: Partial Thromboplastin Time 39.8 SECONDS (23.9-36.7)
[2022-11-30] MEDS: heparin 5,000 unit/mL INJ 1 mL IV (00:48)
[2022-11-30] MEDS: ipratropium-albuterol 3 mL Neb INHALATION ×2 (01:23→08:08)
[2022-11-30] MEDS: dexmedetomidine 400 MCG in sodium chloride 0.9% (100 ml) 100 ML 7.72 MCG IV (04:32)
[2022-11-30 06:57] LABS: Basophils % 0.4 %; Eosinophils # 0.1 10^3/uL (0.0-0.8); Eosinophils % 0.7 %; Hematocrit 34.7 % (42.0-52.0); Lymphocytes # 0.3 10^3/uL (0.8-4.8); Lymphocytes % 4.2 %; Mean Corpuscular HGB Conc 31.7 g/dL (30.0-36.0); Mean Corpuscular Hemoglobin 30.7 pg (28.0-34.0); Mean Corpuscular Volume 96.9 fl (80-94); Mean Platelet Volume 11.6 fL (7.4-10.4); Monocytes # 0.3 10^3/uL (0.2-0.9); Monocytes % 4.5 %; Neutrophils # 6.78 10^3/uL (1.8-7.7); Neutrophils % 89.5 %; Nucleated Red Blood Cells % 0 %; Platelet Count 116 10^3/cmm (130-400); Red Blood Count 3.58 10^6/uL (4.1-5.3); Red Cell Distribution Width 13.6 % (12.1-15.1); White Blood Count 7.6 10^3/uL (4.0-10.0)
[2022-11-30] MEDS: vancomycin 1,000 MG in sodium chloride 0.9% 250 ML 250 MG IV (07:05)
[2022-11-30] MEDS: dextrose 5%-sod chloride 0.9% 1,000 ML 75 ML IV (07:05)
[2022-11-30 07:13] LABS: Glucose Point of Care 210 mg/dL (70-110)
[2022-11-30 07:14] LABS: Alanine Aminotransferase 95 U/L (0-41); Albumin Level 2.4 g/dL (3.5-5.2); Alkaline Phosphatase 76 U/L (40-130); Anion Gap 10.9 (5-19); Aspartate Amino Transferase 40 U/L (0-40); Blood Urea Nitrogen 12 mg/dL (8-23); Calcium 7.4 mg/dL (8.5-10.5); Carbon Dioxide 26 mmol/L (22-29); Chloride 103 mmol/L (98-107); Globulin 2.7 g/dL (1.3-4.6); Glomerular Filtration Rate 302.8 mL/min (90-130); Glucose 183 mg/dL (65-115); Osmolality Calculated 288 mOsm/kg (285-295); Sodium 137 mmol/L (136-145); Total Bilirubin 0.5 mg/dL (0.15-1.2); Total Protein 5.1 g/dL (6.6-8.7)
[2022-11-30 07:20] LABS: Partial Thromboplastin Time 60.8 SECONDS (23.9-36.7)
[2022-11-30 07:24] LABS: Potassium 2.9 mmol/L (3.5-5.1)
[2022-11-30] MEDS: insulin lispro 100 unit/1 mL SUBCUT (08:00)
[2022-11-30] MEDS: pantoprazole 40 mg SDV IVP (08:01)
[2022-11-30] MEDS: folic acid 1 mg Tablet PO (08:01)
[2022-11-30] MEDS: citalopram 20 mg Tablet PO (08:01)
[2022-11-30] MEDS: budesonide 0.5 mg/2 mL Neb INHALATION (08:08)
[2022-11-30] MEDS: lidocaine 1% 5 ML in potassium chloride premix 100 ML 26.25 ML IV (08:36)
--- NOTE | 2022-11-30 10:06 | PM.TDS ---
Transfer Summary Providers Date of Admission: 11/18/22 17:30 Date of Discharge/Transfer: 11/30/22 Attending Provider at Admission: Howie Duffy MD Attending Provider at Transfer: Nestor Reina Primary Care Provider: Yvan Cervantes MD Transfer Plans: Anticipated date of transfer: 11/30/22. Diagnoses at Discharge Discharge Diagnosis (1) Respiratory failure: Status: Acute (2) DVT (deep venous thrombosis): Status: Acute (3) Amyotrophic lateral sclerosis: Status: Acute (4) Hypokalemia: Status: Acute (5) Hypertension: Status: Acute (6) Hypernatremia: Status: Acute Other Information Additional DC diagnoses/information: 62 year old male with past medical history of right lower extremity DVT on Xarelto at home, recently diagnosed ALS at [facility], was brought in with chief complaint of progressively worsening shortness of breath. Currently he is being managed for. Assessment: Acute hypoxic respiratory failure : ARDS: Likely progressive worsening of respiratory status slowly progressing towards respiratory failure: In the setting of ALS Failed extubation 11/20. Reintubated. Underwent tracheostomy 11/27. Noted oxygenation, 30% FiO2.? Coming down on pressure support. PEG tube placed 11/28.? Restarted on anticoaogulation for DVT. Switch from heparin drip to Lovenox. Tube feedings. [facility] Called but could not reach his son for update. Will need follow-up with regards to tracheostomy with ENT with switch out of the cannula. ALS: will be followed by neurology also at [facility] Chest pain: Resolved. Repeat troponin noted without might change from prior.? Moderate abnormality.? Improved.? Reproducible palpation, suspect musculoskeletal, with some mucous plugging.? Discussed with him to let us know in case of changes, he will. CT chest results appreciated for mild bronchitis. CXR with increased basilar atelectasis/infiltrate, possible effusion on the left. Blood culture, sputum cultures so far negative.? Respiratory viral panel, MRSA swab negative.? Repeat sputum culture post reintubation showing MRSA. Continue vancomycin for MRSA respiratory infection. Fentanyl and propofol stopped. Precedex has been on since 11/20 wean gradually to prevent withdrawal. Continue to repeat NIF study. Insulin sliding scale.? Watch for thrush. Hypernatremia: Resolved. Free water flushes at 250 every 4 hours once resumed DVT RLE on duplex US. Anticoagulation resumed. Switch from heparin drip to Lovenox. Normally on Xarelto. Hypertension: Goal blood pressure less than 140/90 mmHg with mean over 65. Resume Coreg. At home also takes amlodipine. Protonix for PUD prophylaxis. Reason for Visit Reason for Visit RESP DISTRESS Hospital Course Hospital Course Pleasant 62-year-old gentleman recently diagnosed with ALS at [facility], was admitted here with respiratory failure, most likely in the setting of ALS requiring intubation en route to ER, mechanical ventilation. CTA chest wo PE, initially no infiltrates. Failed extubation on 11/20 within 30 minutes of extubation. Required urgent reintubation. Some new secretions present at the time, CT chest prior to extubation 11/19 with bronchitis, stranding and patchy opacities in the left posterior costophrenic recess likely present and atelectasis. Subsequently with some worsening opacification on x-ray postextubation. Sputum culture growing MRSA. Has been treated with vancomycin. His NIF remained very poor, -8- -11. Anxiety was not helping, Precedex was added to help with weaning sedation. Neurology saw him and considered treatments. Rilutek (Riluzole), Qalsody (Tofersen), Relyvrio ([id number]), Radicava (Edaravone) Exservan (Riluzole oral film). Consider Nuedexta (dextromethorphan Hbr and quinidine sulfate) for pseudobulbar affect (PBA) if needed. These medications are not available at this facility. Please consider if this medication could be started, he will need neurology follow-up. He is continued on anticoagulation with history of DVT, at home usually on Xarelto, and follow-up with duplex ultrasound on 11/26 revealed presence of acute DVT in right lower extremity. Number of discussions of goals of care patient and family decided to proceed with tracheostomy and PEG tube which were placed on 11/27 and 11/28 respectively. He has resumed on anticoagulation, restarted on tube feeds. He is currently accepted for continued care over at [facility] including continued weaning of mechanical ventilatory support and rehabilitation and we discussed his condition with Dr Devlin who will look into possibly getting one of the ALS medications started over at [facility] if it were a possibility. He will need continued follow-up regarding tracheostomy and tracheostomy exchange. Follow-up with primary provider regarding PEG tube. Follow-up with neurology to consider starting one of the considered treatments and long-term follow-up. He has required potassium replacement including this morning for potassium 2.9. Hyponatremia initially present has resolved. Physical Exam Narrative: PSV via trach Const: COMMON NORMALS: alert GENERAL APPEARANCE: cooperative and patient mechanically ventilated ORIENTATION/CONSCIOUSNESS: not awake HENMT: COMMON NORMALS: oropharynx normal Neck/C-Spine: COMMON NORMALS: no JVD OTHER: Tracheostomy in place. No swelling bleeding or drainage. Resp: COMMON NORMALS: normal respiratory effort OTHER: Few upper airway rhonchi Cardio: COMMON NORMALS: no JVD, regular rhythm, S1 normal heart sound present, S2 normal heart sound present and No murmurs present (Cardio) RHYTHM: regular rhythm HEART SOUNDS: S1 normal heart sound present and S2 normal heart sound present GI: COMMON NORMALS: Normal to inspection, nondistended, normoactive bowel sounds present, Soft to palpation and non-tender PALPATION: Yes Soft to palpation OTHER: L upper abdomen PEG entry site wo drainage or redness Extremity: COMMON NORMALS: no joint enlargement and no pedal edema Neuro: COMMON NORMALS: moves all extremities SENSORIUM/ORIENTATION: Yes alert Skin: COMMON NORMALS: no rashes or lesions noted GENERAL SKIN EXAM: no rashes or lesions noted Urinary Catheter Management: Grier: Cath Placed During This Visit: yes Reason for Continuing Indwelling Catheter: Accurate Measurement of Urinary Output in Critically Ill Patients Urinary Catheter Date of Insertion: 11/18/22 Urinary Catheter Time of Insertion: 15:25 TS Data Studies Completed and Pending Pending at discharge Category Date Time Status Complete Blood Count w/Auto AM LABS Lab 12/01/22 04:00 Ordered Complete Blood Count w/Auto AM LABS Lab 12/02/22 04:00 Ordered Comprehensive Metabolic Panel AM LABS Lab 12/01/22 04:00 Ordered Comprehensive Metabolic Panel AM LABS Lab 12/02/22 04:00 Ordered Labs from last 24 hours 11/30/22 11/30/22 11/30/22 07:00 06:44 06:44 WBC RBC Hgb Hct MCV MCH MCHC RDW Plt Count MPV Neut % (Auto) Lymph % (Auto) [place] % (Auto) Eos % (Auto) Baso % (Auto) Neut # (Auto) Lymph # (Auto) [place] # (Auto) Eos # (Auto) Baso # (Auto) Nucleated RBC % (auto) Nucleated RBCs # APTT 60.8 H D Sodium 137 Potassium 2.9 L Chloride 103 Carbon Dioxide 26 Anion Gap 10.9 BUN 12 Creatinine 0.3 L GFR Calculation 302.8 H Glucose 183 H POC Glucose 210 H Calculated Osmolality 288 Calcium 7.4 L Total Bilirubin 0.5 AST 40 ALT 95 H Alkaline Phosphatase 76 Total Protein 5.1 L Albumin 2.4 L Globulin 2.7 11/30/22 11/29/22 11/29/22 06:44 23:58 20:51 WBC 7.6 RBC 3.58 L Hgb 11.0 L Hct 34.7 L MCV 96.9 H MCH 30.7 MCHC 31.7 RDW 13.6 Plt Count 116 L MPV 11.6 H Neut % (Auto) 89.5 Lymph % (Auto) 4.2 [place] % (Auto) 4.5 Eos % (Auto) 0.7 Baso % (Auto) 0.4 Neut # (Auto) 6.78 Lymph # (Auto) 0.3 L [place] # (Auto) 0.3 Eos # (Auto) 0.1 Baso # (Auto) 0.0 Nucleated RBC % (auto) 0 Nucleated RBCs # 0.0 APTT 39.8 H Sodium Potassium Chloride Carbon Dioxide Anion Gap BUN Creatinine GFR Calculation Glucose POC Glucose 152 H Calculated Osmolality Calcium Total Bilirubin AST ALT Alkaline Phosphatase Total Protein Albumin Globulin 11/29/22 17:15 WBC RBC Hgb Hct MCV MCH MCHC RDW Plt Count MPV Neut % (Auto) Lymph % (Auto) [place] % (Auto) Eos % (Auto) Baso % (Auto) Neut # (Auto) Lymph # (Auto) [place] # (Auto) Eos # (Auto) Baso # (Auto) Nucleated RBC % (auto) Nucleated RBCs # APTT Sodium Potassium Chloride Carbon Dioxide Anion Gap BUN Creatinine GFR Calculation Glucose POC Glucose 117 H Calculated Osmolality Calcium Total Bilirubin AST ALT Alkaline Phosphatase Total Protein Albumin Globulin Completed Studies During Hospitalization Category Date Time Status CT chest wo con [id number] Stat Cat Scan 11/19/22 01:[address] head wo con* [id number] Stat Cat Scan 11/18/22 19:54 Completed CTA chest [CT angio chest PE protcl [id number]] Stat Cat Scan 11/18/22 16:42 Completed CTA chest [CT angio chest PE protcl [id number]] Stat Cat Scan 11/19/22 01:22 Completed CXRP [XR chest 1V portable [id number]] Stat Exams 11/20/22 13:05 Completed XR chest 1V portable [id number] Q48H Exams 11/23/22 06:00 Completed XR chest 1V portable [id number] Q48H Exams 11/25/22 06:00 Completed XR chest 1V portable 17739 Q48H Exams 11/27/22 06:00 Completed XR chest 1V portable [id number] QAM Exams 11/20/22 06:00 Completed XR chest 1V portable [id number] QAM Exams 11/21/22 06:00 Completed XR chest 1V portable [id number] QAM Exams 11/22/22 06:00 Completed XR chest 1V portable [id number] Routine Exams 11/22/22 15:01 Completed XR chest 1V portable [id number] Stat Exams 11/18/22 15:15 Completed XR chest 1V portable [id number] Stat Exams 11/18/22 18:22 Completed XR chest 1V portable [id number] Stat Exams 11/18/22 22:00 Completed XR chest 1V portable [id number] Stat Exams 11/19/22 09:43 Completed XR chest 1V portable [id number] Stat Exams 11/20/22 12:34 Completed XR chest 1V portable [id number] Stat Exams 11/22/22 14:02 Completed XR chest 1V portable [id number] Stat Exams 11/22/22 16:41 [place] [id number] Routine Ultrasound 11/26/22 13:56 Completed CV. echo w/w bubble cont [id number] Stat Ultrasound 11/19/22 01:27 Completed Laboratory Last Values WBC 7.6 10^3/uL (4.0-10.0) 11/30/22 06:44 RBC 3.58 10^6/uL (4.1-5.3) L 11/30/22 06:44 Hgb 11.0 g/dL (11.7-16.6) L 11/30/22 06:44 Hct 34.7 % (42.0-52.0) L 11/30/22 06:44 MCV 96.9 fl (80-94) H 11/30/22 06:44 MCH 30.7 pg (28.0-34.0) 11/30/22 06:44 MCHC 31.7 g/dL (30.0-36.0) 11/30/22 06:44 RDW 13.6 % (12.1-15.1) 11/30/22 06:44 Plt Count 116 10^3/cmm (130-400) L 11/30/22 06:44 MPV 11.6 fL (7.4-10.4) H 11/30/22 06:44 Neut % (Auto) 89.5 % 11/30/22 06:44 Lymph % (Auto) 4.2 % 11/30/22 06:44 [place] % (Auto) 4.5 % 11/30/22 06:44 Eos % (Auto) 0.7 % 11/30/22 06:44 Baso % (Auto) 0.4 % 11/30/22 06:44 Neut # (Auto) 6.78 10^3/uL (1.8-7.7) 11/30/22 06:44 Lymph # (Auto) 0.3 10^3/uL (0.8-4.8) L 11/30/22 06:44 [place] # (Auto) 0.3 10^3/uL (0.2-0.9) 11/30/22 06:44 Eos # (Auto) 0.1 10^3/uL (0.0-0.8) 11/30/22 06:44 Baso # (Auto) 0.0 10^3/uL (0.0-0.1) 11/30/22 06:44 Nucleated RBC % (auto) 0 % 11/30/22 06:44 Nucleated RBCs # 0.0 /100WBC 11/30/22 06:44 PT 14.20 SECONDS (12.1-14.9) 11/18/22 15:24 INR 1.07 (0.8-1.2) 11/18/22 15:24 APTT 60.8 SECONDS (23.9-36.7) H D 11/30/22 06:44 Specimen Type Arterial 11/26/22 03:26 Sample Site Radial, right 11/26/22 03:26 ABG pH 7.49 (7.35-7.45) H 11/26/22 03:26 ABG pCO2 43.8 mmHg (35-45) 11/26/22 03:26 ABG pO2 78.2 mmHg (80.0-100.0) L 11/26/22 03:26 ABG HCO3 33.6 mmol/L (22-26) H 11/26/22 03:26 ABG O2 Saturation 97.6 11/26/22 03:26 ABG Base Excess 9.2 mmol/L (-2.0-2.0) H 11/26/22 03:26 Vinod Test Pos 11/26/22 03:26 A-a O2 Gradient 10.3 mmHg (5-10) H 11/26/22 03:26 Hematocrit 34.4 % (42-52) L 11/26/22 03:26 Hgb O2 Saturation 95.5 % (95-100) 11/26/22 03:26 Carboxyhemoglobin 1.4 %THgb (0.4-20.1) 11/26/22 03:26 Methemoglobin 0.7 % (0.4-1.5) 11/26/22 03:26 Total Hemoglobin 11.2 g/dL (14-18) L 11/26/22 03:26 Sodium 138.0 mmol/L (131-143) 11/26/22 03:26 Potassium 3.9 mmol/L (3.5-5.0) 11/26/22 03:26 Glucose 123.0 mg/dL (70-115) H 11/26/22 03:26 Ionized Calcium 1.1 mmol/L (1.1-1.4) 11/26/22 03:26 O2 Delivery Device Vent 11/26/22 03:26 FiO2 30.0 % 11/26/22 03:26 Tidal Volume 0.45 11/26/22 03:26 PEEP 5.0 cmH20 11/26/22 03:26 Exchange Underwriting Consultant ID Homar 11/26/22 03:26 Sodium 137 mmol/L (136-145) 11/30/22 06:44 Potassium 2.9 mmol/L (3.5-5.1) L 11/30/22 06:44 Chloride 103 mmol/L (98-107) 11/30/22 06:44 Carbon Dioxide 26 mmol/L (22-29) 11/30/22 06:44 Anion Gap 10.9 (5-19) 11/30/22 06:44 BUN 12 mg/dL (8-23) 11/30/22 06:44 Creatinine 0.3 mg/dL (0.7-1.2) L 11/30/22 06:44 GFR Calculation 302.8 mL/min (90-130) H 11/30/22 06:44 Glucose 183 mg/dL (65-115) H 11/30/22 06:44 POC Glucose 210 mg/dL (70-110) H 11/30/22 07:00 Estimat Average Glucose 117 11/20/22 02:32 Hemoglobin A1c 5.7 % (4.0-6.0) 11/20/22 02:32 Calculated Osmolality 288 mOsm/kg (285-295) 11/30/22 06:44 Calcium 7.4 mg/dL (8.5-10.5) L 11/30/22 06:44 Phosphorus 2.2 mg/dL (2.5-4.5) L 11/25/22 03:18 Magnesium 2.2 mg/dL (1.7-2.3) 11/25/22 03:18 Iron 79 ug/dL (59-158) 11/19/22 01:45 TIBC 177 mcg/dl 11/19/22 01:45 % Saturation 44.6 % (20-50) 11/19/22 01:45 Unsat Iron Binding 98 ug/dL (112-347) L 11/19/22 01:45 Total Bilirubin 0.5 mg/dL (0.15-1.2) 11/30/22 06:44 AST 40 U/L (0-40) 11/30/22 06:44 ALT 95 U/L (0-41) H 11/30/22 06:44 Alkaline Phosphatase 76 U/L (40-130) 11/30/22 06:44 Troponin T Gen 5 ng/L 60 ng/L (0-15) H 11/26/22 03:00 Troponin T Baseline 27 ng/L (0-15) H 11/18/22 15:24 Troponin T 120 Minute 22.74 ng/L (0-15) H 11/18/22 17:39 Delta Troponin T -4.26 ABS# (0-10) L 11/18/22 17:39 Troponin T Hi Sens 6Hr 26.61 ng/L (0-15) H 11/18/22 21:29 Troponin T Hi Sens 6Hr Delta -0.39 ng/L (0-12) L 11/18/22 21:29 NT-Pro-B Natriuret Pep 305 pg/mL (0-125) H 11/18/22 15:24 Total Protein 5.1 g/dL (6.6-8.7) L 11/30/22 06:44 Albumin 2.4 g/dL (3.5-5.2) L 11/30/22 06:44 Globulin 2.7 g/dL (1.3-4.6) 11/30/22 06:44 Vitamin B12 639 pg/mL (232-1245) 11/19/22 01:45 Folate 4.1 ng/mL (4.5-32.2) L 11/20/22 02:32 Procalcitonin 0.16 ng/mL (0-0.5) 11/19/22 03:25 TSH 7.60 uIU/mL (0.27-4.20) H 11/19/22 03:25 Free T4 1.24 ng/dL (0.82-1.77) 11/19/22 01:45 Free T3 1.7 PG/ML (2.0-4.4) L 11/19/22 01:45 Urine Color Yellow (Yellow) 11/18/22 20:00 Urine Appearance Clear (CLEAR) 11/18/22 20:00 Urine pH 7 (5-7) 11/18/22 20:00 Ur Specific [place] 1.005 (1.005-1.030) 11/18/22 20:00 Urine Protein Trace (Negative) 11/18/22 20:00 Urine Glucose (UA) Norm (Normal) 11/18/22 20:00 Urine Ketones Negative (Negative) 11/18/22 20:00 Urine Blood 2+ (Negative) H 11/18/22 20:00 Urine Nitrate Negative (Negative) 11/18/22 20:00 Urine Bilirubin Neg (Negative) 11/18/22 20:00 Urine Urobilinogen Norm mg/dL (Negative) 11/18/22 20:00 Ur Leukocyte Esterase Negative (Negative) 11/18/22 20:00 Urine RBC 0-4 /hpf (0-2) H 11/18/22 20:00 Urine WBC 0-4 /hpf (0-5) H 11/18/22 20:00 Ur Squamous Epith Cells 0-4 /hpf (0-5) H 11/18/22 20:00 Amorphous Sediment Not Reportable 11/18/22 20:00 Urine Bacteria Trace /hpf (NONE) 11/18/22 20:00 Nasal Influ A H1 2009 PCR Not detected (NOT DETECT) 11/19/22 02:49 Vancomycin Trough 18.7 ug/mL (10-15) H 11/27/22 08:47 Adenovirus (PCR) Not detected (NOT DETECT) 11/19/22 02:49 C. pneumoniae DNA (PCR) Not detected (NOT DETECT) 11/19/22 02:49 Coronavirus 229E (PCR) Not detected (NOT DETECT) 11/19/22 02:49 Human Metapneumovir PCR Not detected (NOT DETECT) 11/19/22 02:49 Influenza A (H1) PCR Not detected (NOT DETECT) 11/19/22 02:49 Influenza A (H3) PCR Not detected (NOT DETECT) 11/19/22 02:49 Influenza Type A (PCR) Not detected (NOT DETECT) 11/19/22 02:49 Influenza Type B (PCR) Not detected (NOT DETECT) 11/19/22 02:49 M. pneumoniae (PCR) Not detected (NOT DETECT) 11/19/22 02:49 Parainfluenza 1 (PCR) Not detected (NOT DETECT) 11/19/22 02:49 Parainfluenza 2 (PCR) Not detected (NOT DETECT) 11/19/22 02:49 Parainfluenza 3 (PCR) Not detected (NOT DETECT) 11/19/22 02:49 Parainfluenza 4 (PCR) Not detected (NOT DETECT) 11/19/22 02:49 RSV Type A (PCR) Not detected (NOT DETECT) 11/19/22 02:49 RSV Type B (PCR) Not detected (NOT DETECT) 11/19/22 02:49 Entero/Rhino (PCR) Not detected (NOT DETECT) 11/19/22 02:49 SARS-CoV-2 (PCR) Not detected (NOT DETECT) 11/19/22 02:[address] 11/18/22 19:54 IMPRESSION: No acute intracranial abnormality. Chest CTA 11/19/22 01:22 IMPRESSION: 1. There is no evidence for pulmonary emboli. 2. Mucosal irregularities are seen in the right and left primary bronchi with irregular narrowing of the left upper and lower lobar bronchi and inspissation of left lower lobe bronchi, findings that may represent bronchitis. Chest CT 11/19/22 01:31 IMPRESSION: 1. Findings compatible with acute left bronchitis with bronchial wall thickening seen within the left mainstem and s lobar bronchi and inspissation of the segmental bronchi of the left lower lobe. 2. Strandy and patchy opacities in the left posterior costophrenic recess likely represents atelectasis. Chest X-Ray 11/27/22 06:00 IMPRESSION: increasing basilar changes since previous study. Recent Clincial Data Last Vital Signs Temp 98.5 F 11/29/22 09:30 Pulse 80 11/30/22 09:00 Resp 26 H 11/30/22 08:14 BP 170/96 11/30/22 09:00 Pulse Ox 98 11/30/22 09:00 O2 Del Method Mechanical Ventilation 11/30/22 08:00 O2 Flow Rate 30 11/27/22 13:35 FiO2 30 11/30/22 08:14 Vital Signs Pulse Resp BP Pulse Ox O2 Del Method FiO2 11/30/22 09:00 80 170/96 98 11/30/22 08:30 84 188/97 94 11/30/22 08:00 74 163/87 11/30/22 07:30 75 163/87 98 11/30/22 07:00 75 169/99 98 11/30/22 06:30 81 169/99 96 11/30/22 08:00 30 11/30/22 08:00 84 11/30/22 08:29 84 11/30/22 08:14 26 H 91 30 11/30/22 08:00 83 26 H 91 Mechanical Ventilation 30 11/30/22 06:00 72 169/99 99 11/30/22 05:30 71 158/86 98 11/30/22 05:00 79 158/86 98 11/30/22 06:00 77 11/30/22 04:30 74 166/90 98 11/30/22 04:00 80 166/90 97 11/30/22 03:30 82 165/82 97 11/30/22 03:00 79 155/82 97 11/30/22 02:30 83 155/82 95 11/30/22 02:00 67 155/82 98 11/30/22 01:30 67 172/90 97 11/30/22 01:00 72 172/90 95 11/30/22 00:30 73 167/83 95 11/30/22 00:00 63 167/83 99 11/29/22 23:30 62 153/89 99 11/29/22 23:00 65 153/89 99 11/29/22 22:30 64 162/87 98 11/30/22 01:25 14 96 30 11/30/22 01:24 67 15 96 Mechanical Ventilation 30 11/29/22 23:00 19 H 99 30 Intake & Output/Weight 11/28/22 11/29/22 11/30/22 12/01/22 06:59 06:59 06:59 06:59 Intake Total 1236.485 / 1236.485 905.322 / 255.807 5130.844 / 3062.844 460.4 / 460.4 Output Total 1150 / 1150 1525 / 1525 1350 / 1350 Balance 86.485 / 86.485 -619.678 / -748.478 6136.844 / 1712.844 460.4 / 460.4 Weight 74.389 kg 77.564 kg 77.564 kg Vitals Last Vital Signs Temp 98.5 F 11/29/22 09:30 Pulse 80 11/30/22 09:00 Resp 26 H 11/30/22 08:14 BP 170/96 11/30/22 09:00 Pulse Ox 98 11/30/22 09:00 O2 Del Method Mechanical Ventilation 11/30/22 08:00 O2 Flow Rate 30 11/27/22 13:35 FiO2 30 11/30/22 08:14 TS Medications Medications Active Medications Acetaminophen (Acetaminophen 325 Mg Tablet) 650 mg PO Q6H PRN PRN Reason: Mild/Mod Pain Or Temp >/= 101 Hydrocodone Bitart/Acetaminophen (Hydrocodone-Acetaminophen 7.5-325 Mg Tablet) 1 tab PO TID PRN PRN Reason: MODERATE Pain Last Admin: 11/27/22 18:39 Dose: 1 tab Albuterol/Ipratropium (Ipratropium-Albuterol 3 Ml Neb) 3 ml INHALATION Q6H.RESP WAYNE Last Admin: 11/30/22 08:08 Dose: 3 ml Budesonide (Budesonide 0.5 Mg/2 Ml Neb) 0.5 mg INHALATION BID [facility] Last Admin: 11/30/22 08:08 Dose: 0.5 mg Camphor/Menthol/Phenol (Blistex Lip Oint 7 Gm Tube) 1 applic TOPICAL PRN PRN PRN Reason: DRYNESS Last Admin: 11/29/22 05:39 Dose: 1 applic Carvedilol (Carvedilol 6.25 Mg Tablet) 6.25 mg PO BID [facility] Chlorhexidine Gluconate (Chlorhexidine Gluconate 4% Btl 118 Ml) 1 applic TOPICAL Q24H [facility] Last Admin: 11/30/22 01:01 Dose: Not Given Citalopram Hydrobromide (Citalopram 20 Mg Tablet) 20 mg PO DAILY [facility] Last Admin: 11/30/22 08:01 Dose: 20 mg Dextrose (Dextrose 50% Syringe 50 Ml) 50 ml IVP PRN PRN; Protocol PRN Reason: hypoglycemia protocol Dextrose (Dextrose 50% Syringe 50 Ml) 25 ml IVP ONCE PRN; Protocol PRN Reason: hypoglycemia protocol Donepezil HCl (Donepezil 5 Mg Tablet) 10 mg PO BEDTIME [facility] Last Admin: 11/29/22 20:58 Dose: 10 mg Enoxaparin Sodium (Enoxaparin 80 Mg/0.8 Ml Syringe) 80 mg SUBCUT Q12H [facility] Last Admin: 11/30/22 10:28 Dose: 80 mg Folic Acid (Folic Acid 1 Mg Tablet) 1 mg PO BID [facility] Last Admin: 11/30/22 08:01 Dose: 1 mg Glucagon (Glucagon 1 Mg/Ml Inj 1 Ml) 1 mg IM ONCE PRN; Protocol PRN Reason: Adult Acute Hypoglycemia Prot. Hydromorphone HCl (Hydromorphone 1 Mg/Ml Inj 1 Ml) 0.5 mg IVP Q4H PRN PRN Reason: SEVERE PAIN Last Admin: 11/30/22 10:28 Dose: 0.5 mg Dextrose (D5w) 500 mls @ 100 mls/hr IV ONCE PRN; Protocol PRN Reason: Adult Acute Hypoglycemia Prot Dexmedetomidine HCl 400 mcg/ (Sodium Chloride) 104 mls @ 0 mls/hr IV .Q0M [facility]; Protocol Last Admin: 11/30/22 04:32 Dose: 0.4 mcg/kg/hr, 7.72 mls/hr Vancomycin HCl 1,000 mg/ (Sodium Chloride) 250 mls @ 250 mls/hr IV Q8H [facility]; Protocol Last Infusion: 11/30/22 08:41 Dose: Infused Dextrose/Sodium Chloride (Dextrose 5%-Sod Chloride 0.9%) 1,000 mls @ 75 mls/hr IV .[id number] [facility] Last Admin: 11/30/22 07:05 Dose: 75 mls/hr Lidocaine HCl 5 ml/ Potassium (Chloride) 105 mls @ 26.25 mls/hr IV ONCE ONE Stop: 11/30/22 12:02 Last Admin: 11/30/22 08:36 Dose: 26.25 mls/hr Insulin Human Lispro (Insulin Lispro 100 Unit/1 Ml) 0 unit SUBCUT WM&BEDTIME [facility]; Protocol Last Admin: 11/30/22 08:00 Dose: 4 unit Magnesium Hydroxide (Magnesium Hydroxide 30 Ml Udc) 30 ml PO BEDTIME [facility] Last Admin: 11/29/22 20:38 Dose: Not Given Ondansetron HCl (Ondansetron 2 Mg/Ml Sdv 2 Ml) 4 mg IVP Q8H PRN PRN Reason: vomiting, or N/V if npo Last Admin: 11/29/22 10:00 Dose: 4 mg Pantoprazole Sodium (Pantoprazole 40 Mg Sdv) 40 mg IVP DAILY [facility] Last Admin: 11/30/22 08:01 Dose: 40 mg Saliva Substitute (Saliva Stimulant [place] 44.3 Ml Btl) 1 spray MUCOUS MEM PRN PRN PRN Reason: DRY MOUTH Last Admin: 11/28/22 22:10 Dose: 1 spray Discontinued Medications Hydrocodone Bitart/Acetaminophen (Hydrocodone-Acetaminophen 7.5-325 Mg Tablet) 1 tab PO ONCE ONE Stop: 11/20/22 09:31 Last Admin: 11/20/22 09:46 Dose: 1 tab Albuterol/Ipratropium (Ipratropium-Albuterol 3 Ml Neb) 3 ml INHALATION ONCE ONE Stop: 11/19/22 02:20 Last Admin: 11/19/22 02:30 Dose: 3 ml Clonazepam (Clonazepam 0.5 Mg Tablet) 0.5 mg PO ONCE ONE Stop: 11/20/22 09:30 Last Admin: 11/20/22 10:14 Dose: 0.5 mg Clonazepam (Clonazepam 0.5 Mg Tablet) 0.25 mg PO Q12H PRN PRN Reason: Anxiety Clonazepam (Clonazepam 0.5 Mg Tablet) 0.5 mg PO Q12H PRN PRN Reason: ANXIETY Clonazepam (Clonazepam 0.5 Mg Tablet) 0.5 mg PO TID PRN PRN Reason: ANXIETY Last Admin: 11/27/22 20:32 Dose: 0.5 mg Dexamethasone (Dexamethasone 10 Mg/Ml Inj) 6 mg IVP Q24H [facility] Last Admin: 11/19/22 07:38 Dose: 6 mg Dexamethasone (Dexamethasone 10 Mg/Ml Inj) 15 mg IVP Q24H [facility] Last Admin: 11/24/22 09:14 Dose: 15 mg Dexamethasone (Dexamethasone 10 Mg/Ml Inj) 6 mg IVP Q24H [facility] Last Admin: 11/26/22 08:15 Dose: 6 mg Enoxaparin Sodium (Enoxaparin 80 Mg/0.8 Ml Syringe) 70 mg SUBCUT ONCE ONE Stop: 11/18/22 15:21 Last Admin: 11/18/22 15:49 Dose: 70 mg Enoxaparin Sodium (Enoxaparin 40 Mg/0.4 Ml Syringe) 40 mg SUBCUT Q24H [facility] Enoxaparin Sodium (Enoxaparin 100 Mg/Ml Syringe) 70 mg 1 mg/kg (70 mg) SUBCUT Q12H [facility] Last Admin: 11/19/22 03:47 Dose: Not Given Etomidate (Etomidate 2 Mg/Ml Inj Sdv 10 Ml) 30 mg IVP NOW ONE Stop: 11/20/22 12:48 Last Admin: 11/20/22 12:57 Dose: 30 mg Fentanyl (Fentanyl 50 Mcg/Ml Inj 2ml) Confirm Administered Dose 100 mcg .ROUTE .STK-MED ONE Stop: 11/27/22 14:26 Furosemide (Furosemide 10 Mg/Ml Sdv 2ml) 20 mg IVP ONCE ONE Stop: 11/25/22 12:42 Last Admin: 11/25/22 13:00 Dose: 20 mg Heparin Sodium (Porcine) (Heparin 5,000 Unit/Ml Inj 1 Ml) 0 unit IV PRN PRN; Protocol PRN Reason: Heparin weight-base protocol Heparin Sodium (Porcine) (Heparin 5,000 Unit/Ml Inj 1 Ml) 0 unit IV PRN PRN; Protocol PRN Reason: Heparin weight-base protocol Last Admin: 11/30/22 00:48 Dose: 3,100 unit Propofol (Diprivan) Confirm Administered Dose 1,000 mg in 100 mls @ as directed .ROUTE .STK-MED ONE Stop: 11/18/22 15:08 Sodium Chloride (Sodium Chloride 0.9%) 1,000 mls @ 999 mls/hr IV .Q1H1M ONE Stop: 11/18/22 16:15 Last Infusion: 11/18/22 17:29 Dose: Infused Potassium Chloride/Sodium Chloride (Sodium Chlor 0.9% + Kcl 20 Meq) 20 meq in 1,000 mls @ 75 mls/hr IV .[id number] [facility] Last Infusion: 11/19/22 03:30 Dose: 0 mls/hr Piperacillin Sod/Tazobactam (Sod 3.375 gm/ Sodium Chloride) 50 mls @ 12.5 mls/hr IV Q8H [facility]; Protocol Stop: 11/23/22 18:44 Last Infusion: 11/23/22 15:00 Dose: Infused Vancomycin HCl / Sodium (Chloride) 250 mls @ 0 mls/hr INY3OLAR PROTOCOL [facility]; Protocol Vancomycin/PEG/[place]/Lysine/Water (Vancocin) 1,250 mg in 250 mls @ 250 mls/hr IV Q12H [facility] Last Infusion: 11/20/22 15:41 Dose: Infused Sodium Chloride (Sodium Chloride 0.9%) 1,000 mls @ 75 mls/hr IV .[id number] [facility] Last Infusion: 11/20/22 10:42 Dose: 0 mls/hr Potassium Phosphate 40 meq/ (Sodium Chloride) 109.0909 mls @ 27.25 mls/hr IV ONCE ONE Stop: 11/19/22 06:23 Last Infusion: 11/19/22 07:30 Dose: Infused Fentanyl 1,000 mcg/ Sodium (Chloride) 100 mls @ 0 mls/hr IV .Q0M [facility]; Protocol Last Titration: 11/22/22 00:40 Dose: Infused Lidocaine HCl 5 ml/ Potassium (Chloride) 105 mls @ 26.25 mls/hr IV Q12H [facility] Stop: 11/20/22 20:59 Last Infusion: 11/20/22 22:39 Dose: Infused Etomidate (Amidate) Confirm Administered Dose 20 mls @ as directed .ROUTE .STK-MED ONE Stop: 11/20/22 12:50 Fentanyl 2,500 mcg/ Sodium (Chloride) 250 mls @ 0 mls/hr IV .Q0M [facility]; Protocol Last Titration: 11/28/22 20:51 Dose: Infused Dextrose/Sodium Chloride (Dextrose 5%-Sod Chloride 0.45%) 1,000 mls @ 75 mls/hr IV .[id number] [facility] Last Infusion: 11/24/22 09:53 Dose: Infused Potassium Phosphate 15 mmol/ (Sodium Chloride) 105 mls @ 47 mls/hr IV ONCE ONE Stop: 11/22/22 12:19 Last Infusion: 11/22/22 12:57 Dose: Infused Vancomycin HCl 1,000 mg/ (Sodium Chloride) 250 mls @ 250 mls/hr IV Q8H [facility]; Protocol Vancomycin HCl 1,000 mg/ (Sodium Chloride) 250 mls @ 250 mls/hr IV Q8H [facility]; Protocol Last Admin: 11/27/22 19:31 Dose: Not Given Heparin Sodium/Sodium Chloride (Heparin Drip) 25,000 unit in 500 mls @ 0 mls/hr IV .Q0M [facility]; Protocol Last Titration: 11/28/22 20:51 Dose: Infused Heparin Sodium/Sodium Chloride (Heparin Drip) 25,000 unit in 500 mls @ 0 mls/hr IV .Q0M [facility]; Protocol Last Titration: 11/30/22 07:30 Dose: 15.47 unit/kg/hr, 24 mls/hr Iohexol (Iohexol 350 Mg/Ml 500 Ml Btl (Per Ml)) 0 ml IV ONCE ONE Stop: 11/18/22 17:56 Last Admin: 11/18/22 17:55 Dose: 91 ml Iohexol (Iohexol 350 Mg/Ml 500 Ml Btl (Per Ml)) 0 ml IV ONCE ONE Stop: 11/19/22 01:51 Lidocaine/Epinephrine (Lidocaine-Epi 2% 1.7ml Cartridge (Or Only)) Confirm Administered Dose 5.1 ml .ROUTE .STK-MED ONE Stop: 11/27/22 14:59 Lidocaine/Epinephrine (Lidocaine-Epi 2% 1.7ml Cartridge (Or Only)) 3.4 ml XX ONCE ONE Stop: 11/27/22 16:05 Last Admin: 11/27/22 15:00 Dose: 3.4 ml Magnesium Hydroxide (Magnesium Hydroxide 30 Ml Udc) 30 ml PO ONCE ONE Stop: 11/22/22 10:06 Last Admin: 11/22/22 10:29 Dose: 30 ml Methylprednisolone Sodium Succinate (Methylprednisolone Sod Succ 125 Mg/2 Ml Inj) 60 mg IVP ONCE ONE Stop: 11/19/22 02:21 Last Admin: 11/19/22 04:01 Dose: Not Given Methylprednisolone Sodium Succinate (Methylprednisolone Sod Succ 40 Mg Sdv) 60 mg IVP ONCE ONE Stop: 11/19/22 03:46 Last Admin: 11/19/22 03:56 Dose: 60 mg Midazolam HCl (Midazolam 1 Mg/Ml Inj 5 Ml) Confirm Administered Dose 5 mg .ROUTE .STK-MED ONE Stop: 11/27/22 14:27 Potassium Chloride (Potassium Chloride Er 20 Meq Tablet) 80 meq PO ONCE ONE Stop: 11/20/22 09:24 Last Admin: 11/20/22 09:46 Dose: 80 meq Propofol (Propofol 10 Mg/Ml Sdv 20 Ml) Confirm Administered Dose 400 mg .ROUTE .STK-MED ONE Stop: 11/28/22 13:46 Rivaroxaban (Rivaroxaban 10 Mg Tablet) 20 mg PO DAILY [facility] Rocuronium [place] (Rocuronium 10 Mg/Ml Inj 5ml) 70 mg IVP Q1H PRN PRN Reason: ANESTHESIA Last Admin: 11/22/22 17:00 Dose: 70 mg Rocuronium [place] (Rocuronium 10 Mg/Ml Inj 5ml) Confirm Administered Dose 100 mg .ROUTE .STK-MED ONE Stop: 11/22/22 16:30 Rocuronium [place] (Rocuronium 10 Mg/Ml Inj 5ml) Confirm Administered Dose 100 mg .ROUTE .STK-MED ONE Stop: 11/22/22 16:32 Rocuronium [place] (Rocuronium 10 Mg/Ml Inj 5ml) Confirm Administered Dose 50 mg .ROUTE .STK-MED ONE Stop: 11/27/22 14:25 Rocuronium [place] (Rocuronium 10 Mg/Ml Inj 5ml) Confirm Administered Dose 50 mg .ROUTE .STK-MED ONE Stop: 11/27/22 14:27 Vecuronium [place] (Vecuronium 10 Mg Sdv) 10 mg IVP ONCE ONE Stop: 11/20/22 12:47 Last Admin: 11/20/22 12:56 Dose: 10 mg Vecuronium [place] (Vecuronium 10 Mg Sdv) Confirm Administered Dose 10 mg .ROUTE .STK-MED ONE Stop: 11/20/22 12:49 Allergies sulfamethoxazole [From Bactrim] Allergy (Severe, Verified 11/18/22 15:08) ALGY-Swell Lip/Tongue/Throat trimethoprim [From Bactrim] Allergy (Severe, Verified 11/18/22 15:08) ALGY-Swell Lip/Tongue/Throat gabapentin Allergy (Verified 11/18/22 15:08) Unknown Home Medications rivaroxaban 20 mg tablet (Xarelto) 20 mg PO DAILY ankle blood clot #30 tabs 08/23/22 [Rx Confirmed 11/18/22] triamterene 37.5 mg-hydrochlorothiazide 25 mg tablet 1 tab PO QAM blood pressure and edema #30 tabs 08/23/22 [Rx Confirmed 11/18/22] hydrocodone 7.5 mg-acetaminophen 325 mg tablet 1 tab PO DAILY PRN pain 30 days #90 tabs 10/24/22 [Rx Confirmed 11/18/22] amlodipine 10 mg tablet 10 mg PO QAM high blood pressure 11/02/22 [History Confirmed 11/18/22] clotrimazole-betamethasone 1 %-0.05 % topical cream 1 applic topical BID PRN psoriasis 11/02/22 [History Confirmed 11/18/22] hydrocodone 7.5 mg-acetaminophen 325 mg tablet 1 tab PO TID PRN Pain 11/02/22 [History Confirmed 11/18/22] naproxen 500 mg tablet 500 mg PO BID PRN Pain 11/02/22 [History Confirmed 11/18/22] phosphorated carbohydrate oral solution (Emetrol oral solution) 15 - 30 ml PO Q15M PRN stomach muscle contractions 11/02/22 [History Confirmed 11/18/22] bedside #1 ea 11/08/22 [Rx Confirmed 11/18/22] clonazepam 0.5 mg tablet 0.25 mg PO Q12H PRN Anxiety 11/14/22 [History Confirmed 11/18/22] acetaminophen 325 mg tablet (Tylenol) 325 - 650 mg PO Q6H PRN Pain 11/18/22 [History Confirmed 11/18/22] bisacodyl 5 mg tablet 10 mg PO DAILY PRN Constipation 11/18/22 [History Confirmed 11/18/22] carvedilol 6.25 mg tablet 6.25 mg PO BID 11/18/22 [History Confirmed 11/18/22] thiamine HCl (vitamin B1) 100 mg tablet (Vitamin B-1) 100 mg PO DAILY 11/18/22 [History Confirmed 11/18/22] Discharge Plan Discharge Patient Disposition: Xfer LT Condition: Stable Prescriptions: No Action clonazepam 0.5 mg tablet 0.25 mg PO Q12H PRN (Reason: Anxiety) Rx Instructions: On or after 30 day intervals triamterene-hydrochlorothiazid 37.5-25 mg tablet 1 tab PO QAM Qty: 30 5RF Xarelto 20 mg tablet 20 mg PO DAILY Qty: 30 5RF Rx Instructions: 340B medication (rx last filled 08/23/22 30d/s has 5 refills) hydrocodone-acetaminophen 7.5-325 mg tablet 1 tab PO DAILY PRN (Reason: pain) 30 Days Qty: 90 0RF Rx Instructions: Refill on or after 30-day interval (DME) bedside See Rx Instructions .Route .MEDSUPPLY Qty: 1 0RF Rx Instructions: As directed amlodipine 10 mg tablet 10 mg PO QAM clotrimazole-betamethasone 1-0.05 % cream 1 applic topical BID PRN (Reason: psoriasis) Rx Instructions: 340 B Medication naproxen 500 mg tablet 500 mg PO BID PRN (Reason: Pain) Emetrol Solution 15 - 30 ml PO Q15M PRN (Reason: stomach muscle contractions) hydrocodone-acetaminophen [[place]] 7.5-325 mg Tablet 1 tab PO TID PRN (Reason: Pain) Tylenol 325 mg Tablet 325 - 650 mg PO Q6H PRN (Reason: Pain) carvedilol 6.25 mg Tablet 6.25 mg PO BID Rx Instructions: must administer with a meal/food Vitamin B-1 100 mg Tablet 100 mg PO DAILY bisacodyl 5 mg Tablet 10 mg PO DAILY PRN (Reason: Constipation) Rx Instructions: use if miralax doesnt work after 24 hours Discharge Orders: Transfer Out of Facility (Order); Ordered 11/30/22 Ordered By: Nestor Reina Referrals: Jesse Rios MD [Physician] - Yvan Cervantes MD [Primary Care Provider] - Patient Instructions: GI Discharge Instructions, Opioid Safety Transfer Attestations Time Spent in Transfer Care: greater than 30 min Quality Metrics Clinical Quality Measures [ No reported AMI, CVA or VTE this stay] Coding Level of Care Code Acute Code for Chg Fwd Diagnoses Respiratory failure J96.90 DVT (deep venous thrombosis) I82.409 Amyotrophic lateral sclerosis G12.21 Hypokalemia E87.6 Hypertension I10 Hypernatremia E87.0
[2022-11-30] MEDS: enoxaparin 80 mg/0.8 mL Syringe SUBCUT (10:28)
[2022-11-30] MEDS: HYDROmorphone 1 mg/mL INJ 1 mL 0.5 MG IVP (10:28)
--- NOTE | 2022-11-30 12:31 | PC.NURSE ---
report given to select and transfered per [facility] ambulance crew
--- NOTE | 2022-12-23 13:22 | PC.NURSE ---
Home Medications: still in Pyxis. Called the son, Robert Becker, at [phone]. Son to come by to ICU to retrieve his foather's meds when he comes through [place].
== END 2022-11-30 12:35 | DRG 4 ==
LOC: ER 15:49 → ICU 17:42
PROVIDERS: Internal Medicine; Otolaryngology; Student in an Organized Health Care Education/Training Program; Surgery; Admitting Provider Internal Medicine; Emergency Provider Emergency Medicine; PCP Family Medicine Adult Medicine; Visit Provider Internal Medicine
PROC: 0B110F4 Bypass Trachea to Cutaneous with Tracheostomy Device, Open Approach (ICD-10-PCS; principal; 2022-11-27 14:10)
PROC: 0DH63UZ Insertion of Feeding Device into Stomach, Percutaneous Approach (ICD-10-PCS; CPT 43246; principal; 2022-11-28 11:00)
DX: G12.21 Amyotrophic lateral sclerosis (principal); J80 Acute respiratory distress syndrome; E87.0 Hyperosmolality and hypernatremia; I82.411 Acute embolism and thrombosis of right femoral vein; I82.431 Acute embolism and thrombosis of right popliteal vein; T85.638A Leakage of other specified internal prosthetic devices, implants and grafts, initial encounter; J40 Bronchitis, not specified as acute or chronic; B95.62 Methicillin resistant Staphylococcus aureus infection as the cause of diseases classified elsewhere; I10 Essential (primary) hypertension; F41.9 Anxiety disorder, unspecified; Z79.891 Long term (current) use of opiate analgesic; Z79.51 Long term (current) use of inhaled steroids; G89.29 Other chronic pain; I73.9 Peripheral vascular disease, unspecified; F17.200 Nicotine dependence, unspecified, uncomplicated; E86.0 Dehydration; E87.6 Hypokalemia; Y84.8 Other medical procedures as the cause of abnormal reaction of the patient, or of later complication, without mention of misadventure at the time of the procedure
CPT/HCPCS: 31500; 36415; 36416; 36569; 36600; 43246; 51702; 70450; 71045; 71250; 71275; 80048; 80051; 80053; 80202; 81001; 82330; 82607; 82746; 82803; 82805; 82962; 83036; 83540; 83550; 83735; 83880; 84100; 84145; 84295; 84439; 84443; 84481; 84484; 85025; 85610; 85730; 87040; 87070; 87077; 87086; 87186; 87205; 87486; 87581; 87633; 87641; 93005; 93970; 94002; 94003; 94640; 94669; 94799; 96365; 96366; 96372; 96376; 97110; 97162; 97165; 97530; 97535; 99291; C1751; C8929; C9113; J1100; J1170; J1644; J1650; J1815; J1940; J2250; J2405; J2543; J2704; J2920; J3010; J3370; J3480; J3490; J7030; J7042; J7050; J7060; J7626; J7799; Q9967